=== PATIENT | female | born 1940 | race Caucasian/White ===

== ENCOUNTER 2016-04-07 11:44 | Inpatient (IN) ==
[2016-04-07] MEDS ORDERED: Heparin 1,000 UNITS/500 mL NS 500 ML ONE (14:05)
[2016-04-07] MEDS ORDERED: *HR* Heparin 5,000 UNIT/ML VIAL ONE (14:32)
--- NOTE | 2016-04-07 14:38 | IR Procedure Note ---
Date of procedure: 04/07/16 Consent Obtained: Written consent Timeout: Correct patient and procedure verified, Time out performed, Skin prep completed Local anesthetic: Lidocaine 1% Indications: CRF infiltrated access Procedure Performed: Temp dialysis catheter placement Results/Findings: RIJ 15F temp dialysis catheter placement Complications: None; Tolerated procedure well (Monitor on floor)
[2016-04-07 15:52] LABS: Basophils # 0.1 K/mcL (0.0-0.2); Basophils % 1.1 %; Eosinophils # 0.1 K/mcL (0.0-0.6); Eosinophils % 2.7 %; Hematocrit 24.7 % (35.3-44.9); Hemoglobin 8.1 g/dL (11.5-15.4); Immature Granulocytes % 0.5 % (0-4); Lymphocytes # 0.9 K/mcL (0.6-4.6); Lymphocytes % 20.4 %; Mean Corpuscular HGB Conc 32.8 g/dL (31.6-35.5); Mean Corpuscular Hemoglobin 30.9 pg (28.0-33.3); Mean Corpuscular Volume 94.3 fL (83.0-100.0); Mean Platelet Volume 12.1 fL (9.4-12.4); Monocytes # 0.3 K/mcL (0.0-1.3); Monocytes % 7.8 %; Platelet Count 205 K/mcL (140-400); Red Blood Count 2.62 M/mcL (3.82-4.97); Red Cell Distribution Width 12.6 % (11.5-14.5); Segmented Neutrophils % 67.5 %
--- NOTE | 2016-04-07 15:58 | Emergency Department Note ---
Disposition Clinical Impression: Chronic kidney disease, stage 5 Disposition: Admitted As Inpatient Condition: Good Referrals: Lauren Calivllo MD [Primary Care Provider] - Forms: Work/School Release, ED Satisfaction Letter General Adult HPI - General Chief complaint: ED Recheck/Abnormal Lab/Rx Stated complaint: FISTULA PROBLEM Time Seen by Provider: 04/07/16 13:44 Source: patient Limitations: no limitations Nursing Notes Reviewed: Yes Vital Signs Reviewed: Yes - History of Present Illness HPI Narrative: Patient 75-year-old female was having problems with her fistula is here for dialysis catheter placement admission and dialysis. She has no acute complaints herself she was essentially here for dialysis catheter placement Pain Scale: 0 Associated symptoms: Reports: denies other symptoms - Related Data Home Medications Medication Instructions Recorded Confirmed Aspirin [Adult Low Dose Aspirin EC] 81 mg PO ONCE 06/02/15 09/09/15 Atorvastatin [Lipitor] 40 mg PO DAILY 06/02/15 09/09/15 Enalapril Maleate [Vasotec] 20 mg PO ONCE 06/02/15 09/09/15 Esomeprazole Magnesium [Nexium] 40 mg PO ONCE 06/02/15 09/09/15 Insulin Glargine,Hum.rec.anlog 36 unit SQ DAILY 06/02/15 09/09/15 [Lantus Solostar] Calcitriol [Rocaltrol] 0.25 mcg PO DAILY 09/09/15 09/09/15 Carvedilol [Coreg] 25 mg PO BID 09/09/15 09/09/15 Cholecalciferol (D-3) [Vitamin D] 1,000 unit PO DAILY 09/09/15 09/09/15 Ergocalciferol (VITAMIN D2) 50,000 unit PO GUTIERREZ 09/09/15 09/09/15 [Vitamin D2 (50,000 UNIT)] Fenofibrate Nanocrystallized 48 mg PO DAILY 09/09/15 09/09/15 [Tricor] Furosemide [Lasix] 40 mg PO DAILY 09/09/15 09/09/15 HydrALAZINE 25 mg PO Q6HR 09/09/15 09/09/15 Metolazone [Zaroxolyn] 5 mg PO DAILY 09/09/15 09/09/15 Warfarin [Coumadin] 3 mg PO 1800 07/26/16 07/26/16 Previous Rx's Medication Instructions Recorded Ferrous Sulfate [Iron] 325 mg PO DAILY #30 capsule.er 06/04/15 TraMADol [Ultram] 50 mg PO TID #14 tablet 10/23/15 Allergies Allergy/AdvReac Type Severity Reaction Status Date / Time No Known Allergies Allergy Verified 09/09/15 10:26 All systems ED: reviewed and negative except as stated. Constitutional: Denies: fever, chills, weakness Gastrointestinal: Denies: abdominal pain, nausea, vomiting Past Medical History - Past Medical History Source: patient, old records reviewed, obtained from family, nursing notes reviewed Medical history: Reports: CHF, diabetes, hyperlipidemia, hypertension, myocardial infarction Surgical history: Reports: other Psychiatric history: Reports: no psych history CRANE HOOKER history: Reports: no CRANE HOOKER history - Social History Smoking Status: Never smoker Smokeless Tobacco Status: No Alcohol use: Reports: none Drug use: Reports: none Physical Exam - General Limitations: no limitations General appearance: alert, in no apparent distress Course Vital Signs Temperature 97.4 F L 04/07/16 12:24 Pulse Rate 72 04/07/16 12:24 Respiratory Rate 16 04/07/16 12:24 Blood Pressure 152/70 04/07/16 12:24 O2 Sat by Pulse Oximetry 100 04/07/16 12:24 Temperature 97.4 F L 04/07/16 12:24 Pulse Rate 68 04/07/16 15:07 Respiratory Rate 18 04/07/16 15:07 Blood Pressure 183/75 04/07/16 15:07 O2 Sat by Pulse Oximetry 100 04/07/16 15:07 Oxygen Delivery Oxygen Delivery Room Air Medical Decision Making - [facility] Narrative Medical decision making narrative: Dr. Marrufo nephrology evaluated the patient in the ER he wants to withhold any antihypertensive medication for dialyzer now - Medical Records Medical records reviewed: Yes I reviewed the patient's medical records. - Lab Data Lab results reviewed: Yes I reviewed the patient's lab results.
[2016-04-07 16:02] LABS: INR 1.7; Prothrombin Time 18.5 Seconds (9.4-12.1)
[2016-04-07 16:04] LABS: Activated Partial Thrombo Time 97.5 Seconds (26.0-36.0)
[2016-04-07 16:05] LABS: Calcium 9.6 mg/dL (8.6-10.8)
[2016-04-07] MEDS ORDERED: *HR* Heparin 10,000 UNIT/10 ML VIAL IV PRN (16:12)
[2016-04-07] MEDS ORDERED: 0.9 % Sodium Chloride 250 ML IV PRN (16:12)
[2016-04-07] MEDS ORDERED: 0.9 % Sodium Chloride 1,000 ML PRIME SCH (16:15)
[2016-04-07] MEDS ORDERED: 0.9 % Sodium Chloride 2,000 ML ONE (16:23)
[2016-04-07] MEDS ORDERED: Naloxone 0.4 MG/ML INJ IVP PRN (16:59)
[2016-04-07] MEDS ORDERED: traMADol 50 MG TABLET PO PRN (17:02)
[2016-04-07] MEDS ORDERED: D5% in Water 1,000 ML IV PRN (17:09)
[2016-04-07] MEDS ORDERED: *HR* Dextrose 50 % in Water (Syg) 50 ML SYRINGE IVP PRN (17:09)
[2016-04-07] MEDS ORDERED: Dextrose Gel 15 GM PO PRN ×2 (17:09)
[2016-04-07] MEDS: hydrALAZINE 25 MG TABLET PO SCH (19:34)
[2016-04-07] MEDS ORDERED: *HR* Morphine 2 MG/ML SYRINGE IVP PRN (19:35)
[2016-04-07] MEDS: Insulin LISPRO 300 UNITS/3 ML VIAL SQ SCH ×2 (19:35→21:26)
[2016-04-07] MEDS: *HR* Warfarin 2 MG TABLET PO SCH (19:35)
[2016-04-07] MEDS: Lisinopril 20 MG TABLET PO SCH (19:55)
[2016-04-07] MEDS: Furosemide 40 MG TABLET PO SCH (19:55)
--- NOTE | 2016-04-07 19:59 | Internal Med History&Physical ---
Date of Encounter: 04/07/16 Time of Encounter: 19:56 Assessment and Plan (1) Dialysis AV fistula malfunction Current visit: Yes Status: Acute Patient sent to ED from dialysis center after her AV fistula was found to be not working. She was sent to IR where she had temp HD catheter placed in her right neck, and then she had dialysis. Nephrology is consulted, Dr. Marrufo following patient. NPO after midnight for possible fistulagram tomorrow. Qualifiers: Encounter type: initial encounter Qualified Code(s): T82.590A - Other mechanical complication of surgically created arteriovenous fistula, initial encounter (2) ESRD (end stage renal disease) on dialysis Current visit: Yes Status: Acute Patient reports she just started Hemodialysis last week. Labs prior to dialysis were stable with potassium of 4.0 and BUN/Cr of 83/3.46. Nephrology consulted, Dr. Marrufo following patient Patient had HD this afternoon. Will recheck labs tomorrow morning. (3) Anemia in chronic kidney disease Current visit: Yes Status: Acute Patient with Hgb of 8.1, consistent with her baseline. No signs or symptoms of bleeding. Recheck CBC tomorrow morning. (4) Anticoagulated on Coumadin Current visit: Yes Status: Acute Patient took vitamin K in anticipation of procedure today and INR was 1.7. Resume home dose of coumadin, recheck PT/INR tomorrow morning. (5) Type 2 diabetes mellitus Current visit: Yes Status: Acute diabetic diet Check blood sugars ACHS Home Basal dose of insulin is 36u HS. Give 18u Levemir tonight as will be NPO after midnight for possible procedure. Sliding scale correction dose ACHS Hypoglycemic protocol. 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 Internal Medicine - H&P: HPI Chief complaint: Fistula problem Admitted From: Emergency Dept Plans for Post Hospital Care: Home History of present illness: Ms. Deshpande is a 75 year old female with hypertension, diabetes, hyperlipidemia, congestive heart failure, end-stage renal disease on hemodialysis who was sent to the emergency department today from her dialysis center after they were unable to access her left AV fistula. She was brought to where a temporary catheter was placed in her right IJ and then she had dialysis immediately following. Patient has no complaints, except for pain in her right neck where her in [place] dialysis catheter has been inserted. She denies any shortness of breath or increased swelling. Her labs revealed anemia with hemoglobin of 8.1 which appears to be chronic. BUN and creatinine were consistent with her history of end-stage renal disease at 83 and 3.46 respectively. Her glycemic with glucose of 251. On exam, patient was alert and oriented, in no acute distress. Heart had regular rate and rhythm, lungs were clear bilaterally to auscultation, left AV fistula had positive bruit and thrill. She had a right IJ temporary dialysis catheter and the insertion site appeared clean without drainage. Past Med Surg Social Fam HX - Past Medical History Medical history: CHF, diabetes, hyperlipidemia, hypertension, myocardial infarction Psychiatric history: no psych history - Past Surgical History Surgical History: hysterectomy - Social History Smoking Status: Never smoker Smokeless Tobacco Status: No Alcohol use: none Drug use: none - Family History Mother History Unknown: Yes Hx Family Endocrine Disorder: Yes Father History Unknown: Yes Living Status: Hx Family Cardiac Disorders: Yes Internal Medicine - H&P: Meds Aspirin [Adult Low Dose Aspirin EC] 81 mg PO DAILY 06/02/15 [History] Atorvastatin [Lipitor] 40 mg PO DAILY 06/02/15 [History] Enalapril Maleate [Vasotec] 20 mg PO BID 06/02/15 [History] Esomeprazole Magnesium [Nexium] 40 mg PO DAILY 06/02/15 [History] Insulin Glargine,Hum.rec.anlog [Lantus Solostar] 36 unit SQ DAILY 06/02/15 [ History] Calcitriol [Rocaltrol] 0.25 mcg PO DAILY 09/09/15 [History] Carvedilol [Coreg] 25 mg PO BID 09/09/15 [History] Cholecalciferol (D-3) [Vitamin D] 1,000 unit PO DAILY 09/09/15 [History] Fenofibrate Nanocrystallized [Tricor] 48 mg PO DAILY 09/09/15 [History] Furosemide [Lasix] 40 mg PO BID 09/09/15 [History] HydrALAZINE 25 mg PO Q6HR 09/09/15 [History] Metolazone [Zaroxolyn] 2.5 mg PO DAILY 09/09/15 [History] Ferrous Sulfate [Iron] 325 mg PO BID 04/07/16 [History] Phytonadione [Mephyton] 5 mg PO DAILY 04/07/16 [History] TraMADol [Ultram] 50 mg PO Q8H PRN 04/07/16 [History] Warfarin [Coumadin] 2 mg PO 1800 04/07/16 [History] Allergies No Known Allergies Allergy (Verified 09/09/15 10:26) All Systems PM: A 10-system review of systems was performed and is negative for pertinent findings except as documented above in the HPI. - Constitutional Constitutional: no chills, no fever(s), no night sweats - EENT Eyes: no change in vision, no discharge, no pain, no photophobia Ears: no ear discharge, no ear pain, no tinnitus Nose, mouth and throat: neck pain (right sided neck pain due to HD cath insertion), no dysphagia, no nasal discharge, no sore throat - Cardiovascular Cardiovascular ROS IM: no chest pain, no diaphoresis, no dyspnea, no lightheadedness, no palpitations, no syncope - Respiratory Respiratory: no cough, no dyspnea, no wheezing, no excessive phlegm production - Gastrointestinal Gastrointestinal: no abdominal pain, no diarrhea, no hematemesis, no hematochezia, no melena, no nausea, no vomiting - Genitourinary Genitourinary: no change in urinary stream, no dysuria, no flank pain, no hematuria - Musculoskeletal Musculoskeletal ROS IM: no numbness, no tingling - Integumentary Integumentary IM: no rash, no unusual bruising - Neurological Neurological ROS: no confusion, no convulsions, no focal weakness, no numbness, no tingling, no tremor(s) - Hematologic/Lymphatic Hematologic/Lymphatic: no easy bruising - Constitutional Vitals: Temp Pulse Resp BP Pulse Ox 97.4 F L 68 18 146/87 100 04/07/16 18:55 04/07/16 15:07 04/07/16 18:55 04/07/16 18:55 04/07/16 17:15 General appearance: Present: A&O X 3, no acute distress - Head Head exam: Present: atraumatic, normocephalic - Eye Eye exam: Present: PERRL, conjuntiva pink, sclera anicteric Pupils: Present: PERRL - Neck Neck exam general surgery: Present: supple, trachea midline. Absent: lymphadenopathy Additional comments: right IJ HD catheter - Respiratory Respiratory exam: Present: CTAB. Absent: accessory muscle use, rales, rhonchi, wheezes - Cardiovascular Cardiovascular exam: Present: RRR, +S1, +S2. Absent: diastolic murmur, gallop, rubs, systolic murmur - GI/Abdominal GI/Abdominal exam: Present: normal bowel sounds, soft, no peritoneal signs. Absent: distended, tenderness - Extremities Exam Extremities exam: Present: pedal edema (bilatera +1 edema), warm, radial pulses palpable and symetrical. Absent: calf tenderness, cyanotic - Neurological Exam Neurological exam: Present: CN II-XII intact, oriented X3, no focal deficits. Absent: facial droop, speech deficit - Skin Skin exam: Present: dry, intact Internal Med - H&P Results - Labs CBC & Chem 7: 04/07/16 15:26 04/07/16 15:26 Labs: All Lab Results (24 Hours) 04/07/16 04/07/16 04/07/16 Range/Units 15:26 15:26 15:26 WBC 4.4 (4.3-11.1) K/mcL RBC 2.62 L (3.82-4.97) M/mcL Hgb 8.1 L (11.5-15.4) g/dL Hct 24.7 L (35.3-44.9) % MCV 94.3 (83.0-100.0) fL MCH 30.9 (28.0-33.3) pg MCHC 32.8 (31.6-35.5) g/dL RDW 12.6 (11.5-14.5) % Plt Count 205 (140-400) K/mcL MPV 12.1 (9.4-12.4) fL Immature Gran % 0.5 (0-4) % Seg Neutrophils % 67.5 % Lymphocytes % 20.4 % Monocytes % 7.8 % Eosinophils % 2.7 % Basophils % 1.1 % Neutrophils # 3.0 (1.6-8.9) K/mcL Lymphocytes # 0.9 (0.6-4.6) K/mcL Monocytes # 0.3 (0.0-1.3) K/mcL Eosinophils # 0.1 (0.0-0.6) K/mcL Basophils # 0.1 (0.0-0.2) K/mcL PT 18.5 H (9.4-12.1) Seconds INR 1.7 APTT 97.5 H (26.0-36.0) Seconds Sodium 136 (136-145) mEq/L Potassium 4.0 (3.5-4.5) mEq/L Chloride 98 (98-109) mEq/L Carbon Dioxide 24 (19-29) mEq/L BUN 83 H (7-20) mg/dL Creatinine 3.46 H (0.57-1.11) mg/dL Est GFR ( Amer) 16 L (> 60) Est GFR (Non-Af Amer) 13 L (> 60) BUN/Creatinine Ratio 24 (6-26) Glucose 251 H (70-99) mg/dL POC Glucose (58-89) Calculated Osmolality 316 H (280-300) Calcium 9.6 (8.6-10.8) mg/dL 04/07/16 Range/Units 17:43 WBC (4.3-11.1) K/mcL RBC (3.82-4.97) M/mcL Hgb (11.5-15.4) g/dL Hct (35.3-44.9) % MCV (83.0-100.0) fL MCH (28.0-33.3) pg MCHC (31.6-35.5) g/dL RDW (11.5-14.5) % Plt Count (140-400) K/mcL MPV (9.4-12.4) fL Immature Gran % (0-4) % Seg Neutrophils % % Lymphocytes % % Monocytes % % Eosinophils % % Basophils % % Neutrophils # (1.6-8.9) K/mcL Lymphocytes # (0.6-4.6) K/mcL Monocytes # (0.0-1.3) K/mcL Eosinophils # (0.0-0.6) K/mcL Basophils # (0.0-0.2) K/mcL PT (9.4-12.1) Seconds INR APTT (26.0-36.0) Seconds Sodium (136-145) mEq/L Potassium (3.5-4.5) mEq/L Chloride (98-109) mEq/L Carbon Dioxide (19-29) mEq/L BUN (7-20) mg/dL Creatinine (0.57-1.11) mg/dL Est GFR ( Amer) (> 60) Est GFR (Non-Af Amer) (> 60) BUN/Creatinine Ratio (6-26) Glucose (70-99) mg/dL POC Glucose 156 H (58-89) Calculated Osmolality (280-300) Calcium (8.6-10.8) mg/dL
[2016-04-07] MEDS ORDERED: Insulin DETEMIR 100 UNIT/ML X5UNITS SQ SCH (21:00)
[2016-04-07] MEDS: Insulin DETEMIR 100 UNIT/ML X5UNITS SQ SCH (21:28)
[2016-04-08] MEDS: hydrALAZINE 25 MG TABLET PO SCH ×4 (00:26→18:10)
[2016-04-08] MEDS ORDERED: Ondansetron 4 MG/2 ML VIAL IVP ONE (00:33)
[2016-04-08] MEDS: *HR* HYDROcodone/Acet 5/325 mg TABLET PO PRN ×2 (00:43→08:06)
[2016-04-08 04:31] LABS: INR 1.6; Prothrombin Time 17.4 Seconds (9.4-12.1)
[2016-04-08 04:32] LABS: Activated Partial Thrombo Time 31.1 Seconds (26.0-36.0)
[2016-04-08 05:50] LABS: Basophils % 0.9 %; Eosinophils # 0.1 K/mcL (0.0-0.6); Eosinophils % 1.9 %; Hemoglobin 7.4 g/dL (11.5-15.4); Immature Granulocytes % 0.2 % (0-4); Immature Platelets 6.9 % (1.1-6.1); Lymphocytes % 24.1 %; Mean Corpuscular HGB Conc 33.6 g/dL (31.6-35.5); Mean Corpuscular Hemoglobin 31.8 pg (28.0-33.3); Mean Corpuscular Volume 94.4 fL (83.0-100.0); Mean Platelet Volume 12.3 fL (9.4-12.4); Monocytes # 0.4 K/mcL (0.0-1.3); Monocytes % 9.7 %; Neutrophils # 2.7 K/mcL (1.6-8.9); Platelet Count 180 K/mcL (140-400); Red Blood Count 2.33 M/mcL (3.82-4.97); Red Cell Distribution Width 12.9 % (11.5-14.5); Segmented Neutrophils % 63.2 %
[2016-04-08 07:18] LABS: Potassium 3.8 mEq/L (3.5-4.5)
[2016-04-08] MEDS: Insulin LISPRO 300 UNITS/3 ML VIAL SQ SCH ×4 (08:05→21:45)
[2016-04-08] MEDS ORDERED: *HR* Phytonadione 5 MG TABLET PO SCH (09:00)
[2016-04-08] MEDS: Aspirin Enteric Coated 81 MG Tablet PO SCH (09:40)
[2016-04-08] MEDS: Lisinopril 20 MG TABLET PO SCH ×2 (09:40→21:47)
[2016-04-08] MEDS: Fenofibrate 54 MG TABLET PO SCH (09:40)
[2016-04-08] MEDS: Furosemide 40 MG TABLET PO SCH ×2 (09:40→18:10)
[2016-04-08] MEDS: metOLazone 5 MG TABLET PO SCH (09:41)
[2016-04-08] MEDS: Cholecalciferol (D-3) 1,000 UNIT TABLET PO SCH (09:42)
[2016-04-08] MEDS ORDERED: 0.9 % Sodium Chloride 500 ML ONE (10:20)
[2016-04-08] MEDS ORDERED: Heparin 1,000 UNITS/500 mL NS 500 ML ONE (10:20)
[2016-04-08] MEDS ORDERED: *HR* FentaNYL (PF) 100 MCG/2 ML VIAL ONE (11:01)
[2016-04-08] MEDS ORDERED: *HR* Midazolam HCl 2 MG/2 ML VIAL ONE (11:02)
[2016-04-08] MEDS ORDERED: *HR* FentaNYL (PF) 100 MCG/2 ML VIAL IVP PRN (11:12)
[2016-04-08] MEDS ORDERED: *HR* Midazolam HCl 2 MG/2 ML VIAL IVP PRN (11:14)
--- NOTE | 2016-04-08 12:47 | Pre-Sedation Evaluation ---
Pre-sedation evaluation - Pre-sedation checklist Date of procedure: 04/07/16 Procedure: fistulogram Recent Vitals: Last Vital Signs Temp 97.3 F L 04/08/16 12:33 Pulse 77 04/08/16 12:33 Resp 18 04/08/16 12:33 BP 137/65 04/08/16 12:33 Pulse Ox 97 04/08/16 12:33 H&P (including ROS) documented in medical record: Yes Dietary Status: NPO 6 hours prior to procedure Airway Assessment: Patient can open mouth completely, TMJ function normal, Micrognathia (under-bite, receding chin) absent, Neck with adequate range of motion ASA Classification *see protocol: CLASS II-Mild systemic disease Plan of Care: Pt appropriate candidate for procedure/moderate/conscious sedation , Risks/benefits of procedure/sedation discussed w/ patient/family, If not NPO; Risk of intake outweiged by necessity to perform procedure
--- NOTE | 2016-04-08 14:55 | Nephrology Consult Note ---
Date of Encounter: 04/08/16 Time of Encounter: 14:53 Assessment and Plan (1) ESRD (end stage renal disease) on dialysis Current Visit: Yes Status: Acute HD MWF and as needed. Renal diet Adjust medication for renal function. (2) Anemia in chronic kidney disease Current Visit: Yes Status: Acute Monitor and transfuse as needed. (3) Dialysis AV fistula malfunction Current Visit: Yes Status: Acute Fistulogram ordered. She may need ligation of the collateral vein. Qualifiers: Encounter type: initial encounter Qualified Code(s): T82.590A - Other mechanical complication of surgically created arteriovenous fistula, initial encounter (4) Type 2 diabetes mellitus Current Visit: Yes Status: Acute Per primary team. Qualifiers: Diabetes mellitus complication status: with kidney complications Diabetes mellitus complication detail: with chronic kidney disease Diabetes mellitus nursing home insulin use: with nursing home use Chronic kidney disease stage: on chronic dialysis Qualified Code(s): E11.22 - Type 2 diabetes mellitus with diabetic chronic kidney disease; N18.6 - End stage renal disease; Z79.4 - detention (current) use of insulin; Z99.2 - Dependence on renal dialysis History of Present Illness - Reason for Consult Consult date: 04/08/16 end stage renal disease - Chief Complaint Failed HD access - History of Present Illness Ms. Deshpande is a 75 yo woman who has a history of ESRD and just started HD the Tuesday prior to admission who presents after her access infiltrated. She has no other new complaint. Past Med Surg Social Fam HX - Past Medical History Medical history: CHF, diabetes, hyperlipidemia, hypertension, myocardial infarction Psychiatric history: no psych history - Past Surgical History Surgical History: hysterectomy - Social History Smoking Status: Never smoker Smokeless Tobacco Status: No Alcohol use: none Drug use: none - Family History Mother History Unknown: Yes Hx Family Endocrine Disorder: Yes Father History Unknown: Yes Living Status: Hx Family Cardiac Disorders: Yes Medications and Allergies Aspirin [Adult Low Dose Aspirin EC] 81 mg PO DAILY 06/02/15 [History] Atorvastatin [Lipitor] 40 mg PO DAILY 06/02/15 [History] Enalapril Maleate [Vasotec] 20 mg PO BID 06/02/15 [History] Esomeprazole Magnesium [Nexium] 40 mg PO DAILY 06/02/15 [History] Insulin Glargine,Hum.rec.anlog [Lantus Solostar] 36 unit SQ DAILY 06/02/15 [ History] Calcitriol [Rocaltrol] 0.25 mcg PO DAILY 09/09/15 [History] Carvedilol [Coreg] 25 mg PO BID 09/09/15 [History] Cholecalciferol (D-3) [Vitamin D] 1,000 unit PO DAILY 09/09/15 [History] Fenofibrate Nanocrystallized [Tricor] 48 mg PO DAILY 09/09/15 [History] Furosemide [Lasix] 40 mg PO BID 09/09/15 [History] HydrALAZINE 25 mg PO Q6HR 09/09/15 [History] Metolazone [Zaroxolyn] 2.5 mg PO DAILY 09/09/15 [History] Ferrous Sulfate [Iron] 325 mg PO BID 04/07/16 [History] Phytonadione [Mephyton] 5 mg PO DAILY 04/07/16 [History] TraMADol [Ultram] 50 mg PO Q8H PRN 04/07/16 [History] Warfarin [Coumadin] 2 mg PO 1800 04/07/16 [History] Allergies No Known Allergies Allergy (Verified 09/09/15 10:26) Review of Systems All Systems: reviewed and no additional remarkable complaints except as stated ( as documented in the HPI) Exam - Vital Signs Vital signs: Initial Vital Signs Temp Pulse Resp BP Pulse Ox 97.4 F L 72 16 152/70 100 04/07/16 12:24 04/07/16 12:24 04/07/16 12:24 04/07/16 12:24 04/07/16 12:24 Vital Signs - Last 8 Hours Temp Pulse Resp BP Pulse Ox 04/08/16 12:33 97.3 F L 77 18 137/65 97 04/08/16 12:10 68 13 161/75 100 04/08/16 12:00 71 14 158/72 100 04/08/16 11:51 72 12 160/67 97 04/08/16 11:41 65 14 164/72 100 04/08/16 11:31 64 13 181/77 100 04/08/16 11:21 70 14 178/77 100 04/08/16 11:10 70 12 186/81 100 04/08/16 09:47 98 04/08/16 07:40 97.5 F L 64 16 149/76 98 Intake and Output 04/07/16 04/08/16 04/08/16 23:59 07:59 15:59 Intake Total 600 / 600 0 / 0 Output Total 2600 / 2600 Balance -1999 0 / 0 Intake: Oral 0 / 0 0 / 0 Intake, Rinseback and 600 / 600 Flushes Output: Urine 0 / 0 Total Dialysis Output 2600 / 2600 Other: Weight 90.6 kg Blood Glucose* 267 100 97 Hemodialysis Net Fluid 2000 Removed (mL) Patient Weight 04/08/16 23:59 Weight 90.6 kg - General Appearance General appearance: well-developed, well-nourished EENT: ATNC Neck: supple Respiratory: clear Cardiology: no edema, regular rate, regular rhythm Gastrointestinal: normoactive bowel sounds, no tenderness Integumentary: warm and dry Neurologic: alert and oriented x3 Musculoskeletal: no cyanosis Psychiatric: mood/affect appropriate Results - Lab Results 04/08/16 03:31 04/08/16 03:31 Most recent lab results Calcium 9.0 mg/dL (8.6-10.8) 04/08/16 03:31 Consult Discharge Plan - Plan Referrals: Lauren Calvillo MD [Primary Care Provider] - 04/19/16 1:45 pm (Requested )
--- NOTE | 2016-04-08 15:12 | IR Procedure Note ---
Date of procedure: 04/08/16 Consent Obtained: Verbal consent, Written consent Timeout: Correct patient and procedure verified, Correct site verified, Time out performed, Skin prep completed Local anesthetic: Lidocaine 1% Indications: not able to access fistula Procedure Performed: fistulogram Site/Technique: L UE Results/Findings: patient fistula. mildly prominent venous collateral at the mid forearm. Estimated blood loss (cc): 2 Complications: None; Tolerated procedure well Post Procedure Treatment Plan: bedrest x 1 hour
[2016-04-08] MEDS: *HR* Warfarin 2 MG TABLET PO SCH (18:10)
--- NOTE | 2016-04-08 19:00 | Internal Med Progress Note ---
<Nas Yang - Last Filed: 04/08/16 18:58> Date of Encounter: 04/08/16 Time of Encounter: 09:00 - Assessment and plan (1) Dialysis AV fistula malfunction Current Visit: Yes Status: Acute Assessment and plan: Reason for admission was malfunctioning AV fistula of left forearm. Had hemodialysis last night via temporary IJ catheter Fistulogram reported as patent with mildly prominent venous collateral at the midforearm Qualifiers: Encounter type: initial encounter Qualified Code(s): T82.590A - Other mechanical complication of surgically created arteriovenous fistula, initial encounter (2) ESRD (end stage renal disease) on dialysis Current Visit: Yes Status: Acute Assessment and plan: Appreciate nephrology recommendations Serum creatinine much improved after dialysis Continue hemodialysis MWF + PRN (3) Anticoagulated on Coumadin Current Visit: Yes Status: Acute Assessment and plan: Continue to follow INR (4) Anemia in chronic kidney disease Current Visit: Yes Status: Acute Assessment and plan: Continue to monitor and transfuse as necessary (5) Type 2 diabetes mellitus Current Visit: Yes Status: Acute Assessment and plan: Continue ACHS checks Blood glucose was 97 this afternoon on reduced Levemir dose of 18 units We will continue this dose and reassess in the morning Qualifiers: Diabetes mellitus complication status: with kidney complications Diabetes mellitus complication detail: with chronic kidney disease Diabetes mellitus terminal system operator insulin use: with terminal system operator use Chronic kidney disease stage: on chronic dialysis Qualified Code(s): E11.22 - Type 2 diabetes mellitus with diabetic chronic kidney disease; N18.6 - End stage renal disease; Z79.4 - manager intermediate (current) use of insulin; Z99.2 - Dependence on renal dialysis (6) DVT prophylaxis Current Visit: Yes Status: Acute Assessment and plan: patient is on Coumadin - Subjective Interval history: Mrs. Deshpande was seen and examined at bedside. She was sitting up in bed in no apparent distress. She denied chest pains, palpitations, dyspnea, abdominal pain, weakness, lightheadedness or other acute symptoms - Constitutional Vitals: Temp Pulse Resp BP Pulse Ox 98 F 70 16 151/75 100 04/08/16 16:21 04/08/16 16:21 04/08/16 16:21 04/08/16 16:21 04/08/16 16:21 General appearance: Present: A&O X 3, no acute distress - Head Head exam: Present: atraumatic, normocephalic - Eye Eye exam: Present: PERRL, conjuntiva pink, sclera anicteric Pupils: Present: PERRL - Neck Neck exam general surgery: Present: supple, trachea midline. Absent: lymphadenopathy - Respiratory Respiratory exam: Present: CTAB. Absent: accessory muscle use, rales, rhonchi, wheezes - Cardiovascular Cardiovascular exam: Present: RRR, +S1, +S2. Absent: diastolic murmur, gallop, rubs, systolic murmur Additional comments: AV fistula of left forearm with large surrounding ecchymosis. Nontender, skin dry and intact. Temporary catheter at right IJ appears clean and dry - GI/Abdominal GI/Abdominal exam: Present: normal bowel sounds, soft, no peritoneal signs. Absent: distended, tenderness - Extremities Exam Extremities exam: Present: warm, radial pulses palpable and symetrical. Absent : calf tenderness, cyanotic, pedal edema - Neurological Exam Neurological exam: Present: CN II-XII intact, oriented X3, no focal deficits. Absent: pronater drift, facial droop, speech deficit - Skin Skin exam: Present: dry, intact Internal Medicine: Result - Labs CBC & Chem 7: 04/08/16 03:31 04/08/16 03:31 Labs: Short CBC 04/08/16 Range/Units 03:31 WBC 4.2 L (4.3-11.1) K/mcL Hgb 7.4 L (11.5-15.4) g/dL Hct 22.0 L (35.3-44.9) % Plt Count 180 (140-400) K/mcL Neutrophils # 2.7 (1.6-8.9) K/mcL BMP 04/08/16 03:31 Sodium 139 Potassium 3.8 Chloride 102 Carbon Dioxide 25 BUN 43 H D Creatinine 2.47 H Glucose 104 H Calcium 9.0 - ABG Interpretation ABG results: PT/INR, D-dimer PT 17.4 Seconds (9.4-12.1) H 04/08/16 03:31 - Impressions Impressions AV Shunt Angiogram 04/08/16 00:00 IMPRESSION: Widely patent left forearm arteriovenous fistula, venous outflow tract, and central veins. A mildly prominent venous collateral arises from the venous outflow tract at the level of the mid forearm. D/ / 04/08/2016 14:56:15 Jack Gage MD / william Interpreting Provider: Jack Gage MD Guidance Needle Placement Ultrasound 04/08/16 00:00 IMPRESSION: Widely patent left forearm arteriovenous fistula, venous outflow tract, and central veins. A mildly prominent venous collateral arises from the venous outflow tract at the level of the mid forearm. D/ / 04/08/2016 14:56:15 Jack Gage MD / william Interpreting Provider: Jack Gage MD - VTE Documentation of Mechanical Device: Graduated compression elastic hosiery Consult Discharge Plan - Plan Referrals: Lauren Calvillo MD [Primary Care Provider] - 04/19/16 1:45 pm (Requested ) <Cornel Curiel - Last Filed: 04/09/16 09:14> - Constitutional Vitals: Temp Pulse Resp BP Pulse Ox 97.4 F L 79 14 124/73 96 04/09/16 07:33 04/09/16 07:33 04/09/16 07:33 04/09/16 07:33 04/09/16 07:33 Internal Medicine: Result - Labs CBC & Chem 7: 04/09/16 03:20 04/09/16 03:20 Labs: Short CBC 04/09/16 Range/Units 03:20 WBC 4.1 L (4.3-11.1) K/mcL Hgb 7.2 L (11.5-15.4) g/dL Hct 22.4 L (35.3-44.9) % Plt Count 177 (140-400) K/mcL Neutrophils # 2.3 (1.6-8.9) K/mcL BMP 04/09/16 03:20 Sodium 138 Potassium 4.0 Chloride 99 Carbon Dioxide 29 BUN 53 H Creatinine 3.53 H Glucose 143 H Calcium 9.0 - ABG Interpretation ABG results: PT/INR, D-dimer PT 17.3 Seconds (9.4-12.1) H 04/09/16 03:20 - Impressions Impressions AV Shunt Angiogram 04/08/16 00:00 IMPRESSION: Widely patent left forearm arteriovenous fistula, venous outflow tract, and central veins. A mildly prominent venous collateral arises from the venous outflow tract at the level of the mid forearm. D/ / 04/08/2016 14:56:15 Jack Gage MD / william Interpreting Provider: Jack Gage MD Guidance Needle Placement Ultrasound 04/08/16 00:00 IMPRESSION: Widely patent left forearm arteriovenous fistula, venous outflow tract, and central veins. A mildly prominent venous collateral arises from the venous outflow tract at the level of the mid forearm. D/ / 04/08/2016 14:56:15 Jack Gage MD / william Interpreting Provider: Jack Gage MD - Attending Attestation I examined this patient and my medical decision-making was reviewed with the DYE RANGE TENDER/PA/Advanced Practice Nurse/Resident Physician. I agree with the documented findings, disposition and treatment plan as described except to the extent set forth below. Malfunctioning avf, IR note appreciated. HD as per nephrology.
[2016-04-08] MEDS: Insulin DETEMIR 100 UNIT/ML X5UNITS SQ SCH (21:45)
[2016-04-09] MEDS: hydrALAZINE 25 MG TABLET PO SCH ×4 (00:16→21:24)
[2016-04-09 03:47] LABS: Eosinophils # 0.1 K/mcL (0.0-0.6); Eosinophils % 3.2 %; Hematocrit 22.4 % (35.3-44.9); Hemoglobin 7.2 g/dL (11.5-15.4); Immature Granulocytes % 0.5 % (0-4); Immature Platelets 5.7 % (1.1-6.1); Lymphocytes # 1.2 K/mcL (0.6-4.6); Lymphocytes % 29.1 %; Mean Corpuscular HGB Conc 32.1 g/dL (31.6-35.5); Mean Corpuscular Hemoglobin 30.8 pg (28.0-33.3); Mean Corpuscular Volume 95.7 fL (83.0-100.0); Mean Platelet Volume 11.2 fL (9.4-12.4); Monocytes # 0.4 K/mcL (0.0-1.3); Monocytes % 9.8 %; Neutrophils # 2.3 K/mcL (1.6-8.9); Platelet Count 177 K/mcL (140-400); Red Blood Count 2.34 M/mcL (3.82-4.97); Segmented Neutrophils % 56.4 %
[2016-04-09 04:05] LABS: INR 1.6; Prothrombin Time 17.3 Seconds (9.4-12.1)
[2016-04-09] MEDS: Fenofibrate 54 MG TABLET PO SCH (06:26)
[2016-04-09] MEDS: Cholecalciferol (D-3) 1,000 UNIT TABLET PO SCH (06:26)
[2016-04-09] MEDS: metOLazone 5 MG TABLET PO SCH (06:27)
[2016-04-09] MEDS: Aspirin Enteric Coated 81 MG Tablet PO SCH (06:27)
[2016-04-09] MEDS ORDERED: 0.9 % Sodium Chloride 250 ML IV PRN (07:53)
[2016-04-09] MEDS: Furosemide 40 MG TABLET PO SCH ×2 (08:23→21:27)
[2016-04-09] MEDS: Lisinopril 20 MG TABLET PO SCH ×2 (08:24→21:27)
[2016-04-09] MEDS: Insulin LISPRO 300 UNITS/3 ML VIAL SQ SCH ×4 (08:24→21:27)
--- NOTE | 2016-04-09 08:56 | Nephrology Progress Note ---
Date of Encounter: 04/09/16 Time of Encounter: 08:30 - Assessment and Plan (1) ESRD (end stage renal disease) on dialysis Current Visit: Yes Status: Chronic HD today for clearance and volume mgt. Appreciate IR. I reviewed their report: only accessory veins. With rest and elevation plus Ice pack, her very ecchymotic AVF may improve with rest. Meanwhile, she has a temporary HD catheter in place for HD today. Pt's with temporary HD catheters should never be discharged from the hospital because these catheters have a higher infection risk and are not indicated for use outside the hospital. Though the Fistulagram demonstrated patency, clinically on exam it has a weak bruit and essentially no palpable thrill. So I recommend resting this AVF as it remains so ecchymotic, and to arrange for a Permacath on Tuesday. Hold Plavix, ASA for 5 days and to be NPO on Tuesday night. Recommend holding Warfarin; and heparin bridging. I'll plan for HD after the Permacath on Tuesday and if HD goes smoothly with the Permacath, then she may discharge. Later as an outpt the AVF could then be optimized. (2) Dialysis AV fistula malfunction Current Visit: Yes Status: Acute See above Qualifiers: Encounter type: initial encounter Qualified Code(s): T82.590A - Other mechanical complication of surgically created arteriovenous fistula, initial encounter (3) Anemia in chronic kidney disease Current Visit: Yes Status: Acute Goal Hgb is 10-11. Will need 1 unit PRBC and will add an MOISE. Subjective Principal diagnosis: ESRD, Dialysis access dysfunction Interval history: Pt was s/e. She did not report pain, and is scheduled for HD today. I reviewed the handoff notes from my colleague Dr. Marrufo: incipient ESRD and her pre- existing AVF only worked on her first outpt HD. She required placement of a temporary HD catheter and underwent a fistulagram. She voiced no major complaints. Objective - Vital Signs Vital signs: Vital Signs Temp Pulse Resp BP Pulse Ox 04/09/16 07:33 97.4 F L 79 14 124/73 96 04/09/16 04:08 97.7 F 78 16 151/74 97 04/08/16 20:17 98.7 F 87 18 145/61 95 04/08/16 16:21 98 F 70 16 151/75 100 04/08/16 12:33 97.3 F L 77 18 137/65 97 04/08/16 12:10 68 13 161/75 100 04/08/16 12:00 71 14 158/72 100 04/08/16 11:51 72 12 160/67 97 04/08/16 11:41 65 14 164/72 100 04/08/16 11:31 64 13 181/77 100 04/08/16 11:21 70 14 178/77 100 04/08/16 11:10 70 12 186/81 100 04/08/16 09:47 98 Intake and Output 04/08/16 04/09/16 04/09/16 23:59 07:59 15:59 Intake Total 0 / 0 Output Total 800 / 800 Balance 0 / 0 -800 / -800 Intake: Oral 0 / 0 Output: Urine 800 / 800 Other: Weight 91 kg Blood Glucose* 117 163 Patient Weight 04/09/16 23:59 Weight 91 kg - General Appearance General appearance: Present: well-developed, well-nourished, appears started age , obese EENT: Present: ATNC, PERRL, mucous membranes moist Neck: Present: supple Respiratory: Present: clear Cardiology: Present: no edema, regular rate (though she has a hx of AFib on coumadin), regular rhythm, normal S1, normal S2 Dialysis Vascular Access: Arteriovenous Fistula (Left forearm AVF with significant ecchymoses, no palpable thrill and only a weak bruit on auscultation. RIJ Temporary HD catheter was C/D/I) Gastrointestinal: Present: normoactive bowel sounds, no tenderness, no guarding , obese Integumentary: Present: no rash, warm and dry Neurologic: Present: no focal deficit, no asterixis, alert and oriented x3 Musculoskeletal: Present: no deformities, no erythema, no cyanosis Psychiatric: Present: mood/affect appropriate, cooperative - Lab 04/10/16 04:00 04/10/16 04:00 Most recent lab results Calcium 9.0 mg/dL (8.6-10.8) 04/09/16 03:20 - VTE Documentation of Mechanical Device: Graduated compression elastic hosiery Consult Discharge Plan - Plan Referrals: Lauren Calvillo MD [Primary Care Provider] - 04/19/16 1:45 pm (Requested )
[2016-04-09] MEDS ORDERED: *HR* Heparin 5,000 UNIT/ML VIAL IVP PRN (12:39)
[2016-04-09] MEDS ORDERED: *HR* Heparin 5,000 UNIT/ML VIAL IVP ONE (12:39)
[2016-04-09] MEDS ORDERED: Heparin 25,000 UNIT/500 ML D5W 25,000 UNIT/500 ML MLS IVC SCH (12:45)
[2016-04-09] MEDS ORDERED: 0.9 % Sodium Chloride 250 ML ONE (13:35)
[2016-04-09 13:36] LABS: Hematocrit 23.3 % (35.3-44.9); Hemoglobin 7.5 g/dL (11.5-15.4); Mean Corpuscular HGB Conc 32.2 g/dL (31.6-35.5); Mean Corpuscular Volume 96.3 fL (83.0-100.0); Mean Platelet Volume 11.4 fL (9.4-12.4); Platelet Count 174 K/mcL (140-400); Red Blood Count 2.42 M/mcL (3.82-4.97); Red Cell Distribution Width 12.9 % (11.5-14.5)
[2016-04-09] MEDS: Heparin 25,000 UNIT/500 ML D5W 25,000 UNIT/500 ML MLS IVC SCH (13:40)
[2016-04-09 13:41] LABS: INR 1.6
[2016-04-09] MEDS ORDERED: 0.9 % Sodium Chloride 2,000 ML ONE (14:19)
--- NOTE | 2016-04-09 15:54 | Internal Med Progress Note ---
<Nas Yang - Last Filed: 04/09/16 15:51> Date of Encounter: 04/09/16 Time of Encounter: 09:00 - Assessment and plan (1) Dialysis AV fistula malfunction Current Visit: Yes Status: Acute Assessment and plan: Reason for admission was malfunctioning AV fistula of left forearm. Had hemodialysis upon admission as well as today Fistulogram reported as patent with mildly prominent venous collateral at the midforearm, however; per nephrology evaluation the fistula is nonfunctional and patient will require permacath planned for 04/12/16 Qualifiers: Encounter type: initial encounter Qualified Code(s): T82.590A - Other mechanical complication of surgically created arteriovenous fistula, initial encounter (2) ESRD (end stage renal disease) on dialysis Current Visit: Yes Status: Chronic Assessment and plan: Appreciate nephrology recommendations We will continue to monitor kidney function Continue hemodialysis MWF + PRN (3) Anticoagulated on Coumadin Current Visit: Yes Status: Acute Assessment and plan: Will hold Coumadin and bridged with heparin in preparation for procedure (4) Anemia in chronic kidney disease Current Visit: Yes Status: Acute Assessment and plan: Continue to monitor and transfuse as necessary (5) Type 2 diabetes mellitus Current Visit: Yes Status: Acute Assessment and plan: Continue ACHS checks Blood glucose has been stable on decreased detemir, we will continue to monitor and consider increasing towards her home dose of Levemir Qualifiers: Diabetes mellitus complication status: with kidney complications Diabetes mellitus complication detail: with chronic kidney disease Diabetes 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 Deshpande was seen and examined at bedside. She was sitting up in bed and in no apparent distress. She denies chest pains, palpitations, dyspnea, abdominal pain, weakness, lightheadedness or other acute symptoms - Constitutional Vitals: Temp Pulse Resp BP Pulse Ox 98.0 F 80 18 108/68 98 04/09/16 15:12 04/09/16 15:12 04/09/16 15:12 04/09/16 15:12 04/09/16 15:12 General appearance: Present: A&O X 3, no acute distress - Head Head exam: Present: atraumatic, normocephalic - Eye Eye exam: Present: PERRL, conjuntiva pink, sclera anicteric Pupils: Present: PERRL - Neck Neck exam general surgery: Present: supple, trachea midline. Absent: lymphadenopathy - Respiratory Respiratory exam: Present: CTAB. Absent: accessory muscle use, rales, rhonchi, wheezes - Cardiovascular Cardiovascular exam: Present: RRR, +S1, +S2. Absent: diastolic murmur, gallop, rubs, systolic murmur - GI/Abdominal GI/Abdominal exam: Present: normal bowel sounds, soft, no peritoneal signs. Absent: distended, tenderness - Extremities Exam Extremities exam: Present: warm. Absent: calf tenderness, cyanotic, pedal edema Additional comments: Large ecchymosis surrounding the AV fistula left forearm - Neurological Exam Neurological exam: Present: CN II-XII intact, oriented X3, no focal deficits. Absent: pronater drift, facial droop, speech deficit - Skin Skin exam: Present: dry, intact Internal Medicine: Result - Labs CBC & Chem 7: 04/09/16 13:30 04/09/16 03:20 Labs: Short CBC 04/09/16 04/09/16 Range/Units 03:20 13:30 WBC 4.1 L 5.1 (4.3-11.1) K/mcL Hgb 7.2 L 7.5 L (11.5-15.4) g/dL Hct 22.4 L 23.3 L (35.3-44.9) % Plt Count 177 174 (140-400) K/mcL Neutrophils # 2.3 (1.6-8.9) K/mcL BMP 04/09/16 03:20 Sodium 138 Potassium 4.0 Chloride 99 Carbon Dioxide 29 BUN 53 H Creatinine 3.53 H Glucose 143 H Calcium 9.0 - ABG Interpretation ABG results: PT/INR, D-dimer PT 17.0 Seconds (9.4-12.1) H 04/09/16 13:30 - VTE Documentation of Mechanical Device: Graduated compression elastic hosiery Consult Discharge Plan - Plan Referrals: Lauren Calvillo MD [Primary Care Provider] - 04/19/16 1:45 pm (Requested ) <Cronel Curiel - Last Filed: 04/10/16 07:26> - Constitutional Vitals: Temp Pulse Resp BP Pulse Ox 98.0 F 84 18 115/77 93 L 04/10/16 07:19 04/10/16 07:19 04/10/16 07:19 04/10/16 07:19 04/10/16 07:19 Internal Medicine: Result - Labs CBC & Chem 7: 04/10/16 04:00 04/10/16 04:00 Labs: Short CBC 04/10/16 Range/Units 04:00 WBC 4.5 (4.3-11.1) K/mcL Hgb 8.4 L (11.5-15.4) g/dL Hct 25.9 L (35.3-44.9) % Plt Count 173 (140-400) K/mcL Neutrophils # 2.5 (1.6-8.9) K/mcL BMP 04/10/16 04:00 Sodium 137 Potassium 3.8 Chloride 98 Carbon Dioxide 28 BUN 25 H D Creatinine 2.74 H Glucose 167 H Calcium 8.8 - ABG Interpretation ABG results: PT/INR, D-dimer PT 17.0 Seconds (9.4-12.1) H 04/09/16 13:30 - Attending Attestation I examined this patient and my medical decision-making was reviewed with the BENCH JEWELER/PA/Advanced Practice Nurse/Resident Physician. I agree with the documented findings, disposition and treatment plan as described except to the extent set forth below. Permacath on tuesday, very high risk of thromboembolic events, d/c coumadin and start heparin drip. HD as per nephro.
[2016-04-09] MEDS ORDERED: *HR* Heparin 10,000 UNIT/10 ML VIAL IV PRN (17:08)
[2016-04-09] MEDS: Insulin DETEMIR 100 UNIT/ML X5UNITS SQ SCH (21:28)
[2016-04-10] MEDS: hydrALAZINE 25 MG TABLET PO SCH ×4 (00:28→17:18)
[2016-04-10 04:24] LABS: Basophils # 0.1 K/mcL (0.0-0.2); Basophils % 1.1 %; Eosinophils # 0.2 K/mcL (0.0-0.6); Eosinophils % 3.5 %; Hematocrit 25.9 % (35.3-44.9); Hemoglobin 8.4 g/dL (11.5-15.4); Immature Granulocytes % 0.4 % (0-4); Lymphocytes # 1.4 K/mcL (0.6-4.6); Lymphocytes % 30.4 %; Mean Corpuscular HGB Conc 32.4 g/dL (31.6-35.5); Mean Corpuscular Hemoglobin 30.2 pg (28.0-33.3); Mean Corpuscular Volume 93.2 fL (83.0-100.0); Mean Platelet Volume 11.5 fL (9.4-12.4); Monocytes # 0.4 K/mcL (0.0-1.3); Monocytes % 9.8 %; Neutrophils # 2.5 K/mcL (1.6-8.9); Platelet Count 173 K/mcL (140-400); Red Blood Count 2.78 M/mcL (3.82-4.97); Segmented Neutrophils % 54.8 %
[2016-04-10 04:55] LABS: Calcium 8.8 mg/dL (8.6-10.8); Potassium 3.8 mEq/L (3.5-4.5)
--- NOTE | 2016-04-10 07:57 | Internal Med Progress Note ---
<TreyNas zambrano - Last Filed: 04/10/16 09:08> Date of Encounter: 04/10/16 Time of Encounter: 07:53 - Assessment and plan (1) Dialysis AV fistula malfunction Current Visit: Yes Status: Acute Assessment and plan: Reason for admission was malfunctioning AV fistula of left forearm. MWF Per nephrology evaluation patient will require permacath, this is planned for Qualifiers: Encounter type: initial encounter Qualified Code(s): T82.590A - Other mechanical complication of surgically created arteriovenous fistula, initial encounter (2) ESRD (end stage renal disease) on dialysis Current Visit: Yes Status: Chronic Assessment and plan: Appreciate nephrology recommendations We will continue to monitor kidney function Continue hemodialysis MWF + PRN (3) Anticoagulated on Coumadin Current Visit: Yes Status: Acute Assessment and plan: High risk for thromboembolic event Will hold Coumadin and bridg with heparin in preparation for procedure (4) Anemia in chronic kidney disease Current Visit: Yes Status: Acute Assessment and plan: Hemoglobin 7.2 yesterday Received 1 unit PRBCs and Hgb this morning = 8.4 Continue to monitor and transfuse as necessary (5) Type 2 diabetes mellitus Current Visit: Yes Status: Acute Assessment and plan: Continue ACHS checks Blood glucose has been stable on decreased detemir, we will continue to monitor and consider increasing towards her home dose of Levemir Qualifiers: Diabetes mellitus complication status: with kidney complications Diabetes mellitus complication detail: with chronic kidney disease Diabetes mellitus skilled nursing insulin use: with skilled nursing use Chronic kidney disease stage: on chronic dialysis Qualified Code(s): E11.22 - Type 2 diabetes mellitus with diabetic chronic kidney disease; N18.6 - End stage renal disease; Z79.4 - [facility] (current) use of insulin; Z99.2 - Dependence on renal dialysis (6) DVT prophylaxis Current Visit: Yes Status: Acute Assessment and plan: Continue heparin - Subjective Interval history: Mrs. Deshpande was seen and examined at bedside. She was resting in bed and in no apparent distress. She denies chest pains, palpitations, dyspnea, abdominal pain. She says she has been feeling a little weaker than normal - Constitutional Vitals: Temp Pulse Resp BP Pulse Ox 98.0 F 84 18 115/77 93 L 04/10/16 07:19 04/10/16 07:19 04/10/16 07:19 04/10/16 07:19 04/10/16 07:19 General appearance: Present: A&O X 3, no acute distress - Head Head exam: Present: atraumatic, normocephalic - Eye Eye exam: Present: PERRL, conjuntiva pink, sclera anicteric Pupils: Present: PERRL - Neck Neck exam general surgery: Present: supple, trachea midline. Absent: lymphadenopathy - Respiratory Respiratory exam: Present: CTAB. Absent: accessory muscle use, rales, rhonchi, wheezes - Cardiovascular Cardiovascular exam: Present: RRR, +S1, +S2. Absent: diastolic murmur, gallop, rubs, systolic murmur - GI/Abdominal GI/Abdominal exam: Present: normal bowel sounds, soft, no peritoneal signs. Absent: distended, tenderness - Extremities Exam Extremities exam: Present: warm, radial pulses palpable and symetrical. Absent : calf tenderness, cyanotic, pedal edema Additional comments: Large ecchymosis surrounding the AV fistula left forearm - Neurological Exam Neurological exam: Present: CN II-XII intact, oriented X3, no focal deficits. Absent: pronater drift, facial droop, speech deficit - Skin Skin exam: Present: dry, intact Internal Medicine: Result - Labs CBC & Chem 7: 04/10/16 04:00 04/10/16 04:00 Labs: Short CBC 04/10/16 Range/Units 04:00 WBC 4.5 (4.3-11.1) K/mcL Hgb 8.4 L (11.5-15.4) g/dL Hct 25.9 L (35.3-44.9) % Plt Count 173 (140-400) K/mcL Neutrophils # 2.5 (1.6-8.9) K/mcL BMP 04/10/16 04:00 Sodium 137 Potassium 3.8 Chloride 98 Carbon Dioxide 28 BUN 25 H D Creatinine 2.74 H Glucose 167 H Calcium 8.8 - ABG Interpretation ABG results: PT/INR, D-dimer PT 17.0 Seconds (9.4-12.1) H 04/09/16 13:30 - VTE Documentation of Mechanical Device: Graduated compression elastic hosiery Consult Discharge Plan - Plan Referrals: Lauren Calvillo MD [Primary Care Provider] - 04/19/16 1:45 pm (Requested ) <Cornel Curiel R - Last Filed: 04/10/16 16:32> - Constitutional Vitals: Temp Pulse Resp BP Pulse Ox 98.1 F 82 17 116/74 93 L 04/10/16 16:27 04/10/16 16:27 04/10/16 16:27 04/10/16 16:27 04/10/16 16:27 Internal Medicine: Result - Labs CBC & Chem 7: 04/10/16 04:00 04/10/16 04:00 Labs: Short CBC 04/10/16 Range/Units 04:00 WBC 4.5 (4.3-11.1) K/mcL Hgb 8.4 L (11.5-15.4) g/dL Hct 25.9 L (35.3-44.9) % Plt Count 173 (140-400) K/mcL Neutrophils # 2.5 (1.6-8.9) K/mcL BMP 04/10/16 04:00 Sodium 137 Potassium 3.8 Chloride 98 Carbon Dioxide 28 BUN 25 H D Creatinine 2.74 H Glucose 167 H Calcium 8.8 - ABG Interpretation ABG results: PT/INR, D-dimer PT 17.0 Seconds (9.4-12.1) H 04/09/16 13:30 - Attending Attestation I examined this patient and my medical decision-making was reviewed with the PLANT UTILITIES ENGINEER/PA/Advanced Practice Nurse/Resident Physician. I agree with the documented findings, disposition and treatment plan as described except to the extent set forth below. Agree with resident's not. Perma cath on tuesday. Very high risk of thromboembolic events, heparin drip for now. Hold coumadin.
[2016-04-10] MEDS: Lisinopril 20 MG TABLET PO SCH ×2 (08:43→20:58)
[2016-04-10] MEDS: metOLazone 5 MG TABLET PO SCH (08:43)
[2016-04-10] MEDS: Aspirin Enteric Coated 81 MG Tablet PO SCH (08:45)
[2016-04-10] MEDS: Fenofibrate 54 MG TABLET PO SCH (08:45)
[2016-04-10] MEDS: Furosemide 40 MG TABLET PO SCH ×2 (08:45→17:18)
[2016-04-10] MEDS: Cholecalciferol (D-3) 1,000 UNIT TABLET PO SCH (08:45)
[2016-04-10] MEDS: Insulin LISPRO 300 UNITS/3 ML VIAL SQ SCH ×4 (08:47→20:57)
--- NOTE | 2016-04-10 09:43 | Nephrology Progress Note ---
Date of Encounter: 04/10/16 Time of Encounter: 08:45 - Assessment and Plan (1) ESRD (end stage renal disease) on dialysis Current Visit: Yes Status: Chronic Though the Fistulagram demonstrated patency, clinically on exam it has a weak bruit and essentially no palpable thrill. So I recommend resting this AVF as it remains so ecchymotic, and to arrange for a Permacath on Tuesday. Next HD is planned for Tuesday after the Permacath is placed. I consulted and spoke with IR yesterday (Tuesday) to help plan for Tuesday. Appreciate IR. I reviewed their report: only accessory veins. With rest and elevation plus Ice pack, her very ecchymotic AVF may improve with rest. Hold anticoagulants and plan to make her NPO on Tuesday night. As discussed with the hospitalists, she has a higher CHADsVasc score, so I agre with heparin bridging. Will monitor CBC. Later as an outpt the AVF could then be optimized. (2) Dialysis AV fistula malfunction Current Visit: Yes Status: Acute See above Qualifiers: Encounter type: initial encounter Qualified Code(s): T82.590A - Other mechanical complication of surgically created arteriovenous fistula, initial encounter (3) Anemia in chronic kidney disease Current Visit: Yes Status: Acute Goal Hgb is 10-11. MOISE. Subjective Principal diagnosis: ESRD, Dialysis access dysfunction Interval history: Pt was s/e. SShe voiced no major complaints but has occasional termers that developed she said, previous to this hospitalization. Objective - Vital Signs Vital signs: Vital Signs Temp Pulse Resp BP Pulse Ox 04/10/16 07:19 98.0 F 84 18 115/77 93 L 04/10/16 00:28 98.1 F 81 16 124/73 98 Intake and Output 04/09/16 04/10/16 04/10/16 23:59 07:59 15:59 Other: Weight 91.5 kg Blood Glucose* 192 Patient Weight 04/10/16 23:59 Weight 91.5 kg - General Appearance Exam: General appearance: Present: well-developed, well-nourished, appears started age , obese EENT: Present: ATNC, PERRL, mucous membranes moist Neck: Present: supple Respiratory: Present: clear Cardiology: Present: no edema, regular rate (though she has a hx of AFib on coumadin), regular rhythm, normal S1, normal S2 Dialysis Vascular Access: Arteriovenous Fistula (Left forearm AVF with significant ecchymoses, no palpable thrill and only a weak bruit on auscultation. RIJ Temporary HD catheter was C/D/I) Gastrointestinal: Present: normoactive bowel sounds, no tenderness, no guarding , obese Integumentary: Present: no rash, warm and dry Neurologic: Present: no focal deficit, no asterixis, alert and oriented x3 Musculoskeletal: Present: no deformities, no erythema, no cyanosis Psychiatric: Present: mood/affect appropriate, cooperative - Lab 04/10/16 04:00 04/10/16 04:00 Most recent lab results Calcium 8.8 mg/dL (8.6-10.8) 04/10/16 04:00 - VTE Documentation of Mechanical Device: Graduated compression elastic hosiery Consult Discharge Plan - Plan Referrals: Lauren Calvillo MD [Primary Care Provider] - 04/19/16 1:45 pm (Requested )
[2016-04-10] MEDS: Heparin 25,000 UNIT/500 ML D5W 25,000 UNIT/500 ML MLS IVC SCH (15:16)
[2016-04-10] MEDS: Insulin DETEMIR 100 UNIT/ML X5UNITS SQ SCH (20:57)
[2016-04-11] MEDS: hydrALAZINE 25 MG TABLET PO SCH ×4 (00:50→17:14)
[2016-04-11 04:56] LABS: Hemoglobin 8.3 g/dL (11.5-15.4); Immature Granulocytes % 0.2 % (0-4); Lymphocytes % 27.3 %; Mean Corpuscular HGB Conc 33.2 g/dL (31.6-35.5); Mean Corpuscular Hemoglobin 30.6 pg (28.0-33.3); Mean Corpuscular Volume 92.3 fL (83.0-100.0); Mean Platelet Volume 10.9 fL (9.4-12.4); Monocytes % 12.8 %; Platelet Count 162 K/mcL (140-400); Red Blood Count 2.71 M/mcL (3.82-4.97); Red Cell Distribution Width 13.2 % (11.5-14.5); Segmented Neutrophils % 54.9 %
[2016-04-11 04:57] LABS: Basophils % 0.9 %; Eosinophils # 0.2 K/mcL (0.0-0.6); Eosinophils % 3.9 %; Lymphocytes # 1.2 K/mcL (0.6-4.6); Monocytes # 0.6 K/mcL (0.0-1.3); Neutrophils # 2.4 K/mcL (1.6-8.9)
[2016-04-11 05:03] LABS: Activated Partial Thrombo Time 79.2 Seconds (26.0-36.0)
[2016-04-11 05:08] LABS: Potassium 4.2 mEq/L (3.5-4.5)
[2016-04-11 06:02] LABS: INR 1.4; Prothrombin Time 15.2 Seconds (9.4-12.1)
[2016-04-11] MEDS: Insulin LISPRO 300 UNITS/3 ML VIAL SQ SCH ×4 (08:39→20:25)
[2016-04-11] MEDS: Furosemide 40 MG TABLET PO SCH ×2 (08:43→17:14)
[2016-04-11] MEDS: Aspirin Enteric Coated 81 MG Tablet PO SCH (08:43)
[2016-04-11] MEDS: Fenofibrate 54 MG TABLET PO SCH (08:43)
[2016-04-11] MEDS: Lisinopril 20 MG TABLET PO SCH ×2 (08:44→20:25)
[2016-04-11] MEDS: metOLazone 5 MG TABLET PO SCH (08:44)
[2016-04-11] MEDS: Cholecalciferol (D-3) 1,000 UNIT TABLET PO SCH (08:44)
--- NOTE | 2016-04-11 09:06 | Internal Med Progress Note ---
<TreyNas zambrano - Last Filed: 04/11/16 15:22> Date of Encounter: 04/11/16 Time of Encounter: 09:06 - Assessment and plan (1) Dialysis AV fistula malfunction Current Visit: Yes Status: Acute Assessment and plan: Reason for admission was malfunctioning AV fistula of left forearm. MWF Per nephrology evaluation patient will require permacath, this is planned for Patient is nothing by mouth after midnight Qualifiers: Encounter type: initial encounter Qualified Code(s): T82.590A - Other mechanical complication of surgically created arteriovenous fistula, initial encounter (2) ESRD (end stage renal disease) on dialysis Current Visit: Yes Status: Chronic Assessment and plan: Appreciate nephrology recommendations We will continue to monitor kidney function Continue hemodialysis MWF + PRN (3) Anticoagulated on Coumadin Current Visit: Yes Status: Acute Assessment and plan: Very high risk for thromboembolic event Hold Coumadin and continue to bridge with heparin in preparation for procedure (4) Anemia in chronic kidney disease Current Visit: Yes Status: Acute Assessment and plan: Hemoglobin stable this morning Continue to monitor and transfuse as necessary (5) Type 2 diabetes mellitus Current Visit: Yes Status: Acute Assessment and plan: Continue ACHS checks Blood glucose has been stable on decreased detemir, we will continue to monitor and consider increasing towards her home dose of Levemir Qualifiers: Diabetes mellitus complication status: with kidney complications Diabetes mellitus complication detail: with chronic kidney disease Diabetes mellitus terminal make up operator insulin use: with terminal make up operator use Chronic kidney disease stage: on chronic dialysis Qualified Code(s): E11.22 - Type 2 diabetes mellitus with diabetic chronic kidney disease; N18.6 - End stage renal disease; Z79.4 - senior living (current) use of insulin; Z99.2 - Dependence on renal dialysis (6) DVT prophylaxis Current Visit: Yes Status: Acute Assessment and plan: Continue heparin - Subjective Interval history: Mrs. Deshpande was seen and examined at bedside. She was sleeping but arousable and in no apparent distress. She denies chest pains, palpitations, dyspnea, abdominal pain. She says that the weakness she had been experiencing getting in /out of bed has improved - Constitutional Vitals: Temp Pulse Resp BP Pulse Ox 97.7 F 77 16 135/53 98 04/11/16 07:22 04/11/16 07:22 04/11/16 07:22 04/11/16 07:22 04/11/16 07:22 General appearance: Present: A&O X 3, no acute distress - Head Head exam: Present: atraumatic, normocephalic - Eye Eye exam: Present: PERRL, conjuntiva pink, sclera anicteric Pupils: Present: PERRL - Neck Neck exam general surgery: Present: supple, trachea midline. Absent: lymphadenopathy - Respiratory Respiratory exam: Present: CTAB. Absent: accessory muscle use, rales, rhonchi, wheezes - Cardiovascular Cardiovascular exam: Present: RRR, +S1, +S2. Absent: diastolic murmur, gallop, rubs, systolic murmur - GI/Abdominal GI/Abdominal exam: Present: normal bowel sounds, soft, no peritoneal signs. Absent: distended, tenderness - Extremities Exam Extremities exam: Present: warm, radial pulses palpable and symetrical. Absent : calf tenderness, cyanotic, pedal edema - Neurological Exam Neurological exam: Present: CN II-XII intact, oriented X3, no focal deficits. Absent: pronater drift, facial droop, speech deficit - Skin Skin exam: Present: dry, intact Internal Medicine: Result - Labs CBC & Chem 7: 04/11/16 04:40 04/11/16 04:40 Labs: Short CBC 04/11/16 Range/Units 04:40 WBC 4.4 (4.3-11.1) K/mcL Hgb 8.3 L (11.5-15.4) g/dL Hct 25.0 L (35.3-44.9) % Plt Count 162 (140-400) K/mcL Neutrophils # 2.4 (1.6-8.9) K/mcL BMP 04/11/16 04:40 Sodium 131 L Potassium 4.2 Chloride 94 L Carbon Dioxide 27 BUN 41 H D Creatinine 3.93 H Glucose 105 H Calcium 9.0 - ABG Interpretation ABG results: PT/INR, D-dimer PT 15.2 Seconds (9.4-12.1) H 04/11/16 04:40 - VTE Documentation of Mechanical Device: Graduated compression elastic hosiery Consult Discharge Plan - Plan Referrals: Lauren Calvillo MD [Primary Care Provider] - 04/19/16 1:45 pm (Requested ) <Cornel Curiel - Last Filed: 04/11/16 15:54> - Constitutional Vitals: Temp Pulse Resp BP Pulse Ox 98.1 F 63 16 117/51 97 04/11/16 11:50 04/11/16 11:50 04/11/16 11:50 04/11/16 11:50 04/11/16 11:50 Internal Medicine: Result - Labs CBC & Chem 7: 04/11/16 04:40 04/11/16 04:40 Labs: Short CBC 04/11/16 Range/Units 04:40 WBC 4.4 (4.3-11.1) K/mcL Hgb 8.3 L (11.5-15.4) g/dL Hct 25.0 L (35.3-44.9) % Plt Count 162 (140-400) K/mcL Neutrophils # 2.4 (1.6-8.9) K/mcL BMP 04/11/16 04:40 Sodium 131 L Potassium 4.2 Chloride 94 L Carbon Dioxide 27 BUN 41 H D Creatinine 3.93 H Glucose 105 H Calcium 9.0 - ABG Interpretation ABG results: PT/INR, D-dimer PT 15.2 Seconds (9.4-12.1) H 04/11/16 04:40 - Attending Attestation I examined this patient and my medical decision-making was reviewed with the APPLE PACKING HEADER/PA/Advanced Practice Nurse/Resident Physician. I agree with the documented findings, disposition and treatment plan as described except to the extent set forth below. Permacath tomorrow. NPO after midnight. Heparin drip for now.
[2016-04-11] MEDS: Heparin 25,000 UNIT/500 ML D5W 25,000 UNIT/500 ML MLS IVC SCH (17:34)
[2016-04-11] MEDS: Insulin DETEMIR 100 UNIT/ML X5UNITS SQ SCH (20:26)
[2016-04-12] MEDS: hydrALAZINE 25 MG TABLET PO SCH ×4 (00:45→18:46)
[2016-04-12] MEDS: Nystatin POWDER 30 GM BOTTLE TP SCH ×3 (02:44→22:37)
[2016-04-12 06:27] LABS: INR 1.3; Prothrombin Time 13.9 Seconds (9.4-12.1)
[2016-04-12 06:29] LABS: Activated Partial Thrombo Time 62.7 Seconds (26.0-36.0)
[2016-04-12] MEDS: Lisinopril 20 MG TABLET PO SCH ×2 (06:29→22:31)
[2016-04-12] MEDS: Furosemide 40 MG TABLET PO SCH ×2 (06:30→17:14)
[2016-04-12] MEDS: metOLazone 5 MG TABLET PO SCH (06:30)
[2016-04-12] MEDS: Fenofibrate 54 MG TABLET PO SCH (06:30)
[2016-04-12] MEDS: Cholecalciferol (D-3) 1,000 UNIT TABLET PO SCH (06:30)
[2016-04-12] MEDS: Aspirin Enteric Coated 81 MG Tablet PO SCH (06:30)
[2016-04-12 06:33] LABS: Basophils % 0.7 %; Eosinophils # 0.1 K/mcL (0.0-0.6); Eosinophils % 2.9 %; Hematocrit 23.4 % (35.3-44.9); Hemoglobin 7.9 g/dL (11.5-15.4); Immature Granulocytes % 0.5 % (0-4); Lymphocytes # 1.1 K/mcL (0.6-4.6); Lymphocytes % 26.5 %; Mean Corpuscular HGB Conc 33.8 g/dL (31.6-35.5); Mean Corpuscular Volume 91.8 fL (83.0-100.0); Mean Platelet Volume 12.4 fL (9.4-12.4); Monocytes # 0.4 K/mcL (0.0-1.3); Monocytes % 10.5 %; Neutrophils # 2.4 K/mcL (1.6-8.9); Platelet Count 167 K/mcL (140-400); Red Blood Count 2.55 M/mcL (3.82-4.97); Red Cell Distribution Width 13.1 % (11.5-14.5); Segmented Neutrophils % 58.9 %
[2016-04-12 06:47] LABS: Calcium 9.1 mg/dL (8.6-10.8)
[2016-04-12] MEDS ORDERED: 0.9 % Sodium Chloride 250 ML IV PRN (07:59)
[2016-04-12] MEDS ORDERED: 0.9 % Sodium Chloride 2,000 ML ONE (09:38)
[2016-04-12] MEDS: Insulin LISPRO 300 UNITS/3 ML VIAL SQ SCH ×4 (10:18→22:37)
--- NOTE | 2016-04-12 10:41 | Internal Med Progress Note ---
<TreyNas zambrano - Last Filed: 04/12/16 10:38> Date of Encounter: 04/12/16 Time of Encounter: 10:39 - Assessment and plan (1) Dialysis AV fistula malfunction Current Visit: Yes Status: Acute Assessment and plan: Reason for admission was malfunctioning AV fistula of left forearm. MWF Per nephrology evaluation patient will require permacath, this is planned for Patient is nothing by mouth after midnight Qualifiers: Encounter type: initial encounter Qualified Code(s): T82.590A - Other mechanical complication of surgically created arteriovenous fistula, initial encounter (2) ESRD (end stage renal disease) on dialysis Current Visit: Yes Status: Chronic Assessment and plan: Appreciate nephrology recommendations We will continue to monitor kidney function Continue hemodialysis MWF + PRN (3) Anticoagulated on Coumadin Current Visit: Yes Status: Acute Assessment and plan: Very high risk for thromboembolic event Hold Coumadin and continue to bridge with heparin in preparation for procedure (4) Anemia in chronic kidney disease Current Visit: Yes Status: Acute Assessment and plan: Hemoglobin stable this morning Continue to monitor and transfuse as necessary (5) Type 2 diabetes mellitus Current Visit: Yes Status: Acute Assessment and plan: Continue ACHS checks Blood glucose has been stable on decreased detemir, we will continue to monitor and consider increasing towards her home dose of Levemir Qualifiers: Diabetes mellitus complication status: with kidney complications Diabetes mellitus complication detail: with chronic kidney disease Diabetes mellitus terminal supervisor insulin use: with terminal supervisor use Chronic kidney disease stage: on chronic dialysis Qualified Code(s): E11.22 - Type 2 diabetes mellitus with diabetic chronic kidney disease; N18.6 - End stage renal disease; Z79.4 - halfway (current) use of insulin; Z99.2 - Dependence on renal dialysis (6) DVT prophylaxis Current Visit: Yes Status: Acute Assessment and plan: Continue heparin - Subjective Interval history: Mrs. Deshpande was seen and examined at bedside. She was sleeping but arousable and in no apparent distress. She denies chest pains, palpitations, dyspnea, abdominal pain. She says that the weakness she had been experiencing getting in /out of bed has continued to improve - Constitutional Vitals: Temp Pulse Resp BP Pulse Ox 98 F 67 16 132/73 97 04/12/16 08:00 04/12/16 08:00 04/12/16 08:00 04/12/16 08:00 04/12/16 08:00 General appearance: Present: A&O X 3, no acute distress - Head Head exam: Present: atraumatic, normocephalic - Eye Eye exam: Present: PERRL, conjuntiva pink, sclera anicteric Pupils: Present: PERRL - Neck Neck exam general surgery: Present: supple, trachea midline. Absent: lymphadenopathy - Respiratory Respiratory exam: Present: CTAB. Absent: accessory muscle use, rales, rhonchi, wheezes - Cardiovascular Cardiovascular exam: Present: RRR, +S1, +S2. Absent: diastolic murmur, gallop, rubs, systolic murmur - GI/Abdominal GI/Abdominal exam: Present: normal bowel sounds, soft, no peritoneal signs. Absent: distended, tenderness - Extremities Exam Extremities exam: Present: warm, radial pulses palpable and symetrical. Absent : calf tenderness, cyanotic, pedal edema - Neurological Exam Neurological exam: Present: CN II-XII intact, oriented X3, no focal deficits. Absent: pronater drift, facial droop, speech deficit - Skin Skin exam: Present: dry, intact Internal Medicine: Result - Labs CBC & Chem 7: 04/12/16 04:55 04/12/16 04:55 Labs: Short CBC 04/12/16 Range/Units 04:55 WBC 4.1 L (4.3-11.1) K/mcL Hgb 7.9 L (11.5-15.4) g/dL Hct 23.4 L (35.3-44.9) % Plt Count 167 (140-400) K/mcL Neutrophils # 2.4 (1.6-8.9) K/mcL BMP 04/12/16 04:55 Sodium 128 L Potassium 4.0 Chloride 92 L Carbon Dioxide 24 BUN 51 H Creatinine 4.03 H Glucose 181 H Calcium 9.1 - ABG Interpretation ABG results: PT/INR, D-dimer PT 13.9 Seconds (9.4-12.1) H 04/12/16 04:55 - VTE Documentation of Mechanical Device: Graduated compression elastic hosiery Consult Discharge Plan - Plan Referrals: Lauren Calvillo MD [Primary Care Provider] - 04/19/16 1:45 pm (Requested ) <Cornel Curiel - Last Filed: 04/12/16 13:56> - Constitutional Vitals: Temp Pulse Resp BP Pulse Ox 98 F 75 20 171/75 99 04/12/16 12:15 04/12/16 13:53 04/12/16 13:53 04/12/16 13:53 04/12/16 13:53 Internal Medicine: Result - Labs CBC & Chem 7: 04/12/16 04:55 04/12/16 04:55 Labs: Short CBC 04/12/16 Range/Units 04:55 WBC 4.1 L (4.3-11.1) K/mcL Hgb 7.9 L (11.5-15.4) g/dL Hct 23.4 L (35.3-44.9) % Plt Count 167 (140-400) K/mcL Neutrophils # 2.4 (1.6-8.9) K/mcL BMP 04/12/16 04:55 Sodium 128 L Potassium 4.0 Chloride 92 L Carbon Dioxide 24 BUN 51 H Creatinine 4.03 H Glucose 181 H Calcium 9.1 - ABG Interpretation ABG results: PT/INR, D-dimer PT 13.9 Seconds (9.4-12.1) H 04/12/16 04:55 - Attending Attestation I examined this patient and my medical decision-making was reviewed with the BIOINFORMATICS SOFTWARE ENGINEER/PA/Advanced Practice Nurse/Resident Physician. I agree with the documented findings, disposition and treatment plan as described except to the extent set forth below. permacath placement today. HD as per nephro. continue with heparin drip and resume coumadin after procedure. Monitor INR tomorrow in am. Very high risk for thromboembolic events.
--- NOTE | 2016-04-12 10:50 | Nephrology Progress Note ---
Date of Encounter: 04/12/16 Time of Encounter: 09:15 - Assessment and Plan (1) ESRD (end stage renal disease) on dialysis Current Visit: Yes Status: Chronic Though the Fistulagram demonstrated patency, clinically on exam it has a weak bruit and essentially no palpable thrill. So I recommend resting this AVF as it remains so ecchymotic, and to arrange for a Permacath today. HD today. Later as an outpt the AVF could then be optimized. (2) Dialysis AV fistula malfunction Current Visit: Yes Status: Acute See above Qualifiers: Encounter type: initial encounter Qualified Code(s): T82.590A - Other mechanical complication of surgically created arteriovenous fistula, initial encounter (3) Anemia in chronic kidney disease Current Visit: Yes Status: Acute Goal Hgb is 10-11. MOISE. Subjective Principal diagnosis: ESRD, Dialysis access dysfunction Interval history: Pt was s/e while on HD. She did not affirm N/V/D or uremic symptoms. Objective - Vital Signs Vital signs: Vital Signs Temp Pulse Resp BP Pulse Ox 04/12/16 08:00 98 F 67 16 132/73 97 04/12/16 04:50 97.7 F 68 16 160/72 98 04/12/16 00:14 98.0 F 64 20 146/64 97 04/12/16 00:10 97.5 F L 66 16 124/72 98 04/11/16 19:24 97.8 F 67 18 128/72 97 04/11/16 16:37 97.5 F L 71 16 154/75 99 04/11/16 11:50 98.1 F 63 16 117/51 97 Intake and Output 04/11/16 04/12/16 04/12/16 23:59 07:59 15:59 Intake Total 228 / 228 251 / 251 Output Total 200 / 200 Balance 28 / 28 251 / 251 Intake: IV Fluids 228 / 228 251 / 251 Heparin 25,000 UNIT/500 228 / 228 251 / 251 ML D5W 25,000 unit In 500 ml @ 10.99 UNIT/KG/HR 20 .002 mls/hr IVC .Q24H [facility] Rx#:[id number] Oral 0 / 0 0 / 0 Output: Urine 200 / 200 Other: # Voids 3 Blood Glucose* 207 267 - General Appearance Exam: General appearance: Present: well-developed, well-nourished, appears started age , obese EENT: Present: ATNC, PERRL, mucous membranes moist Neck: Present: supple Respiratory: Present: clear Cardiology: Present: no edema, regular rate (though she has a hx of AFib on coumadin), regular rhythm, normal S1, normal S2 Dialysis Vascular Access: Arteriovenous Fistula (Left forearm AVF with significant ecchymoses, no palpable thrill and only a weak bruit on auscultation. RIJ Temporary HD catheter was C/D/I) Gastrointestinal: Present: normoactive bowel sounds, no tenderness, no guarding , obese Integumentary: Present: no rash, warm and dry Neurologic: Present: no focal deficit, no asterixis, alert and oriented x3 Musculoskeletal: Present: no deformities, no erythema, no cyanosis Psychiatric: Present: mood/affect appropriate, cooperative - Lab 04/12/16 04:55 04/12/16 04:55 Most recent lab results Calcium 9.1 mg/dL (8.6-10.8) 04/12/16 04:55 - VTE Documentation of Mechanical Device: Graduated compression elastic hosiery Consult Discharge Plan - Plan Referrals: Lauren Calvillo MD [Primary Care Provider] - 04/19/16 1:45 pm (Requested )
[2016-04-12] MEDS ORDERED: Heparin 1,000 UNITS/500 mL NS 500 ML ONE (12:53)
[2016-04-12] MEDS ORDERED: ceFAZolin 1,000 MG in D5% in Water (Mini-Bag+) 100 ML IVPB ONE (13:15)
[2016-04-12] MEDS ORDERED: *HR* FentaNYL (PF) 100 MCG/2 ML VIAL IV PRN (13:15)
[2016-04-12] MEDS ORDERED: *HR* Midazolam HCl 2 MG/2 ML VIAL IV PRN (13:15)
[2016-04-12] MEDS ORDERED: 0.9 % Sodium Chloride 500 ML ONE (13:29)
[2016-04-12] MEDS ORDERED: *HR* Heparin 5,000 UNIT/ML VIAL ONE (13:55)
--- NOTE | 2016-04-12 14:01 | IR Procedure Note ---
Date of procedure: 04/12/16 Consent Obtained: Verbal consent, Written consent Timeout: Correct patient and procedure verified, Correct site verified, Time out performed, Skin prep completed Local anesthetic: Lidocaine 1% Indications: Renal failure Procedure Performed: Tunneled HD catheter placement Site/Technique: Right IJ tunneled HD catheter placed Results/Findings: Right IJ tunneled HD catheter placed Estimated blood loss (cc): 2 Complications: None; Tolerated procedure well Post Procedure Treatment Plan: May use HD catheter now
[2016-04-12] MEDS: Heparin 25,000 UNIT/500 ML D5W 25,000 UNIT/500 ML MLS IVC SCH (22:34)
[2016-04-12] MEDS: *HR* Heparin 5,000 UNIT/ML VIAL IVP PRN (22:36)
[2016-04-12] MEDS: Insulin DETEMIR 100 UNIT/ML X5UNITS SQ SCH (22:37)
[2016-04-13] MEDS: hydrALAZINE 25 MG TABLET PO SCH ×4 (00:32→16:46)
[2016-04-13 06:37] LABS: Basophils % 0.7 %; Eosinophils # 0.1 K/mcL (0.0-0.6); Eosinophils % 3.2 %; Hematocrit 25.2 % (35.3-44.9); Hemoglobin 8.2 g/dL (11.5-15.4); Immature Granulocytes % 0.2 % (0-4); Lymphocytes % 24.9 %; Mean Corpuscular HGB Conc 32.5 g/dL (31.6-35.5); Mean Corpuscular Hemoglobin 31.1 pg (28.0-33.3); Mean Corpuscular Volume 95.5 fL (83.0-100.0); Mean Platelet Volume 11.6 fL (9.4-12.4); Monocytes # 0.5 K/mcL (0.0-1.3); Monocytes % 11.6 %; Neutrophils # 2.4 K/mcL (1.6-8.9); Platelet Count 167 K/mcL (140-400); Red Blood Count 2.64 M/mcL (3.82-4.97); Red Cell Distribution Width 13.3 % (11.5-14.5); Segmented Neutrophils % 59.4 %
[2016-04-13 06:47] LABS: Potassium 4.4 mEq/L (3.5-4.5)
[2016-04-13] MEDS: *HR* Heparin 5,000 UNIT/ML VIAL IVP PRN (06:50)
--- NOTE | 2016-04-13 06:53 | Internal Med Progress Note ---
<TreyNas zambrano - Last Filed: 04/13/16 13:24> Date of Encounter: 04/13/16 Time of Encounter: 06:53 - Assessment and plan (1) Dialysis AV fistula malfunction Current Visit: Yes Status: Acute Assessment and plan: Reason for admission was malfunctioning AV fistula of left forearm Patient had permacath placed 04/12/16 Patient is nothing by mouth after midnight Qualifiers: Encounter type: initial encounter Qualified Code(s): T82.590A - Other mechanical complication of surgically created arteriovenous fistula, initial encounter (2) ESRD (end stage renal disease) on dialysis Current Visit: Yes Status: Chronic Assessment and plan: We will continue to monitor kidney function Continue hemodialysis via permacath MWF + PRN (3) Anticoagulated on Coumadin Current Visit: Yes Status: Acute Assessment and plan: Very high risk for thromboembolic event Plan is to continue holding Coumadin as patient will have lesion removed from her right hand tomorrow Continue to bridge with heparin (4) Anemia in chronic kidney disease Current Visit: Yes Status: Acute Assessment and plan: Hemoglobin stable this morning Continue to monitor and transfuse as necessary (5) Type 2 diabetes mellitus Current Visit: Yes Status: Acute Assessment and plan: Continue ACHS checks Blood glucose has been stable on decreased detemir, we will continue to monitor and consider increasing towards her home dose of Levemir Qualifiers: Diabetes mellitus complication status: with kidney complications Diabetes mellitus complication detail: with chronic kidney disease Diabetes mellitus termite inspector insulin use: with skilled nursing use Chronic kidney disease stage: on chronic dialysis Qualified Code(s): E11.22 - Type 2 diabetes mellitus with diabetic chronic kidney disease; N18.6 - End stage renal disease; Z79.4 - jail (current) use of insulin; Z99.2 - Dependence on renal dialysis (6) DVT prophylaxis Current Visit: Yes Status: Acute Assessment and plan: Continue heparin - Subjective Interval history: Mrs. Deshpande was seen and examined at bedside. She was awake and in no apparent distress. She states the site of her permacath is not bothering her and denies chest pains, palpitations, dyspnea, or abdominal pain. - Constitutional Vitals: Temp Pulse Resp BP Pulse Ox 98.0 F 71 19 134/66 97 04/13/16 03:39 04/13/16 03:39 04/13/16 03:39 04/13/16 03:39 04/13/16 03:39 General appearance: Present: A&O X 3, no acute distress - Head Head exam: Present: atraumatic, normocephalic - Eye Eye exam: Present: PERRL, conjuntiva pink, sclera anicteric Pupils: Present: PERRL - Neck Neck exam general surgery: Present: supple, trachea midline. Absent: lymphadenopathy - Respiratory Respiratory exam: Present: CTAB. Absent: accessory muscle use, rales, rhonchi, wheezes - Cardiovascular Cardiovascular exam: Present: RRR, +S1, +S2. Absent: diastolic murmur, gallop, rubs, systolic murmur - GI/Abdominal GI/Abdominal exam: Present: normal bowel sounds, soft, no peritoneal signs. Absent: distended, tenderness - Extremities Exam Extremities exam: Present: warm, radial pulses palpable and symetrical. Absent : calf tenderness, cyanotic, pedal edema - Neurological Exam Neurological exam: Present: CN II-XII intact, oriented X3, no focal deficits. Absent: pronater drift, facial droop, speech deficit - Skin Skin exam: Present: dry, intact Internal Medicine: Result - Labs CBC & Chem 7: 04/13/16 06:03 04/13/16 06:03 Labs: Short CBC 04/13/16 Range/Units 06:03 WBC 4.1 L (4.3-11.1) K/mcL Hgb 8.2 L (11.5-15.4) g/dL Hct 25.2 L (35.3-44.9) % Plt Count 167 (140-400) K/mcL Neutrophils # 2.4 (1.6-8.9) K/mcL BMP 04/13/16 06:03 Sodium 133 L Potassium 4.4 Chloride 96 L Carbon Dioxide 25 BUN 21 H D Creatinine 2.71 H Glucose 195 H Calcium 9.0 - ABG Interpretation ABG results: PT/INR, D-dimer PT 13.9 Seconds (9.4-12.1) H 04/12/16 04:55 - Impressions Impressions Guidance Needle Placement Ultrasound 04/12/16 00:00 IMPRESSION: Ultrasound and fluoroscopic guided placement of a tunneled right IJ hemodialysis catheter as above. No immediate complications. D/ / Dante Horton MD / Dante Horton MD Interpreting Provider: Dante Horton MD Insertion Tunneled Catheter 04/12/16 00:00 IMPRESSION: Ultrasound and fluoroscopic guided placement of a tunneled right IJ hemodialysis catheter as above. No immediate complications. D/ / Dante Horton MD / Dante Horton MD Interpreting Provider: Dante Horton MD - VTE Documentation of Mechanical Device: Graduated compression elastic hosiery Consult Discharge Plan - Plan Referrals: Lauren Calvillo MD [Primary Care Provider] - 04/19/16 1:45 pm (Requested ) <Cornel Curiel - Last Filed: 04/13/16 14:16> - Constitutional Vitals: Temp Pulse Resp BP Pulse Ox 98.1 F 68 16 127/68 97 04/13/16 11:39 04/13/16 11:39 04/13/16 11:39 04/13/16 11:39 04/13/16 11:39 Internal Medicine: Result - Labs CBC & Chem 7: 04/13/16 06:03 04/13/16 06:03 Labs: Short CBC 04/13/16 Range/Units 06:03 WBC 4.1 L (4.3-11.1) K/mcL Hgb 8.2 L (11.5-15.4) g/dL Hct 25.2 L (35.3-44.9) % Plt Count 167 (140-400) K/mcL Neutrophils # 2.4 (1.6-8.9) K/mcL BMP 04/13/16 06:03 Sodium 133 L Potassium 4.4 Chloride 96 L Carbon Dioxide 25 BUN 21 H D Creatinine 2.71 H Glucose 195 H Calcium 9.0 - ABG Interpretation ABG results: PT/INR, D-dimer PT 13.9 Seconds (9.4-12.1) H 04/12/16 04:55 - Impressions Impressions Guidance Needle Placement Ultrasound 04/12/16 00:00 IMPRESSION: Ultrasound and fluoroscopic guided placement of a tunneled right IJ hemodialysis catheter as above. No immediate complications. D/ / Dante Horton MD / Dante Horton MD Interpreting Provider: Dante Horton MD Insertion Tunneled Catheter 04/12/16 00:00 IMPRESSION: Ultrasound and fluoroscopic guided placement of a tunneled right IJ hemodialysis catheter as above. No immediate complications. D/ / Dante Horton MD / Dante Horton MD Interpreting Provider: Dante Horton MD - Attending Attestation I examined this patient and my medical decision-making was reviewed with the FINANCE ASSOCIATE/PA/Advanced Practice Nurse/Resident Physician. I agree with the documented findings, disposition and treatment plan as described except to the extent set forth below. I agree with the documentation by the resident. Patient will undergo surgical procedure tomorrow. Continue heparin drip in the meantime. very high risk for thromboembolic event. HD as per nephrology.
[2016-04-13] MEDS: metOLazone 5 MG TABLET PO SCH (08:08)
[2016-04-13] MEDS: Aspirin Enteric Coated 81 MG Tablet PO SCH (08:08)
[2016-04-13] MEDS: Fenofibrate 54 MG TABLET PO SCH (08:09)
[2016-04-13] MEDS: Furosemide 40 MG TABLET PO SCH ×2 (08:09→16:46)
[2016-04-13] MEDS: Cholecalciferol (D-3) 1,000 UNIT TABLET PO SCH (08:09)
[2016-04-13] MEDS: Lisinopril 20 MG TABLET PO SCH ×2 (08:11→21:11)
[2016-04-13] MEDS: Insulin LISPRO 300 UNITS/3 ML VIAL SQ SCH ×4 (08:12→23:09)
--- NOTE | 2016-04-13 10:55 | Nephrology Progress Note ---
Date of Encounter: 04/13/16 Time of Encounter: 09:30 - Assessment and Plan (1) ESRD (end stage renal disease) on dialysis Current Visit: Yes Status: Chronic Next HD is planned for Tuesday (tomorrow). Appreciate IR in placing the Permacath. Follow a renal protective strategy Agree with heparin gtt while awaiting for the INR to return to the therapeutic range (2) Dialysis AV fistula malfunction Current Visit: Yes Status: Acute The access remains too small for use at present. Placed a Permacath for use over the next few weeks to months; meanwhile, the AVF could be worked on as an outpatient. Qualifiers: Encounter type: initial encounter Qualified Code(s): T82.590A - Other mechanical complication of surgically created arteriovenous fistula, initial encounter (3) Anemia in chronic kidney disease Current Visit: Yes Status: Acute Goal Hgb is 10-11. MOISE. Subjective Principal diagnosis: ESRD, Dialysis access dysfunction Interval history: Pt was s/e while on HD. She did not affirm N/V/D or uremic symptoms. Objective - Vital Signs Vital signs: Vital Signs Temp Pulse Resp BP Pulse Ox 04/13/16 07:31 98.5 F 63 16 133/70 98 04/13/16 03:39 98.0 F 71 19 134/66 97 04/12/16 23:47 98.4 F 68 19 129/69 98 04/12/16 19:12 98.1 F 63 18 116/63 96 04/12/16 16:31 98.1 F 78 16 126/70 977 H 04/12/16 15:33 98.2 F 80 16 124/60 97 04/12/16 15:11 98.2 F 81 18 132/62 98 04/12/16 14:56 98.3 F 82 16 134/66 97 04/12/16 14:41 98.1 F 74 16 136/66 97 04/12/16 14:26 98.1 F 79 16 139/64 97 04/12/16 13:58 71 20 178/79 100 04/12/16 13:53 75 20 171/75 99 04/12/16 13:49 76 18 211/90 100 04/12/16 13:47 81 13 195/88 100 04/12/16 12:15 98 F 20 121/48 04/12/16 12:00 127/56 04/12/16 11:45 133/47 04/12/16 11:30 129/57 04/12/16 11:15 125/46 04/12/16 11:00 101/50 Intake and Output 04/12/16 04/13/16 04/13/16 23:59 07:59 15:59 Intake Total 489 / 489 150 / 150 500 / 500 Balance 489 / 489 150 / 150 500 / 500 Intake: IV Fluids 249 / 249 150 / 150 Heparin 25,000 UNIT/500 249 / 249 150 / 150 ML D5W 25,000 unit In 500 ml @ 10.99 UNIT/KG/HR 20 .002 mls/hr IVC .Q24H [facility] Rx#:[id number] Oral 240 / 240 500 / 500 Other: Meal Dinner Breakfast Percent of Meal Consumed 100% 100% Weight 90.4 kg Blood Glucose* 83 185 Patient Weight 04/13/16 23:59 Weight 90.4 kg - General Appearance Exam: General appearance: Present: well-developed, well-nourished, appears started age , obese EENT: Present: ATNC, PERRL, mucous membranes moist Neck: Present: supple Respiratory: Present: clear Cardiology: Present: no edema, regular rate (though she has a hx of AFib on coumadin), regular rhythm, normal S1, normal S2 Dialysis Vascular Access: Arteriovenous Fistula (Left forearm AVF with significant ecchymoses, no palpable thrill and only a weak bruit on auscultation. Permacath placed in the right chest Gastrointestinal: Present: normoactive bowel sounds, no tenderness, no guarding , obese Integumentary: Present: no rash, warm and dry Neurologic: Present: no focal deficit, no asterixis, alert and oriented x3 Musculoskeletal: Present: no deformities, no erythema, no cyanosis Psychiatric: Present: mood/affect appropriate, cooperative - Lab 04/14/16 17:05 04/14/16 04:26 Most recent lab results Calcium 9.0 mg/dL (8.6-10.8) 04/13/16 06:03 - VTE Documentation of Mechanical Device: Graduated compression elastic hosiery Consult Discharge Plan - Plan Referrals: Lauren Calvillo MD [Primary Care Provider] - 04/19/16 1:45 pm ()
[2016-04-13] MEDS: Nystatin POWDER 30 GM BOTTLE TP SCH ×2 (11:55→23:10)
[2016-04-13] MEDS: Heparin 25,000 UNIT/500 ML D5W 25,000 UNIT/500 ML MLS IVC SCH (12:13)
[2016-04-13 13:09] LABS: Activated Partial Thrombo Time 117.1 Seconds (26.0-36.0)
[2016-04-13 13:10] LABS: Heparin anti-factor XA UFH 0.75 IU/mL (0.30-0.70)
--- NOTE | 2016-04-13 14:31 | General Surgery Consult Note ---
Date of Encounter: 04/13/16 Time of Encounter: 14:22 History of Present Illness Consult date: 04/13/16 Requesting physician: Cornel Curiel History of present illness: 75 yo referred for further evaluation and treatment large, 3 cm, raised, irregular lesion dorsum right hand with rolled margins. Patient was scheduled for excision of this lesion using General Anesthesia,, 04/14/2016. The patient was admitted, 04/09/2016, for treatment occluded AV shunt. Patient s/p placement permacath yesterday and is currently on Heparin "bridge" therapy pending surgery in AM. See my H&P/office notes applicable to the excision planned in the AM. I have discussed the current situation with the patient and the Attending Service /Hospitalists. The patient wishes to proceed with excision of the lesion in question during this hospitalization rather than return at a later date to complete the surgery. The Heparin will be stopped approximately 4 hours prior to surgery and resumed post op. The patient is aware that she is to not eat or drink anything after 12MN tonight except for medications with sips water. The appropriate documentation for the AM surgery is available in SDS including the surgical consent. Past Med Surg Social Fam HX - Past Medical History Medical history: CHF, diabetes, hyperlipidemia, hypertension, myocardial infarction Psychiatric history: no psych history - Past Surgical History Surgical History: hysterectomy - Social History Smoking Status: Never smoker Smokeless Tobacco Status: No Alcohol use: none Drug use: none - Family History Mother History Unknown: Yes Hx Family Endocrine Disorder: Yes Father History Unknown: Yes Living Status: Hx Family Cardiac Disorders: Yes Medications and Allergies Aspirin [Adult Low Dose Aspirin EC] 81 mg PO DAILY 06/02/15 [History] Atorvastatin [Lipitor] 40 mg PO DAILY 06/02/15 [History] Enalapril Maleate [Vasotec] 20 mg PO BID 06/02/15 [History] Esomeprazole Magnesium [Nexium] 40 mg PO DAILY 06/02/15 [History] Insulin Glargine,Hum.rec.anlog [Lantus Solostar] 36 unit SQ DAILY 06/02/15 [ History] Calcitriol [Rocaltrol] 0.25 mcg PO DAILY 09/09/15 [History] Carvedilol [Coreg] 25 mg PO BID 09/09/15 [History] Cholecalciferol (D-3) [Vitamin D] 1,000 unit PO DAILY 09/09/15 [History] Fenofibrate Nanocrystallized [Tricor] 48 mg PO DAILY 09/09/15 [History] Furosemide [Lasix] 40 mg PO BID 09/09/15 [History] HydrALAZINE 25 mg PO Q6HR 09/09/15 [History] Metolazone [Zaroxolyn] 2.5 mg PO DAILY 09/09/15 [History] Ferrous Sulfate [Iron] 325 mg PO BID 04/07/16 [History] Phytonadione [Mephyton] 5 mg PO DAILY 04/07/16 [History] TraMADol [Ultram] 50 mg PO Q8H PRN 04/07/16 [History] Warfarin [Coumadin] 2 mg PO 1800 04/07/16 [History] Allergies No Known Allergies Allergy (Verified 09/09/15 10:26) Review of Systems All systems PM: A 10-system review of systems was performed and is negative for pertinent findings except as documented above in the HPI. General Surgery Exam Initial Vital Signs Temp Pulse Resp BP Pulse Ox 97.4 F L 72 16 152/70 100 04/07/16 12:24 04/07/16 12:24 04/07/16 12:24 04/07/16 12:24 04/07/16 12:24 Exam Initial Vital Signs Temp Pulse Resp BP Pulse Ox 97.4 F L 72 16 152/70 100 04/07/16 12:24 04/07/16 12:24 04/07/16 12:24 04/07/16 12:24 04/07/16 12:24 Results - Labs 04/13/16 06:03 04/13/16 06:03 Abnormal lab results WBC 4.1 K/mcL (4.3-11.1) L 04/13/16 06:03 RBC 2.64 M/mcL (3.82-4.97) L 04/13/16 06:03 Hgb 8.2 g/dL (11.5-15.4) L 04/13/16 06:03 Hct 25.2 % (35.3-44.9) L 04/13/16 06:03 PT 13.9 Seconds (9.4-12.1) H 04/12/16 04:55 APTT 117.1 Seconds (26.0-36.0) H* D 04/13/16 12:22 Heparin Anti-Xa, Unfract 0.75 IU/mL (0.30-0.70) H 04/13/16 12:22 Sodium 133 mEq/L (136-145) L 04/13/16 06:03 Chloride 96 mEq/L (98-109) L 04/13/16 06:03 BUN 21 mg/dL (7-20) H D 04/13/16 06:03 Creatinine 2.71 mg/dL (0.57-1.11) H 04/13/16 06:03 Est GFR ( Amer) 21 (> 60) L 04/13/16 06:03 Est GFR (Non-Af Amer) 17 (> 60) L 04/13/16 06:03 Glucose 195 mg/dL (70-99) H 04/13/16 06:03 POC Glucose 117 (58-89) H 04/13/16 11:38 Diabetes panel 04/13/16 Range/Units 06:03 Sodium 133 L (136-145) mEq/L Potassium 4.4 (3.5-4.5) mEq/L Chloride 96 L (98-109) mEq/L Carbon Dioxide 25 (19-29) mEq/L BUN 21 H D (7-20) mg/dL Creatinine 2.71 H (0.57-1.11) mg/dL Glucose 195 H (70-99) mg/dL Calcium 9.0 (8.6-10.8) mg/dL Calcium panel 04/13/16 Range/Units 06:03 Calcium 9.0 (8.6-10.8) mg/dL Pituitary panel 04/13/16 Range/Units 06:03 Sodium 133 L (136-145) mEq/L Potassium 4.4 (3.5-4.5) mEq/L Chloride 96 L (98-109) mEq/L Carbon Dioxide 25 (19-29) mEq/L BUN 21 H D (7-20) mg/dL Creatinine 2.71 H (0.57-1.11) mg/dL Glucose 195 H (70-99) mg/dL Calcium 9.0 (8.6-10.8) mg/dL Adrenal panel 04/13/16 Range/Units 06:03 Sodium 133 L (136-145) mEq/L Potassium 4.4 (3.5-4.5) mEq/L Chloride 96 L (98-109) mEq/L Carbon Dioxide 25 (19-29) mEq/L BUN 21 H D (7-20) mg/dL Creatinine 2.71 H (0.57-1.11) mg/dL Glucose 195 H (70-99) mg/dL Calcium 9.0 (8.6-10.8) mg/dL All other labs normal. Consult Discharge Plan - Plan Referrals: Lauren Calvillo MD [Primary Care Provider] - 04/19/16 1:45 pm (Requested )
[2016-04-13] MEDS ORDERED: *HR* Warfarin 2 MG TABLET PO SCH (18:00)
[2016-04-13 20:38] LABS: Activated Partial Thrombo Time 146.9 Seconds (26.0-36.0)
[2016-04-13 20:47] LABS: Heparin anti-factor XA UFH 0.77 IU/mL (0.30-0.70)
--- NOTE | 2016-04-13 20:47 | Anesthesia Evaluation PreOp ---
Date of Encounter: 04/13/16 Time of Encounter: 20:45 - Past History Planned Operation: Exicision 3cm lesion Dorsum R-hand Cardiac History: [place], CHF, HTN (maintained on Enalapril, Carvedilol, Lasix, Metolazone, Hydralazine), Hyperlipidemia (maintaine don Atorvastatin, Fenofibrate), Arrhythmia (Hx AFib anticoagulated on Coumadin, currently bridged on Heparin with plans to stop Heparin 4 hrs prior to surgery and to resume it post-op.), Cardiac Stent (x 2 stents approx 10 yrs ago), Other (Anemia of CKD. 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), GERD (maintained on Nexium) Anesthesia History: No Prior Anesthetic Complications, Past Anesthesia (MAURY, Skin Bx, LUE Vascular access 08/2015) Alcohol Use: none Drug use: none Medications and Allergies Aspirin [Adult Low Dose Aspirin EC] 81 mg PO DAILY 06/02/15 [History] Atorvastatin [Lipitor] 40 mg PO DAILY 06/02/15 [History] Enalapril Maleate [Vasotec] 20 mg PO BID 06/02/15 [History] Esomeprazole Magnesium [Nexium] 40 mg PO DAILY 06/02/15 [History] Insulin Glargine,Hum.rec.anlog [Lantus Solostar] 36 unit SQ DAILY 06/02/15 [ History] Calcitriol [Rocaltrol] 0.25 mcg PO DAILY 09/09/15 [History] Carvedilol [Coreg] 25 mg PO BID 09/09/15 [History] Cholecalciferol (D-3) [Vitamin D] 1,000 unit PO DAILY 09/09/15 [History] Fenofibrate Nanocrystallized [Tricor] 48 mg PO DAILY 09/09/15 [History] Furosemide [Lasix] 40 mg PO BID 09/09/15 [History] HydrALAZINE 25 mg PO Q6HR 09/09/15 [History] Metolazone [Zaroxolyn] 2.5 mg PO DAILY 09/09/15 [History] Ferrous Sulfate [Iron] 325 mg PO BID 04/07/16 [History] Phytonadione [Mephyton] 5 mg PO DAILY 04/07/16 [History] TraMADol [Ultram] 50 mg PO Q8H PRN 04/07/16 [History] Warfarin [Coumadin] 2 mg PO 1800 04/07/16 [History] Allergies No Known Allergies Allergy (Verified 09/09/15 10:26) - Meds/Allergy Pre-op Review Medications Reviewed: Yes Allergies Reviewed: Yes Beta Blockers on Current Med List: Yes (Carvedilol) If Beta Blockers taken, Date/Time (Last Dose taken): 04/13/16 @ 2119 Anesthesia Results - Labs 04/13/16 06:03 04/13/16 06:03 Laboratory Tests 03/18/16 04/12/16 04/13/16 09:07 04:55 06:03 PT 13.9 H INR 1.3 APTT Heparin Anti-Xa, Unfract Est GFR (Non-Af Amer) 17 L POC Glucose Est Mean Plasma Glucose 189 Hemoglobin A1c 8.2 H 04/13/16 04/13/16 16:50 20:00 PT INR APTT 146.9 H* Heparin Anti-Xa, Unfract 0.77 H Est GFR (Non-Af Amer) POC Glucose 146 H Est Mean Plasma Glucose Hemoglobin A1c Laboratory Results Impressions Insertion Non-Tunneled Catheter 04/07/16 00:00 IMPRESSION: 1. Right internal jugular vein temporary dialysis catheter placement as discussed above. D/ / Bry Brian MD / Bry Brian MD Interpreting Provider: Bry Brian MD Shunt Angiogram 04/08/16 00:00 IMPRESSION: Widely patent left forearm arteriovenous fistula, venous outflow tract, and central veins. A mildly prominent venous collateral arises from the venous outflow tract at the level of the mid forearm. D/ / 04/08/2016 14:56:15 Jack Gage MD / [facility] Interpreting Provider: Jack Gage MD Chest X-Ray 04/09/16 16:14 IMPRESSION: 1. Well-positioned right-sided central venous line. 2. No focal airspace disease. 3. Cardiomegaly. D/ / 04/09/2016 23:05:23 Michael Gonzalez MD / [facility] Interpreting Provider: Michael Gonzalez MD Guidance Needle Placement Ultrasound 04/12/16 00:00 IMPRESSION: Ultrasound and fluoroscopic guided placement of a tunneled right IJ hemodialysis catheter as above. No immediate complications. D/ / Dante Horton MD / Dante Horton MD Interpreting Provider: Dante Horton MD Insertion Tunneled Catheter 04/12/16 00:00 IMPRESSION: Ultrasound and fluoroscopic guided placement of a tunneled right IJ hemodialysis catheter as above. No immediate complications. D/ / Dante Horton MD / Dante Horton MD Interpreting Provider: Dante Horton MD - Imaging EKG: image reviewed ([05/25/2015] 70bpm AFib, moderated intraventricular conduction delay, minimal ST depression) Anesthesia Exam Vital Signs Temp Pulse Resp BP Pulse Ox 04/13/16 20:00 98.4 F 79 16 129/69 96 04/13/16 17:01 98 F 75 16 168/76 99 04/13/16 11:39 98.1 F 68 16 127/68 97 04/13/16 07:31 98.5 F 63 16 133/70 98 04/13/16 03:39 98.0 F 71 19 134/66 97 04/12/16 23:47 98.4 F 68 19 129/69 98 Intake and Output 04/13/16 04/13/16 04/13/16 07:59 15:59 23:59 Intake Total 150 / 150 850 / 850 300 / 300 Balance 150 / 150 850 / 850 300 / 300 Intake: IV Fluids 150 / 150 350 / 350 0 / 0 Heparin 25,000 UNIT/500 150 / 150 350 / 350 0 / 0 ML D5W 25,000 unit In 500 ml @ 10.99 UNIT/KG/HR 20 .002 mls/hr IVC .Q24H [facility] Rx#:[id number] Oral 500 / 500 300 / 300 Other: Meal Breakfast Dinner Percent of Meal Consumed 100% 100% Weight 90.4 kg Blood Glucose* 185 117 175 Patient Weight 04/13/16 23:59 Weight 90.4 kg Height: 5'4" Weight: 199# BMI = 34 - HEENT Pupil (Motor): Pupils equal, EOMI Mallampati: II Teeth: Edentulous Denture Type: Upper: Complete, Lower: Complete Oral Opening: Greater than 3 - BED TEACHER LOC: Oriented BED TEACHER Motor: Normal RUE, Normal LUE, Normal RLE, Normal LLE, Normal Face BED TEACHER Sensory: Normal: RUE, LUE, RLE, LLE, Face - Cardiac Rhythm: Irregular Murmur: None JVD: No - Pulmonary Breath Sounds: bilateral Clear Respiratory Effort: Symmetrical Anesthesia Assess/Plan ASA Score: 4 (ESRD, CHF, HTN, Chol, DM, Obesity, CAD) Anes Supervising Prov Stmt: Pt seen/evaluated, R&B Discussed, questions answered and consent obtained. Armani Hannah MD
[2016-04-13] MEDS: Insulin DETEMIR 100 UNIT/ML X5UNITS SQ SCH (23:10)
[2016-04-14] MEDS: hydrALAZINE 25 MG TABLET PO SCH ×4 (00:20→16:26)
[2016-04-14 04:34] LABS: Basophils % 0.8 %; Eosinophils # 0.1 K/mcL (0.0-0.6); Eosinophils % 2.8 %; Hematocrit 24.5 % (35.3-44.9); Hemoglobin 8.2 g/dL (11.5-15.4); Immature Granulocytes % 0.8 % (0-4); Lymphocytes % 26.4 %; Mean Corpuscular HGB Conc 33.5 g/dL (31.6-35.5); Mean Corpuscular Hemoglobin 31.1 pg (28.0-33.3); Mean Corpuscular Volume 92.8 fL (83.0-100.0); Mean Platelet Volume 11.1 fL (9.4-12.4); Monocytes # 0.7 K/mcL (0.0-1.3); Monocytes % 16.5 %; Neutrophils # 2.1 K/mcL (1.6-8.9); Platelet Count 169 K/mcL (140-400); Red Blood Count 2.64 M/mcL (3.82-4.97); Red Cell Distribution Width 13.3 % (11.5-14.5); Segmented Neutrophils % 52.7 %
[2016-04-14 04:45] LABS: Calcium 8.8 mg/dL (8.6-10.8); Potassium 3.9 mEq/L (3.5-4.5)
[2016-04-14 04:46] LABS: INR 1.1; Prothrombin Time 12.1 Seconds (9.4-12.1)
[2016-04-14] MEDS ORDERED: Bupivacaine/EPI 1:200k 0.25%PF 10 ML VIAL INFILT ONE ×2 (07:23→07:56)
[2016-04-14] MEDS ORDERED: ROPIVACAINE HCL/PF 0.5% 30 ML VIAL ONE (07:56)
[2016-04-14] MEDS ORDERED: Lidocaine -MPF 2% 5 ML VIAL INFILT ONE (07:56)
[2016-04-14] MEDS ORDERED: Bupivacaine-MPF 0.25% 10 ML VIAL ONE (07:56)
[2016-04-14] MEDS ORDERED: 0.9 % Sodium Chloride 250 ML IV PRN (08:05)
--- NOTE | 2016-04-14 08:21 | Anesthesia Procedures ---
Date of Encounter: 04/14/16 Time of Encounter: 08:18 Procedures: Anesthesia - Nerve Block Procedure Date: 04/14/16 Time: 08:18 Allergies/Adv Reactions: nka Pre-op Diagnosis: right dorsal hand lesion Surgical Procedure: exc right dorsal hand lesion Checklist: Correct Patient Identifier, Correct procedure, History checked Correct side: Right Blood Thinner: Yes (heparin stopped on floor) Monitor Applied: EKG, BP, Pulse Oximetry Supplemental Oxygen via Nasal Cannula (L/min): 2 Sedation: Fentanyl (mcg): 100 Indication: Primary Anesthesia Pre-op Neuro Deficits: No Block Type: Axillary Catheter placed: No Sterile Technique: Yes Ultrasound used: Yes Anatomy identified: Yes Visual spread of Local: Yes Neuro Stimulation: Yes Nerve Stimulator Range: 0.2 - 0.4 mA Blood on Needle Aspiration: No Smooth Injection of Local: Yes Pain with Injection of Local: No Prep: Chlorhexadine Needle: 22 x 50 mm Stimuplex Local: Ropivacaine (30ml 0.5%), Other (0.25% Marcaine with 1:200,000 epi 10mL, 20mL 2% lidocaine) Vitals: BP 149/57, spO2 94%, HR 80, rr 16
[2016-04-14] MEDS ORDERED: *HR* Phenylephrine 10 MG/ML VIAL ONE (08:32)
[2016-04-14] MEDS ORDERED: *HR* Propofol 200 MG/20 ML VIAL IVP ONE (08:40)
--- NOTE | 2016-04-14 09:28 | Internal Med Progress Note ---
<TreyNas zabmrano - Last Filed: 04/14/16 09:26> Date of Encounter: 04/14/16 Time of Encounter: 09:26 - Assessment and plan (1) Dialysis AV fistula malfunction Current Visit: Yes Status: Acute Assessment and plan: Reason for admission was malfunctioning AV fistula of left forearm Patient had permacath placed 04/12/16 Patient is having surgery on hand lesion this morning Qualifiers: Encounter type: initial encounter Qualified Code(s): T82.590A - Other mechanical complication of surgically created arteriovenous fistula, initial encounter (2) ESRD (end stage renal disease) on dialysis Current Visit: Yes Status: Chronic Assessment and plan: We will continue to monitor kidney function Continue hemodialysis via permacath MWF + PRN (3) Anticoagulated on Coumadin Current Visit: Yes Status: Acute Assessment and plan: Very high risk for thromboembolic event Plan is to continue holding Coumadin in preparation for surgery Continue to bridge with heparin (4) Anemia in chronic kidney disease Current Visit: Yes Status: Acute Assessment and plan: Hemoglobin stable this morning Continue to monitor and transfuse as necessary (5) Type 2 diabetes mellitus Current Visit: Yes Status: Acute Assessment and plan: Continue ACHS checks Blood glucose has been stable on decreased detemir continue to monitor Qualifiers: Diabetes mellitus complication status: with kidney complications Diabetes mellitus complication detail: with chronic kidney disease Diabetes mellitus senior living insulin use: with senior living use Chronic kidney disease stage: on chronic dialysis Qualified Code(s): E11.22 - Type 2 diabetes mellitus with diabetic chronic kidney disease; N18.6 - End stage renal disease; Z79.4 - alf (current) use of insulin; Z99.2 - Dependence on renal dialysis (6) DVT prophylaxis Current Visit: Yes Status: Acute Assessment and plan: Continue heparin - Subjective Interval history: Mrs. Deshpande was seen and examined at bedside. She was awake and in no apparent distress. She states the site of her permacath is a little irritating but not painful and denies chest pains, palpitations, dyspnea, or abdominal pain. - Constitutional Vitals: Temp Pulse Resp BP Pulse Ox 98.0 F 79 16 136/70 98 04/14/16 07:25 04/14/16 07:25 04/14/16 07:25 04/14/16 07:25 04/14/16 07:25 General appearance: Present: A&O X 3, no acute distress - Head Head exam: Present: atraumatic, normocephalic - Eye Eye exam: Present: PERRL, conjuntiva pink, sclera anicteric Pupils: Present: PERRL - Neck Neck exam general surgery: Present: supple, trachea midline. Absent: lymphadenopathy - Respiratory Respiratory exam: Present: CTAB. Absent: accessory muscle use, rales, rhonchi, wheezes - Cardiovascular Cardiovascular exam: Present: RRR, +S1, +S2. Absent: diastolic murmur, gallop, rubs, systolic murmur - GI/Abdominal GI/Abdominal exam: Present: normal bowel sounds, soft, no peritoneal signs. Absent: distended, tenderness - Extremities Exam Extremities exam: Present: warm, radial pulses palpable and symetrical. Absent : calf tenderness, cyanotic, pedal edema - Neurological Exam Neurological exam: Present: CN II-XII intact, oriented X3, no focal deficits. Absent: pronater drift, facial droop, speech deficit - Skin Skin exam: Present: dry, intact Internal Medicine: Result - Labs CBC & Chem 7: 04/14/16 04:26 04/14/16 04:26 Labs: Short CBC 04/14/16 Range/Units 04:26 WBC 3.9 L (4.3-11.1) K/mcL Hgb 8.2 L (11.5-15.4) g/dL Hct 24.5 L (35.3-44.9) % Plt Count 169 (140-400) K/mcL Neutrophils # 2.1 (1.6-8.9) K/mcL BMP 04/14/16 04:26 Sodium 133 L Potassium 3.9 Chloride 96 L Carbon Dioxide 25 BUN 37 H D Creatinine 3.31 H Glucose 145 H Calcium 8.8 - ABG Interpretation ABG results: PT/INR, D-dimer PT 12.1 Seconds (9.4-12.1) 04/14/16 04:26 - VTE Documentation of Mechanical Device: Graduated compression elastic hosiery Consult Discharge Plan - Plan Referrals: Lauren Calvillo MD [Primary Care Provider] - 04/19/16 1:45 pm () <Cornel Curiel - Last Filed: 04/14/16 16:13> - Constitutional Vitals: Temp Pulse Resp BP Pulse Ox 98.1 F 82 14 126/70 95 04/14/16 16:07 04/14/16 16:07 04/14/16 16:07 04/14/16 16:07 04/14/16 16:07 Internal Medicine: Result - Labs CBC & Chem 7: 04/14/16 04:26 04/14/16 04:26 Labs: Short CBC 04/14/16 Range/Units 04:26 WBC 3.9 L (4.3-11.1) K/mcL Hgb 8.2 L (11.5-15.4) g/dL Hct 24.5 L (35.3-44.9) % Plt Count 169 (140-400) K/mcL Neutrophils # 2.1 (1.6-8.9) K/mcL BMP 04/14/16 04:26 Sodium 133 L Potassium 3.9 Chloride 96 L Carbon Dioxide 25 BUN 37 H D Creatinine 3.31 H Glucose 145 H Calcium 8.8 - ABG Interpretation ABG results: PT/INR, D-dimer PT 12.1 Seconds (9.4-12.1) 04/14/16 04:26 - Attending Attestation I examined this patient and my medical decision-making was reviewed with the SUPERCALENDER OPERATOR/PA/Advanced Practice Nurse/Resident Physician. I agree with the documented findings, disposition and treatment plan as described except to the extent set forth below. REsume heparin drip resume coumdin this evening. D/W resident. HD as per nephrology .
[2016-04-14] MEDS ORDERED: 0.9 % Sodium Chloride 500 ML ONE (09:34)
[2016-04-14] MEDS ORDERED: Heparin 25,000 UNIT/500 ML D5W 25,000 UNIT/500 ML MLS IVC SCH ×3 (09:45→15:00)
--- NOTE | 2016-04-14 09:52 | Anesthesia Evaluation Post Op ---
Date of Encounter: 04/14/16 Time of Encounter: 09:52 - Vital Signs Vital Signs: Last Vital Signs Temp 97.2 F L 04/14/16 09:42 Pulse 80 04/14/16 09:52 Resp 16 04/14/16 09:52 BP 130/48 04/14/16 09:52 Pulse Ox 96 04/14/16 09:52 - Lungs Lungs: Clear Ascult./Percussion - Airway Airway: Non-obstructed - Cardiovascular Regular Rate - Mental Status Mental Status: Alert & Oriented, Answers Appropriately - Pain Pain Scale: 1 - Nausea Vomiting Nausea Vomiting: Not Present - Hydration Hydration: Ice chips - Discharge PostOp Status: Transfer Patient to floor
--- NOTE | 2016-04-14 10:16 | Operative Note ---
Date of procedure: 04/14/16 Pre-op diagnosis: lesion of uncertain behavior dorsum right hand Post-op diagnosis: same Procedure: excision 3 x 4 cm necrotic lesion dorsum right hand Complications: none apparent Anesthesia: regional, IV sedation Local Anesthetics: 0.25% Sensorcaine HCL with Epinephrine 1:200,000 SubQ (cc) ( 16 mL) Surgeon: Thiago Morse Estimated blood loss (cc): 10 IV fluids (cc): 400 Specimen: lesion dorsum right hand Condition: stable Disposition: PACU Procedure in Detail: The patient was brought to the operating room and placed supine upon the operating room table. The preoperative area and axillary block was established by Dr Dante Dill. The patient was appropriately identified as to person, procedure, and laterality. The accuracy of this information was confirmed by the procedure team. The patient was sedated under the supervision of Dr Dill and the right hand and arm was prepped and draped in the usual sterile fashion. When the patient was last examined in my office, the lesion measured 3 x 2.5 cm. Today the lesion measured 3 x 4 cm. An elliptical excision was planned with the long axis of the ellipse parallel to the long axis of the arm. The excision would measure 3.5 X 7 cm. The tissue underlying the necrotic lesion was infiltrated with several milliliters of 0.25% bupivacaine with 1-200,000 units of epinephrine. This effectively lifted the lesion away from the extensor tendons of the of the hand. The skin was then elliptically incised around the lesion with the dissection completed using Bovie electrocautery. A double silk ( black) suture was placed along the radial margin of the lesion, a single silk ( Black) suture was placed along the ulnar margin of the lesion. A Vicryl (white ) suture was placed on the distal tip. These sutures were placed to help pathology orient the specimen. The specimen was removed and sent to pathology. The midportion of the skin edges were reapproximated with horizontal mattress 4-0 Vicryl followed by interrupted 4-0 Ethilon to approximate the skin edges. 14 sutures were placed followed by a fluffy gauze dressing. The patient was taken to PACU in stable condition. Needle, sponge, and instrument counts were correct at the close of the case.
[2016-04-14] MEDS: Insulin LISPRO 300 UNITS/3 ML VIAL SQ SCH ×4 (10:43→21:39)
[2016-04-14] MEDS: Fenofibrate 54 MG TABLET PO SCH ×2 (10:44→16:25)
[2016-04-14] MEDS: Aspirin Enteric Coated 81 MG Tablet PO SCH (10:44)
[2016-04-14] MEDS: metOLazone 5 MG TABLET PO SCH (10:44)
[2016-04-14] MEDS: Furosemide 40 MG TABLET PO SCH ×2 (10:44→16:25)
[2016-04-14] MEDS: Cholecalciferol (D-3) 1,000 UNIT TABLET PO SCH ×2 (10:44→16:26)
[2016-04-14] MEDS: Lisinopril 20 MG TABLET PO SCH ×2 (10:45→21:38)
--- NOTE | 2016-04-14 10:48 | Nephrology Progress Note ---
Date of Encounter: 04/14/16 Time of Encounter: 09:35 - Assessment and Plan (1) ESRD (end stage renal disease) on dialysis Current Visit: Yes Status: Chronic Next HD is planned for Tuesday (today). Appreciate IR in placing the Permacath. (2) Dialysis AV fistula malfunction Current Visit: Yes Status: Acute Permacath in place Plan for an outpt AVF repairs Qualifiers: Encounter type: initial encounter Qualified Code(s): T82.590A - Other mechanical complication of surgically created arteriovenous fistula, initial encounter (3) Anemia in chronic kidney disease Current Visit: Yes Status: Acute Goal Hgb is 10-11. MOISE. Subjective Principal diagnosis: ESRD, Dialysis access dysfunction Interval history: Pt was s/e. She did not affirm N/V/D or uremic symptoms. Her daughter and nephew were present in the room o 2A with the pt and were updated. She did not affirm new major complaints. S/p surgery with Dr. Morse earlier in the day. Objective - Vital Signs Vital signs: Vital Signs Temp Pulse Resp BP Pulse Ox 04/14/16 10:02 97.2 F L 66 16 118/44 96 04/14/16 09:52 80 16 130/48 96 04/14/16 09:42 97.2 F L 80 16 120/53 96 04/14/16 09:32 76 16 125/57 99 04/14/16 09:22 75 16 118/47 98 04/14/16 09:12 97.1 F L 67 16 120/45 99 04/14/16 07:25 98.0 F 79 16 136/70 98 04/14/16 04:57 98.2 F 70 18 136/66 97 04/14/16 00:04 97.9 F 77 16 128/67 99 04/13/16 20:00 98.4 F 79 16 129/69 96 04/13/16 17:01 98 F 75 16 168/76 99 04/13/16 11:39 98.1 F 68 16 127/68 97 Intake and Output 04/13/16 04/14/16 04/14/16 23:59 07:59 15:59 Intake Total 300 / 300 0 / 0 Output Total 10 / 10 Balance 300 / 300 0 / 0 -10 / -10 Intake: IV Fluids 0 / 0 Heparin 25,000 UNIT/500 0 / 0 ML D5W 25,000 unit In 500 ml @ 10.99 UNIT/KG/HR 20 .002 mls/hr IVC .Q24H [facility] Rx#:[id number] Oral 300 / 300 0 / 0 Output: Estimated Blood Loss Other: Meal Dinner NPO Percent of Meal Consumed 100% Weight 91.2 kg Blood Glucose* 175 186 Patient Weight 04/14/16 23:59 Weight 91.2 kg - General Appearance Exam: General appearance: Present: well-developed, well-nourished, appears started age , obese EENT: Present: ATNC, PERRL, mucous membranes moist Neck: Present: supple Respiratory: Present: clear Cardiology: Present: no edema, regular rate (though she has a hx of AFib on coumadin), regular rhythm, normal S1, normal S2 Dialysis Vascular Access: Arteriovenous Fistula (Left forearm AVF with significant ecchymoses, no palpable thrill and only a weak bruit on auscultation. Rt chest Permacath Gastrointestinal: Present: normoactive bowel sounds, no tenderness, no guarding , obese Integumentary: Present: no rash, warm and dry Neurologic: Present: no focal deficit, no asterixis, alert and oriented x3 Musculoskeletal: Present: no deformities, no erythema, no cyanosis Psychiatric: Present: mood/affect appropriate, cooperative - Lab 04/14/16 17:05 04/14/16 04:26 Most recent lab results Calcium 8.8 mg/dL (8.6-10.8) 04/14/16 04:26 - VTE Documentation of Mechanical Device: Graduated compression elastic hosiery Consult Discharge Plan - Plan Referrals: Lauren Calvillo MD [Primary Care Provider] - 04/19/16 1:45 pm ()
[2016-04-14] MEDS ORDERED: 0.9 % Sodium Chloride 2,000 ML ONE (10:55)
[2016-04-14] MEDS ORDERED: *HR* Heparin 5,000 UNIT/ML VIAL IVP PRN ×4 (14:00→16:09)
[2016-04-14] MEDS ORDERED: D5% in Water 1,000 ML IV PRN (15:37)
[2016-04-14] MEDS ORDERED: *HR* HYDROcodone/Acet 5/325 mg TABLET PO PRN (15:37)
[2016-04-14] MEDS ORDERED: *HR* Morphine 2 MG/ML SYRINGE IVP PRN (15:37)
[2016-04-14] MEDS ORDERED: traMADol 50 MG TABLET PO PRN (15:37)
[2016-04-14] MEDS ORDERED: Dextrose Gel 15 GM PO PRN (15:37)
[2016-04-14] MEDS ORDERED: *HR* Dextrose 50 % in Water (Syg) 50 ML SYRINGE IVP PRN (15:37)
[2016-04-14] MEDS ORDERED: Naloxone 0.4 MG/ML INJ IVP PRN (15:37)
[2016-04-14] MEDS ORDERED: *HR* Heparin 5,000 UNIT/ML VIAL IVP ONE (16:09)
[2016-04-14] MEDS ORDERED: *HR* Heparin 5,000 UNIT/ML VIAL ONE (16:22)
[2016-04-14] MEDS: Heparin 25,000 UNIT/500 ML D5W 25,000 UNIT/500 ML MLS IVC SCH (16:31)
[2016-04-14 17:20] LABS: INR 1.2; Prothrombin Time 12.9 Seconds (9.4-12.1)
[2016-04-14 17:28] LABS: Activated Partial Thrombo Time 91.3 Seconds (26.0-36.0)
[2016-04-14 17:52] LABS: Hematocrit 26.5 % (35.3-44.9); Hemoglobin 8.8 g/dL (11.5-15.4); Mean Corpuscular HGB Conc 33.2 g/dL (31.6-35.5); Mean Corpuscular Hemoglobin 31.1 pg (28.0-33.3); Mean Corpuscular Volume 93.6 fL (83.0-100.0); Platelet Count 160 K/mcL (140-400); Red Blood Count 2.83 M/mcL (3.82-4.97); Red Cell Distribution Width 13.3 % (11.5-14.5)
[2016-04-14] MEDS ORDERED: *HR* Warfarin 4 MG TABLET PO ONE (21:09)
[2016-04-14] MEDS: Nystatin POWDER 30 GM BOTTLE TP SCH (21:38)
[2016-04-14] MEDS: Insulin DETEMIR 100 UNIT/ML X5UNITS SQ SCH (21:39)
[2016-04-15] MEDS: hydrALAZINE 25 MG TABLET PO SCH ×4 (00:43→17:27)
[2016-04-15 06:49] LABS: INR 1.2; Prothrombin Time 12.8 Seconds (9.4-12.1)
[2016-04-15 06:52] LABS: Activated Partial Thrombo Time 70.9 Seconds (26.0-36.0)
[2016-04-15 07:12] LABS: Calcium 8.3 mg/dL (8.6-10.8); Potassium 4.1 mEq/L (3.5-4.5)
[2016-04-15 07:42] LABS: Basophils % 0.9 %; Eosinophils # 0.1 K/mcL (0.0-0.6); Eosinophils % 1.9 %; Hematocrit 25.5 % (35.3-44.9); Hemoglobin 8.2 g/dL (11.5-15.4); Immature Granulocytes % 0.5 % (0-4); Lymphocytes # 0.9 K/mcL (0.6-4.6); Lymphocytes % 19.8 %; Mean Corpuscular HGB Conc 32.2 g/dL (31.6-35.5); Mean Corpuscular Hemoglobin 30.7 pg (28.0-33.3); Mean Corpuscular Volume 95.5 fL (83.0-100.0); Mean Platelet Volume 11.3 fL (9.4-12.4); Monocytes # 0.7 K/mcL (0.0-1.3); Monocytes % 15.9 %; Neutrophils # 2.6 K/mcL (1.6-8.9); Platelet Count 163 K/mcL (140-400); Red Blood Count 2.67 M/mcL (3.82-4.97); Red Cell Distribution Width 13.8 % (11.5-14.5)
[2016-04-15] MEDS: Aspirin Enteric Coated 81 MG Tablet PO SCH (08:31)
[2016-04-15] MEDS: Lisinopril 20 MG TABLET PO SCH ×2 (08:31→22:26)
[2016-04-15] MEDS: Fenofibrate 54 MG TABLET PO SCH (08:31)
[2016-04-15] MEDS: Furosemide 40 MG TABLET PO SCH ×2 (08:33→17:28)
[2016-04-15] MEDS: Nystatin POWDER 30 GM BOTTLE TP SCH ×2 (08:33→21:47)
[2016-04-15] MEDS: Cholecalciferol (D-3) 1,000 UNIT TABLET PO SCH (08:33)
[2016-04-15] MEDS: metOLazone 5 MG TABLET PO SCH (08:33)
[2016-04-15] MEDS: Insulin LISPRO 300 UNITS/3 ML VIAL SQ SCH ×4 (08:35→22:27)
--- NOTE | 2016-04-15 08:51 | Nephrology Progress Note ---
Date of Encounter: 04/15/16 Time of Encounter: 08:48 - Assessment and Plan (1) Dialysis AV fistula malfunction Current Visit: Yes Status: Acute Permacath in place OK to discharge from a nephrology point Plan for outpatient AVF repair Resume outpatient dialysis at [facility] once dishcarged Qualifiers: Encounter type: initial encounter Qualified Code(s): T82.590A - Other mechanical complication of surgically created arteriovenous fistula, initial encounter (2) Anemia in chronic kidney disease Current Visit: Yes Status: Acute Hgb down to 8.2 Transfusion per parameters Goal 10-11 (3) ESRD (end stage renal disease) on dialysis Current Visit: Yes Status: Chronic Plan for HD tomorrow Continue renal diet and fluid restriction Avoid nephrotoxins if possible Subjective Principal diagnosis: ESRD, Dialysis access dysfunction Interval history: Patient seen and examined. States she may be discharged tomorrow. Feeling well today Objective - Vital Signs Vital signs: Vital Signs Temp Pulse Resp BP Pulse Ox 04/15/16 07:46 98.1 F 74 17 128/75 96 04/15/16 03:58 98.0 F 74 19 121/50 96 04/15/16 00:02 99.3 F 84 19 134/73 97 04/14/16 19:30 98.2 F 86 19 119/70 96 04/14/16 16:07 98.1 F 82 14 126/70 95 04/14/16 14:41 98 F 22 120/67 04/14/16 14:15 123/60 04/14/16 14:00 121/56 04/14/16 13:45 117/59 04/14/16 13:30 105/48 04/14/16 13:21 97.4 F L 76 18 133/62 100 04/14/16 13:15 134/60 04/14/16 13:00 109/53 04/14/16 12:45 141/65 04/14/16 12:30 138/58 04/14/16 12:15 100/47 04/14/16 12:00 133/62 04/14/16 11:45 110/50 04/14/16 11:30 134/55 04/14/16 11:15 145/62 04/14/16 11:05 96.8 F L 82 16 132/76 100 04/14/16 11:00 169/76 04/14/16 10:50 97.0 F L 71 16 130/72 100 04/14/16 10:45 98 F 20 165/62 04/14/16 10:35 97.0 F L 76 16 167/81 98 04/14/16 10:20 96.4 F L 80 16 155/80 98 04/14/16 10:02 97.2 F L 66 16 118/44 96 04/14/16 09:52 80 16 130/48 96 04/14/16 09:42 97.2 F L 80 16 120/53 96 04/14/16 09:32 76 16 125/57 99 04/14/16 09:22 75 16 118/47 98 04/14/16 09:12 97.1 F L 67 16 120/45 99 Intake and Output 04/14/16 04/15/16 04/15/16 23:59 07:59 15:59 Intake Total 0 / 0 200 / 200 0 / 0 Output Total 0 / 0 Balance 0 / 0 200 / 200 0 / 0 Intake: IV Fluids 200 / 200 Heparin 25,000 UNIT/500 200 / 200 ML D5W 25,000 unit In 500 ml @ 10.964 UNIT/KG/HR 19.998 mls/hr IVC .Q24H [facility] Rx#:[id number] Oral 0 / 0 0 / 0 Output: Urine 0 / 0 Other: Weight 90.2 kg Blood Glucose* 228 Patient Weight 04/15/16 23:59 Weight 90.2 kg - General Appearance General appearance: Present: well-developed, well-nourished EENT: Present: ATNC, mucous membranes moist, hearing intact, vision intact Neck: Present: supple Respiratory: Present: clear Cardiology: Present: no edema, normal S1, normal S2 Dialysis Vascular Access: Venous Catheter Gastrointestinal: Present: no tenderness, no guarding Integumentary: Present: warm and dry Neurologic: Present: alert and oriented x3 Musculoskeletal: Present: no deformities Psychiatric: Present: mood/affect appropriate, cooperative - Lab 04/15/16 06:29 04/15/16 06:29 Most recent lab results Calcium 8.3 mg/dL (8.6-10.8) L 04/15/16 06:29 - VTE Documentation of Mechanical Device: Intermittent pneumatic compression device Consult Discharge Plan - Plan Referrals: Lauren Calvillo MD [Primary Care Provider] - 04/19/16 1:45 pm ()
[2016-04-15] MEDS ORDERED: Cholecalciferol (D-3) 1,000 UNIT TABLET PO SCH (09:00)
[2016-04-15] MEDS ORDERED: Aspirin Enteric Coated 81 MG Tablet PO SCH (09:00)
[2016-04-15] MEDS ORDERED: Fenofibrate 54 MG TABLET PO SCH (09:00)
--- NOTE | 2016-04-15 09:24 | Internal Med Progress Note ---
<Nas Yang - Last Filed: 04/15/16 09:20> Date of Encounter: 04/15/16 Time of Encounter: 09:20 - Assessment and plan (1) Dialysis AV fistula malfunction Current Visit: Yes Status: Acute Assessment and plan: Reason for admission was malfunctioning AV fistula of left forearm Patient had permacath placed 04/12/16 Qualifiers: Encounter type: initial encounter Qualified Code(s): T82.590A - Other mechanical complication of surgically created arteriovenous fistula, initial encounter (2) ESRD (end stage renal disease) on dialysis Current Visit: Yes Status: Chronic Assessment and plan: Serum creatinine this morning is good relative to patient's baseline We will continue to monitor kidney function Continue hemodialysis via permacath MWF + PRN (3) Anticoagulated on Coumadin Current Visit: Yes Status: Acute Assessment and plan: Very high risk for thromboembolic event We have been holding Coumadin and bridging with heparin in preparation for surgery on hand lesion yesterday We started Coumadin last night with an initial dose of 4 mg INR this morning is subtherapeutic at 1.2 We will resume her home dose of warfarin, 2 mg daily and continue to monitor INR (4) Anemia in chronic kidney disease Current Visit: Yes Status: Acute Assessment and plan: Hemoglobin stable this morning Continue to monitor and transfuse as necessary (5) Type 2 diabetes mellitus Current Visit: Yes Status: Acute Assessment and plan: Continue ACHS checks Blood glucose has been stable on decreased detemir continue to monitor Qualifiers: Diabetes mellitus complication status: with kidney complications Diabetes mellitus complication detail: with chronic kidney disease Diabetes mellitus director long term care insulin use: with director long term care use Chronic kidney disease stage: on chronic dialysis Qualified Code(s): E11.22 - Type 2 diabetes mellitus with diabetic chronic kidney disease; N18.6 - End stage renal disease; 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 Deshpande was seen and examined at bedside. She was awake and in no apparent distress. She denies chest pain, palpitations, dyspnea, or abdominal pain. - Constitutional Vitals: Temp Pulse Resp BP Pulse Ox 98.1 F 74 17 128/75 96 04/15/16 07:46 04/15/16 07:46 04/15/16 07:46 04/15/16 07:46 04/15/16 07:46 General appearance: Present: A&O X 3, no acute distress - Head Head exam: Present: atraumatic, normocephalic - Eye Eye exam: Present: PERRL, conjuntiva pink, sclera anicteric Pupils: Present: PERRL - Neck Neck exam general surgery: Present: supple, trachea midline. Absent: lymphadenopathy - Respiratory Respiratory exam: Present: CTAB. Absent: accessory muscle use, rales, rhonchi, wheezes - Cardiovascular Cardiovascular exam: Present: RRR, +S1, +S2. Absent: diastolic murmur, gallop, rubs, systolic murmur - GI/Abdominal GI/Abdominal exam: Present: normal bowel sounds, soft, no peritoneal signs. Absent: distended, tenderness - Extremities Exam Extremities exam: Present: warm, radial pulses palpable and symetrical. Absent : calf tenderness, cyanotic, pedal edema - Neurological Exam Neurological exam: Present: CN II-XII intact, oriented X3, no focal deficits. Absent: pronater drift, facial droop, speech deficit - Skin Skin exam: Present: dry, intact Internal Medicine: Result - Labs CBC & Chem 7: 04/15/16 06:29 04/15/16 06:29 Labs: Short CBC 04/14/16 04/15/16 Range/Units 17:05 06:29 WBC 4.6 4.3 (4.3-11.1) K/mcL Hgb 8.8 L 8.2 L (11.5-15.4) g/dL Hct 26.5 L 25.5 L (35.3-44.9) % Plt Count 160 163 (140-400) K/mcL Neutrophils # 2.6 (1.6-8.9) K/mcL BMP 04/15/16 06:29 Sodium 135 L Potassium 4.1 Chloride 99 Carbon Dioxide 28 BUN 19 D Creatinine 2.28 H Glucose 159 H Calcium 8.3 L - ABG Interpretation ABG results: PT/INR, D-dimer PT 12.8 Seconds (9.4-12.1) H 04/15/16 06:29 - VTE Documentation of Mechanical Device: Intermittent pneumatic compression device Consult Discharge Plan - Plan Referrals: Lauren Calvillo MD [Primary Care Provider] - 04/19/16 1:45 pm () <CurielCornel fan R - Last Filed: 04/15/16 14:18> - Constitutional Vitals: Temp Pulse Resp BP Pulse Ox 98.2 F 72 18 130/77 97 04/15/16 12:00 04/15/16 12:00 04/15/16 12:00 04/15/16 12:00 04/15/16 12:00 Internal Medicine: Result - Labs CBC & Chem 7: 04/15/16 06:29 04/15/16 06:29 Labs: Short CBC 04/14/16 04/15/16 Range/Units 17:05 06:29 WBC 4.6 4.3 (4.3-11.1) K/mcL Hgb 8.8 L 8.2 L (11.5-15.4) g/dL Hct 26.5 L 25.5 L (35.3-44.9) % Plt Count 160 163 (140-400) K/mcL Neutrophils # 2.6 (1.6-8.9) K/mcL BMP 04/15/16 06:29 Sodium 135 L Potassium 4.1 Chloride 99 Carbon Dioxide 28 BUN 19 D Creatinine 2.28 H Glucose 159 H Calcium 8.3 L - ABG Interpretation ABG results: PT/INR, D-dimer PT 12.8 Seconds (9.4-12.1) H 04/15/16 06:29 - Attending Attestation I examined this patient and my medical decision-making was reviewed with the INSTRUMENT MECHANIC/PA/Advanced Practice Nurse/Resident Physician. I agree with the documented findings, disposition and treatment plan as described except to the extent set forth below. Very high risk for throboembolic events, on heparin drip and coumadin restarted last night. Monitor INR. HD as per nephro. D/W patient.
--- NOTE | 2016-04-15 11:37 | General Surgery Progress Note ---
Date of Encounter: 04/15/16 Time of Encounter: 11:25 Subjective Patient reports: no new complaints Narrative: Postoperative day 1: Afebrile, vital signs stable; pulse 74, respirations 17, blood pressure 128/75 Excision dorsum right hand clean and dry. Dressing changed. Pathology pending Patient indicating that the arm numbness has resolved her hand is still numb and not functioning at baseline. His numbness is related to the operative axillary or brachial block administered by anesthesia. It appears to be slowly resolving. Recommend monitoring until completely resolved. The right hand was redressed with a gauze dressing followed by an Eran wrap. Impression: Acceptable postoperative status, status post excision large, raised , necrotic, hyperkeratotic lesion dorsum right hand Objective Vital Signs - Last 8 Hours Temp Pulse Resp BP Pulse Ox 04/15/16 07:46 98.1 F 74 17 128/75 96 04/15/16 03:58 98.0 F 74 19 121/50 96 Intake and Output 04/14/16 04/15/16 04/15/16 23:59 07:59 15:59 Intake Total 0 / 0 200 / 200 0 / 0 Output Total 0 / 0 Balance 0 / 0 200 / 200 0 / 0 Intake: IV Fluids 200 / 200 Heparin 25,000 UNIT/500 200 / 200 ML D5W 25,000 unit In 500 ml @ 10.964 UNIT/KG/HR 19.998 mls/hr IVC .Q24H [facility] Rx#:[id number] Oral 0 / 0 0 / 0 Output: Urine 0 / 0 Other: Weight 90.2 kg Blood Glucose* 228 Patient Weight 04/15/16 23:59 Weight 90.2 kg - Labs 04/15/16 06:29 04/15/16 06:29 Diabetes panel 04/15/16 Range/Units 06:29 Sodium 135 L (136-145) mEq/L Potassium 4.1 (3.5-4.5) mEq/L Chloride 99 (98-109) mEq/L Carbon Dioxide 28 (19-29) mEq/L BUN 19 D (7-20) mg/dL Creatinine 2.28 H (0.57-1.11) mg/dL Glucose 159 H (70-99) mg/dL Calcium 8.3 L (8.6-10.8) mg/dL Calcium panel 04/15/16 Range/Units 06:29 Calcium 8.3 L (8.6-10.8) mg/dL Pituitary panel 04/15/16 Range/Units 06:29 Sodium 135 L (136-145) mEq/L Potassium 4.1 (3.5-4.5) mEq/L Chloride 99 (98-109) mEq/L Carbon Dioxide 28 (19-29) mEq/L BUN 19 D (7-20) mg/dL Creatinine 2.28 H (0.57-1.11) mg/dL Glucose 159 H (70-99) mg/dL Calcium 8.3 L (8.6-10.8) mg/dL Adrenal panel 04/15/16 Range/Units 06:29 Sodium 135 L (136-145) mEq/L Potassium 4.1 (3.5-4.5) mEq/L Chloride 99 (98-109) mEq/L Carbon Dioxide 28 (19-29) mEq/L BUN 19 D (7-20) mg/dL Creatinine 2.28 H (0.57-1.11) mg/dL Glucose 159 H (70-99) mg/dL Calcium 8.3 L (8.6-10.8) mg/dL - VTE Documentation of Mechanical Device: Intermittent pneumatic compression device Consult Discharge Plan - Plan Referrals: Lauren Calvillo MD [Primary Care Provider] - 04/19/16 1:45 pm ()
[2016-04-15] MEDS: Heparin 25,000 UNIT/500 ML D5W 25,000 UNIT/500 ML MLS IVC SCH (17:28)
[2016-04-15] MEDS: *HR* Warfarin 2 MG TABLET PO SCH (17:28)
[2016-04-15] MEDS: Insulin DETEMIR 100 UNIT/ML X5UNITS SQ SCH (22:26)
[2016-04-16] MEDS: hydrALAZINE 25 MG TABLET PO SCH ×4 (00:45→17:10)
[2016-04-16] MEDS: Cholecalciferol (D-3) 1,000 UNIT TABLET PO SCH (05:48)
[2016-04-16] MEDS: Aspirin Enteric Coated 81 MG Tablet PO SCH (05:48)
[2016-04-16] MEDS: Nystatin POWDER 30 GM BOTTLE TP SCH (05:52)
[2016-04-16 06:03] LABS: Eosinophils # 0.2 K/mcL (0.0-0.6); Eosinophils % 4.2 %; Hematocrit 24.2 % (35.3-44.9); Hemoglobin 7.9 g/dL (11.5-15.4); Immature Granulocytes % 0.2 % (0-4); Lymphocytes # 1.1 K/mcL (0.6-4.6); Lymphocytes % 27.7 %; Mean Corpuscular HGB Conc 32.6 g/dL (31.6-35.5); Mean Corpuscular Hemoglobin 31.1 pg (28.0-33.3); Mean Corpuscular Volume 95.3 fL (83.0-100.0); Mean Platelet Volume 11.3 fL (9.4-12.4); Monocytes # 0.6 K/mcL (0.0-1.3); Monocytes % 15.8 %; Neutrophils # 2.1 K/mcL (1.6-8.9); Platelet Count 156 K/mcL (140-400); Red Blood Count 2.54 M/mcL (3.82-4.97); Red Cell Distribution Width 13.5 % (11.5-14.5); Segmented Neutrophils % 51.1 %
[2016-04-16 06:08] LABS: INR 1.2; Prothrombin Time 13.1 Seconds (9.4-12.1)
[2016-04-16 06:27] LABS: Calcium 8.8 mg/dL (8.6-10.8); Potassium 3.9 mEq/L (3.5-4.5)
[2016-04-16] MEDS: Insulin LISPRO 300 UNITS/3 ML VIAL SQ SCH ×4 (07:52→20:07)
[2016-04-16] MEDS ORDERED: *HR* Heparin 10,000 UNIT/10 ML VIAL IV PRN (08:02)
[2016-04-16] MEDS ORDERED: 0.9 % Sodium Chloride 250 ML IV PRN (08:02)
--- NOTE | 2016-04-16 08:06 | Internal Med Progress Note ---
<TreyNas zambrano - Last Filed: 04/16/16 14:16> Date of Encounter: 04/16/16 Time of Encounter: 08:06 - Assessment and plan (1) Dialysis AV fistula malfunction Current Visit: Yes Status: Acute Assessment and plan: Reason for admission was malfunctioning AV fistula of left forearm Patient had permacath placed 04/12/16 Qualifiers: Encounter type: initial encounter Qualified Code(s): T82.590A - Other mechanical complication of surgically created arteriovenous fistula, initial encounter (2) ESRD (end stage renal disease) on dialysis Current Visit: Yes Status: Chronic Assessment and plan: Serum creatinine this morning is stable Nephrology following We will continue to monitor kidney function Continue hemodialysis via permacath MWF + PRN (3) Anticoagulated on Coumadin Current Visit: Yes Status: Acute Assessment and plan: Very high risk for thromboembolic event We have been holding Coumadin and bridging with heparin in preparation for surgery on hand lesion She is getting Coumadin 2 mg daily now after 4 mg loading dose. INR this morning is still subtherapeutic at 1.2 Will add extra dose today (4) Anemia in chronic kidney disease Current Visit: Yes Status: Acute Assessment and plan: Hemoglobin stable this morning Continue to monitor and transfuse as necessary (5) Type 2 diabetes mellitus Current Visit: Yes Status: Acute Assessment and plan: Continue ACHS checks Blood glucose has been stable on decreased detemir continue to monitor Qualifiers: Diabetes mellitus complication status: with kidney complications Diabetes mellitus complication detail: with chronic kidney disease Diabetes mellitus halfway insulin use: with halfway use Chronic kidney disease stage: on chronic dialysis Qualified Code(s): E11.22 - Type 2 diabetes mellitus with diabetic chronic kidney disease; N18.6 - End stage renal disease; Z79.4 - assisted (current) use of insulin; Z99.2 - Dependence on renal dialysis (6) DVT prophylaxis Current Visit: Yes Status: Acute Assessment and plan: Continue bridging with heparin while we are restarting Coumadin - Subjective Interval history: Mrs. Deshpande was seen and examined at bedside. She was awake and in no apparent distress. She denies chest pain, palpitations, dyspnea, or abdominal pain. The bandage on her neck from the temporary catheter was removed. She denies any new complaints - Constitutional Vitals: Temp Pulse Resp BP Pulse Ox 98.0 F 86 18 131/74 97 04/16/16 07:43 04/16/16 07:43 04/16/16 07:43 04/16/16 07:43 04/16/16 07:43 General appearance: Present: A&O X 3, no acute distress - Head Head exam: Present: atraumatic, normocephalic - Eye Eye exam: Present: PERRL, conjuntiva pink, sclera anicteric Pupils: Present: PERRL - Neck Neck exam general surgery: Present: supple, trachea midline. Absent: lymphadenopathy - Respiratory Respiratory exam: Present: CTAB. Absent: accessory muscle use, rales, rhonchi, wheezes - Cardiovascular Cardiovascular exam: Present: RRR, +S1, +S2. Absent: diastolic murmur, gallop, rubs, systolic murmur - GI/Abdominal GI/Abdominal exam: Present: normal bowel sounds, soft, no peritoneal signs. Absent: distended, tenderness - Extremities Exam Extremities exam: Present: warm, radial pulses palpable and symetrical. Absent : calf tenderness, cyanotic, pedal edema - Neurological Exam Neurological exam: Present: CN II-XII intact, oriented X3, no focal deficits. Absent: pronater drift, facial droop, speech deficit - Skin Skin exam: Present: dry, intact Internal Medicine: Result - Labs CBC & Chem 7: 04/16/16 05:14 04/16/16 05:14 Labs: Short CBC 04/16/16 Range/Units 05:14 WBC 4.0 L (4.3-11.1) K/mcL Hgb 7.9 L (11.5-15.4) g/dL Hct 24.2 L (35.3-44.9) % Plt Count 156 (140-400) K/mcL Neutrophils # 2.1 (1.6-8.9) K/mcL BMP 04/16/16 05:14 Sodium 136 Potassium 3.9 Chloride 98 Carbon Dioxide 25 BUN 34 H D Creatinine 2.86 H Glucose 77 Calcium 8.8 - ABG Interpretation ABG results: PT/INR, D-dimer PT 13.1 Seconds (9.4-12.1) H 04/16/16 05:14 - VTE Documentation of Mechanical Device: Intermittent pneumatic compression device Consult Discharge Plan - Plan Referrals: Lauren Calvillo MD [Primary Care Provider] - 04/19/16 1:45 pm () <Cornel Curiel R - Last Filed: 04/16/16 15:21> - Constitutional Vitals: Temp Pulse Resp BP Pulse Ox 98.0 F 106 18 163/77 97 04/16/16 12:10 04/16/16 13:34 04/16/16 12:10 04/16/16 13:34 04/16/16 11:47 Internal Medicine: Result - Labs CBC & Chem 7: 04/16/16 05:14 04/16/16 05:14 Labs: Short CBC 04/16/16 Range/Units 05:14 WBC 4.0 L (4.3-11.1) K/mcL Hgb 7.9 L (11.5-15.4) g/dL Hct 24.2 L (35.3-44.9) % Plt Count 156 (140-400) K/mcL Neutrophils # 2.1 (1.6-8.9) K/mcL BMP 04/16/16 05:14 Sodium 136 Potassium 3.9 Chloride 98 Carbon Dioxide 25 BUN 34 H D Creatinine 2.86 H Glucose 77 Calcium 8.8 - ABG Interpretation ABG results: PT/INR, D-dimer PT 13.1 Seconds (9.4-12.1) H 04/16/16 05:14 - Attending Attestation I examined this patient and my medical decision-making was reviewed with the KIER PLEATER/PA/Advanced Practice Nurse/Resident Physician. I agree with the documented findings, disposition and treatment plan as described except to the extent set forth below. Not therapeutic INR, continue coumadin. Possible D/C tomorrow in am. Very high risk of thromboembolic events.
[2016-04-16] MEDS: Furosemide 40 MG TABLET PO SCH ×2 (08:13→17:10)
[2016-04-16] MEDS ORDERED: 0.9 % Sodium Chloride 1,000 ML PRIME SCH (08:15)
[2016-04-16] MEDS ORDERED: 0.9 % Sodium Chloride 2,000 ML ONE (08:17)
--- NOTE | 2016-04-16 10:02 | Nephrology Progress Note ---
Date of Encounter: 04/16/16 Time of Encounter: 10:00 - Assessment and Plan (1) ESRD (end stage renal disease) on dialysis Current Visit: Yes Status: Chronic Will continue HD MWF and adjust UF as needed. Provide renal diet. Adjust medication for renal function. Will provide additional renal replacement therapies as needed. (2) Anemia in chronic kidney disease Current Visit: Yes Status: Acute Monitor hemoglobin. Transfuse as needed. Provide MOISE if patient will have a prolonged hospitalization. (3) Dialysis AV fistula malfunction Current Visit: Yes Status: Acute Patient has a tunneled catheter. Ok for discharge from nephrology standpoint. Plan for outpatient AVF repair. Resume outpatient dialysis at [facility] once discharged. Qualifiers: Encounter type: initial encounter Qualified Code(s): T82.590A - Other mechanical complication of surgically created arteriovenous fistula, initial encounter (4) Type 2 diabetes mellitus Current Visit: Yes Status: Acute Per the primary team. 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 Patient has no new complaint. She denies pain. No sob. ROS otherwise stable. Objective - Vital Signs Vital signs: Vital Signs Temp Pulse Resp BP Pulse Ox 04/16/16 08:45 159/71 04/16/16 08:30 98.0 F 18 150/61 04/16/16 07:43 98.0 F 86 18 131/74 97 04/16/16 03:40 98.2 F 80 20 160/70 96 04/15/16 23:50 97.6 F 74 18 121/68 98 04/15/16 19:49 97.7 F 84 20 124/70 98 04/15/16 12:00 98.2 F 72 18 130/77 97 Intake and Output 04/15/16 04/16/16 04/16/16 23:59 07:59 15:59 Intake Total 150 / 150 0 / 0 600 / 600 Output Total 0 / 0 Balance 150 / 150 0 / 0 600 / 600 Intake: IV Fluids 150 / 150 Heparin 25,000 UNIT/500 150 / 150 ML D5W 25,000 unit In 500 ml @ 10.964 UNIT/KG/HR 19.998 mls/hr IVC .Q24H [facility] Rx#:[id number] Oral 0 / 0 0 / 0 0 / 0 Intake, Rinseback and 600 / 600 Flushes Output: Urine 0 / 0 Other: # Voids 1 Weight 89.358 kg Blood Glucose* 216 94 Hemodialysis Net Fluid 257 Removed (mL) Patient Weight 04/16/16 23:59 Weight 89.358 kg - General Appearance General appearance: Present: well-developed, well-nourished EENT: Present: ATNC Neck: Present: supple Respiratory: Present: clear Cardiology: Present: no edema, regular rate, regular rhythm Dialysis Vascular Access: Venous Catheter (Right IJ tunneled catheter in place.) Gastrointestinal: Present: normoactive bowel sounds, no tenderness Integumentary: Present: warm and dry Neurologic: Present: alert and oriented x3 Musculoskeletal: Present: no cyanosis Psychiatric: Present: mood/affect appropriate - Lab 04/16/16 05:14 04/16/16 05:14 Most recent lab results Calcium 8.8 mg/dL (8.6-10.8) 04/16/16 05:14 - VTE Documentation of Mechanical Device: Intermittent pneumatic compression device Consult Discharge Plan - Plan Referrals: Lauren Calvillo MD [Primary Care Provider] - 04/19/16 1:45 pm ()
[2016-04-16] MEDS ORDERED: *HR* Morphine 2 MG/ML SYRINGE IVP PRN (11:43)
--- NOTE | 2016-04-16 13:03 | General Surgery Progress Note ---
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 Unfortunately, deeper resection is not possible unless extensor tendons of the right hand fingers are to be resected with obvious disability to the right hand. The incision is clean and healing well. The prior complaints numbness of the right hand and arm due to the block administered for surgery have resolved. Dressing removed - the incision left open to air for the time being Recommendations: if discharged today or over the weekend, follow up in the office on 04/19/2016 may redress the wound with dry sterile 4x4 gauze and conform gauze (Rich) patient may wash incision with soap and water Objective Vital Signs - Last 8 Hours Temp Pulse Resp BP Pulse Ox 04/16/16 12:10 98.0 F 18 116/42 04/16/16 12:00 104/52 04/16/16 11:47 97.9 F 84 16 104/52 97 04/16/16 11:45 102/53 04/16/16 11:30 111/53 04/16/16 11:15 110/50 04/16/16 11:00 105/55 04/16/16 10:45 107/51 04/16/16 10:30 108/53 04/16/16 10:15 120/52 04/16/16 10:00 118/59 04/16/16 09:45 113/56 04/16/16 09:30 126/54 04/16/16 09:15 141/70 04/16/16 09:00 152/58 04/16/16 08:45 159/71 04/16/16 08:30 98.0 F 18 150/61 04/16/16 07:43 98.0 F 86 18 131/74 97 Intake and Output 04/15/16 04/16/16 04/16/16 23:59 07:59 15:59 Intake Total 150 / 150 0 / 0 600 / 600 Output Total 3600 / 3600 Balance 150 / 150 0 / 0 -3000 / -3000 Intake: IV Fluids 150 / 150 Heparin 25,000 UNIT/500 150 / 150 ML D5W 25,000 unit In 500 ml @ 10.964 UNIT/KG/HR 19.998 mls/hr IVC .Q24H [facility] Rx#:[id number] Oral 0 / 0 0 / 0 0 / 0 Intake, Rinseback and 600 / 600 Flushes Output: Urine 0 / 0 Total Dialysis Output 3600 / 3600 Other: # Voids 1 Weight 89.358 kg Blood Glucose* 216 94 132 Hemodialysis Net Fluid 3000 Removed (mL) Patient Weight 04/16/16 23:59 Weight 89.358 kg - Labs 04/16/16 05:14 04/16/16 05:14 Diabetes panel 04/16/16 Range/Units 05:14 Sodium 136 (136-145) mEq/L Potassium 3.9 (3.5-4.5) mEq/L Chloride 98 (98-109) mEq/L Carbon Dioxide 25 (19-29) mEq/L BUN 34 H D (7-20) mg/dL Creatinine 2.86 H (0.57-1.11) mg/dL Glucose 77 (70-99) mg/dL Calcium 8.8 (8.6-10.8) mg/dL Calcium panel 04/16/16 Range/Units 05:14 Calcium 8.8 (8.6-10.8) mg/dL Pituitary panel 04/16/16 Range/Units 05:14 Sodium 136 (136-145) mEq/L Potassium 3.9 (3.5-4.5) mEq/L Chloride 98 (98-109) mEq/L Carbon Dioxide 25 (19-29) mEq/L BUN 34 H D (7-20) mg/dL Creatinine 2.86 H (0.57-1.11) mg/dL Glucose 77 (70-99) mg/dL Calcium 8.8 (8.6-10.8) mg/dL Adrenal panel 04/16/16 Range/Units 05:14 Sodium 136 (136-145) mEq/L Potassium 3.9 (3.5-4.5) mEq/L Chloride 98 (98-109) mEq/L Carbon Dioxide 25 (19-29) mEq/L BUN 34 H D (7-20) mg/dL Creatinine 2.86 H (0.57-1.11) mg/dL Glucose 77 (70-99) mg/dL Calcium 8.8 (8.6-10.8) mg/dL - VTE Documentation of Mechanical Device: Intermittent pneumatic compression device Consult Discharge Plan - Plan Referrals: Lauren Calvillo MD [Primary Care Provider] - 04/19/16 1:45 pm ()
[2016-04-16] MEDS: Lisinopril 20 MG TABLET PO SCH ×2 (13:32→20:01)
[2016-04-16] MEDS: metOLazone 5 MG TABLET PO SCH (13:35)
[2016-04-16] MEDS: *HR* Warfarin 2 MG TABLET PO ONE ×2 (17:09→17:10)
[2016-04-16] MEDS: Heparin 25,000 UNIT/500 ML D5W 25,000 UNIT/500 ML MLS IVC SCH ×2 (17:15→18:52)
[2016-04-16] MEDS: *HR* Warfarin 2 MG TABLET PO SCH (18:53)
[2016-04-16] MEDS: Insulin DETEMIR 100 UNIT/ML X5UNITS SQ SCH (20:00)
[2016-04-17] MEDS: Nystatin POWDER 30 GM BOTTLE TP SCH ×2 (00:28→08:30)
[2016-04-17] MEDS: hydrALAZINE 25 MG TABLET PO SCH ×3 (00:28→11:43)
[2016-04-17 04:30] VITALS: BP 134/78
[2016-04-17 07:07] LABS: Hematocrit 24.2 % (35.3-44.9); Hemoglobin 7.8 g/dL (11.5-15.4); Mean Corpuscular HGB Conc 32.2 g/dL (31.6-35.5); Mean Corpuscular Hemoglobin 30.4 pg (28.0-33.3); Mean Corpuscular Volume 94.2 fL (83.0-100.0); Mean Platelet Volume 11.1 fL (9.4-12.4); Platelet Count 167 K/mcL (140-400); Red Blood Count 2.57 M/mcL (3.82-4.97); Red Cell Distribution Width 13.6 % (11.5-14.5)
[2016-04-17 07:26] LABS: INR 1.3; Prothrombin Time 13.8 Seconds (9.4-12.1)
[2016-04-17 07:33] LABS: Calcium 8.5 mg/dL (8.6-10.8); Potassium 3.9 mEq/L (3.5-4.5)
[2016-04-17] MEDS: Insulin LISPRO 300 UNITS/3 ML VIAL SQ SCH ×2 (07:57→11:43)
[2016-04-17] MEDS: Lisinopril 20 MG TABLET PO SCH (08:29)
[2016-04-17] MEDS: Furosemide 40 MG TABLET PO SCH (08:29)
[2016-04-17] MEDS: metOLazone 5 MG TABLET PO SCH (08:29)
[2016-04-17] MEDS: Cholecalciferol (D-3) 1,000 UNIT TABLET PO SCH (08:29)
[2016-04-17] MEDS: Aspirin Enteric Coated 81 MG Tablet PO SCH (08:30)
--- NOTE | 2016-04-17 10:35 | Nephrology Progress Note ---
Date of Encounter: 04/17/16 Time of Encounter: 10:34 - Assessment and Plan (1) ESRD (end stage renal disease) on dialysis Current Visit: Yes Status: Chronic Will continue HD MWF and adjust UF as needed. Provide renal diet. Adjust medication for renal function. Will provide additional renal replacement therapies as needed. (2) Anemia in chronic kidney disease Current Visit: Yes Status: Acute Monitor hemoglobin. Transfuse as needed. Provide MOISE if patient will have a prolonged hospitalization. (3) Dialysis AV fistula malfunction Current Visit: Yes Status: Acute Patient has a tunneled catheter. Ok for discharge from nephrology standpoint. Plan for outpatient AVF repair. Resume outpatient dialysis at [facility] once discharged. Qualifiers: Encounter type: initial encounter Qualified Code(s): T82.590A - Other mechanical complication of surgically created arteriovenous fistula, initial encounter (4) Type 2 diabetes mellitus Current Visit: Yes Status: Acute Per the primary team. 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 Qualifiers: Qualified Code(s): C44.622 - Squamous cell carcinoma of skin of right upper limb, including shoulder Subjective Principal diagnosis: ESRD, Dialysis access dysfunction Interval history: Patient seen and evaluated Patient has no new complaint. She denies pain. No sob. ROS otherwise stable. Objective - Vital Signs Vital signs: Vital Signs Temp Pulse Resp BP Pulse Ox 04/17/16 08:37 134/78 04/17/16 04:29 98 F 86 16 134/78 99 04/16/16 23:41 98.3 F 87 16 119/63 99 04/16/16 19:25 98.4 F 93 18 124/77 96 04/16/16 16:34 97.9 F 87 18 127/71 99 04/16/16 13:34 106 163/77 04/16/16 12:10 98.0 F 18 116/42 04/16/16 12:00 104/52 04/16/16 11:47 97.9 F 84 16 104/52 97 04/16/16 11:45 102/53 04/16/16 11:30 111/53 04/16/16 11:15 110/50 04/16/16 11:00 105/55 04/16/16 10:45 107/51 Intake and Output 04/16/16 04/17/16 04/17/16 23:59 07:59 15:59 Intake Total 500 / 500 400 / 400 Output Total 0 / 0 Balance 500 / 500 400 / 400 Intake: IV Fluids 500 / 500 Heparin 25,000 UNIT/500 500 / 500 ML D5W 25,000 unit In 500 ml @ 10.964 UNIT/KG/HR 19.594 mls/hr IVC .Q24H [facility]NER Rx#:[id number] Oral 0 / 0 Free Water 400 / 400 Output: Urine 0 / 0 Other: Weight 90.1 kg Blood Glucose* 164 78 Patient Weight 04/17/16 23:59 Weight 90.1 kg - General Appearance General appearance: Present: well-developed, well-nourished EENT: Present: ATNC Neck: Present: supple Additional Comments: Respirations are unlabored. Cardiology: Present: no edema, regular rate Integumentary: Present: warm and dry Neurologic: Present: alert and oriented x3 Musculoskeletal: Present: no cyanosis Psychiatric: Present: mood/affect appropriate - Lab 04/17/16 06:42 04/17/16 06:42 Most recent lab results Calcium 8.5 mg/dL (8.6-10.8) L 04/17/16 06:42 - VTE Documentation of Mechanical Device: Intermittent pneumatic compression device Consult Discharge Plan - Plan Referrals: Lauren Calvillo MD [Primary Care Provider] - 04/19/16 1:45 pm ()
--- NOTE | 2016-04-17 10:42 | Discharge Summary ---
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 Priority: Secondary Status: Acute Qualifiers: Laterality: right Qualified Code(s): C44.622 - Squamous cell carcinoma of skin of right upper limb, including shoulder (4) ESRD (end stage renal disease) on dialysis Priority: Secondary Status: Chronic (5) Dialysis AV fistula malfunction Priority: Primary Status: Acute Qualifiers: Encounter type: initial encounter Qualified Code(s): T82.590A - Other mechanical complication of surgically created arteriovenous fistula, initial encounter - Discharge Medications Home Medications: Aspirin [Adult Low Dose Aspirin EC] 81 mg PO DAILY 06/02/15 [History] Atorvastatin [Lipitor] 40 mg PO DAILY 06/02/15 [History] Enalapril Maleate [Vasotec] 20 mg PO BID 06/02/15 [History] Esomeprazole Magnesium [Nexium] 40 mg PO DAILY 06/02/15 [History] Insulin Glargine,Hum.rec.anlog [Lantus Solostar] 36 unit SQ DAILY 06/02/15 [ History] Calcitriol [Rocaltrol] 0.25 mcg PO DAILY 09/09/15 [History] Carvedilol [Coreg] 25 mg PO BID 09/09/15 [History] Cholecalciferol (D-3) [Vitamin D] 1,000 unit PO DAILY 09/09/15 [History] Fenofibrate Nanocrystallized [Tricor] 48 mg PO DAILY 09/09/15 [History] Furosemide [Lasix] 40 mg PO BID 09/09/15 [History] HydrALAZINE 25 mg PO Q6HR 09/09/15 [History] Metolazone [Zaroxolyn] 2.5 mg PO DAILY 09/09/15 [History] Ferrous Sulfate [Iron] 325 mg PO BID 04/07/16 [History] Phytonadione [Mephyton] 5 mg PO DAILY 04/07/16 [History] TraMADol [Ultram] 50 mg PO Q8H PRN 04/07/16 [History] Warfarin [Coumadin] 2 mg PO 1800 04/07/16 [History] Allergies/Adverse Reactions: Allergies No Known Allergies Allergy (Verified 09/09/15 10:26) Date of admission: 04/09/16 20:53 Primary care physician: Lauren Calvillo Consults: 04/15/16 10:51 Consult to Physical Therapy [CONS] Routine Comment: Evaluate, develop and implement POC OT [Consult to Occupational Therapy] [CONS] Routine Comment: Evaluate, develop and implement POC 04/15/16 10:52 Consult to Monument Setter [CONS] Routine Reason for SW Consult: Discharge planning for end stage renal disease patient 04/16/16 08:15 Consult to Dialysis [CONS] ONCE Discharging clinician: Cornel Curiel Anticipated date of discharge: 04/17/16 - Patient Status Disposition: Home, Self-Care Condition: Good Functional capacity at discharge: independent ambulation Overall status at discharge: patient is back to baseline - Discharge Instructions Follow Up With: Lauren Clavillo MD [Primary Care Provider] - 04/19/16 1:45 pm () Additional Instructions: Follow up with PCP within 1 week for INR check. Follow up with Dr. Braga 04/19/16. - Diet and Activity Activity: increase activity as tolerated Diet: advance to your usual diet Interval History: Ms. Deshpande is a 75 year old female with hypertension, diabetes, hyperlipidemia, congestive heart failure, end-stage renal disease on hemodialysis who was sent to the emergency department today from her dialysis center after they were unable to access her left AV fistula. She was brought to where a temporary catheter was placed in her right IJ and then she had dialysis immediately following. Patient has no complaints, except for pain in her right neck where her in [place] dialysis catheter has been inserted. She denies any shortness of breath or increased swelling. Her labs revealed anemia with hemoglobin of 8.1 which appears to be chronic. BUN and creatinine were consistent with her history of end-stage renal disease at 83 and 3.46 respectively. Her glycemic with glucose of 251. On exam, patient was alert and oriented, in no acute distress. Heart had regular rate and rhythm, lungs were clear bilaterally to auscultation, left AV fistula had positive bruit and thrill. She had a right IJ temporary dialysis catheter and the insertion site appeared clean without drainage. Hospital course: Ms. Deshpande is a 75 year old female she was admitted for a malfunctioning av fistula in the left upper extremity. The patient underwent a permacath placed on every 27 easier. However, the patient had a surgical procedure done on the right hand, a lesion was resected and biopsy, findings were consistent with squamous cell carcinoma. The patient will follow-up with Dr. Morse as outpatient. Because of the surgical procedures and since the patient is at high risk of thromboembolic events we proceed to continue with heparin drip in order to prevent embolic events. Her INR is still infratherapeutic however trending up. Patient has voiced her desire to go home and continue monitoring his INRs outpatient. At this point I am going to discharge the patient home today, she will continue with the coumadin by mouth and follow-up INR as outpatient. D/W patient in detail abput pln, she expressed understanding. - Time Spent with Patient Total time spent providing and/or coordinating discharge services: Greater than 30 minutes - Constitutional Vitals: Temp Pulse Resp BP Pulse Ox 98 F 86 16 134/78 99 04/17/16 04:29 04/17/16 04:29 04/17/16 04:29 04/17/16 08:37 04/17/16 04:29 General appearance: Present: A&O X 3, no acute distress - Head Head exam: Present: atraumatic, normocephalic - Eye Eye exam: Present: PERRL, conjuntiva pink, sclera anicteric Pupils: Present: PERRL - Neck Neck exam general surgery: Present: supple, trachea midline. Absent: lymphadenopathy - Respiratory Respiratory exam: Present: CTAB. Absent: accessory muscle use, rales, rhonchi, wheezes - Cardiovascular Cardiovascular exam: Present: RRR, +S1, +S2. Absent: diastolic murmur, gallop, rubs, systolic murmur - GI/Abdominal GI/Abdominal exam: Present: normal bowel sounds, soft, no peritoneal signs. Absent: distended, tenderness - Extremities Exam Extremities exam: Present: warm, radial pulses palpable and symetrical. Absent : calf tenderness, cyanotic, pedal edema - Neurological Exam Neurological exam: Present: CN II-XII intact, oriented X3, no focal deficits. Absent: pronater drift, facial droop, speech deficit - Skin Skin exam: Present: dry, intact - VTE Documentation of Mechanical Device: Intermittent pneumatic compression device
== END 2016-04-17 13:16 | disposition home or self-care (01) | DRG 286 ==
LOC: 2ANU 11:44 → EMEROO 11:44 → SUATTDRO 15:56 → 2ANU 16:22
PROVIDERS: ADMIT Internal Medicine; ATTEND Internal Medicine
PROC: IRPERMA (2016-04-12 12:00)

== ENCOUNTER 2016-04-20 07:42 | Observation (INO) ==
--- NOTE | 2016-04-20 07:52 | Emergency Department Note ---
Disposition Clinical Impression: Generalized weakness, Cardiac enzymes elevated Disposition: Admitted As Inpatient Forms: ED Satisfaction Letter Time of Disposition: 10:48 General Adult HPI - General Chief complaint: ED Dizziness Stated complaint: generalized weakness, dizzy Time Seen by Provider: 04/20/16 07:48 Source: patient, EMS Mode of arrival: EMS Limitations: no limitations Nursing Notes Reviewed: Yes Vital Signs Reviewed: Yes - History of Present Illness HPI Narrative: 75-year-old dialysis patient has had generalized weakness since yesterday. She had a large as skin lesion removed from the back of her right hand a couple of days ago. States she is generally weak and dizzy on arrival. Patient does have a dialysis catheter in the right subclavian. She does also have a shunt in her left arm but states it's not being used because it doesn't work very well. Patient started gabapentin last PM. Pt Subjective Complaint: Generalized weakness and dizziness. Onset (ago): day(s) - Related Data Home Medications Medication Instructions Recorded Confirmed Aspirin [Adult Low Dose Aspirin EC] 81 mg PO DAILY 06/02/15 04/07/16 Atorvastatin [Lipitor] 40 mg PO DAILY 06/02/15 04/07/16 Enalapril Maleate [Vasotec] 20 mg PO BID 06/02/15 04/07/16 Esomeprazole Magnesium [Nexium] 40 mg PO DAILY 06/02/15 04/07/16 Insulin Glargine,Hum.rec.anlog 36 unit SQ DAILY 06/02/15 04/07/16 [Lantus Solostar] Calcitriol [Rocaltrol] 0.25 mcg PO DAILY 09/09/15 04/07/16 Carvedilol [Coreg] 25 mg PO BID 09/09/15 04/07/16 Cholecalciferol (D-3) [Vitamin D] 1,000 unit PO DAILY 09/09/15 04/07/16 Fenofibrate Nanocrystallized 48 mg PO DAILY 09/09/15 04/07/16 [Tricor] Furosemide [Lasix] 40 mg PO BID 09/09/15 04/07/16 HydrALAZINE 25 mg PO Q6HR 09/09/15 04/07/16 Metolazone [Zaroxolyn] 2.5 mg PO DAILY 09/09/15 04/07/16 Ferrous Sulfate [Iron] 325 mg PO BID 04/07/16 04/07/16 Phytonadione [Mephyton] 5 mg PO DAILY 04/07/16 04/07/16 TraMADol [Ultram] 50 mg PO Q8H PRN 04/07/16 04/07/16 Warfarin [Coumadin] 2 mg PO 1800 04/07/16 04/07/16 Allergies Allergy/AdvReac Type Severity Reaction Status Date / Time No Known Allergies Allergy Verified 04/20/16 07:47 Constitutional: Denies: fever, chills, weakness, weight change Eyes: Denies: eye pain, eye discharge, vision change ENT ED: Denies: ear pain, throat pain, dental pain, hearing loss, epistaxis, congestion, dysphagia Cardiovascular: Denies: chest pain, palpitations, dyspnea on exertion, edema, syncope Respiratory: Denies: cough, dyspnea, wheezes, hemoptysis, stridor Gastrointestinal: Denies: abdominal pain, nausea, vomiting, diarrhea, constipation, hematemesis, melena, hematochezia Genitourinary: Denies: dysuria, frequency, hematuria, discharge Musculoskeletal: Denies: back pain, neck pain, arthralgia, myalgia Integumentary: Denies: rash, abrasion, lesions Neurological: Reports: weakness (Generalized). Denies: headache, numbness, paresthesias, confusion, abnormal gait, vertigo Psychiatric: Denies: anxiety, depression, suicidal thoughts, homicidal thoughts , auditory hallucinations, visual hallucinations Endocrine: Denies: fatigue Hematological/Lymphatic: Denies: easy bleeding, easy bruising Allergic/Immunologic: Denies: facial swelling, urticaria Past Medical History - Past Medical History Medical history: Reports: CHF, diabetes, hyperlipidemia, hypertension, myocardial infarction Surgical history: Reports: hysterectomy Psychiatric history: Reports: no psych history LEATHER TOOLER history: Reports: no LEATHER TOOLER history - Social History Smoking Status: Never smoker Smokeless Tobacco Status: No Alcohol use: Reports: none Drug use: Reports: none Physical Exam - General Limitations: no limitations General appearance: alert, in no apparent distress, other (Somnolent) - Head Head exam: atraumatic, normocephalic, normal inspection - Eye Eye exam: Present: normal appearance, PERRL, EOMI - ENT ENT exam: normal exam, normal oropharynx, mucous membranes moist - Neck Neck exam: Present: normal inspection, full ROM, trachea midline - Chest Chest inspection: Present: normal inspection, symmetric chest wall rise - Respiratory Respiratory exam: Present: normal lung sounds bilaterally - Cardiovascular Cardiovascular exam: Present: regular rate, normal rhythm, normal heart sounds - Abdominal Exam Abdominal exam: Present: soft, Non-Tender. Absent: tenderness, distention, guarding, rebound, rigidity - Extremities Exam Extremities exam: Present: normal inspection, full ROM. Absent: tenderness, pedal edema - Expanded Lower Extremity Exam Neurovascular/Tendon exam: Absent: motor deficit, sensory deficit, tendon deficit Gait: not tested/not observed - Back Exam Back exam: Present: normal inspection, full ROM. Absent: tenderness - Neurological Exam Neurological exam: Present: alert, other (Somnolent) - Psychiatric Psychiatric exam: Present: normal affect, normal mood - Skin Skin exam: Present: warm, dry, intact, normal color Course Vital Signs Temperature 97.5 F L 04/20/16 07:48 Pulse Rate 70 04/20/16 07:48 Respiratory Rate 12 04/20/16 07:48 Blood Pressure 149/73 04/20/16 07:48 O2 Sat by Pulse Oximetry 97 04/20/16 07:48 Temperature 97.5 F L 04/20/16 07:48 Pulse Rate 72 04/20/16 10:05 Respiratory Rate 15 04/20/16 10:05 Blood Pressure 125/58 04/20/16 10:05 O2 Sat by Pulse Oximetry 97 04/20/16 10:05 Oxygen Delivery Oxygen Delivery Room Air Medical Decision Making - Lab Data Lab results reviewed: Yes I reviewed the patient's lab results. Result diagrams: 04/20/16 09:57 04/20/16 09:57 Lab Results 04/20/16 04/20/16 04/20/16 Range/Units 08:10 09:57 09:57 WBC 4.1 L (4.3-11.1) K/mcL RBC 2.54 L (3.82-4.97) M/mcL Hgb 7.9 L (11.5-15.4) g/dL Hct 24.4 L (35.3-44.9) % MCV 96.1 (83.0-100.0) fL MCH 31.1 (28.0-33.3) pg MCHC 32.4 (31.6-35.5) g/dL RDW 13.3 (11.5-14.5) % Plt Count 161 (140-400) K/mcL MPV 10.7 (9.4-12.4) fL Immature Gran % 0.7 (0-4) % Seg Neutrophils % 70.9 % Lymphocytes % 16.0 % Monocytes % 9.0 % Eosinophils % 2.4 % Basophils % 1.0 % Neutrophils # 2.9 (1.6-8.9) K/mcL Lymphocytes # 0.7 (0.6-4.6) K/mcL Monocytes # 0.4 (0.0-1.3) K/mcL Eosinophils # 0.1 (0.0-0.6) K/mcL Basophils # 0.0 (0.0-0.2) K/mcL Sodium 134 L (136-145) mEq/L Potassium 4.0 (3.5-4.5) mEq/L Chloride 97 L (98-109) mEq/L Carbon Dioxide 24 (19-29) mEq/L BUN 42 H (7-20) mg/dL Creatinine 3.17 H (0.57-1.11) mg/dL Est GFR ( Amer) 17 L (> 60) Est GFR (Non-Af Amer) 14 L (> 60) BUN/Creatinine Ratio 13 (6-26) Glucose 193 H (70-99) mg/dL Calculated Osmolality 294 (280-300) Calcium 8.6 (8.6-10.8) mg/dL Troponin I (0-0.03) ng/mL Urine Color Yellow (Yellow) Urine Clarity Cloudy A (Clear) Urine pH 5.0 (5.0-8.0) pH Units Ur Specific [place] 1.015 (1.010-1.025) Urine Protein Trace (Neg-Trace) mg/dL Urine Glucose (UA) Normal (Normal) mg/dL Urine Ketones Negative (Negative) mg/dL Urine Blood Negative (Negative) Urine Nitrite Negative (Negative) Urine Bilirubin Small H (Negative) Urine Urobilinogen Normal (Normal) mg/dL Ur Leukocyte Esterase Moderate H (Negative) Urine Microscopic RBC 0-3 (0-3) per hpf Urine Microscopic WBC 30-50 H (0-3) per hpf Ur Squamous Epith Cells Many H (None-Few) per lpf Urine Bacteria None Seen (None-Few) per hpf Hyaline Casts Few (None-Few) per lpf Urine Yeast Test Not Performed Ur Culture Indicated? YES A (NO) 04/20/16 Range/Units 09:57 WBC (4.3-11.1) K/mcL RBC (3.82-4.97) M/mcL Hgb (11.5-15.4) g/dL Hct (35.3-44.9) % MCV (83.0-100.0) fL MCH (28.0-33.3) pg MCHC (31.6-35.5) g/dL RDW (11.5-14.5) % Plt Count (140-400) K/mcL MPV (9.4-12.4) fL Immature Gran % (0-4) % Seg Neutrophils % % Lymphocytes % % Monocytes % % Eosinophils % % Basophils % % Neutrophils # (1.6-8.9) K/mcL Lymphocytes # (0.6-4.6) K/mcL Monocytes # (0.0-1.3) K/mcL Eosinophils # (0.0-0.6) K/mcL Basophils # (0.0-0.2) K/mcL Sodium (136-145) mEq/L Potassium (3.5-4.5) mEq/L Chloride (98-109) mEq/L Carbon Dioxide (19-29) mEq/L BUN (7-20) mg/dL Creatinine (0.57-1.11) mg/dL Est GFR ( Amer) (> 60) Est GFR (Non-Af Amer) (> 60) BUN/Creatinine Ratio (6-26) Glucose (70-99) mg/dL Calculated Osmolality (280-300) Calcium (8.6-10.8) mg/dL Troponin I 0.13 H* (0-0.03) ng/mL Urine Color (Yellow) Urine Clarity (Clear) Urine pH (5.0-8.0) pH Units Ur Specific [place] (1.010-1.025) Urine Protein (Neg-Trace) mg/dL Urine Glucose (UA) (Normal) mg/dL Urine Ketones (Negative) mg/dL Urine Blood (Negative) Urine Nitrite (Negative) Urine Bilirubin (Negative) Urine Urobilinogen (Normal) mg/dL Ur Leukocyte Esterase (Negative) Urine Microscopic RBC (0-3) per hpf Urine Microscopic WBC (0-3) per hpf Ur Squamous Epith Cells (None-Few) per lpf Urine Bacteria (None-Few) per hpf Hyaline Casts (None-Few) per lpf Urine Yeast Ur Culture Indicated? (NO) - Radiology Data Radiology results reviewed: Yes I reviewed the patient's radiology results. Chest X-Ray 04/20/16 07:48 IMPRESSION: 1. Right central venous catheter unchanged in position. 2. No convincing evidence of acute cardiopulmonary abnormality. D/ / Brian Ashley MD / Brian Ashley MD Interpreting Provider: Brian Ashley MD Head CT 04/20/16 07:48 IMPRESSION: No acute intracranial abnormality. D/ / Diego Gentile MD / Diego Gentiel MD Interpreting Provider: Diego Gentile MD - EKG Data EKG #1 EKG attestation: Yes I reviewed and interpreted this EKG. Rate: normal Rhythm: A.Fib ST segment depression in: v4, v5, v6 When compared to previous EKG there are: changes noted (Some increase in ST segment depression in the precordial lateral leads.) Interpretation: nonspecific ST-T wave changes NIH Stroke Scale - Level of Consciousness LOC: Alert - LOC Questions LOC Questions: Answers both correctly - LOC Commands LOC Commands: Performs both correctly - Best Gaze Best Gaze: Normal - Visual Visual: No visual loss - Facial Palsy Facial Palsy: Normal - Motor Arms Motor Arm-Left: No drift for 10 seconds Motor Arm-Right: No drift for 10 seconds - Motor Legs Motor Leg-Left: No drift for 5 seconds Motor Leg-Right: No drift for 5 seconds - Limb Ataxia Limb Ataxia: Normal, No Ataxia - Sensory Sensory: Normal - Best Language Best Language: No aphasia - Dysarthria Dysarthria: Normal - Extinction and Inattention Extinction and Inattention: Normal - NIHSS Total Score NIHSS Total Score: 0
[2016-04-20 08:30] LABS: Bilirubin,Urine Small (Negative); Blood,Urine Negative (Negative); Clarity,Urine Cloudy (Clear); Color,Urine Yellow (Yellow); Glucose,Urine (UA) Normal (Normal); Ketones,Urine Negative (Negative); Leukocyte Esterase,Urine Moderate (Negative); Nitrite,Urine Negative (Negative); Protein,Urine Trace mg/dL (Neg-Trace); Specific Gravity,Urine 1.015 (1.010-1.025); Urobilinogen,Urine Normal (Normal)
[2016-04-20 08:32] LABS: Bacteria,Urine None Seen per hpf (None-Few); Hyaline Casts,Urine Few per lpf (None-Few); RBC,Urine 0-3 per hpf (0-3); Squamous Epithelial Cell,Urine Many per lpf (None-Few); WBC,Urine 30-50 per hpf (0-3)
[2016-04-20 10:06] LABS: Eosinophils # 0.1 K/mcL (0.0-0.6); Eosinophils % 2.4 %; Hematocrit 24.4 % (35.3-44.9); Hemoglobin 7.9 g/dL (11.5-15.4); Immature Granulocytes % 0.7 % (0-4); Lymphocytes # 0.7 K/mcL (0.6-4.6); Mean Corpuscular HGB Conc 32.4 g/dL (31.6-35.5); Mean Corpuscular Hemoglobin 31.1 pg (28.0-33.3); Mean Corpuscular Volume 96.1 fL (83.0-100.0); Mean Platelet Volume 10.7 fL (9.4-12.4); Monocytes # 0.4 K/mcL (0.0-1.3); Neutrophils # 2.9 K/mcL (1.6-8.9); Platelet Count 161 K/mcL (140-400); Red Blood Count 2.54 M/mcL (3.82-4.97); Red Cell Distribution Width 13.3 % (11.5-14.5); Segmented Neutrophils % 70.9 %
[2016-04-20 10:18] LABS: Calcium 8.6 mg/dL (8.6-10.8)
[2016-04-20] MEDS ORDERED: *HR* OxyCODONE Immed Rel 5 MG TABLET PO PRN (11:47)
[2016-04-20] MEDS ORDERED: Naloxone 0.4 MG/ML INJ IVP PRN (11:47)
[2016-04-20] MEDS ORDERED: Acetaminophen 325 MG TABLET PO PRN (11:47)
--- NOTE | 2016-04-20 14:27 | Electrocardiograph Report ---
[place] [id number] Test Date: 2016-04-20 Pat Name: Lindsay Deshpande Department: 104 Room: [facility] Gender: F Pay Station Attendant: : 1940 Requested By: Evelio Mills Order Number: [id number] Reading MD: Tucker Draper Measurements Intervals [place] Rate: 71 P: [place]: 0 QRS: 5 QRSD: 109 T: 23 QT: 391 QTc: 413 Interpretive Statements ATRIAL FIBRILLATION MODERATE INTRAVENTRICULAR CONDUCTION DELAY MODERATE ST DEPRESSION Electronically Signed On 04-20-2016 14:26:18 EST by Tucker Draper
[2016-04-20] MEDS ORDERED: traMADol 50 MG TABLET PO PRN (14:53)
--- NOTE | 2016-04-20 15:14 | Internal Med History&Physical ---
<Jose David Patel - Last Filed: 04/20/16 19:32> Date of Encounter: 04/20/16 Internal Medicine - H&P: HPI History of present illness: Ms. Deshpande is a 75 year old female Internal Medicine - H&P: Meds Aspirin [Adult Low Dose Aspirin EC] 81 mg PO DAILY 06/02/15 [History] Atorvastatin [Lipitor] 40 mg PO DAILY 06/02/15 [History] Enalapril Maleate [Vasotec] 20 mg PO BID 06/02/15 [History] Esomeprazole Magnesium [Nexium] 40 mg PO DAILY 06/02/15 [History] Insulin Glargine,Hum.rec.anlog [Lantus Solostar] 36 unit SQ DAILY PRN 06/02/15 [ History] Calcitriol [Rocaltrol] 0.25 mcg PO DAILY 09/09/15 [History] Carvedilol [Coreg] 25 mg PO BID 09/09/15 [History] Cholecalciferol (D-3) [Vitamin D] 1,000 unit PO DAILY 09/09/15 [History] Fenofibrate Nanocrystallized [Tricor] 48 mg PO DAILY 09/09/15 [History] Furosemide [Lasix] 40 mg PO BID 09/09/15 [History] HydrALAZINE 25 mg PO Q6HR 09/09/15 [History] Metolazone [Zaroxolyn] 2.5 mg PO DAILY 09/09/15 [History] Ferrous Sulfate [Iron] 325 mg PO BID 04/07/16 [History] Phytonadione [Mephyton] 5 mg PO DAILY 04/07/16 [History] TraMADol [Ultram] 50 mg PO Q8H PRN 04/07/16 [History] Warfarin [Coumadin] 2 mg PO DAILY 04/07/16 [History] Gabapentin [Neurontin] 300 mg PO TID 04/20/16 [History] Allergies No Known Allergies Allergy (Verified 04/20/16 07:47) All Systems PM: A 10-system review of systems was performed and is negative for pertinent findings except as documented above in the HPI. - Constitutional Vitals: Temp Pulse Resp BP Pulse Ox 98.1 F 82 18 116/55 96 04/20/16 19:17 04/20/16 19:17 04/20/16 19:17 04/20/16 19:17 04/20/16 19:17 Internal Med - H&P Results - Labs CBC & Chem 7: 04/20/16 09:57 04/20/16 09:57 Labs: Cardiac Enzymes 04/20/16 04/20/16 Range/Units 12:09 18:13 Troponin I 0.13 H* 0.13 H* (0-0.03) ng/mL - Attending Attestation I examined this patient and my medical decision-making was reviewed with the Advanced Practice Provider. I agree with the documented findings, disposition and treatment plan as described except to the extent set forth below. Patient appears in no acute distress she was awake alert oriented heart is regular S1 and S2 lungs are with poor inspiratory effort. She has a left forearm AV fistula which is palpable immature. She had a right IJ permacath. Plan: Hold gabapentin for now. If this needs to be resumed as of just 100 mg 3 times weekly after dialysis and increase slowly as tolerated. I do not believe she has a urinary tract infection. We will follow up her urine culture. She had elevated troponin which could be a result of her ESRD. Well trend troponin and obtain a stress test in the morning. <Rosalba Rosales - Last Filed: 04/20/16 20:33> Date of Encounter: 04/20/16 Time of Encounter: 16:30 Assessment and Plan (1) Generalized weakness Current visit: Yes Status: Acute 1 suspect this is related to new prescription of gabapentin. CT of head is negative patient does not have an elevated white count however UA with Leuk estrase, received rocephine in ED will await urine culture result and adjust to sensitivity. EKG is unchanged from previous, troponin is elevated however this may be rt to CKD. will continue to cycle troponin and consult cardiology . 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 We will continue to cycle. EKG unchanged from prior- patient had a cardiac stress last year which was negative for ischemia, 2 . will consult cardiology- will make patient NPO after midnight for any possible testing in am (3) Anemia in chronic kidney disease Current visit: No Status: Acute 1 presently hemoglobin is stable at 7.9 previous hemoglobin was 7.8 on the fourth will continue to monitor CBC-transfuse as needed 2 continue with iron supplements (4) Anticoagulated on Coumadin Current visit: No Status: Acute 1 we will obtain INR and titrate Coumadin per pharmacy to dose goal is INR between 2 and 3 (5) Chronic kidney disease, stage 5 Current visit: No Status: Acute 1 patient receives dialysis Tuesday. Consulted nephrology who will dialyze patient tomorrow 2 monitor intake and output daily weights 3 renal diet 4 avoid nephrotoxins (6) Diabetes mellitus, type II, insulin dependent Current visit: No Status: Acute 1 Accu-Cheks before meals at bedtime with sliding scale insulin as well as basal insulin- will give half dose this pm due to patient NPO- resume once eating (7) Diastolic heart failure Current visit: Yes Status: Chronic 1 echo in 2016 EF 60% with moderate diastolic dysfunction. Presently lung sounds are clear no edema. We will continue with diuretics 2 monitor intake and output daily weights 3 low sodium diet Qualifiers: Heart failure chronicity: chronic Qualified Code(s): I50.32 - Chronic diastolic (congestive) heart failure (8) DVT prophylaxis Current visit: No Status: Acute 1 patient is on Coumadin Internal Medicine - H&P: HPI Chief complaint: weakness Admitted From: Emergency Dept Plans for Post Hospital Care: Home History of present illness: Ms. Deshpande is a 75 year old female past medical history of hypertension hyperlipidemia CHF diabetes end stage renal disease RI with stent placement. Patient was recently admitted to this facility approximately week ago related to AV fistula failure requiring temporary dialysis catheter placement and dialysis. Also requiring blood transfusion related to chronic anemia. She was discharged on the fourth and was doing well. She went to dialysis yesterday which was uneventful and then to her family physician who prescribed her gabapentin for her neuropathy. According tho the patient and the family the patient took her first dose of gabapentine last night, she had an uneventful evening and this morning she awoke took her medications and few hours later was unable to stand, felt weak and was sleepy. They thought it was her BS and gave her some sugar water. The sx continued and she was brought to the ED for evaluation. In the ED lab work revealed a CBC 4.1 creatinine 3.17 BUN 42 potassium was 4 troponin was 0.13, CT of head was negative, chest x-ray with no acute process, urinalysis did reveal large amount of Leuk esterase. Urine culture was sent and patient was given IV Rocephin. She has been admitted for further workup and evaluation.Present time patient is groggy she arouses to verbal stimuli follows simple commands is oriented 3, there is no facial droop. 4/5 strength in extremities 4. She denies any chest pain or shortness of breath she is hemodynamically stable at this time.I reveiwed this case with Dr Patel who agrees with plan Past Med Surg Social Fam HX - Past Medical History Medical history: CHF, diabetes, hyperlipidemia, hypertension, myocardial infarction Psychiatric history: no psych history - Past Surgical History Surgical History: hysterectomy - Social History Smoking Status: Never smoker Smokeless Tobacco Status: No Alcohol use: none Drug use: none - Family History Mother Hx Family Endocrine Disorder: Yes Father Living Status: Hx Family Cardiac Disorders: Yes All Systems PM: A 10-system review of systems was performed and is negative for pertinent findings except as documented above in the HPI. - Constitutional Constitutional: no chills, no fever(s), no night sweats - EENT Eyes: no change in vision, no discharge, no pain, no photophobia - Cardiovascular Cardiovascular ROS IM: no chest pain, no diaphoresis, no dyspnea, no lightheadedness, no palpitations, no syncope - Respiratory Respiratory: no cough, no dyspnea, no wheezing, no excessive phlegm production - Gastrointestinal Gastrointestinal: no abdominal pain, no diarrhea, no hematemesis, no hematochezia, no melena, no nausea, no vomiting - Genitourinary Genitourinary: no change in urinary stream, no dysuria, no flank pain, no hematuria - Musculoskeletal Musculoskeletal ROS IM: tingling, no numbness - Neurological Neurological ROS: abnormal gait, weakness - Hematologic/Lymphatic Hematologic/Lymphatic: no easy bruising - Constitutional Vitals: Temp Pulse Resp BP Pulse Ox 97.5 F L 60 16 128/67 95 04/20/16 07:48 04/20/16 14:15 04/20/16 11:04 04/20/16 14:15 04/20/16 14:15 General appearance: Present: answers questions appropriately Exam: Oriented 3 - Head Head exam: Present: atraumatic, normocephalic - Eye Eye exam: Present: PERRL, conjuntiva pink, sclera anicteric Pupils: Present: PERRL - Neck Neck exam general surgery: Present: supple, trachea midline. Absent: lymphadenopathy - Respiratory Respiratory exam: Present: CTAB. Absent: accessory muscle use, rales, rhonchi, wheezes - Cardiovascular Cardiovascular exam: Present: irregular rhythm, +S1, +S2. Absent: diastolic murmur, gallop, rubs, systolic murmur - GI/Abdominal GI/Abdominal exam: Present: normal bowel sounds, soft, no peritoneal signs. Absent: distended, tenderness - Extremities Exam Extremities exam: Present: pedal edema, warm, radial pulses palpable and symetrical. Absent: calf tenderness, cyanotic - Neurological Exam Neurological exam: Present: CN II-XII intact, oriented X3, no focal deficits. Absent: pronater drift, facial droop, speech deficit Additional comments: lethargic - Skin Skin exam: Present: dry, intact Internal Med - H&P Results - Labs CBC & Chem 7: 04/20/16 09:57 04/20/16 09:57 Labs: Cardiac Enzymes 04/20/16 Range/Units 12:09 Troponin I 0.13 H* (0-0.03) ng/mL - EKG Data EKG shows normal: axis Rate: normal - EKG Data Prior EKG available for review: yes When compared to previous EKG: there is no significant change EKG comments: 04/20/16 15:51 afib - Diagnostic Studies CT scan - head Additional comments: Per radiology read no acute intracranial abnormality
[2016-04-20] MEDS ORDERED: *HR* Dextrose 50 % in Water (Syg) 50 ML SYRINGE IVP PRN (15:31)
[2016-04-20] MEDS ORDERED: Dextrose Gel 15 GM PO PRN ×2 (15:31)
[2016-04-20] MEDS ORDERED: D5% in Water 1,000 ML IV PRN (15:31)
[2016-04-20] MEDS ORDERED: Warfarin perPT PO PRN (18:00)
[2016-04-20] MEDS ORDERED: hydrALAZINE 25 MG TABLET PO SCH (18:00)
[2016-04-20 18:32] LABS: INR 1.2; Prothrombin Time 12.7 Seconds (9.4-12.1)
[2016-04-20] MEDS: Insulin LISPRO 300 UNITS/3 ML VIAL SQ SCH ×2 (18:41→21:32)
[2016-04-20] MEDS: Furosemide 40 MG TABLET PO SCH (18:41)
[2016-04-20] MEDS ORDERED: Lisinopril 20 MG TABLET PO SCH (21:00)
[2016-04-20] MEDS ORDERED: Insulin DETEMIR 100 UNIT/ML X5UNITS SQ SCH ×2 (21:00)
[2016-04-20] MEDS: Lisinopril 20 MG TABLET PO SCH (21:31)
[2016-04-20] MEDS: *HR* Warfarin 2 MG TABLET PO SCH (21:31)
[2016-04-21] MEDS: hydrALAZINE 25 MG TABLET PO SCH ×4 (00:34→17:53)
[2016-04-21] MEDS: Nystatin POWDER 30 GM BOTTLE TP SCH ×3 (01:21→22:04)
[2016-04-21 05:26] LABS: Eosinophils # 0.1 K/mcL (0.0-0.6); Eosinophils % 2.5 %; Hematocrit 21.2 % (35.3-44.9); Hemoglobin 6.7 g/dL (11.5-15.4); Immature Granulocytes % 0.3 % (0-4); Lymphocytes % 26.2 %; Mean Corpuscular HGB Conc 31.6 g/dL (31.6-35.5); Mean Corpuscular Hemoglobin 29.9 pg (28.0-33.3); Mean Corpuscular Volume 94.6 fL (83.0-100.0); Mean Platelet Volume 11.3 fL (9.4-12.4); Monocytes # 0.5 K/mcL (0.0-1.3); Monocytes % 12.6 %; Neutrophils # 2.3 K/mcL (1.6-8.9); Platelet Count 171 K/mcL (140-400); Red Blood Count 2.24 M/mcL (3.82-4.97); Red Cell Distribution Width 13.4 % (11.5-14.5); Segmented Neutrophils % 57.4 %
[2016-04-21 05:40] LABS: INR 1.2
[2016-04-21 05:44] LABS: Calcium 8.4 mg/dL (8.6-10.8); Potassium 4.2 mEq/L (3.5-4.5)
[2016-04-21] MEDS: Aspirin Enteric Coated 81 MG Tablet PO SCH (07:05)
[2016-04-21] MEDS: Cholecalciferol (D-3) 1,000 UNIT TABLET PO SCH (07:05)
[2016-04-21] MEDS ORDERED: 0.9 % Sodium Chloride 250 ML IV PRN (08:55)
[2016-04-21] MEDS ORDERED: *HR* Heparin 10,000 UNIT/10 ML VIAL IV PRN (08:55)
--- NOTE | 2016-04-21 08:58 | Cardiology Consult Note ---
Date of Encounter: 04/21/16 Time of Encounter: 08:30 Assessment and Plan (1) Elevated troponin Current Visit: Yes Status: Acute Mild, adynamic troponin elevation, 0.13, 0.13, 0.13 in the setting of ESRD, anemia, and generalized weakness; suspect secondary to demand ischemia. She denies chest pain or discomfort, dyspnea, jaw/arm pain. No acute ischemic ECG changes noted. Recent negative nuclear stress 04/01/15. TTE 04/01/15 showed preserved LVEF with normal wall motion. Recommend medical management--continue asa, statin, & betablocker. Check limited TTE to assess LVEF, if findings satisfactory will likely sign- off. (2) Afib Current Visit: Yes Status: Chronic Long-standing history of chronic atrial fibrillation. Rate controlled on oral betablocker--avg HR=77 per telemetry review, continue coreg. Anticoagulated on Coumadin, INR followed by PCP (Karli). INR subtherapuetic today, 1.2. Closely monitor H/H; noted to have chronic anemia, however H/H upon presentation 6.7/21.2, lower than baseline. Mayur abnormal/uncontrolled bleeding including melena. Qualifiers: Atrial fibrillation type: chronic Qualified Code(s): I48.2 - Chronic atrial fibrillation (3) Generalized weakness Current Visit: Yes Status: Acute Likely secondary to new medication--gabapentin. Reports weakness/fatigue have improved since medication stopped. Defer further mgmt to primary service. (4) ESRD (end stage renal disease) on dialysis Current Visit: Yes Status: Chronic HD started x2 weeks ago; issues with AV fistula, now utilizes right IJ permacath. Follows with [facility]--consulted. HD on MWF. Discussion w patient/family: The assessment and plan as outlined above was discussed with the patient and/or family members who expressed understanding and agreement. All questions were answered. Thank you for involving us in the care of your patient. Please call with any questions. The patient will be discussed and reviewed with Dr. Echeverria; changes to be made accordingly. History of Present Illness Consult date: 04/21/16 Requesting physician: Rosalba Rosales Consult reason: Elevated troponin Chief complaint: Weakness, fatigue History of present illness: Ms. Deshpande is a 75 year old female with PMH significant for atrial fibrillation, CAD s/p remote PCI (LAD, RPDA 2005), chronic lymphedema, HTN, DMII, HLD, and ESRD on HD (x2 weeks) who presents to the ED with complaints of generalized weakness and fatigue. She reports she was recently discharged from the hospital and started on a new medication--gabapentin--for her neuropathy, since starting medication she has done nothing but sleep. She denies chest pain or discomfort, shortness of breath, pre-syncope, syncope, or palpitations. She denies abnormal or unusual bleeding. Recently stared on HD x2 weeks ago, R IJ permacath inserted last week due to issues with AV fistula. Recent CV testing includes: TTE 04/04/15: EF 60%, moderate LA enlargement, severe RA enlargement, mild to moderate MR, mild-moderate TR, normal wall motion. Regadenoson nuclear 04/04/15: perfusion imaging negative for ishcemia or infarct, gated EF=62% Past Med Surg Social Fam HX - Past Medical History Attestation: Yes The following information was validated with the patient. Source: patient, old records reviewed Medical history: coronary artery disease, diabetes, hyperlipidemia, hypertension , myocardial infarction, renal disease (ESRD on HD), valvular heart disease, other (chronic lymphedema) Psychiatric history: no psych history - Past Surgical History Surgical History: angioplasty/stent, hysterectomy - Social History Smoking Status: Never smoker Smokeless Tobacco Status: No Alcohol use: none Drug use: none - Family History Mother Living Status: Age at : 68 Cause of : diabetes Hx Family Endocrine Disorder: Yes Father Living Status: Age at : 68 Cause of : cerberal hemm Hx Family Cardiac Disorders: Yes Hx Family Neuromuscular Disorders: Yes Medications and Allergies Aspirin [Adult Low Dose Aspirin EC] 81 mg PO DAILY 06/02/15 [History] Atorvastatin [Lipitor] 40 mg PO DAILY 06/02/15 [History] Enalapril Maleate [Vasotec] 20 mg PO BID 06/02/15 [History] Esomeprazole Magnesium [Nexium] 40 mg PO DAILY 06/02/15 [History] Insulin Glargine,Hum.rec.anlog [Lantus Solostar] 36 unit SQ DAILY PRN 06/02/15 [ History] Calcitriol [Rocaltrol] 0.25 mcg PO DAILY 09/09/15 [History] Carvedilol [Coreg] 25 mg PO BID 09/09/15 [History] Cholecalciferol (D-3) [Vitamin D] 1,000 unit PO DAILY 09/09/15 [History] Fenofibrate Nanocrystallized [Tricor] 48 mg PO DAILY 09/09/15 [History] Furosemide [Lasix] 40 mg PO BID 09/09/15 [History] HydrALAZINE 25 mg PO Q6HR 09/09/15 [History] Metolazone [Zaroxolyn] 2.5 mg PO DAILY 09/09/15 [History] Ferrous Sulfate [Iron] 325 mg PO BID 04/07/16 [History] Phytonadione [Mephyton] 5 mg PO DAILY 04/07/16 [History] TraMADol [Ultram] 50 mg PO Q8H PRN 04/07/16 [History] Warfarin [Coumadin] 2 mg PO DAILY 04/07/16 [History] Gabapentin [Neurontin] 300 mg PO TID 04/20/16 [History] Allergies No Known Allergies Allergy (Verified 04/20/16 07:47) All Systems Review: A 10-system review of systems was performed and is negative for pertinent findings except as documented above in the HPI. - Cardiovascular Cardiovascular: as per HPI Physical Examination Vital Signs, Last 4 Hours Temp Pulse Resp BP Pulse Ox 04/21/16 06:45 98.3 F 78 15 129/70 97 General: Conversant HEENT: Atraumatic, Normocephaly Cardiac: Other (irregularly irregular, 2/6 systolic) Lungs: Normal Breath Sounds Neuro: Alert and responsive Abdomen: Soft Skin: Other (scattered ecchymosis BLE) Musculoskeletal: No Chest Wall Tenderness Extremities: Other (BLE edema, non-pitting, L>R) Results 04/21/16 04:06 04/21/16 04:06 Lab Results 04/20/16 04/20/16 04/20/16 12:09 18:07 18:13 WBC Hgb Hct Plt Count INR 1.2 Sodium Potassium Chloride Carbon Dioxide BUN Creatinine Glucose Calcium Troponin I 0.13 H* 0.13 H* 04/21/16 04/21/16 04/21/16 04:06 04:06 04:06 WBC 4.0 L Hgb 6.7 L Hct 21.2 L Plt Count 171 INR 1.2 Sodium 135 L Potassium 4.2 Chloride 100 Carbon Dioxide 23 BUN 54 H D Creatinine 3.29 H Glucose 143 H Calcium 8.4 L Troponin I Active Medications Acetaminophen (Tylenol) 650 mg PO Q6HR PRN PRN Reason: Mild Pain (1-3) Stop: 10/20/16 11:48 Aspirin (Aspirin Ec) 81 mg PO DAILY [facility] Stop: 10/21/16 09:01 Last Admin: 04/21/16 07:05 Dose: 81 mg Atorvastatin Calcium (Lipitor) 40 mg PO HS [facility] Stop: 10/20/16 21:01 Last Admin: 04/20/16 21:31 Dose: 40 mg Calcitriol (Rocaltrol) 0.25 mcg PO DAILY [facility] Stop: 10/21/16 09:01 Last Admin: 04/21/16 07:05 Dose: 0.25 mcg Carvedilol (Coreg) 25 mg PO BIDWM [facility] PRN Reason: Protocol Stop: 10/20/16 17:01 Last Admin: 04/20/16 18:41 Dose: 25 mg Dextrose/Water (Dextrose 50% (Syg)) 25 ml IVP AD PRN PRN Reason: Hypoglycemia Stop: 10/20/16 15:32 Fenofibrate (Tricor) 54 mg PO DAILY [facility] Stop: 10/21/16 09:01 Last Admin: 04/21/16 07:05 Dose: 54 mg Ferrous Sulfate (Ferrous Sulfate) 325 mg PO BIDWM [facility] Stop: 10/20/16 17:01 Last Admin: 04/21/16 07:05 Dose: 325 mg Furosemide (Lasix) 40 mg PO BIDDIURETIC [facility] Stop: 10/20/16 17:01 Last Admin: 04/20/16 18:41 Dose: 40 mg Hydralazine HCl (Hydralazine) 25 mg PO Q6HR [facility] Stop: 10/20/16 18:01 Last Admin: 04/21/16 06:05 Dose: Not Given Dextrose (Dextrose 5%) 1,000 mls @ 100 mls/hr IV CONT PRN PRN Reason: HYPOGLYCEMIA Stop: 10/20/16 15:32 Sodium Chloride (0.9 % Sodium Chloride) 250 mls @ 999 mls/hr IV ONCE PRN PRN Reason: Hypotension Stop: 10/21/16 08:56 Sodium Chloride (0.9 % Sodium Chloride) 1,000 mls @ 0 mls/hr PRIME .Q0M [facility] PRN Reason: As Directed Stop: 10/21/16 09:01 Insulin Detemir (Levemir) 12 unit 0.15 unit/kg (12 unit) SQ HS [facility] Stop: 10/20/16 21:01 Insulin Detemir (Levemir) 6 unit SQ HS [facility] Stop: 10/20/16 21:01 Last Admin: 04/20/16 21:31 Dose: 6 unit Insulin Human Lispro (Humalog) 0 units SQ HS [facility] PRN Reason: Protocol Stop: 10/20/16 21:01 Last Admin: 04/20/16 21:32 Dose: 2 units Insulin Human Lispro (Humalog) 0 units SQ TIDAC [facility] PRN Reason: Protocol Stop: 10/20/16 16:31 Last Admin: 04/20/16 18:41 Dose: Not Given Lisinopril (Zestril) 20 mg PO BID [facility] Stop: 10/20/16 21:01 Last Admin: 04/20/16 21:31 Dose: 20 mg Metolazone (Zaroxolyn) 2.5 mg PO DAILY [facility] Stop: 10/21/16 09:01 Naloxone HCl (Narcan) 0.4 mg IVP Q2MIN PRN PRN Reason: Opioid Reversal Stop: 10/20/16 11:48 Nystatin (Nystop) 1 appl TP BID [facility] Stop: 10/21/16 09:01 Last Admin: 04/21/16 01:21 Dose: 1 appl Omeprazole (Prilosec) 20 mg PO DAILY [facility] Stop: 10/21/16 09:01 Last Admin: 04/21/16 07:05 Dose: 20 mg Vitamin D (Vitamin D) 1,000 unit PO DAILY [facility] Stop: 10/21/16 09:01 Last Admin: 04/21/16 07:05 Dose: 1,000 unit Warfarin Sodium (Coumadin Perpt) 1 each PO DAILY@1800 PRN PRN Reason: SEE COMMENTS Stop: 10/20/16 18:01 Warfarin Sodium (Coumadin) 2 mg PO 1800 [facility] Stop: 10/20/16 19:16 Last Admin: 04/20/16 21:31 Dose: 2 mg - Imaging and Cardiology Stress Test: report reviewed Echo: report reviewed Other Results: 12 hour tele: avg HR=77 afib. No significant pause or event noted. - EKG Interpretation EKG results cardiology: personally reviewed Consult Discharge Plan - Plan Referrals: Lauren Calvillo MD [Primary Care Provider] - 04/30/16 10:45 am
[2016-04-21] MEDS ORDERED: Fenofibrate 54 MG TABLET PO SCH (09:00)
[2016-04-21] MEDS ORDERED: 0.9 % Sodium Chloride 1,000 ML PRIME SCH (09:00)
[2016-04-21] MEDS ORDERED: 0.9 % Sodium Chloride 2,000 ML ONE (09:13)
--- NOTE | 2016-04-21 09:17 | Nephrology Consult Note ---
Date of Encounter: 04/21/16 Time of Encounter: 09:13 Assessment and Plan (1) ESRD (end stage renal disease) on dialysis Current Visit: Yes Status: Chronic Plan for HD today Renal diet Fluid restriction 1.5 liters/day Phos level on 04/02 was 4.3; not currently on any binders; will continue to monitor Avoid nephrotoxins if possible (2) Generalized weakness Current Visit: Yes Status: Acute per primary team (3) Anemia Current Visit: No Status: Acute Repeat hgb 7.2, asymptomatic If hgb goes below 7 or patient becomes symptomatic will transfuse Monitor closely Qualifiers: Anemia type: unspecified type Qualified Code(s): D64.9 - Anemia, unspecified (4) Diabetes mellitus, type II, insulin dependent Current Visit: No Status: Acute per primary team History of Present Illness - Reason for Consult Consult date: 04/21/16 end stage renal disease - Chief Complaint weakness, anemia - History of Present Illness Ms. Deshpande is a 75 year old female well known to our group with a past medical history of hypertension hyperlipidemia CHF diabetes end stage renal disease [place] with stent placement. Patient was recently admitted to this facility approximately week ago related to AV fistula failure requiring temporary dialysis catheter placement and dialysis. Also requiring blood transfusion related to chronic anemia. Patient was placed on Gabapentin 300mg TID by PCP and after several doses developed generalized weakness. Patient's hgb at admission was 7.9 but is now down to 6.7. Patient received her normal outpatient dialysis on Tuesday without any problems. Nephrology has been consulted to manage her HD during this hospitalization. Past Med Surg Social Fam HX - Past Medical History Medical history: coronary artery disease, diabetes, hyperlipidemia, hypertension , myocardial infarction, renal disease (ESRD on HD), valvular heart disease, other (chronic lymphedema) Psychiatric history: no psych history - Past Surgical History Surgical History: angioplasty/stent, hysterectomy - Social History Smoking Status: Never smoker Smokeless Tobacco Status: No Alcohol use: none Drug use: none - Family History Mother Living Status: Age at : 68 Cause of : diabetes Hx Family Endocrine Disorder: Yes Father Living Status: Age at : 68 Cause of : cerberal hemm Hx Family Cardiac Disorders: Yes Hx Family Neuromuscular Disorders: Yes Medications and Allergies Aspirin [Adult Low Dose Aspirin EC] 81 mg PO DAILY 06/02/15 [History] Atorvastatin [Lipitor] 40 mg PO DAILY 06/02/15 [History] Enalapril Maleate [Vasotec] 20 mg PO BID 06/02/15 [History] Esomeprazole Magnesium [Nexium] 40 mg PO DAILY 06/02/15 [History] Insulin Glargine,Hum.rec.anlog [Lantus Solostar] 36 unit SQ DAILY PRN 06/02/15 [ History] Calcitriol [Rocaltrol] 0.25 mcg PO DAILY 09/09/15 [History] Carvedilol [Coreg] 25 mg PO BID 09/09/15 [History] Cholecalciferol (D-3) [Vitamin D] 1,000 unit PO DAILY 09/09/15 [History] Fenofibrate Nanocrystallized [Tricor] 48 mg PO DAILY 09/09/15 [History] Furosemide [Lasix] 40 mg PO BID 09/09/15 [History] HydrALAZINE 25 mg PO Q6HR 09/09/15 [History] Metolazone [Zaroxolyn] 2.5 mg PO DAILY 09/09/15 [History] Ferrous Sulfate [Iron] 325 mg PO BID 04/07/16 [History] Phytonadione [Mephyton] 5 mg PO DAILY 04/07/16 [History] TraMADol [Ultram] 50 mg PO Q8H PRN 04/07/16 [History] Warfarin [Coumadin] 2 mg PO DAILY 04/07/16 [History] Gabapentin [Neurontin] 300 mg PO TID 04/20/16 [History] Allergies No Known Allergies Allergy (Verified 04/20/16 07:47) Review of Systems All Systems: reviewed and no additional remarkable complaints except as stated Constitutional: daytime sleepiness, lethargy, malaise, weakness Cardiovascular: no chest pain, no dyspnea, no dyspnea on exertion, no leg edema Respiratory: no cough, no dyspnea Gastrointestinal: no nausea, no vomiting Neurological: weakness, no behavioral changes, no confusion, no dizziness Psychiatric: no behavioral changes Exam - Vital Signs Vital signs: Initial Vital Signs Temp Pulse Resp BP Pulse Ox 97.5 F L 70 12 149/73 97 04/20/16 07:48 04/20/16 07:48 04/20/16 07:48 04/20/16 07:48 04/20/16 07:48 Vital Signs - Last 8 Hours Temp Pulse Resp BP Pulse Ox 04/21/16 06:45 98.3 F 78 15 129/70 97 04/21/16 03:49 98.6 F 70 18 127/68 97 Intake and Output 04/20/16 04/21/16 04/21/16 23:59 07:59 15:59 Intake Total 480 / 480 0 / 0 Output Total 0 / 0 Balance 480 / 480 0 / 0 Intake: Oral 480 / 480 0 / 0 Output: Urine 0 / 0 Other: Meal Nourishment/Supplement Percent of Meal Consumed 30% # Voids 0 0 Weight 92.4 kg 93 kg Blood Glucose* 202 138 Patient Weight 04/21/16 23:59 Weight 93 kg - General Appearance General appearance: well-developed, well-nourished, frail EENT: ATNC, mucous membranes moist, hearing intact, vision intact Neck: supple Respiratory: clear Cardiology: no edema, normal S1, normal S2 - Dialysis Access Dialysis Vascular Access: Venous Catheter Gastrointestinal: no tenderness, no guarding Integumentary: warm and dry Neurologic: alert and oriented x3 Psychiatric: mood/affect appropriate, cooperative Results - Lab Results 04/21/16 09:10 04/21/16 04:06 Most recent lab results Calcium 8.4 mg/dL (8.6-10.8) L 04/21/16 04:06 Consult Discharge Plan - Plan Referrals: Lauren Calvillo MD [Primary Care Provider] - 04/30/16 10:45 am
[2016-04-21 09:28] LABS: Hematocrit 22.2 % (35.3-44.9); Hemoglobin 7.2 g/dL (11.5-15.4); Mean Corpuscular HGB Conc 32.4 g/dL (31.6-35.5); Mean Corpuscular Hemoglobin 31.2 pg (28.0-33.3); Mean Corpuscular Volume 96.1 fL (83.0-100.0); Mean Platelet Volume 11.3 fL (9.4-12.4); Platelet Count 172 K/mcL (140-400); Red Blood Count 2.31 M/mcL (3.82-4.97); Red Cell Distribution Width 13.6 % (11.5-14.5)
--- NOTE | 2016-04-21 09:34 | Internal Med Progress Note ---
Date of Encounter: 04/21/16 Time of Encounter: 10:00 - Assessment and plan (1) Generalized weakness Current Visit: Yes Status: Acute Assessment and plan: Has improved. Most likely due to new medication side effect. We will hold gabapentin. Closely monitor patient. (2) Elevated troponin Current Visit: Yes Status: Acute Assessment and plan: Considered demand ischemia. Cardiology consult appreciated. (3) Afib Current Visit: Yes Status: Chronic Assessment and plan: Heart rate is well controlled. On Coumadin. Qualifiers: Atrial fibrillation type: chronic Qualified Code(s): I48.2 - Chronic atrial fibrillation (4) Diastolic heart failure Current Visit: Yes Status: Chronic Assessment and plan: Continue home medication, no signs of exacerbation Qualifiers: Heart failure chronicity: chronic Qualified Code(s): I50.32 - Chronic diastolic (congestive) heart failure (5) ESRD (end stage renal disease) on dialysis Current Visit: Yes Status: Chronic Assessment and plan: Continue hemodialysis (6) Anemia Current Visit: No Status: Acute Assessment and plan: Possibly due to end-stage renal disease. Hemoglobin is 6.7 today, we will give her 1 unit blood transfusion. No signs of active bleeding, we will follow-up H/ H change Qualifiers: Anemia type: unspecified type Qualified Code(s): D64.9 - Anemia, unspecified (7) Anticoagulated on Coumadin Current Visit: No Status: Acute Assessment and plan: Continue Coumadin. Follow up with PT/INR. (8) DVT prophylaxis Current Visit: No Status: Acute Assessment and plan: Patient is on Coumadin (9) Diabetes mellitus, type II, insulin dependent Current Visit: No Status: Acute Assessment and plan: Covered by sliding scale. - Time Spent With Patient 25 - 35 minutes - Subjective Interval history: Patient is a 75-year-old female admitted for weakness and confusion. Patient said that the confusion have pains after she started the new medication gabapentin. Her past medical history is significant for CHF., Diabetes, hyperlipidemia, hypertension, CAD, A. fib on Coumadin, end-stage renal disease on hemodialysis. Patient was seen and examined. She is awake alert oriented 3, confusion totally resolved. Cardio and a nephrology consult appreciated. Patient will have echo and have hemodialysis today. Patient has low hemoglobin, no signs of active bleeding, we will give 1 unit PRBC today. - Constitutional Vitals: Temp Pulse Resp BP Pulse Ox 98.3 F 78 15 129/70 97 04/21/16 06:45 04/21/16 06:45 04/21/16 06:45 04/21/16 06:45 04/21/16 06:45 General appearance: Present: A&O X 3, answers questions appropriately - Head Head exam: Present: atraumatic, normocephalic - Eye Eye exam: Present: PERRL, conjuntiva pink, sclera anicteric Pupils: Present: PERRL - Neck Neck exam general surgery: Present: supple, trachea midline. Absent: lymphadenopathy - Respiratory Respiratory exam: Present: CTAB. Absent: accessory muscle use, rales, rhonchi, wheezes - Cardiovascular Cardiovascular exam: Present: irregular rhythm, +S1, +S2. Absent: diastolic murmur, gallop, rubs, systolic murmur - GI/Abdominal GI/Abdominal exam: Present: normal bowel sounds, soft, no peritoneal signs. Absent: distended, tenderness - Extremities Exam Extremities exam: Present: warm, radial pulses palpable and symetrical. Absent : calf tenderness, cyanotic, pedal edema - Neurological Exam Neurological exam: Present: CN II-XII intact, oriented X3, no focal deficits. Absent: pronater drift, facial droop, speech deficit - Skin Skin exam: Present: dry, intact Internal Medicine: Result - Labs CBC & Chem 7: 04/21/16 04:06 04/21/16 04:06 Labs: Short CBC 04/21/16 Range/Units 04:06 WBC 4.0 L (4.3-11.1) K/mcL Hgb 6.7 L (11.5-15.4) g/dL Hct 21.2 L (35.3-44.9) % Plt Count 171 (140-400) K/mcL Neutrophils # 2.3 (1.6-8.9) K/mcL BMP 04/21/16 04:06 Sodium 135 L Potassium 4.2 Chloride 100 Carbon Dioxide 23 BUN 54 H D Creatinine 3.29 H Glucose 143 H Calcium 8.4 L Cardiac Enzymes 04/20/16 04/20/16 Range/Units 12:09 18:13 Troponin I 0.13 H* 0.13 H* (0-0.03) ng/mL - ABG Interpretation ABG results: PT/INR, D-dimer PT 13.0 Seconds (9.4-12.1) H 04/21/16 04:06 Consult Discharge Plan - Plan Referrals: Lauren Calvillo MD [Primary Care Provider] - 04/30/16 10:45 am
[2016-04-21 14:01] LABS: Folate 7.3 ng/mL (7.0-31.4)
[2016-04-21] MEDS: Insulin LISPRO 300 UNITS/3 ML VIAL SQ SCH ×3 (14:59→22:02)
[2016-04-21] MEDS: Furosemide 40 MG TABLET PO SCH ×2 (15:15→17:53)
[2016-04-21] MEDS: metOLazone 5 MG TABLET PO SCH (15:16)
[2016-04-21] MEDS: Lisinopril 20 MG TABLET PO SCH ×2 (15:16→22:04)
[2016-04-21] MEDS ORDERED: Lidocaine 4% CREAM (LMX) 5 GM TP PRN (15:40)
[2016-04-21 16:23] LABS: % Iron Saturation 18 % (15-50); Iron 42 mcg/dL (50-170); Transferrin 163 mg/dL (180-382)
[2016-04-21 16:43] LABS: Ferritin 788 ng/ml (5-204)
[2016-04-21] MEDS: *HR* Warfarin 2 MG TABLET PO SCH (17:49)
[2016-04-21] MEDS ORDERED: Insulin DETEMIR 100 UNIT/ML X5UNITS SQ SCH (21:00)
[2016-04-22] MEDS: hydrALAZINE 25 MG TABLET PO SCH ×3 (01:27→12:29)
[2016-04-22 06:50] LABS: Basophils % 0.8 %; Eosinophils # 0.1 K/mcL (0.0-0.6); Eosinophils % 2.8 %; Hematocrit 21.7 % (35.3-44.9); Immature Granulocytes % 0.3 % (0-4); Lymphocytes # 1.2 K/mcL (0.6-4.6); Lymphocytes % 30.6 %; Mean Corpuscular HGB Conc 32.3 g/dL (31.6-35.5); Mean Corpuscular Hemoglobin 30.7 pg (28.0-33.3); Mean Corpuscular Volume 95.2 fL (83.0-100.0); Mean Platelet Volume 11.1 fL (9.4-12.4); Monocytes # 0.6 K/mcL (0.0-1.3); Monocytes % 14.2 %; Platelet Count 182 K/mcL (140-400); Red Blood Count 2.28 M/mcL (3.82-4.97); Red Cell Distribution Width 13.5 % (11.5-14.5); Segmented Neutrophils % 51.3 %
[2016-04-22 06:51] LABS: INR 1.3; Prothrombin Time 13.6 Seconds (9.4-12.1)
[2016-04-22 07:04] LABS: Calcium 8.2 mg/dL (8.6-10.8); Potassium 4.1 mEq/L (3.5-4.5)
--- NOTE | 2016-04-22 07:26 | ECHO - Doppler Report ---
Limited Echocardiogram Name: Lindsay Deshpande Date of Study: 04/21/2016 Date: 1940 Ht: 64.0 in Medical Record#: [id number] Age: 75 Wt: 205.0 lb Gender: Female BSA: 1.98 Order #: [id number] Location: [facility] Room #: [id number] Reading Physician: Román Chowdhury MD, [facility] Print Cutter: Sandy Ibarra Ordering Physician: Jovita Mancia CNP Primary Physician: Lauren Calvillo MD Indications: Elevated troponin Impressions: Normal LV systolic function, LVEF 60%. Moderate biatrial enlargement. Valvular function was not assessed on this limited study. Left Ventricular Wall Motion: Rest Echo Findings All wall segments showed normal motion. Findings: Study Quality * Technically adequate exam. ECG Findings * Atrial fibrillation. Left Ventricle * Normal LV systolic function, LVEF 60%. * Normal LV chamber size and wall thickness. Right Ventricle * Normal RV size and function. Aorta * Normally sized aortic root. Pericardium * There is no pericardial effusion present. Left Atrium * Moderately dilated left atrium. Right Atrium * Moderately dilated right atrium. History Hypertension Diabetes Hypercholesteremia Family History of CAD History of CAD/PTCA 04/04/2015 a Previous Echo was performed. Measurements: BP: 118/ 84 2D Normal Values RVIDd: 2.90 cm <2.7 cm IVSd: 1.00 cm 0.6 - 1.0 cm LVIDd: 4.60 cm 3.7 - 5.6 cm LVPWd: .80 cm 0.6 - 1.1 cm LVIDs: 3.40 cm 1.5 - 3.6 cm AO: 2.90 cm < 4.0 cm %FS: 26.10 cm >25 % Updated by Román Chowdhury MD, [facility] on 04/22/2016 7:19:31 AM electronically signed on 04/22/2016 7:20:10 AM with status of Final Wall Motion Whitney: 1=Normal, 2=Hypokinesis, 3=Akinesis, 4=Dyskinesis, 5=Aneurysmal, 6=Hyperkinetic, X=Not Visualized (Blank)=Missing
[2016-04-22] MEDS: Furosemide 40 MG TABLET PO SCH (08:31)
[2016-04-22] MEDS: Insulin LISPRO 300 UNITS/3 ML VIAL SQ SCH ×2 (08:31→12:29)
[2016-04-22] MEDS: Lisinopril 20 MG TABLET PO SCH (08:32)
[2016-04-22] MEDS: metOLazone 5 MG TABLET PO SCH (08:32)
[2016-04-22] MEDS: Cholecalciferol (D-3) 1,000 UNIT TABLET PO SCH (08:32)
[2016-04-22] MEDS: Aspirin Enteric Coated 81 MG Tablet PO SCH (08:32)
[2016-04-22] MEDS: Nystatin POWDER 30 GM BOTTLE TP SCH (08:32)
--- NOTE | 2016-04-22 09:22 | Nephrology Progress Note ---
Date of Encounter: 04/22/16 Time of Encounter: 09:21 - Assessment and Plan (1) ESRD (end stage renal disease) on dialysis Current Visit: Yes Status: Chronic Plan for dialysis tomorrow Patient is on Tricor-should not be on this drug d/t kidney failure; Tricor discontinued Continue renal diet and fluid restriction Avoid nephrotoxins if possible (2) Generalized weakness Current Visit: Yes Status: Acute Improving; agree with holding Gabapentin per primary team (3) Anemia Current Visit: No Status: Acute Hgb 7.0 1 unit PRBCs ordered Goal hgb 10-11 Qualifiers: Anemia type: unspecified type Qualified Code(s): D64.9 - Anemia, unspecified (4) Diabetes mellitus, type II, insulin dependent Current Visit: No Status: Acute per primary team Subjective Principal diagnosis: ESRD on dialysis, weakness Interval history: Patient seen and examined. Sitting up in chair, no complaint today Objective - Vital Signs Vital signs: Vital Signs Temp Pulse Resp BP Pulse Ox 04/22/16 07:00 97.6 F 73 15 135/68 99 04/22/16 04:31 98.4 F 84 14 153/99 95 04/21/16 19:07 97.9 F 74 18 120/54 99 04/21/16 18:08 85 15 128/55 100 04/21/16 16:00 97.5 F L 93 15 118/84 100 04/21/16 15:15 79 18 118/84 100 04/21/16 14:35 97.5 F L 18 112/74 04/21/16 14:25 112/74 04/21/16 14:10 109/70 04/21/16 13:55 100/51 04/21/16 13:40 94/40 04/21/16 13:25 114/60 04/21/16 13:10 115/63 04/21/16 12:55 124/53 04/21/16 12:40 109/54 04/21/16 12:25 111/51 04/21/16 12:10 117/52 04/21/16 11:55 111/55 04/21/16 11:40 107/57 04/21/16 11:25 120/52 04/21/16 11:10 126/59 04/21/16 10:55 130/51 Intake and Output 04/21/16 04/22/1604/22/17 23:59 07:59 15:59 Intake Total 240 / 240 250 / 250 Output Total 200 / 200 Balance 40 / 40 250 / 250 Intake: Oral 240 / 240 250 / 250 Output: Urine 200 / 200 Other: Meal Lunch Percent of Meal Consumed 80% # Voids 1 Blood Glucose* 184 191 - General Appearance General appearance: Present: well-developed, well-nourished EENT: Present: ATNC, mucous membranes moist, hearing intact, vision intact Neck: Present: supple Respiratory: Present: clear Cardiology: Present: no edema, normal S1, normal S2 Gastrointestinal: Present: no tenderness, no guarding Neurologic: Present: alert and oriented x3 Psychiatric: Present: mood/affect appropriate, cooperative - Lab 04/22/16 05:39 04/22/16 05:39 Most recent lab results Calcium 8.2 mg/dL (8.6-10.8) L 04/22/16 05:39 Consult Discharge Plan - Plan Referrals: Lauren Calvillo MD [Primary Care Provider] - 04/30/16 10:45 am
[2016-04-22] MEDS ORDERED: 0.9 % Sodium Chloride 1,000 ML ONE (12:42)
[2016-04-22 16:39] VITALS: BP 129/62
--- NOTE | 2016-04-22 17:02 | Discharge Summary ---
Date of Encounter: 04/22/16 Time of Encounter: 16:00 - Discharge Diagnosis (1) Generalized weakness Priority: Primary Status: Acute (2) Elevated troponin Priority: Secondary Status: Acute (3) Afib Priority: Secondary Status: Chronic Qualifiers: Atrial fibrillation type: chronic Qualified Code(s): I48.2 - Chronic atrial fibrillation (4) Diastolic heart failure Priority: Secondary Status: Chronic Qualifiers: Heart failure chronicity: chronic Qualified Code(s): I50.32 - Chronic diastolic (congestive) heart failure (5) ESRD (end stage renal disease) on dialysis Priority: Secondary Status: Chronic (6) Anemia Priority: Secondary Status: Acute Qualifiers: Anemia type: unspecified type Qualified Code(s): D64.9 - Anemia, unspecified (7) Anticoagulated on Coumadin Priority: Secondary Status: Acute (8) DVT prophylaxis Priority: Secondary Status: Acute (9) Diabetes mellitus, type II, insulin dependent Priority: Secondary Status: Acute - Discharge Medications Home Medications: Aspirin [Adult Low Dose Aspirin EC] 81 mg PO DAILY 06/02/15 [History] Atorvastatin [Lipitor] 40 mg PO DAILY 06/02/15 [History] Enalapril Maleate [Vasotec] 20 mg PO BID 06/02/15 [History] Esomeprazole Magnesium [Nexium] 40 mg PO DAILY 06/02/15 [History] Insulin Glargine,Hum.rec.anlog [Lantus Solostar] 36 unit SQ DAILY PRN 06/02/15 [ History] Calcitriol [Rocaltrol] 0.25 mcg PO DAILY 09/09/15 [History] Carvedilol [Coreg] 25 mg PO BID 09/09/15 [History] Cholecalciferol (D-3) [Vitamin D] 1,000 unit PO DAILY 09/09/15 [History] Fenofibrate Nanocrystallized [Tricor] 48 mg PO DAILY 09/09/15 [History] Furosemide [Lasix] 40 mg PO BID 09/09/15 [History] HydrALAZINE 25 mg PO Q6HR 09/09/15 [History] Metolazone [Zaroxolyn] 2.5 mg PO DAILY 09/09/15 [History] Ferrous Sulfate [Iron] 325 mg PO BID 04/07/16 [History] Phytonadione [Mephyton] 5 mg PO DAILY 04/07/16 [History] TraMADol [Ultram] 50 mg PO Q8H PRN 04/07/16 [History] Warfarin [Coumadin] 2 mg PO DAILY 04/07/16 [History] Allergies/Adverse Reactions: Allergies No Known Allergies Allergy (Verified 04/20/16 07:47) Procedures/tests Complete & Pending: Procedures Performed prior 72 hours Category Date Time Status EV limited echocardiogram Routine Y 04/21/16 08:52 Completed - Notes to Outpatient Provider Hold gabapentin because it causes patient's confusion. Date of admission: 04/20/16 10:56 Primary care physician: Lauren Calvillo Consults: 04/20/16 15:27 Consult to Nephrology [CONS] Routine Consulting Provider: Kidney Shawna/CHELI/LETTY/ANIBAL Reason for Consult: patient ESRD- dialysis M W F Time Notified: 15:29 Call Completed: Yes 04/20/16 17:43 Consult to Nutrition [CONS] Routine Comment: Consulting Provider: NUTRITION Reason for Dietary Consult: Other 04/20/16 20:24 Consult to Cardiology [CONS] Routine Comment: Consulting Provider: Cardiology Shawna Reason for Consult: elevated troponin Time Notified: 20:25 Call Completed: No 04/21/16 09:00 Consult to Dialysis [CONS] ONCE Discharging clinician: Edyta Mascorro Anticipated date of discharge: 04/22/16 - Patient Status Disposition: Home Health Service Condition: Good Functional capacity at discharge: independent ambulation Overall status at discharge: patient is back to baseline - Discharge Instructions Follow Up With: Lauren Calvillo MD [Primary Care Provider] - 04/30/16 10:45 am - Diet and Activity Activity: increase activity as tolerated Diet: diabetic diet, other (Renal diet, fluid restriction 1.5L/day) Interval History: Ms. Deshpande is a 75 year old female past medical history of hypertension hyperlipidemia CHF diabetes end stage renal disease [place] with stent placement. Patient was recently admitted to this facility approximately week ago related to AV fistula failure requiring temporary dialysis catheter placement and dialysis. Also requiring blood transfusion related to chronic anemia. She was discharged on the fourth and was doing well. She went to dialysis yesterday which was uneventful and then to her family physician who prescribed her gabapentin for her neuropathy. According tho the patient and the family the patient took her first dose of gabapentine last night, she had an uneventful evening and this morning she awoke took her medications and few hours later was unable to stand, felt weak and was sleepy. They thought it was her BS and gave her some sugar water. The sx continued and she was brought to the ED for evaluation. In the ED lab work revealed a CBC 4.1 creatinine 3.17 BUN 42 potassium was 4 troponin was 0.13, CT of head was negative, chest x-ray with no acute process, urinalysis did reveal large amount of Leuk esterase. Urine culture was sent and patient was given IV Rocephin. She has been admitted for further workup and evaluation.Present time patient is groggy she arouses to verbal stimuli follows simple commands is oriented 3, there is no facial droop. 4/5 strength in extremities 4. She denies any chest pain or shortness of breath she is hemodynamically stable at this time.I reveiwed this case with Dr Patel who agrees with plan Hospital course: Ms. Deshpande is a 75 year old female admitted for confusion and weakness. She was just started the gabapentin, which was considered account for her confusion. She was placed on close monitoring. Hold gabapentin. No further confusion or weakness. Patient has a mild elevated troponin, 3 sets of troponin tract no trend of elevation. Cardiac consult saw pt, consider demand ischemia. Patient has no chest pain. Echo done, LVEF 60%. Hemoglobin low, one unit of PRBC transfused. Patient was seen and examined today. She is awake alert, oriented 3. Vital signs stable. Patient is stable to discharge home, continue hemodialysis as outpatient. - Time Spent with Patient Total time spent providing and/or coordinating discharge services: 40 minutes. Greater than 30 minutes - Constitutional Vitals: Temp Pulse Resp BP Pulse Ox 98.1 F 80 18 129/62 99 04/22/16 16:40 04/22/16 16:40 04/22/16 16:40 04/22/16 16:40 04/22/16 16:40 General appearance: Present: A&O X 3, answers questions appropriately - Head Head exam: Present: atraumatic, normocephalic - Eye Eye exam: Present: PERRL, conjuntiva pink, sclera anicteric Pupils: Present: PERRL - Neck Neck exam general surgery: Present: supple, trachea midline. Absent: lymphadenopathy - Respiratory Respiratory exam: Present: CTAB. Absent: accessory muscle use, rales, rhonchi, wheezes - Cardiovascular Cardiovascular exam: Present: RRR, +S1, +S2. Absent: diastolic murmur, gallop, rubs, systolic murmur - GI/Abdominal GI/Abdominal exam: Present: normal bowel sounds, soft, no peritoneal signs. Absent: distended, tenderness - Extremities Exam Extremities exam: Present: warm, radial pulses palpable and symetrical. Absent : calf tenderness, cyanotic, pedal edema - Neurological Exam Neurological exam: Present: CN II-XII intact, oriented X3, no focal deficits. Absent: pronater drift, facial droop, speech deficit - Skin Skin exam: Present: dry, intact
--- NOTE | 2016-04-22 17:11 | Physician Discharge Referral ---
Home Health/Hosp Referral Info Transfer to: Home Health Provider in Charge Post Discharge: PCP - Diagnosis (1) Generalized weakness Status: Acute (2) Elevated troponin Status: Acute (3) Afib Status: Chronic (4) Diastolic heart failure Status: Chronic (5) ESRD (end stage renal disease) on dialysis Status: Chronic (6) Anemia Status: Acute (7) Anticoagulated on Coumadin Status: Acute (8) DVT prophylaxis Status: Acute (9) Diabetes mellitus, type II, insulin dependent Status: Acute - Respiratory Orders Smoking Cessation: Smoking cessation has been advised. For more information, call the [place] Tobacco Quit Line at 0-281-QENA-NOW. - Diet/Nutrition Diet/Nutrition Orders: Renal, No Concentrated Sweets (Fluid restriction 1.5 L per day) - Services Needed Following services are medically necessary services: Nursing, Home Health Aide, Physical Therapy, Occupational Therapy - Transfer Medications Home Medications: Aspirin [Adult Low Dose Aspirin EC] 81 mg PO DAILY 06/02/15 [History] Atorvastatin [Lipitor] 40 mg PO DAILY 06/02/15 [History] Enalapril Maleate [Vasotec] 20 mg PO BID 06/02/15 [History] Esomeprazole Magnesium [Nexium] 40 mg PO DAILY 06/02/15 [History] Insulin Glargine,Hum.rec.anlog [Lantus Solostar] 36 unit SQ DAILY PRN 06/02/15 [ History] Calcitriol [Rocaltrol] 0.25 mcg PO DAILY 09/09/15 [History] Carvedilol [Coreg] 25 mg PO BID 09/09/15 [History] Cholecalciferol (D-3) [Vitamin D] 1,000 unit PO DAILY 09/09/15 [History] Fenofibrate Nanocrystallized [Tricor] 48 mg PO DAILY 09/09/15 [History] Furosemide [Lasix] 40 mg PO BID 09/09/15 [History] HydrALAZINE 25 mg PO Q6HR 09/09/15 [History] Metolazone [Zaroxolyn] 2.5 mg PO DAILY 09/09/15 [History] Ferrous Sulfate [Iron] 325 mg PO BID 04/07/16 [History] Phytonadione [Mephyton] 5 mg PO DAILY 04/07/16 [History] TraMADol [Ultram] 50 mg PO Q8H PRN 04/07/16 [History] Warfarin [Coumadin] 2 mg PO DAILY 04/07/16 [History] Allergies/Adverse Reactions: Allergies No Known Allergies Allergy (Verified 04/20/16 07:47) Certification: Further, I certify that my clinical findings support that this patient is homebound (i.e. absences from home require considerable and taxing effort and are for medical reasons or [facility] or infrequently or short duration when for other reasons) because: Homebound Reason: Patient requires assistance of a person or device to safely leave home Attestation: My signature below is to certify that this patient is under my care and that I, or nurse practitioner, or a physician's assistant credit manager working with me, has a face-to -face encounter with this patient.
== END 2016-04-22 19:00 | disposition home health service (06) ==
LOC: EMEROO 07:42 → 2ANU 07:42 → SUATTDRO 10:56 → 2NENU 14:51
PROVIDERS: ADMIT Internal Medicine; ATTEND Internal Medicine

== ENCOUNTER 2016-09-17 18:07 | Observation (INO) ==
--- NOTE | 2016-09-17 19:47 | Emergency Department Note ---
Disposition Clinical Impression: Dialysis AV fistula malfunction Disposition: Admitted As Inpatient Condition: Good Referrals: NONE,PCP [Non-Partnered Physician] - Kehinde Marrufo MD [Partnered Physician] - Forms: Work/School Release, ED Satisfaction Letter General Adult HPI - General Chief complaint: ED General Medical Stated complaint: Here to have dialysis port put in Time Seen by Provider: 09/17/16 19:22 Source: patient, family Limitations: no limitations Nursing Notes Reviewed: Yes Vital Signs Reviewed: Yes - History of Present Illness HPI Narrative: Lindsay is a 75-year-old female past medical history of diabetes, CAD with stents, kidney failure on dialysis presented to the ED in today for a dialysis port. Her AV fistula was not working at dialysis on Tuesday and dialysis called her today and told her that Dr. Marrufo would meet her in the ER. Last dialysis was on Tuesday and her typical schedule is Tue, Tue, Tue. patient is currently complaining of shortness of breath and nausea on and off currently not nauseated. Patient is still making urine. Admits to diarrhea. Denies fever , dizziness, weakness, vision changes, chest pain, or headache. Onset (ago): day(s) (2) Pain Scale: 0 - Related Data Home Medications Medication Instructions Recorded Confirmed Aspirin [Adult Low Dose Aspirin EC] 81 mg PO DAILY 06/02/15 04/20/16 Atorvastatin [Lipitor] 40 mg PO DAILY 06/02/15 04/20/16 Enalapril Maleate [Vasotec] 20 mg PO BID 06/02/15 04/20/16 Esomeprazole Magnesium [Nexium] 40 mg PO DAILY 06/02/15 04/20/16 Insulin Glargine,Hum.rec.anlog 36 unit SQ DAILY PRN 06/02/15 04/20/16 [Lantus Solostar] Calcitriol [Rocaltrol] 0.25 mcg PO DAILY 09/09/15 04/20/16 Carvedilol [Coreg] 25 mg PO BID 09/09/15 04/20/16 Cholecalciferol (D-3) [Vitamin D] 1,000 unit PO DAILY 09/09/15 04/20/16 Fenofibrate Nanocrystallized 48 mg PO DAILY 09/09/15 04/20/16 [Tricor] Furosemide [Lasix] 40 mg PO BID 09/09/15 04/20/16 Metolazone [Zaroxolyn] 2.5 mg PO DAILY 09/09/15 04/20/16 hydrALAZINE [HydrALAZINE] 25 mg PO Q6HR 09/09/15 04/20/16 Ferrous Sulfate [Iron] 325 mg PO BID 04/07/16 04/20/16 Phytonadione [Mephyton] 5 mg PO DAILY 04/07/16 04/20/16 Warfarin [Coumadin] 2 mg PO DAILY 04/07/16 04/20/16 traMADol [Ultram] 50 mg PO Q8H PRN 04/07/16 04/20/16 Allergies Allergy/AdvReac Type Severity Reaction Status Date / Time No Known Allergies Allergy Verified 04/20/16 07:47 All systems ED: reviewed and negative except as stated. Review of Systems: As Per HPI Constitutional: Denies: fever, weakness Eyes: Denies: vision change Cardiovascular: Denies: chest pain Respiratory: Denies: dyspnea Gastrointestinal: Reports: nausea, diarrhea (intermittent, currently no Nausea) . Denies: vomiting Neurological: Denies: headache, weakness Past Medical History - Past Medical History Medical history: Reports: coronary artery disease, diabetes, hyperlipidemia, hypertension, myocardial infarction, renal disease, valvular heart disease, other Surgical history: Reports: angioplasty/stent, hysterectomy Psychiatric history: Reports: no psych history GRADUATE TEACHING ASSOCIATE history: Reports: no GRADUATE TEACHING ASSOCIATE history - Social History Smoking Status: Never smoker Smokeless Tobacco Status: No Alcohol use: Reports: none Drug use: Reports: none Physical Exam Constitutional: Alert, in no acute distress, well nourished, well developed. Head: Normocephalic, atraumatic, Heart: Normal, regular rate and rhythm, no murmurs EENT: eyes PERRL, EOMI, mouth with moist mucous membranes, Lungs: Clear to auscultation, no wheezes, rales, or rhonchi Abdomen: Soft, nondistended, nontender, and no masses palpable, bowel sounds present and normal, no guarding or rigidity. Extremities: L forearm AV fistula with thrill present, bruise on ventral forearm and papular nodule without warmth or erythema, No clubbing, cyanosis, or edema, Skin: Skin warm and dry, no rashes, no jaundice Neurologic: Cranial nerves II through XII grossly intact, no focal deficits, strength within normal limits in all extremities Psych: Cooperative with exam, good eye contact, cognitive function intact, speech clear, thought process logical but poor historian - General Limitations: no limitations General appearance: alert Course Course Narrative: Lindsay is a 75-year-old female past medical history of diabetes, CAD with stents, kidney failure on dialysis presented to the ED in today for a dialysis port after receiving a call from dialysis today to come in and see Dr. Marrufo since her AV fistula malfunctioned. Consulted Dr. Marrufo and he said to do basic labs and to admit her and if labs do not show need for emergent dialysis they will f/u tomorrow. Electrolytes were within normal except potassium of 5.1. She is anemic with a hemoglobin of 9.9, BUN/Creatinine 88, 5.06 respectively. CXR shows no acute process. Discussed with Dr. Cristina, and he accepted the admission. Vital Signs Temperature 97.7 F 09/17/16 18:12 Pulse Rate 83 09/17/16 18:12 Respiratory Rate 18 09/17/16 18:12 Blood Pressure 144/71 09/17/16 18:12 O2 Sat by Pulse Oximetry 95 09/17/16 18:12 Temperature 97.7 F 09/17/16 18:12 Pulse Rate 77 09/17/16 19:28 Respiratory Rate 16 09/17/16 19:28 Blood Pressure 152/88 09/17/16 19:28 O2 Sat by Pulse Oximetry 98 09/17/16 19:28 Oxygen Delivery Oxygen Delivery Room Air Medical Decision Making - Medical Records Medical records reviewed: Yes I reviewed the patient's medical records. - Lab Data Lab results reviewed: Yes I reviewed the patient's lab results. Result diagrams: 09/17/16 19:53 09/17/16 19:53 Lab Results 09/17/16 09/17/16 09/17/16 Range/Units 19:53 19:53 19:53 WBC 5.5 (4.3-11.1) K/mcL RBC 3.06 L (3.82-4.97) M/mcL Hgb 9.9 L (11.5-15.4) g/dL Hct 31.1 L (35.3-44.9) % MCV 101.6 H (83.0-100.0) fL MCH 32.4 (28.0-33.3) pg MCHC 31.8 (31.6-35.5) g/dL RDW 14.5 (11.5-14.5) % Plt Count 170 (140-400) K/mcL MPV 11.7 (9.4-12.4) fL Immature Gran % 0.4 (0-4) % Seg Neutrophils % 74.4 % Lymphocytes % 15.3 % Monocytes % 6.3 % Eosinophils % 2.3 % Basophils % 1.3 % Neutrophils # 4.1 (1.6-8.9) K/mcL Lymphocytes # 0.9 (0.6-4.6) K/mcL Monocytes # 0.4 (0.0-1.3) K/mcL Eosinophils # 0.1 (0.0-0.6) K/mcL Basophils # 0.1 (0.0-0.2) K/mcL PT 20.4 H (9.4-12.1) Seconds INR 1.9 APTT 34.6 (26.0-36.0) Seconds Sodium 136 (136-145) mEq/L Potassium 5.1 H (3.5-4.5) mEq/L Chloride 102 (98-109) mEq/L Carbon Dioxide 21 (19-29) mEq/L BUN 82 H (7-20) mg/dL Creatinine 5.06 H (0.57-1.11) mg/dL Est GFR ( Amer) 10 L (> 60) Est GFR (Non-Af Amer) 8 L (> 60) BUN/Creatinine Ratio 16 (6-26) Glucose 189 H (70-99) mg/dL Calculated Osmolality 312 H (280-300) Calcium 9.4 (8.6-10.8) mg/dL Total Bilirubin 0.9 (0.2-1.2) mg/dL AST 24 (5-34) Units/L ALT 22 (0-55) Units/L Alkaline Phosphatase 88 (38-126) Units/L Serum Total Protein 6.8 (6.0-8.3) g/dL Albumin 3.6 (3.5-5.0) g/dL Globulin 3.2 (2.4-3.5) g/dL Albumin/Globulin Ratio 1.1 (1.1-2.2) - Radiology Data Radiology results reviewed: Yes I reviewed the patient's radiology results. Attestation Statement - Attestation Attestation: I, Sudhir Wray MD, personally evaluated this patient and discussed their management with the resident physician. I reviewed the resident's note and agree with the documented findings, medical decision making, and plan of care. 75-year-old female referred here from nephrology because of failure of her dialysis fistula. She has dialysis Tuesday was seen Tuesday. She had her dialysis this past Tuesday and then 2 days ago on Tuesday when she went in for dialysis they could not get it to work. She did not return today for dialysis and they called her and advised her to come here to be admitted. She does still urinate and states that she has been urinating normally. She has some mild shortness of breath with exertion but not at rest. She denies any pain or fever or other symptoms. On examination patient is a well-developed obese elderly female in no acute distress. She is alert and oriented 3. There is no cyanosis or diaphoresis. Breath sounds are clear and equal bilaterally. Heart irregularly irregular. Abdomen soft and nontender with normal bowel sounds. Labs reviewed. EKG shows atrial fibrillation with a heart rate of 76. No acute abnormality on chest x-ray. Dr. Butts discussed the case with the field scout on-call, Dr. Marrufo, and he recommended admission by the hospitalist and nephrology will follow up with the patient tomorrow. The hospitalist, Dr. Cristina, was consulted and accepted admission of the patient.
[2016-09-17 20:02] LABS: Basophils # 0.1 K/mcL (0.0-0.2); Basophils % 1.3 %; Eosinophils # 0.1 K/mcL (0.0-0.6); Eosinophils % 2.3 %; Hematocrit 31.1 % (35.3-44.9); Hemoglobin 9.9 g/dL (11.5-15.4); Immature Granulocytes % 0.4 % (0-4); Lymphocytes # 0.9 K/mcL (0.6-4.6); Lymphocytes % 15.3 %; Mean Corpuscular HGB Conc 31.8 g/dL (31.6-35.5); Mean Corpuscular Hemoglobin 32.4 pg (28.0-33.3); Mean Corpuscular Volume 101.6 fL (83.0-100.0); Mean Platelet Volume 11.7 fL (9.4-12.4); Monocytes # 0.4 K/mcL (0.0-1.3); Monocytes % 6.3 %; Neutrophils # 4.1 K/mcL (1.6-8.9); Platelet Count 170 K/mcL (140-400); Red Blood Count 3.06 M/mcL (3.82-4.97); Red Cell Distribution Width 14.5 % (11.5-14.5); Segmented Neutrophils % 74.4 %
[2016-09-17 20:12] LABS: INR 1.9; Prothrombin Time 20.4 Seconds (9.4-12.1)
[2016-09-17 20:14] LABS: Activated Partial Thrombo Time 34.6 Seconds (26.0-36.0)
[2016-09-17 20:16] LABS: Albumin 3.6 g/dL (3.5-5.0); Albumin/Globulin Ratio 1.1 (1.1-2.2); Bilirubin,Total 0.9 mg/dL (0.2-1.2); Calcium 9.4 mg/dL (8.6-10.8); Globulin 3.2 g/dL (2.4-3.5); Potassium 5.1 mEq/L (3.5-4.5); Total Protein 6.8 g/dL (6.0-8.3)
--- NOTE | 2016-09-17 22:48 | Internal Med History&Physical ---
Date of Encounter: 09/17/16 Time of Encounter: 22:48 Assessment and Plan (1) Dialysis AV fistula malfunction Current visit: Yes Status: Acute patient with ESRD on HD has had problems with her AVF and has not been able to get her regular HD as a result, exam of the AVF seems normal with a bruit and thrill, unclear why it's not functioning, we will defer to nephrology input, for now we will admit for evaluation and inpatient HD Qualifiers: Encounter type: initial encounter Qualified Code(s): T82.590A - Other mechanical complication of surgically created arteriovenous fistula, initial encounter (2) Hyperkalemia Current visit: Yes Status: Acute pt with ESRD, missed HD due to malfunctioning AVF comes in with hyperkalemia, the level of 5.1 is not alarming so we will follow BMP and HD, should the repeat be alarming we will give her chelators (3) Diabetes mellitus, type II, insulin dependent Current visit: Yes Status: Chronic A1c of 8.2% in 03/2016 and on insulin regimen, we will continue her basal bolus regimen with FS ACHS, will update her A1c (4) ESRD (end stage renal disease) on dialysis Current visit: Yes Status: Chronic on HD schedule MWF, will get nephrology to weigh in regarding inpatient HD (5) Afib Current visit: Yes Status: Chronic hx of chronic AFIb on systemic AC with warfarin, her INR today was subtherapeutic at 1.9, we will continue her regular dosing and follow daily INR , will also continue rate control with coreg Qualifiers: Atrial fibrillation type: chronic Qualified Code(s): I48.2 - Chronic atrial fibrillation Internal Medicine - H&P: HPI Chief complaint: sent by patternator Admitted From: Emergency Dept Plans for Post Hospital Care: Home History of present illness: Ms. Deshpande is a 75 year old female with a hx of ESRD on HD MWF was asked to come to the ER today y her patternator. History has it that on Tuesday when she went for dialysis they had problems with her AVF fistula so on Tuesday they were unable to dialyze her as scheduled. Today her patternator Dr Marrufo called her and asked that she reports to the ER for further evaluation and managed of her vascular access. She additionally reports dyspnea with dyspnea on exertion and nausea. She denies fever, chills, or any infectious symptoms. Past Med Surg Social Fam HX - Past Medical History Medical history: coronary artery disease, diabetes, hyperlipidemia, hypertension , myocardial infarction, renal disease, valvular heart disease, other Psychiatric history: no psych history - Past Surgical History Surgical History: angioplasty/stent, hysterectomy - Social History Smoking Status: Never smoker Smokeless Tobacco Status: No Alcohol use: none Drug use: none - Family History Mother Living Status: Hx Family Endocrine Disorder: Yes Father Living Status: Hx Family Cardiac Disorders: Yes Hx Family Neuromuscular Disorders: Yes Internal Medicine - H&P: Meds Aspirin [Adult Low Dose Aspirin EC] 81 mg PO DAILY 06/02/15 [History] Atorvastatin [Lipitor] 40 mg PO DAILY 06/02/15 [History] Enalapril Maleate [Vasotec] 20 mg PO BID 06/02/15 [History] Esomeprazole Magnesium [Nexium] 40 mg PO DAILY 06/02/15 [History] Insulin Glargine,Hum.rec.anlog [Lantus Solostar] 36 unit SQ DAILY PRN 06/02/15 [ History] Calcitriol [Rocaltrol] 0.25 mcg PO DAILY 09/09/15 [History] Carvedilol [Coreg] 25 mg PO BID 09/09/15 [History] Cholecalciferol (D-3) [Vitamin D] 1,000 unit PO DAILY 09/09/15 [History] Fenofibrate Nanocrystallized [Tricor] 48 mg PO DAILY 09/09/15 [History] Furosemide [Lasix] 40 mg PO BID 09/09/15 [History] Metolazone [Zaroxolyn] 2.5 mg PO DAILY 09/09/15 [History] hydrALAZINE [HydrALAZINE] 25 mg PO Q6HR 09/09/15 [History] Ferrous Sulfate [Iron] 325 mg PO BID 04/07/16 [History] Phytonadione [Mephyton] 5 mg PO DAILY 04/07/16 [History] Warfarin [Coumadin] 2 mg PO DAILY 04/07/16 [History] traMADol [Ultram] 50 mg PO Q8H PRN 04/07/16 [History] Allergies No Known Allergies Allergy (Verified 04/20/16 07:47) All Systems PM: A 10-system review of systems was performed and is negative for pertinent findings except as documented above in the HPI. - Constitutional Vitals: Temp Pulse Resp BP Pulse Ox 97.7 F 77 16 138/70 98 09/17/16 18:12 09/17/16 19:28 09/17/16 21:33 09/17/16 21:33 09/17/16 19:28 GENERAL: Elderly female, lying in bed, has facial excoriations, Alert, not in acute distress, HEENT: NC/AT, EOMI, PERRLA, anicteric sclera, normal conjunctiva, supple, clear nares, moist mucous membranes, RESP: Lungs are clear to auscultation bilaterally, good AE bilaterally, No crackles or wheeze CARDIO: Irregularly irregular heart sounds, no murmurs, no JVD, no ankle edema GI: Soft, full, no tenderness, no organomegaly felt, normal bowel sounds heard MUSCULOSKELETAL: grossly normal movements bilaterally, no deformities noted, LUE AVF with thrill and bruit NEUROLOGIC: CN 2-12 intact grossly. No gross motor/sensory deficit appreciated, PSYCHIATRY: AAO x 3. Mood is fair, SKIN: BUE patchy areas of ecchymoses, facial excoriations Internal Med - H&P Results - Labs CBC & Chem 7: 09/17/16 19:53 09/17/16 19:53 - EKG Data -: EKG Interpreted by Myself (rate controlled AFIB) - Diagnostic Studies Chest x-ray Status: image reviewed by me
[2016-09-18] MEDS ORDERED: Naloxone 0.4 MG/ML INJ IVP PRN (00:16)
[2016-09-18] MEDS ORDERED: traMADol 50 MG TABLET PO PRN (00:18)
[2016-09-18] MEDS ORDERED: *HR* Warfarin 2 MG TABLET PO ONE (00:21)
[2016-09-18] MEDS: Lisinopril 20 MG TABLET PO SCH ×3 (01:14→21:56)
[2016-09-18 06:25] LABS: Prothrombin Time 21.5 Seconds (9.4-12.1)
[2016-09-18 06:32] LABS: Calcium 9.1 mg/dL (8.6-10.8); Magnesium 1.6 mg/dL (1.6-2.6); Phosphorous 5.5 mg/dL (2.3-4.7); Potassium 4.7 mEq/L (3.5-4.5)
[2016-09-18] MEDS ORDERED: *HR* Dextrose 50 % in Water (Syg) 50 ML SYRINGE IVP PRN (06:38)
[2016-09-18] MEDS ORDERED: Dextrose Gel 15 GM PO PRN ×2 (06:38)
[2016-09-18] MEDS ORDERED: D5% in Water 1,000 ML IVC PRN (06:38)
--- NOTE | 2016-09-18 09:06 | Internal Med Progress Note ---
Date of Encounter: 09/19/16 Time of Encounter: 09:03 - Assessment and plan (1) Dialysis AV fistula malfunction Current Visit: Yes Status: Acute Qualifiers: Encounter type: initial encounter Qualified Code(s): T82.590A - Other mechanical complication of surgically created arteriovenous fistula, initial encounter (2) ESRD (end stage renal disease) on dialysis Current Visit: Yes Status: Chronic (3) Anticoagulated on Coumadin Current Visit: No Status: Acute (4) Afib Current Visit: Yes Status: Chronic Qualifiers: Atrial fibrillation type: chronic Qualified Code(s): I48.2 - Chronic atrial fibrillation (5) Type 2 diabetes mellitus Current Visit: No Status: Acute Qualifiers: Diabetes mellitus complication status: with kidney complications Diabetes mellitus complication detail: with chronic kidney disease Diabetes mellitus terminal manager insulin use: with terminal manager use Chronic kidney disease stage: on chronic dialysis Qualified Code(s): E11.22 - Type 2 diabetes mellitus with diabetic chronic kidney disease; N18.6 - End stage renal disease; Z79.4 - senior care (current) use of insulin; Z99.2 - Dependence on renal dialysis (6) Hyperkalemia Current Visit: Yes Status: Acute - Subjective Interval history: Lindsay Robert is 75-year-old admitted for malfunctioning AV fistula therefore patient could not get outpatient hemodialysis and has been admitted to reestablish access and continue dialysis. #1 ESRD patient is on dialysis and need to reestablish IV access as AV fistula is nonfunctioning nephrology consult. #2 chronic atrial fibrillation patient is on anticoagulation with Coumadin pharmacist business objects consultant daily PT and INRs #3 diabetes Accu-Chek 4 times a day with sliding scale coverage daily. #4 CAD stable at this point clinical observation telemetry #5 hypertension daily monitoring continue home medication - Constitutional Vitals: Temp Pulse Resp BP Pulse Ox 98.0 F 76 16 110/59 95 09/18/16 04:08 09/18/16 04:08 09/18/16 04:08 09/18/16 04:08 09/18/16 04:08 - Head Head exam: Present: atraumatic, normocephalic - Eye Eye exam: Present: PERRL, conjuntiva pink, sclera anicteric Pupils: Present: PERRL - Neck Neck exam general surgery: Present: supple, trachea midline. Absent: lymphadenopathy - Respiratory Respiratory exam: Present: CTAB. Absent: accessory muscle use, rales, rhonchi, wheezes - Cardiovascular Cardiovascular exam: Present: RRR, +S1, +S2. Absent: diastolic murmur, gallop, rubs, systolic murmur - GI/Abdominal GI/Abdominal exam: Present: normal bowel sounds, soft, no peritoneal signs. Absent: distended, tenderness - Extremities Exam Extremities exam: Present: warm, radial pulses palpable and symetrical. Absent : calf tenderness, cyanotic, pedal edema Additional comments: Left upper extremity AV fistula which according to nephrology has good bruit radial pulse bounding no signs of infection - Neurological Exam Neurological exam: Present: CN II-XII intact, oriented X3, no focal deficits. Absent: pronater drift, facial droop, speech deficit - Skin Skin exam: Present: dry, intact Internal Medicine: Result - Labs CBC & Chem 7: 09/19/16 06:36 09/19/16 06:36 Labs: BMP 09/18/16 05:24 Sodium 137 Potassium 4.7 H Chloride 103 Carbon Dioxide 22 BUN 83 H Creatinine 5.00 H Glucose 168 H Calcium 9.1 - ABG Interpretation ABG results: PT/INR, D-dimer PT 21.5 Seconds (9.4-12.1) H 09/18/16 05:24 Consult Discharge Plan - Plan Referrals: Lauren Calvillo MD [Primary Care Provider] - (web request sent on 09/18/16)
[2016-09-18] MEDS: Insulin LISPRO 300 UNITS/3 ML VIAL SQ SCH ×4 (09:37→21:57)
[2016-09-18] MEDS: Insulin DETEMIR 100 UNIT/ML X5UNITS SQ SCH (09:49)
[2016-09-18] MEDS: Aspirin Enteric Coated 81 MG Tablet PO SCH (09:49)
[2016-09-18] MEDS: Cholecalciferol (D-3) 1,000 UNIT TABLET PO SCH (09:49)
[2016-09-18] MEDS: Fenofibrate 54 MG TABLET PO SCH (09:49)
[2016-09-18] MEDS: hydrALAZINE 25 MG TABLET PO SCH ×2 (11:05→16:24)
[2016-09-18] MEDS: Furosemide 40 MG TABLET PO SCH ×2 (11:06→21:57)
--- NOTE | 2016-09-18 13:04 | Nephrology Consult Note ---
Date of Encounter: 09/18/16 Time of Encounter: 12:58 Assessment and Plan (1) ESRD (end stage renal disease) on dialysis Current Visit: Yes Status: Chronic At this point patient is not fluid overloaded and no signs of uremia. Would like for IR to place a permacath on Tuesday followed by HD, however patient is on Coumadin so will hold Coumadin and will talk with IR on Tuesday Patient to follow up with vascular surgeon on Tuesday as scheduled If patient develops any dyspnea or uremic symptoms will place an emergent temp line and proceed with dialysis this weekend. Continue renal diet and fluid restriction (2) Dialysis AV fistula malfunction Current Visit: Yes Status: Acute see above Patient was scheduled to see vascular surgeon on Tuesday the day HD staff could not access fistula however patient/family was not able to make that appointment Currently scheduled to see vascular surgeon Dr Mejía next Tuesday No signs of infection over access sight Qualifiers: Encounter type: initial encounter Qualified Code(s): T82.590A - Other mechanical complication of surgically created arteriovenous fistula, initial encounter History of Present Illness - Reason for Consult Consult date: 09/18/16 - Chief Complaint Dialysis fistula malfunction, ESRD on dialysis - History of Present Illness Ms. Deshpande is a 75 year old female well known to our practice with a hx of ESRD on HD MWF. Patient has had a cyst-like nodular over access area on left lower forearm for several weeks. No redness, no drainage, no pain to area. On Tuesday dialysis staff was unable to access fistula and patient was scheduled to see vascular surgeon Dr Mejía later that day for intervention, however she was unable to go. Patient now has an appointment with vascular surgeon next Tuesday but he was concerned she might have an infection in access arm and recommended patient come into the ED last night for eval. Patient's last HD treatment was on Wednesday 09/13. Past Med Surg Social Fam HX - Past Medical History Medical history: coronary artery disease, diabetes, hyperlipidemia, hypertension , myocardial infarction, renal disease, valvular heart disease, other Psychiatric history: no psych history - Past Surgical History Surgical History: angioplasty/stent, hysterectomy - Social History Smoking Status: Never smoker Smokeless Tobacco Status: No Alcohol use: none Drug use: none - Family History Mother Living Status: Hx Family Endocrine Disorder: Yes Father Living Status: Hx Family Cardiac Disorders: Yes Hx Family Neuromuscular Disorders: Yes Medications and Allergies Aspirin [Adult Low Dose Aspirin EC] 81 mg PO DAILY 06/02/15 [History] Atorvastatin [Lipitor] 40 mg PO DAILY 06/02/15 [History] Enalapril Maleate [Vasotec] 20 mg PO BID 06/02/15 [History] Esomeprazole Magnesium [Nexium] 40 mg PO DAILY 06/02/15 [History] Insulin Glargine,Hum.rec.anlog [Lantus Solostar] 36 unit SQ DAILY PRN 06/02/15 [ History] Calcitriol [Rocaltrol] 0.25 mcg PO DAILY 09/09/15 [History] Carvedilol [Coreg] 25 mg PO BID 09/09/15 [History] Cholecalciferol (D-3) [Vitamin D] 1,000 unit PO DAILY 09/09/15 [History] Fenofibrate Nanocrystallized [Tricor] 48 mg PO DAILY 09/09/15 [History] Furosemide [Lasix] 40 mg PO BID 09/09/15 [History] Metolazone [Zaroxolyn] 2.5 mg PO DAILY 09/09/15 [History] hydrALAZINE [HydrALAZINE] 25 mg PO Q6HR 09/09/15 [History] Ferrous Sulfate [Iron] 325 mg PO BID 04/07/16 [History] Phytonadione [Mephyton] 5 mg PO DAILY 04/07/16 [History] Warfarin [Coumadin] 2 mg PO DAILY 04/07/16 [History] traMADol [Ultram] 50 mg PO Q8H PRN 04/07/16 [History] Allergies No Known Allergies Allergy (Verified 04/20/16 07:47) Review of Systems All Systems: reviewed and no additional remarkable complaints except as stated Constitutional: no chills, no fatigue, no lethargy Nose, mouth and throat: no dizziness Cardiovascular: no chest pain, no dyspnea Gastrointestinal: no abdominal pain Integumentary: sores (left forearm) Neurological: no behavioral changes Psychiatric: no anxiety Exam - Vital Signs Vital signs: Initial Vital Signs Temp Pulse Resp BP Pulse Ox 97.7 F 83 18 144/71 95 09/17/16 18:12 09/17/16 18:12 09/17/16 18:12 09/17/16 18:12 09/17/16 18:12 Vital Signs - Last 8 Hours Temp Pulse Resp BP Pulse Ox 09/18/16 11:28 97.7 F 74 15 128/66 98 09/18/16 09:39 98.2 F 65 15 103/64 96 Intake and Output 09/17/16 09/18/16 09/18/16 23:59 07:59 15:59 Intake Total 240 / 240 Balance 240 / 240 Intake: Oral 240 / 240 Other: Weight 89.7 kg Blood Glucose* 188 126 183 - General Appearance General appearance: well-developed, well-nourished EENT: ATNC, mucous membranes moist, hearing intact, vision intact Neck: supple Respiratory: clear Cardiology: no edema, normal S1, normal S2 - Dialysis Access Dialysis Vascular Access: Arteriovenous Fistula Gastrointestinal: no tenderness, no guarding Integumentary: warm and dry (has approximately a 1-1.5cm flesh color nodular on left lower forearm, over access area) Neurologic: alert and oriented x3 Psychiatric: mood/affect appropriate, cooperative Results - Lab Results 09/17/16 19:53 09/18/16 05:24 Most recent lab results Calcium 9.1 mg/dL (8.6-10.8) 09/18/16 05:24 Phosphorus 5.5 mg/dL (2.3-4.7) H 09/18/16 05:24 Magnesium 1.6 mg/dL (1.6-2.6) 09/18/16 05:24 Consult Discharge Plan - Plan Referrals: Lauren Calvillo MD [Primary Care Provider] - (web request sent on 09/18/16)
[2016-09-18] MEDS ORDERED: 0.9 % Sodium Chloride 250 ML IVC PRN (13:23)
[2016-09-18] MEDS ORDERED: 0.9 % Sodium Chloride 1,000 ML PRIME SCH (13:30)
[2016-09-18] MEDS ORDERED: 0.9 % Sodium Chloride 1,000 ML ONE (14:21)
[2016-09-18 14:39] LABS: Hepatitis B Surface Antigen Nonreactive (Nonreactive)
[2016-09-18] MEDS ORDERED: Warfarin perPT PO PRN (18:00)
[2016-09-18] MEDS ORDERED: *HR* Warfarin 2 MG TABLET PO SCH (18:00)
[2016-09-19] MEDS: hydrALAZINE 25 MG TABLET PO SCH ×3 (00:28→17:05)
[2016-09-19 06:53] LABS: Prothrombin Time 21.8 Seconds (9.4-12.1)
[2016-09-19 06:58] LABS: Hemoglobin A1C 7.7 %
[2016-09-19 07:00] LABS: Magnesium 1.6 mg/dL (1.6-2.6); Phosphorous 4.4 mg/dL (2.3-4.7)
[2016-09-19 07:03] LABS: Albumin 3.2 g/dL (3.5-5.0); Bilirubin,Total 0.8 mg/dL (0.2-1.2); Calcium 9.1 mg/dL (8.6-10.8); Globulin 3.3 g/dL (2.4-3.5); Potassium 4.2 mEq/L (3.5-4.5); Total Protein 6.5 g/dL (6.0-8.3)
[2016-09-19 07:14] LABS: Basophils # 0.1 K/mcL (0.0-0.2); Basophils % 1.7 %; Eosinophils # 0.2 K/mcL (0.0-0.6); Eosinophils % 3.7 %; Hematocrit 29.8 % (35.3-44.9); Hemoglobin 9.6 g/dL (11.5-15.4); Immature Granulocytes % 0.7 % (0-4); Lymphocytes % 23.6 %; Mean Corpuscular HGB Conc 32.2 g/dL (31.6-35.5); Mean Corpuscular Hemoglobin 32.4 pg (28.0-33.3); Mean Corpuscular Volume 100.7 fL (83.0-100.0); Mean Platelet Volume 11.5 fL (9.4-12.4); Monocytes # 0.4 K/mcL (0.0-1.3); Neutrophils # 2.4 K/mcL (1.6-8.9); Platelet Count 167 K/mcL (140-400); Red Blood Count 2.96 M/mcL (3.82-4.97); Red Cell Distribution Width 14.5 % (11.5-14.5); Segmented Neutrophils % 60.3 %
[2016-09-19] MEDS: Insulin LISPRO 300 UNITS/3 ML VIAL SQ SCH ×5 (07:33→20:58)
--- NOTE | 2016-09-19 08:05 | Internal Med Progress Note ---
Date of Encounter: 09/19/16 Time of Encounter: 08:03 - Assessment and plan (1) Dialysis AV fistula malfunction Current Visit: Yes Status: Acute Qualifiers: Encounter type: initial encounter Qualified Code(s): T82.590A - Other mechanical complication of surgically created arteriovenous fistula, initial encounter (2) ESRD (end stage renal disease) on dialysis Current Visit: Yes Status: Chronic (3) Anticoagulated on Coumadin Current Visit: No Status: Acute (4) Afib Current Visit: Yes Status: Chronic Qualifiers: Atrial fibrillation type: chronic Qualified Code(s): I48.2 - Chronic atrial fibrillation (5) Type 2 diabetes mellitus Current Visit: No Status: Acute Qualifiers: Diabetes mellitus complication status: with kidney complications Diabetes mellitus complication detail: with chronic kidney disease Diabetes mellitus intermediate card tender insulin use: with intermediate card tender use Chronic kidney disease stage: on chronic dialysis Qualified Code(s): E11.22 - Type 2 diabetes mellitus with diabetic chronic kidney disease; N18.6 - End stage renal disease; 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 #1 ESRD patient is on dialysis and need to reestablish IV access as AV fistula is nonfunctioning nephrology consult. #2 chronic atrial fibrillation patient is on anticoagulation with Coumadin pharmacist python consultant daily PT and INRs #3 diabetes Accu-Chek 4 times a day with sliding scale coverage daily. #4 CAD stable at this point clinical observation telemetry #5 hypertension daily monitoring continue home medication 09/19 hospital nurse was able to get IV access and patient head dialysis.nephrology has planto put a PermCath on Tuesday and she will havea vascular follow-upon Tuesday as scheduled. Patient is asymptomatic. Lung examination is okay. CBC CMP reviewedall electrolyte values R normal . - Constitutional Vitals: Temp Pulse Resp BP Pulse Ox 97.4 F L 87 18 134/82 97 09/19/16 06:53 09/19/16 06:53 09/19/16 06:53 09/19/16 06:53 09/19/16 06:53 - Head Head exam: Present: atraumatic, normocephalic - Eye Eye exam: Present: PERRL, conjuntiva pink, sclera anicteric Pupils: Present: PERRL - Neck Neck exam general surgery: Present: supple, trachea midline. Absent: lymphadenopathy - Respiratory Respiratory exam: Present: CTAB. Absent: accessory muscle use, rales, rhonchi, wheezes - Cardiovascular Cardiovascular exam: Present: RRR, +S1, +S2. Absent: diastolic murmur, gallop, rubs, systolic murmur - GI/Abdominal GI/Abdominal exam: Present: normal bowel sounds, soft, no peritoneal signs. Absent: distended, tenderness - Extremities Exam Extremities exam: Present: warm, radial pulses palpable and symetrical. Absent : calf tenderness, cyanotic, pedal edema - Neurological Exam Neurological exam: Present: CN II-XII intact, oriented X3, no focal deficits. Absent: pronater drift, facial droop, speech deficit - Skin Skin exam: Present: dry, intact Internal Medicine: Result - Labs CBC & Chem 7: 09/19/16 06:36 09/19/16 06:36 Labs: Short CBC 09/19/16 Range/Units 06:36 WBC 4.0 L (4.3-11.1) K/mcL Hgb 9.6 L (11.5-15.4) g/dL Hct 29.8 L (35.3-44.9) % Plt Count 167 (140-400) K/mcL Neutrophils # 2.4 (1.6-8.9) K/mcL BMP 09/19/16 06:36 Sodium 139 Potassium 4.2 Chloride 102 Carbon Dioxide 28 BUN 50 H D Creatinine 3.58 H Glucose 85 Calcium 9.1 Liver Function 09/19/16 Range/Units 06:36 Total Bilirubin 0.8 (0.2-1.2) mg/dL AST 23 (5-34) Units/L ALT 20 (0-55) Units/L Alkaline Phosphatase 77 (38-126) Units/L Albumin 3.2 L (3.5-5.0) g/dL - ABG Interpretation ABG results: PT/INR, D-dimer PT 21.8 Seconds (9.4-12.1) H 09/19/16 06:36 Consult Discharge Plan - Plan Additional Instructions: HOLD COUMADIN UNTIL AFTER OUTPATIENT FISTULAGRAM Referrals: Lauren Calvillo MD [Primary Care Provider] - (web request sent on 09/18/16)
[2016-09-19] MEDS: Furosemide 40 MG TABLET PO SCH ×2 (08:08→20:39)
[2016-09-19] MEDS: Cholecalciferol (D-3) 1,000 UNIT TABLET PO SCH (08:08)
[2016-09-19] MEDS: Insulin DETEMIR 100 UNIT/ML X5UNITS SQ SCH ×2 (08:08→08:12)
[2016-09-19] MEDS: Fenofibrate 54 MG TABLET PO SCH (08:08)
[2016-09-19] MEDS: Aspirin Enteric Coated 81 MG Tablet PO SCH (08:08)
[2016-09-19] MEDS: Lisinopril 20 MG TABLET PO SCH ×2 (08:08→20:40)
--- NOTE | 2016-09-19 10:11 | Nephrology Progress Note ---
Date of Encounter: 09/19/16 Time of Encounter: 10:10 - Assessment and Plan (1) ESRD (end stage renal disease) on dialysis Current Visit: Yes Status: Chronic The inpt HD RN was able to cannulate the pt's AV access yesterday. She is already scheduled for an outpt fistulagram, so perhaps if we dialyzed in the AM on Tuesday, then she could be discharged to have her outpt fistulagram. Please hold Warfarin for the upcoming outpatient procedure. Thank you (2) Dialysis AV fistula malfunction Current Visit: Yes Status: Acute See above Qualifiers: Encounter type: initial encounter Qualified Code(s): T82.590A - Other mechanical complication of surgically created arteriovenous fistula, initial encounter (3) Anemia in chronic kidney disease Current Visit: No Status: Acute Goal Hgb 10-11. Qualifiers: Chronic kidney disease stage: on chronic dialysis Qualified Code(s): N18.6 - End stage renal disease; D63.1 - Anemia in chronic kidney disease; Z99.2 - Dependence on renal dialysis Subjective Principal diagnosis: ESRD with missed HD Interval history: Pt was seen and examined. She completed HD yesterday without any problems, and her AV access was successfully cannulated. She did not affirm N/V/D or shortness of breath or other uremic symptoms today (Tuesday). Objective - Vital Signs Vital signs: Vital Signs Temp Pulse Resp BP Pulse Ox 09/19/16 06:53 97.4 F L 87 18 134/82 97 09/19/16 04:36 97.6 F 80 16 128/75 95 09/18/16 23:51 97.9 F 78 16 91/43 94 09/18/16 21:07 97.3 F L 18 127/63 09/18/16 20:35 114/55 09/18/16 20:20 119/62 09/18/16 20:05 106/56 09/18/16 19:50 109/48 09/18/16 19:35 115/53 09/18/16 19:20 109/53 09/18/16 19:05 110/52 09/18/16 18:50 115/53 09/18/16 18:35 108/55 09/18/16 18:20 118/56 09/18/16 18:05 127/57 09/18/16 17:50 132/71 09/18/16 17:35 97.6 F 18 143/71 09/18/16 16:26 96 09/18/16 16:10 98.4 F 77 18 109/69 96 09/18/16 11:28 97.7 F 74 15 128/66 98 Intake and Output 09/18/16 09/19/16 09/19/16 23:59 07:59 15:59 Intake Total 600 / 600 120 / 120 Output Total 2600 / 2600 Balance -1999 / -1999 120 / 120 Intake: Oral 0 / 0 120 / 120 Intake, Rinseback and 600 / 600 Flushes Output: Urine 0 / 0 Total Dialysis (HD) 2600 / 2600 Output Other: Meal Breakfast Percent of Meal Consumed 100% Blood Glucose* 128 96 Hemodialysis Net Fluid 2000 Removed (mL) - General Appearance Exam: General appearance: well-developed, well-nourished EENT: ATNC, mucous membranes moist, hearing intact, vision intact Neck: supple Respiratory: clear Cardiology: no edema, normal S1, normal S2 - Dialysis Access Dialysis Vascular Access: Arteriovenous Fistula Gastrointestinal: no tenderness, no guarding Integumentary: warm and dry (has approximately a 1-1.5cm flesh color nodular on left lower forearm, over access area) Neurologic: alert and oriented x3 Psychiatric: mood/affect appropriate, cooperative - Lab 09/19/16 06:36 09/19/16 06:36 Most recent lab results Calcium 9.1 mg/dL (8.6-10.8) 09/19/16 06:36 Phosphorus 4.4 mg/dL (2.3-4.7) 09/19/16 06:36 Magnesium 1.6 mg/dL (1.6-2.6) 09/19/16 06:36 Consult Discharge Plan - Plan Additional Instructions: HOLD COUMADIN UNTIL AFTER OUTPATIENT FISTULAGRAM Referrals: Lauren Calvillo MD [Primary Care Provider] - (web request sent on 09/18/16)
[2016-09-20] MEDS: hydrALAZINE 25 MG TABLET PO SCH ×2 (00:12→08:29)
[2016-09-20] MEDS ORDERED: 0.9 % Sodium Chloride 250 ML IVC PRN (05:44)
[2016-09-20 05:52] LABS: INR 1.7; Prothrombin Time 18.9 Seconds (9.4-12.1)
[2016-09-20 06:01] LABS: Magnesium 1.6 mg/dL (1.6-2.6); Phosphorous 5.6 mg/dL (2.3-4.7)
[2016-09-20 06:04] LABS: Albumin 3.1 g/dL (3.5-5.0); Basophils % 1.2 %; Bilirubin,Total 0.8 mg/dL (0.2-1.2); Eosinophils # 0.2 K/mcL (0.0-0.6); Hematocrit 29.2 % (35.3-44.9); Hemoglobin 9.3 g/dL (11.5-15.4); Immature Granulocytes % 0.3 % (0-4); Lymphocytes # 1.2 K/mcL (0.6-4.6); Lymphocytes % 37.3 %; Mean Corpuscular HGB Conc 31.8 g/dL (31.6-35.5); Mean Corpuscular Hemoglobin 32.2 pg (28.0-33.3); Monocytes # 0.4 K/mcL (0.0-1.3); Monocytes % 12.4 %; Neutrophils # 1.4 K/mcL (1.6-8.9); Platelet Count 156 K/mcL (140-400); Potassium 4.6 mEq/L (3.5-4.5); Red Blood Count 2.89 M/mcL (3.82-4.97); Red Cell Distribution Width 14.4 % (11.5-14.5); Segmented Neutrophils % 43.8 %; Total Protein 6.1 g/dL (6.0-8.3)
[2016-09-20] MEDS: Fenofibrate 54 MG TABLET PO SCH (08:24)
[2016-09-20] MEDS: Cholecalciferol (D-3) 1,000 UNIT TABLET PO SCH (08:24)
[2016-09-20] MEDS ORDERED: 0.9 % Sodium Chloride 2,000 ML ONE (08:28)
[2016-09-20] MEDS: Insulin LISPRO 300 UNITS/3 ML VIAL SQ SCH ×2 (08:30→11:24)
[2016-09-20] MEDS: Aspirin Enteric Coated 81 MG Tablet PO SCH (08:30)
[2016-09-20] MEDS: Furosemide 40 MG TABLET PO SCH (08:32)
[2016-09-20] MEDS: Lisinopril 20 MG TABLET PO SCH (08:32)
--- NOTE | 2016-09-20 08:53 | Discharge Summary ---
Date of Encounter: 09/20/16 Time of Encounter: 08:50 - Discharge Diagnosis (1) Dialysis AV fistula malfunction Priority: Primary Status: Acute Qualifiers: Encounter type: initial encounter Qualified Code(s): T82.590A - Other mechanical complication of surgically created arteriovenous fistula, initial encounter (2) ESRD (end stage renal disease) on dialysis Priority: Secondary Status: Chronic (3) Anticoagulated on Coumadin Priority: Secondary Status: Acute (4) Afib Priority: Secondary Status: Chronic Qualifiers: Atrial fibrillation type: chronic Qualified Code(s): I48.2 - Chronic atrial fibrillation (5) Type 2 diabetes mellitus Priority: Secondary Status: Acute Qualifiers: Diabetes mellitus complication status: with kidney complications Diabetes mellitus complication detail: with chronic kidney disease Diabetes mellitus assisted insulin use: with assisted use Chronic kidney disease stage: on chronic dialysis Qualified Code(s): E11.22 - Type 2 diabetes mellitus with diabetic chronic kidney disease; N18.6 - End stage renal disease; Z79.4 - USP (current) use of insulin; Z99.2 - Dependence on renal dialysis (6) Hyperkalemia Priority: Secondary Status: Acute - Discharge Medications Home Medications: Aspirin [Adult Low Dose Aspirin EC] 81 mg PO DAILY 06/02/15 [History] Atorvastatin [Lipitor] 40 mg PO DAILY 06/02/15 [History] Enalapril Maleate [Vasotec] 20 mg PO BID 06/02/15 [History] Esomeprazole Magnesium [Nexium] 40 mg PO DAILY 06/02/15 [History] Insulin Glargine,Hum.rec.anlog [Lantus Solostar] 36 unit SQ DAILY PRN 06/02/15 [ History] Calcitriol [Rocaltrol] 0.25 mcg PO DAILY 09/09/15 [History] Carvedilol [Coreg] 25 mg PO BID 09/09/15 [History] Cholecalciferol (D-3) [Vitamin D] 1,000 unit PO DAILY 09/09/15 [History] Fenofibrate Nanocrystallized [Tricor] 48 mg PO DAILY 09/09/15 [History] Furosemide [Lasix] 40 mg PO BID 09/09/15 [History] Metolazone [Zaroxolyn] 2.5 mg PO DAILY 09/09/15 [History] hydrALAZINE [HydrALAZINE] 25 mg PO Q6HR 09/09/15 [History] Ferrous Sulfate [Iron] 325 mg PO BID 04/07/16 [History] Warfarin [Coumadin] 2 mg PO DAILY 04/07/16 [History] Dicyclomine [Bentyl] 10 mg PO TID 09/18/16 [History] Allergies/Adverse Reactions: Allergies No Known Allergies Allergy (Verified 04/20/16 07:47) Date of admission: 09/17/16 21:18 Primary care physician: Lauren Calvillo Consults: 09/17/16 23:02 Consult to Nutrition [CONS] Routine Comment: Consulting Provider: NUTRITION Reason for Dietary Consult: MST Score 09/18/16 13:30 Consult to Dialysis [CONS] ONCE 09/20/16 05:45 Consult to Dialysis [CONS] ONCE Discharging clinician: Meera Osborn Anticipated date of discharge: 09/20/16 - Patient Status Disposition: Home, Self-Care Condition: Good Functional capacity at discharge: independent ambulation Overall status at discharge: patient is progressing back to baseline - Discharge Instructions Follow Up With: Lauren Calvillo MD [Primary Care Provider] - 09/27/16 1:45 pm (web request sent on 09/18/16) Additional Instructions: HOLD COUMADIN UNTIL AFTER OUTPATIENT FISTULAGRAM - Diet and Activity Activity: resume usual activities as tolerated Diet: advance to your usual diet Hospital course: Ms. Lindsay Robert is 75-year-old admitted for malfunctioning AV fistula therefore patient could not get outpatient hemodialysis and has been admitted to reestablish access and continue dialysis. #1 ESRD patient is on dialysis and need to reestablish IV access . However hospital nurse was able to get access and patient had dialysis. nephrology has plan to put a PermCath on Tuesday and after dialysis she will be discharged. she she have an appointment with her vascular surgeon tomorrow where fistulogram will be performed. #2 chronic atrial fibrillation patient is on anticoagulation with Coumadin . She should continue to follow with her family doctor as usual. #3 diabetes reasonably controlled #4 CAD stable #5 hypertension stable - Time Spent with Patient Total time spent providing and/or coordinating discharge services: Greater than 30 minutes - Constitutional Vitals: Temp Pulse Resp BP Pulse Ox 97.9 F 78 17 120/70 97 09/20/16 07:31 09/20/16 07:31 09/20/16 07:31 09/20/16 07:31 09/20/16 07:31 - Head Head exam: Present: atraumatic, normocephalic - Eye Eye exam: Present: PERRL, conjuntiva pink, sclera anicteric Pupils: Present: PERRL - Neck Neck exam general surgery: Present: supple, trachea midline. Absent: lymphadenopathy - Respiratory Respiratory exam: Present: CTAB. Absent: accessory muscle use, rales, rhonchi, wheezes - Cardiovascular Cardiovascular exam: Present: RRR, +S1, +S2. Absent: diastolic murmur, gallop, rubs, systolic murmur - GI/Abdominal GI/Abdominal exam: Present: normal bowel sounds, soft, no peritoneal signs. Absent: distended, tenderness - Extremities Exam Extremities exam: Present: warm, radial pulses palpable and symetrical. Absent : calf tenderness, cyanotic, pedal edema - Neurological Exam Neurological exam: Present: CN II-XII intact, oriented X3, no focal deficits. Absent: pronater drift, facial droop, speech deficit - Skin Skin exam: Present: dry, intact
[2016-09-20] MEDS ORDERED: *HR* Warfarin 4 MG TABLET PO ONE (09:03)
[2016-09-20] MEDS: Insulin DETEMIR 100 UNIT/ML X5UNITS SQ SCH (10:39)
[2016-09-20] MEDS ORDERED: Heparin 1,000 UNITS/500 mL NS 500 ML ONE (12:35)
[2016-09-20] MEDS ORDERED: 0.9 % Sodium Chloride 500 ML ONE (12:35)
--- NOTE | 2016-09-20 13:16 | Nephrology Progress Note ---
Date of Encounter: 09/20/16 Time of Encounter: 10:00 - Assessment and Plan (1) Dialysis AV fistula malfunction Current Visit: Yes Status: Acute Qualifiers: Encounter type: initial encounter Qualified Code(s): T82.590A - Other mechanical complication of surgically created arteriovenous fistula, initial encounter (2) ESRD (end stage renal disease) on dialysis Current Visit: Yes Status: Chronic Subjective Principal diagnosis: ESRD with missed HD Objective - Vital Signs Vital signs: Vital Signs Temp Pulse Resp BP Pulse Ox 09/20/16 11:14 97.7 F 73 18 112/58 97 09/20/16 07:31 97.9 F 78 17 120/70 97 09/20/16 04:09 97.8 F 55 17 118/72 97 09/19/16 23:21 98.5 F 60 17 96/56 96 09/19/16 19:34 97.6 F 80 15 122/58 96 09/19/16 15:24 97.6 F 75 16 116/68 96 Intake and Output 09/19/16 09/20/16 09/20/16 23:59 07:59 15:59 Intake Total 200 / 200 240 / 240 Output Total 0 / 0 Balance 200 / 200 0 / 0 240 / 240 Intake: Oral 200 / 200 240 / 240 Output: Urine 0 / 0 Other: Meal HS [employer] Breakfast Percent of Meal Consumed 75% Weight 88.541 kg Blood Glucose* 209 118 209 Patient Weight 09/20/16 23:59 Weight 88.541 kg - Lab 09/20/16 04:49 09/20/16 04:49 Most recent lab results Calcium 9.0 mg/dL (8.6-10.8) 09/20/16 04:49 Phosphorus 5.6 mg/dL (2.3-4.7) H 09/20/16 04:49 Magnesium 1.6 mg/dL (1.6-2.6) 09/20/16 04:49 Consult Discharge Plan - Plan Additional Instructions: HOLD COUMADIN UNTIL AFTER OUTPATIENT FISTULAGRAM Referrals: Lauren Calvillo MD [Primary Care Provider] - 09/27/16 1:45 pm (web request sent on 09/18/16)
[2016-09-20 13:31] LABS: Hepatitis B Surface Antibody 23.91 mIU/mL
[2016-09-20] MEDS ORDERED: *HR* FentaNYL (PF) 100 MCG/2 ML VIAL IVP PRN (13:47)
[2016-09-20] MEDS ORDERED: *HR* FentaNYL (PF) 100 MCG/2 ML VIAL ONE (13:48)
[2016-09-20 13:52] VITALS: BP 170/94
--- NOTE | 2016-09-20 14:05 | IR Procedure Note ---
Date of procedure: 09/20/16 Consent Obtained: Written consent Timeout: Correct patient and procedure verified, Correct site verified, Time out performed, Skin prep completed Indications: malfunctining left arm fistula Procedure Performed: fistulogram, angioplasty Site/Technique: left arm, 8mm balloon Results/Findings: stricture found, successfuly dilated Estimated blood loss (cc): 8 Complications: None; Tolerated procedure well Post Procedure Treatment Plan: can dialyze
--- NOTE | 2016-09-20 15:09 | Electrocardiograph Report ---
[address] [place] [address] Test Date: 2016-09-17 Pat Name: Lindsay Deshpande Department: 102 Room: 2A36 Gender: F Body Bumper: : [id number] Requested By: Beverley Butts Order Number: [id number] Reading MD: Carmen Fenton Measurements Intervals Soso Rate: 76 P: LA: 0 QRS: 5 QRSD: 126 T: 97 QT: 375 QTc: 406 Interpretive Statements ATRIAL FIBRILLATION POSSIBLE ANTERIOR MYOCARDIAL INFARCTION, PROBABLY OLD ABNORMAL RHYTHM ECG Electronically Signed On 09-19-2016 11:59:47 EDT by Carmen Fenton
== END 2016-09-20 16:37 | disposition home or self-care (01) ==
LOC: EMEROO 18:07 → 2ANU 18:07
PROVIDERS: ADMIT Internal Medicine; ATTEND Internal Medicine

== ENCOUNTER 2017-03-10 11:13 | Observation (INO) ==
--- NOTE | 2017-03-10 11:35 | Emergency Department Note ---
Disposition Clinical Impression: Colitis, Splenic infarct Abdominal pain Qualifiers: Abdominal location: periumbilical Qualified Code(s): R10.33 - Periumbilical pain Disposition: Admitted As Inpatient Condition: Fair Time of Disposition: 20:38 Abdominal Pain HPI - General Chief Complaint: ED Abdominal Pain Stated Complaint: ABD pain Time Seen by Provider: 03/10/17 11:22 Source: patient Nursing Notes Reviewed: Yes Vital Signs Reviewed: Yes - History of Present Illness HPI Narrative: Mrs. Deshpande, a 68-year-old female, presents from home for evaluation of abdominal pain. Onset 2 weeks ago. Described as lower abdomen, intermittent sharp stabbing. Nothing noted to improve or worsen her symptoms. Patient had a lap mellissa 3mo ago with no postoperative palpitations. PMH: Poorly controlled DM type II on oral and insulin into hypoglycemics. GERD , hyperlipidemia, hypertension, CAD status post remote MD with stent 2, CKD on dialysis Tuesday, Tuesday, Tuesday (she has not missed any dialysis), history of cardiac arrhythmia (specific arrhythmia unknown to patient). Anticoagulant: Warfarin ROS: Positive: As above Negative: Fever, chills, nausea, vomiting, chest pain, palpitations, unusual back pains, hematochezia, melena, hematemesis, hematuria, changes in bowel or bladder Pain Scale: 5 - Related Data Home Medications Medication Instructions Recorded Confirmed Aspirin [Adult Low Dose Aspirin EC] 81 mg PO DAILY 06/02/15 03/10/17 Atorvastatin [Lipitor] 40 mg PO HS 06/02/15 03/10/17 Enalapril Maleate [Vasotec] 20 mg PO BID 06/02/15 03/10/17 Esomeprazole Magnesium [Nexium] 40 mg PO DAILY 06/02/15 03/10/17 Insulin Glargine,Hum.rec.anlog 36 unit SQ DAILY PRN 06/02/15 03/10/17 [Lantus Solostar] Carvedilol [Coreg] 25 mg PO BID 09/09/15 03/10/17 Cholecalciferol (D-3) [Vitamin D] 1,000 unit PO DAILY 09/09/15 03/10/17 Furosemide [Lasix] 40 mg PO BID 09/09/15 03/10/17 Metolazone [Zaroxolyn] 2.5 mg PO DAILY 09/09/15 03/10/17 hydrALAZINE [HydrALAZINE] 25 mg PO Q6HR 09/09/15 03/10/17 Ferrous Sulfate [Iron] 325 mg PO BID 04/07/16 03/10/17 Warfarin Sodium 2.5 mg PO DAILY 03/10/17 03/10/17 Allergies Allergy/AdvReac Type Severity Reaction Status Date / Time No Known Allergies Allergy Verified 11/03/16 07:36 All systems ED: reviewed and negative except as stated. 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 HEENT: No facial asymmetry. Head is normocephalic and atraumatic. PERRLA, EOMI. oral mucosa moist. Trachea midline. Cardiovascular: Heart regular rate and rhythm without clicks, rubs, gallops, or murmurs. No JVD. PMI nondisplaced. Respiratory: Symmetric chest rise with good respiratory effort. Bilateral breath sounds are clear without wheezing, crackles, or rhonchi. Abdomen: Bees. Bowel sounds present normoactive x-4 quadrants. Abdomen is soft , nondistended. Point tenderness to the right and left of the umbilicus. No tenderness above or below the umbilicus or other abdominal quadrants. Musculoskeletal: Spontaneously moving all extremities Skin: Warm, dry. Stage I ulcer on the left flank with palpable tense subcutaneous region immediately below the ulcer. Right flank also has palpable tense subcutaneous region with no overlying ulcer; this is symmetric to that on the left. Bilateral lower abdominal quadrants have multiple pinpoint lesions consistent with diabetic injection Neuro: Cranial nerves II through XII without deficit. Sensation light touch intact. Psych: Patient's affect is appropriate for situation. - General Limitations: no limitations General appearance: alert Course Course Narrative: Patient presents with abdominal pain. Will CT abdomen pelvis with IV contrast as well as EKG and cardiac workup. EKG is unremarkable. Patient has slight elevation troponin of 0.04. This is in the context of end-stage renal disease on dialysis and a [facility] troponin baseline of 0.13. Not believe this is cardiac in etiology and likely secondary to lack of renal clearance. CT abdomen pelvis with IV contrast is concerning for colitis as well as subacute versus chronic splenic infarcts. I discussed the patient with on-call surgery, Dr. An. He is in agreement for the patient to be admitted to our hospitalist service with no additional intervention warranted on his part. I patient with the admitting hospitalist who agrees to accept the patient for continued evaluation and management. Abdomen/Pelvis CT 03/10/17 12:38 IMPRESSION: 1. Evidence of mural thickening involving the leftward aspect the colon. Findings are suggestive of colitis. Inflammatory/infectious as well as ischemic etiologies should be considered. 2. Band of hypoattenuation within the spleen, with associated volume loss. This is compatible with a splenic infarct. The age of that is indeterminate, but it is new when compared to the previous examination from 2016. Given the volume loss, a subacute to chronic infarct is more likely. 3. Severe atherosclerotic disease. Again, the density of the calcification is so great that it is difficult to ascertain whether the distal branches are enhancing. No obvious occlusions are found. 4. Mild anasarca, with periportal edema and a small right pleural effusion, along with mild subcutaneous fat stranding. D/ / Hood Ontiveros MD / Hood Ontiveros MD Interpreting Provider: Hood Ontiveros MD Vital Signs Temperature 98.4 F 03/10/17 11:17 Pulse Rate 88 03/10/17 11:17 Respiratory Rate 18 03/10/17 11:17 Blood Pressure 146/81 03/10/17 11:17 O2 Sat by Pulse Oximetry 98 03/10/17 11:17 Temperature 97.7 F 03/10/17 19:45 Pulse Rate 81 03/10/17 19:45 Respiratory Rate 14 03/10/17 19:45 Blood Pressure 125/70 03/10/17 19:45 O2 Sat by Pulse Oximetry 97 03/10/17 19:45 Oxygen Delivery Oxygen Delivery Room Air Abdominal Pain - Medical Records Medical records reviewed: Yes I reviewed the patient's medical records. - Lab Data Result diagrams: 03/10/17 13:15 03/10/17 13:15 Lab Results 03/10/17 03/10/17 03/10/17 Range/Units 13:15 13:15 13:15 WBC 5.8 (4.3-11.1) K/mcL RBC 2.99 L (3.82-4.97) M/mcL Hgb 9.8 L (11.5-15.4) g/dL Hct 31.5 L (35.3-44.9) % MCV 105.4 H (83.0-100.0) fL MCH 32.8 (28.0-33.3) pg MCHC 31.1 L (31.6-35.5) g/dL RDW 14.5 (11.5-14.5) % Plt Count 201 (140-400) K/mcL MPV 10.5 (9.4-12.4) fL Immature Gran % 0.2 (0-4) % Seg Neutrophils % 71.3 % Lymphocytes % 17.5 % Monocytes % 8.2 % Eosinophils % 1.9 % Basophils % 0.9 % Neutrophils # 4.1 (1.6-8.9) K/mcL Lymphocytes # 1.0 (0.6-4.6) K/mcL Monocytes # 0.5 (0.0-1.3) K/mcL Eosinophils # 0.1 (0.0-0.6) K/mcL Basophils # 0.1 (0.0-0.2) K/mcL PT (9.4-12.1) Seconds INR Sodium 138 (136-145) mEq/L Potassium 3.7 (3.5-5.1) mEq/L Chloride 100 (98-107) mEq/L Carbon Dioxide 30 H (23-29) mEq/L BUN 19 (8-23) mg/dL Creatinine 2.92 H (0.60-1.20) mg/dL Est GFR ( Amer) 19 L (> 60) Est GFR (Non-Af Amer) 16 L (> 60) BUN/Creatinine Ratio 7 (6-26) Glucose 201 H (70-105) mg/dL Calculated Osmolality 294 (280-300) Lactic Acid 1.4 (0.5-2.2) mmol/L Calcium 8.8 (8.6-10.3) mg/dL Troponin I (< 0.04) ng/mL 03/10/17 03/10/17 Range/Units 13:15 13:15 WBC (4.3-11.1) K/mcL RBC (3.82-4.97) M/mcL Hgb (11.5-15.4) g/dL Hct (35.3-44.9) % MCV (83.0-100.0) fL MCH (28.0-33.3) pg MCHC (31.6-35.5) g/dL RDW (11.5-14.5) % Plt Count (140-400) K/mcL MPV (9.4-12.4) fL Immature Gran % (0-4) % Seg Neutrophils % % Lymphocytes % % Monocytes % % Eosinophils % % Basophils % % Neutrophils # (1.6-8.9) K/mcL Lymphocytes # (0.6-4.6) K/mcL Monocytes # (0.0-1.3) K/mcL Eosinophils # (0.0-0.6) K/mcL Basophils # (0.0-0.2) K/mcL PT 17.5 H (9.4-12.1) Seconds INR 1.6 Sodium (136-145) mEq/L Potassium (3.5-5.1) mEq/L Chloride (98-107) mEq/L Carbon Dioxide (23-29) mEq/L BUN (8-23) mg/dL Creatinine (0.60-1.20) mg/dL Est GFR ( Amer) (> 60) Est GFR (Non-Af Amer) (> 60) BUN/Creatinine Ratio (6-26) Glucose (70-105) mg/dL Calculated Osmolality (280-300) Lactic Acid (0.5-2.2) mmol/L Calcium (8.6-10.3) mg/dL Troponin I 0.04 H* (< 0.04) ng/mL - EKG Data EKG attestation: Yes I reviewed and interpreted this EKG. EKG results narrative: EKG dated 03/10/17 at 13:06 interpreted as atrial fibrillation with a rate of 88. Normal axis. Nonspecific ST-T changes. Compared to previous dated 2016 showing no acute ischemic changes
--- NOTE | 2017-03-10 13:10 | Emergency Department Note ---
START Narrative - START START: I examined this patient and my medical decision-making was reviewed with the Resident Physician. I agree with the documented findings, disposition and treatment plan as described except to the extent set forth below. 76 year old female diabetic who taeks insulin shots rpesnets to the ED wit complaints of abdominla pain and necrotic tissue in her left panus laterally that is not getting any better. She states she saw her PCP and they gave her rusty and it hasnt been helping. Genevieve denies subjetive fevers. Aye tates that this is a first time occurace and she can feel other raised nodules across his abdomen as well. Patient states that she does not have a history fo MRSA. Genevieve ambrosio have an aarea located on the posteriod left lateral panus area that is about 1 x 2 inches with ulceration and sloughing of tissue with erythema and small drainage. We will do ABCT and labs and likely start IVF/meds and admit to medicine for abdominal wall cellulitis rule out abscess
[2017-03-10 13:23] LABS: Basophils # 0.1 K/mcL (0.0-0.2); Basophils % 0.9 %; Eosinophils # 0.1 K/mcL (0.0-0.6); Eosinophils % 1.9 %; Hematocrit 31.5 % (35.3-44.9); Hemoglobin 9.8 g/dL (11.5-15.4); Immature Granulocytes % 0.2 % (0-4); Lymphocytes % 17.5 %; Mean Corpuscular HGB Conc 31.1 g/dL (31.6-35.5); Mean Corpuscular Hemoglobin 32.8 pg (28.0-33.3); Mean Corpuscular Volume 105.4 fL (83.0-100.0); Mean Platelet Volume 10.5 fL (9.4-12.4); Monocytes # 0.5 K/mcL (0.0-1.3); Monocytes % 8.2 %; Neutrophils # 4.1 K/mcL (1.6-8.9); Platelet Count 201 K/mcL (140-400); Red Blood Count 2.99 M/mcL (3.82-4.97); Red Cell Distribution Width 14.5 % (11.5-14.5); Segmented Neutrophils % 71.3 %
[2017-03-10 13:28] LABS: INR 1.6; Prothrombin Time 17.5 Seconds (9.4-12.1)
[2017-03-10 13:38] LABS: Calcium 8.8 mg/dL (8.6-10.3); Potassium 3.7 mEq/L (3.5-5.1)
[2017-03-10] MEDS ORDERED: MetroNIDAZOLE 500 MG/100 ML 500 MG/100 ML BAG IVPB ONE (16:55)
[2017-03-10] MEDS ORDERED: Aspirin 81 MG TAB.CHEW PO ONE (17:03)
[2017-03-10] MEDS ORDERED: Naloxone 0.4 MG/ML INJ IVP PRN (19:28)
[2017-03-10] MEDS ORDERED: Acetaminophen 325 MG TABLET PO PRN (19:28)
[2017-03-10] MEDS ORDERED: *HR* Morphine 2 MG/ML SYRINGE IVP PRN (19:35)
[2017-03-10] MEDS ORDERED: Warfarin perPT PO PRN (19:41)
[2017-03-10] MEDS ORDERED: *HR* Dextrose 50 % in Water (Syg) 50 ML SYRINGE IVP PRN (20:11)
[2017-03-10] MEDS ORDERED: D5% in Water 1,000 ML IVC PRN (20:11)
[2017-03-10] MEDS ORDERED: Dextrose Gel 15 GM/37.5 ML TUBE PO PRN ×2 (20:11)
--- NOTE | 2017-03-10 20:22 | Internal Med History&Physical ---
Date of Encounter: 03/10/17 Time of Encounter: 19:45 Assessment and Plan (1) Colitis Current visit: Yes Status: Acute Patient with abdominal pain and CT scan findings suggestive of colitis. Possible infectious versus ischemic colitis. We will treat with gentle hydration. IV antibiotics. Keep nothing by mouth. Monitor vital signs. Moderate risk for complications. Patient does have chronic diarrhea. Will check stool studies. (2) Splenic infarct Current visit: Yes Status: Acute CT scan of the abdomen and pelvis shows presence of splenic infarct. Age indeterminate. Patient is already on Coumadin. Will continue. (3) ESRD (end stage renal disease) on dialysis Current visit: Yes Status: Chronic Consult nephrology for dialysis needs. (4) Anemia in chronic kidney disease Current visit: Yes Status: Chronic Hemoglobin is 9.8. At baseline. Qualifiers: Chronic kidney disease stage: on chronic dialysis Qualified Code(s): N18.6 - End stage renal disease; D63.1 - Anemia in chronic kidney disease; Z99.2 - Dependence on renal dialysis (5) Type 2 diabetes mellitus Current visit: Yes Status: Chronic Blood glucose 201. Will place patient on sliding scale insulin and long-acting coverage. Monitor blood sugars closely as patient will be nothing by mouth for now. Qualifiers: Diabetes mellitus complication status: with kidney complications Diabetes mellitus complication detail: with chronic kidney disease Diabetes mellitus halfway insulin use: with halfway use Chronic kidney disease stage: on chronic dialysis Qualified Code(s): E11.22 - Type 2 diabetes mellitus with diabetic chronic kidney disease; N18.6 - End stage renal disease; Z79.4 - medical terminologist (current) use of insulin; Z99.2 - Dependence on renal dialysis (6) Afib Current visit: Yes Status: Chronic On chronic Coumadin therapy. INR is subtherapeutic. Resume Coumadin. Heart rate is controlled. Continue home medications. Qualifiers: Atrial fibrillation type: chronic Qualified Code(s): I48.2 - Chronic atrial fibrillation Internal Medicine - H&P: HPI Chief complaint: Abdominal Pain Admitted From: Emergency Dept Plans for Post Hospital Care: Home History of present illness: Ms. Deshpande is a 76 year old female patient with history of diabetes mellitus, hypertension, ESRD on dialysis Tuesday, "irregular heartbeat", coronary artery disease, on chronic Coumadin therapy presented to the ER with complaints of abdominal pain. Symptoms have been going on for 2 weeks. Pain is located in the lower abdominal quadrants. No association with nausea or vomiting. No hematemesis or melena. Patient does have chronic diarrhea and this has been unchanged. No recent antibiotic use. Denies any cough shortness of breath or fever. She just does describe some tender lesions on her skin in the right and left lower abdominal quadrants. She denies injecting insulin at these sites. Past Med Surg Social Fam HX - Past Medical History Attestation: Yes The following information was validated with the patient. Source: patient Medical history: coronary artery disease, diabetes, GERD, GI bleed, hyperlipidemia, hypertension, myocardial infarction, renal disease, valvular heart disease, other Psychiatric history: no psych history - Past Surgical History Surgical History: angioplasty/stent, hysterectomy - Social History Smoking Status: Never smoker Smokeless Tobacco Status: No Alcohol use: none Drug use: none - Family History Mother Living Status: Hx Family Endocrine Disorder: Yes Father Living Status: Hx Family Cardiac Disorders: Yes Hx Family Neuromuscular Disorders: Yes Internal Medicine - H&P: Meds Aspirin [Adult Low Dose Aspirin EC] 81 mg PO DAILY 06/02/15 [History] Atorvastatin [Lipitor] 40 mg PO HS 06/02/15 [History] Enalapril Maleate [Vasotec] 20 mg PO BID 06/02/15 [History] Esomeprazole Magnesium [Nexium] 40 mg PO DAILY 06/02/15 [History] Insulin Glargine,Hum.rec.anlog [Lantus Solostar] 36 unit SQ DAILY PRN 06/02/15 [ History] Carvedilol [Coreg] 25 mg PO BID 09/09/15 [History] Cholecalciferol (D-3) [Vitamin D] 1,000 unit PO DAILY 09/09/15 [History] Furosemide [Lasix] 40 mg PO BID 09/09/15 [History] Metolazone [Zaroxolyn] 2.5 mg PO DAILY 09/09/15 [History] hydrALAZINE [HydrALAZINE] 25 mg PO Q6HR 09/09/15 [History] Ferrous Sulfate [Iron] 325 mg PO BID 04/07/16 [History] Warfarin Sodium 2.5 mg PO DAILY 03/10/17 [History] 3 Allergy/AdvReac Type Severity Reaction Status Date / Time No Known Allergies Allergy Verified 11/03/16 07:36 All Systems PM: A 10-system review of systems was performed and is negative for pertinent findings except as documented above in the HPI. - Constitutional Constitutional: no chills, no fever(s), no night sweats - EENT Eyes: no change in vision, no discharge, no pain, no photophobia Ears: no ear discharge, no ear pain, no tinnitus Nose, mouth and throat: no dysphagia, no nasal discharge, no neck pain, no sore throat - Cardiovascular Cardiovascular ROS IM: no chest pain, no diaphoresis, no dyspnea, no lightheadedness, no palpitations, no syncope - Respiratory Respiratory: no cough, no dyspnea, no wheezing, no excessive phlegm production - Gastrointestinal Gastrointestinal: abdominal pain, no diarrhea, no hematemesis, no hematochezia, no melena, no nausea, no vomiting - Genitourinary Genitourinary: no change in urinary stream, no dysuria, no flank pain, no hematuria - Musculoskeletal Musculoskeletal ROS IM: no numbness, no tingling - Integumentary Integumentary IM: no rash, no unusual bruising - Neurological Neurological ROS: no confusion, no convulsions, no focal weakness, no numbness, no tingling, no tremor(s) - Hematologic/Lymphatic Hematologic/Lymphatic: no easy bruising - Constitutional Vitals: Temp Pulse Resp BP Pulse Ox 97.7 F 81 14 125/70 97 03/10/17 19:45 03/10/17 19:45 03/10/17 19:45 03/10/17 19:45 03/10/17 19:45 General appearance: Present: cooperative, A&O X 3, answers questions appropriately - Respiratory Respiratory exam: Present: CTAB. Absent: accessory muscle use, rales, rhonchi, wheezes - Cardiovascular Cardiovascular exam: Present: RRR, +S1, +S2. Absent: diastolic murmur, gallop, rubs, systolic murmur - GI/Abdominal GI/Abdominal exam: Present: normal bowel sounds, soft, tenderness (lower abdomnal quadrants), no peritoneal signs. Absent: distended Additional comments: Erythematous and tender lesions noted in bilateral lower quadrants involving the skin measuring about 5 cm in size. Mildly indurated. - Extremities Exam Extremities exam: Present: warm, radial pulses palpable and symmetrical. Absent : calf tenderness, cyanotic, pedal edema - Neurological Exam Neurological exam: Present: CN II-XII intact, oriented X3, no focal deficits. Absent: facial droop, speech deficit - Skin Skin exam: Present: dry, intact Internal Med - H&P Results - Labs CBC & Chem 7: 03/10/17 13:15 03/10/17 13:15 - Impressions Impressions Abdomen/Pelvis CT 03/10/17 12:38 IMPRESSION: 1. Evidence of mural thickening involving the leftward aspect the colon. Findings are suggestive of colitis. Inflammatory/infectious as well as ischemic etiologies should be considered. 2. Band of hypoattenuation within the spleen, with associated volume loss. This is compatible with a splenic infarct. The age of that is indeterminate, but it is new when compared to the previous examination from 2016. Given the volume loss, a subacute to chronic infarct is more likely. 3. Severe atherosclerotic disease. Again, the density of the calcification is so great that it is difficult to ascertain whether the distal branches are enhancing. No obvious occlusions are found. 4. Mild anasarca, with periportal edema and a small right pleural effusion, along with mild subcutaneous fat stranding. D/ / Hood Ontiveros MD / Hood Ontiveros MD Interpreting Provider: Hood Ontiveros MD
[2017-03-10] MEDS: Lisinopril 20 MG TABLET PO SCH (21:27)
[2017-03-10] MEDS: Insulin LISPRO 300 UNITS/3 ML VIAL SQ SCH (23:58)
[2017-03-10] MEDS: hydrALAZINE 25 MG TABLET PO SCH (23:59)
[2017-03-10] MEDS: MetroNIDAZOLE 500 MG/100 ML 500 MG/100 ML BAG IVPB SCH (23:59)
[2017-03-11] MEDS: Insulin LISPRO 300 UNITS/3 ML VIAL SQ SCH ×3 (05:49→18:47)
[2017-03-11] MEDS: hydrALAZINE 25 MG TABLET PO SCH ×4 (05:50→23:33)
[2017-03-11 06:09] LABS: INR 1.7; Prothrombin Time 18.9 Seconds (9.4-12.1)
[2017-03-11] MEDS: Cholecalciferol (D-3) 1,000 UNIT TABLET PO SCH (07:55)
[2017-03-11] MEDS: MetroNIDAZOLE 500 MG/100 ML 500 MG/100 ML BAG IVPB SCH ×3 (07:55→23:34)
[2017-03-11] MEDS: Aspirin Enteric Coated 81 MG Tablet PO SCH (07:55)
--- NOTE | 2017-03-11 08:48 | Nephrology Consult Note ---
<Rip Hardy - Last Filed: 03/11/17 11:59> Date of Encounter: 03/11/17 Time of Encounter: 08:42 Assessment and Plan (1) ESRD (end stage renal disease) on dialysis Status: Chronic Patient's last HD treatment was on 03/09/17. Patient has been on HD for the past year every MWF at [place], [place] Dr. Lozada is her primary bi data architect. Continue HD as scheduled MWF Hold Lasix Avoid nephrotoxins Continue to monitor (2) Elevated troponin Status: Acute Elevated troponins in the setting of ESRD Management per primary team (3) HTN (hypertension) Status: Acute Continue home meds Management per primary team Qualifiers: Hypertension type: unspecified Qualified Code(s): I10 - Essential (primary ) hypertension (4) Anemia in chronic kidney disease Status: Chronic Management per primary team Continue to monitor Qualifiers: Chronic kidney disease stage: on chronic dialysis Qualified Code(s): N18.6 - End stage renal disease; D63.1 - Anemia in chronic kidney disease; Z99.2 - Dependence on renal dialysis (5) Afib Status: Chronic Management per primary team Qualifiers: Atrial fibrillation type: chronic Qualified Code(s): I48.2 - Chronic atrial fibrillation (6) Splenic infarct Status: Acute Management per primary team (7) Colitis Status: Acute Management per primary team (8) Diabetes mellitus, type II, insulin dependent Status: Chronic Management per primary team History of Present Illness - Reason for Consult Consult date: 03/10/17 end stage renal disease Requesting physician: Roland Marsh - Chief Complaint Abd pain - History of Present Illness Ms. Deshpande is a 76 year old female patient with history of DM, HTN, ESRD on MWF, and A-fib on chronic Coumadin therapy that presented c/o lower abdominal pain for 2 weeks. Patient reports chronic diarrhea and denies recent antibiotic use. Patient denies associated fever, chills, CP, SOB, nausea, vomiting, hematemesis, or melena. Patient takes Metolazone 2.5mg PO daily, Lasix 40mg PO BID, and denies NSAID use. Patient is currently NPO and was started on antibiotics for colitis. She reports her last HD treatment was on 03/09/17. Patient has been [facility] [place] and her bi data architect is Dr. Lozada. Patient denies problems with her LUE fistula site. Family is at bedside. Past Med Surg Social Fam HX - Past Medical History Medical history: coronary artery disease, diabetes, GERD, GI bleed, hyperlipidemia, hypertension, myocardial infarction, renal disease, valvular heart disease, other Psychiatric history: no psych history - Past Surgical History Surgical History: angioplasty/stent, hysterectomy - Social History Smoking Status: Never smoker Smokeless Tobacco Status: No Alcohol use: none Drug use: none - Family History Mother History Unknown: Yes Adopted: No Living Status: Hx Family Endocrine Disorder: Yes Father History Unknown: Yes Adopted: No Living Status: Hx Family Cardiac Disorders: Yes Hx Family Neuromuscular Disorders: Yes Medications and Allergies Aspirin [Adult Low Dose Aspirin EC] 81 mg PO DAILY 06/02/15 [History] Atorvastatin [Lipitor] 40 mg PO HS 06/02/15 [History] Enalapril Maleate [Vasotec] 20 mg PO BID 06/02/15 [History] Esomeprazole Magnesium [Nexium] 40 mg PO DAILY 06/02/15 [History] Insulin Glargine,Hum.rec.anlog [Lantus Solostar] 36 unit SQ DAILY PRN 06/02/15 [ History] Carvedilol [Coreg] 25 mg PO BID 09/09/15 [History] Cholecalciferol (D-3) [Vitamin D] 1,000 unit PO DAILY 09/09/15 [History] Furosemide [Lasix] 40 mg PO BID 09/09/15 [History] Metolazone [Zaroxolyn] 2.5 mg PO DAILY 09/09/15 [History] hydrALAZINE [HydrALAZINE] 25 mg PO Q6HR 09/09/15 [History] Ferrous Sulfate [Iron] 325 mg PO BID 04/07/16 [History] Warfarin Sodium 2.5 mg PO DAILY 03/10/17 [History] Ciprofloxacin HCl [Cipro] 500 mg PO BID #10 tablet 03/12/17 [Rx] metroNIDAZOLE [Flagyl] 500 mg PO TID #21 tablet 03/12/17 [Rx] 3 Allergy/AdvReac Type Severity Reaction Status Date / Time No Known Allergies Allergy Verified 11/03/16 07:36 Review of Systems Constitutional: weakness, no chills, no fever(s) Nose, mouth and throat: no nasal congestion, no sore throat Cardiovascular: irregular heart rhythm, no chest pain, no palpitations Respiratory: no cough, no dyspnea, no chest congestion Gastrointestinal: abdominal pain, no constipation, no diarrhea, no nausea, no vomiting Genitourinary Female: no dysuria, no urinary frequency, no urinary urgency Musculoskeletal: no numbness, no tingling Neurological: weakness, no numbness, no tingling Psychiatric: no anxiety, no depression Endocrine: no palpitations, no polydipsia, no polyphagia, no polyuria Exam - Vital Signs Vital signs: Initial Vital Signs Temp Pulse Resp BP Pulse Ox 98.4 F 88 18 146/81 98 03/10/17 11:17 03/10/17 11:17 03/10/17 11:17 03/10/17 11:17 03/10/17 11:17 Vital Signs - Last 8 Hours Temp Pulse Resp BP Pulse Ox 03/11/17 07:32 97.9 F 100 16 129/73 95 03/11/17 04:03 98.1 F 67 14 118/61 95 Intake and Output 03/10/17 03/11/17 03/11/17 23:59 07:59 15:59 Intake Total 100 / 100 100 / 100 Output Total 0 / 0 0 / 0 Balance 100 / 100 100 / 100 Intake: IV Fluids 100 / 100 100 / 100 Flagyl Premix 500 MG/100 ML 500 100 / 100 100 / 100 mg In 100 ml @ 100 mls/hr IVPB Q8HR [facility] Rx#:[id number] Oral 0 / 0 0 / 0 Output: Urine 0 / 0 0 / 0 Other: # Voids 1 Weight 79.107 kg Blood Glucose* 128 120 Patient Weight 03/11/17 23:59 Weight 79.107 kg - General Appearance General appearance: well-developed, well-nourished EENT: ATNC, PERRL, mucous membranes dry Neck: no JVD, supple Respiratory: clear Cardiology: no edema, irregular rhythm - Dialysis Access Dialysis Vascular Access: Arteriovenous Fistula (LUE) thrill: Yes bruit: Yes Gastrointestinal: normoactive bowel sounds, tenderness (RLQ, LLQ), no guarding, no organomegaly Integumentary: warm and dry, erythema Neurologic: no focal deficit, alert and oriented x3 Musculoskeletal: no deformities, erythema, no cyanosis Psychiatric: mood/affect appropriate, cooperative Results - Lab Results 03/10/17 13:15 03/10/17 13:15 Most recent lab results Calcium 8.8 mg/dL (8.6-10.3) 03/10/17 13:15 Consult Discharge Plan - Plan Instructions: Ciprofloxacin (By mouth), Metronidazole (By mouth), Atrial Fibrillation (DC), Anemia (GEN), Infectious Colitis, Event Decorator (GEN) Additional Instructions: Please resume hemodialysis schedule on Tuesday, Tuesday, Tuesday. Have your INR checked at next HD session as discussed Referrals: Bennie Cummins MD [Partnered Physician] - (Please call for a follow-up appointment within 4-6 weeks for outpatient colonoscopy.) Lauren Calvillo MD [Primary Care Provider] - Denis Echeverria DO [Partnered Physician] - (Please call for follow-up appointment within 1-2 weeks) Prescriptions: Ciprofloxacin HCl [Cipro] 500 mg PO BID #10 tablet metroNIDAZOLE [Flagyl] 500 mg PO TID #21 tablet <Bhupinder Lozada - Last Filed: 03/17/17 15:25> Date of Encounter: 03/11/17 Exam - Vital Signs Vital signs: Initial Vital Signs Temp Pulse Resp BP Pulse Ox 98.4 F 88 18 146/81 98 03/10/17 11:17 03/10/17 11:17 03/10/17 11:17 03/10/17 11:17 03/10/17 11:17 Results - Lab Results 03/11/17 12:11 03/11/17 12:11 Most recent lab results Calcium 8.6 mg/dL (8.6-10.3) 03/11/17 12:11 - Attending Attestation I examined this patient and my medical decision-making was reviewed with the Resident Physician. I agree with the documented findings, disposition and treatment plan as described except to the extent set forth below. Pt seen and examined well known to me from management of ESRD on HD admitted with abdominal pain of 2 weeks duration. Pt non toxic appearing. renal consulted for dialysis management during hospital stay. Will arrange HD today with [facility] as tolerated.
--- NOTE | 2017-03-11 09:01 | Internal Med Progress Note ---
Date of Encounter: 03/11/17 Time of Encounter: 08:00 - Assessment and plan (1) Colitis Current Visit: Yes Status: Acute Assessment and plan: presented with with abdominal pain; worsening for the last [address] scan findings suggestive of colitis; possible infectious versus ischemic colitis. Cont IV fluids, antibiotics. NPO. Moderate risk for complications. Hx chronic diarrhea. Stool studies pending. GI consulted (2) Afib Current Visit: Yes Status: Chronic Assessment and plan: per hx. Rate controlled. Cont home BB. On Coumadin, INR subtherapeutic. Pharmacy dosing Coumadin Qualifiers: Atrial fibrillation type: chronic Qualified Code(s): I48.2 - Chronic atrial fibrillation (3) Splenic infarct Current Visit: Yes Status: Acute Assessment and plan: CT scan of the abdomen and pelvis shows presence of splenic infarct. Age indeterminate. Cont couamdin (4) Elevated troponin Current Visit: No Status: Acute Assessment and plan: troponin peaked at 0.04 (previously 0.13). Denies chest pain, EKG without acute ST changes. Do not suspect ACS, likely secondary to see CAD. Continue to monitor on telemetry. (5) Diabetes mellitus, type II, insulin dependent Current Visit: No Status: Chronic Assessment and plan: per hx. Control unknown. Holding long acting while NPO. SSI. Monitor blood sugars and titrate PRN. Hgb A1c pending (6) ESRD (end stage renal disease) on dialysis Current Visit: Yes Status: Chronic Assessment and plan: per hx. On HD M/W/F. Nephrology managing hemodialysis (7) DVT prophylaxis Current Visit: No Status: Acute Assessment and plan: coumadin - Subjective Interval history: Seen and examined at bedside. Patient is new to me, information obtained from chart review and patient report. Patient reports persistent worsening abdominal pain over the last 2 weeks. Worse with activity, no alleviating factors per se. Patient says pain will just go away on its own. No recent loose stools however H&P notes that she reported chronic diarrhea. No recent ATB use. Abdominal pain not affected by eating. No CP or SOB - Constitutional Vitals: Temp Pulse Resp BP Pulse Ox 97.9 F 100 16 129/73 95 03/11/17 07:32 03/11/17 07:32 03/11/17 07:32 03/11/17 07:32 03/11/17 07:32 General appearance: Present: cooperative, A&O X 3, answers questions appropriately - Head Head exam: Present: atraumatic, normocephalic - Eye Eye exam: Present: PERRL, conjuntiva pink, sclera anicteric Pupils: Present: PERRL - Neck Neck exam general surgery: Present: supple, trachea midline. Absent: lymphadenopathy - Respiratory Respiratory exam: Present: CTAB. Absent: accessory muscle use, rales, rhonchi, wheezes - Cardiovascular Cardiovascular exam: Present: RRR, +S1, +S2. Absent: diastolic murmur, gallop, rubs, systolic murmur - GI/Abdominal GI/Abdominal exam: Present: normal bowel sounds, soft, no peritoneal signs. Absent: distended, tenderness - Extremities Exam Extremities exam: Present: pedal edema, warm, radial pulses palpable and symmetrical. Absent: calf tenderness, cyanotic Additional comments: Left forearm fistula +/+ - Neurological Exam Neurological exam: Present: CN II-XII intact, oriented X3, no focal deficits. Absent: pronater drift, facial droop, speech deficit - Skin Skin exam: Present: dry, intact Internal Medicine: Result - Labs CBC & Chem 7: 03/10/17 13:15 03/10/17 13:15 - ABG Interpretation ABG results: PT/INR, D-dimer PT 18.9 Seconds (9.4-12.1) H 03/11/17 05:03 Consult Discharge Plan - Plan Referrals: Lauren Calvillo MD [Primary Care Provider] -
--- NOTE | 2017-03-11 11:16 | Gastroenterology Consult Note ---
<Román Laboy Imelda - Last Filed: 03/11/17 11:14> Date of Encounter: 03/11/17 Time of Encounter: 10:15 - Assessment and plan (1) Colitis Status: Acute Assessment and plan: CT A/P with mural thickening involving leftward aspect of colon suggestive of colitis, infectious vs inflammatory vs ischemic. Continue IV antibiotics for now. Plan for colonoscopy in 4-6 weeks as outpatient to evaluate. (2) Splenic infarct Status: Acute Assessment and plan: CT A/P suggestive of splenic infarct, age indeterminate. Continue Coumadin. (3) ESRD (end stage renal disease) on dialysis Status: Chronic - Time Spent With Patient Total time spent is greater than 50% in coordination of care (as documented) at patient's floor/unit and/or counseling patient: GI History of Present Illness - Data of Consult Patient: new to practice Consult date: 03/11/17 Requesting Physician: Alfredo Sanders - Consult Narrative Reason for consult: Colitis History of present illness: Ms. Deshpande is a 76 year old female with PMHx of CAD, DM, GERD, GI bleed, HLD, HTN , [place], ESRD on dialysis Mon/Tue/Tue, who presented to the ED with complaints of lower abdominal pain for the past 2 weeks. She states activity makes her pain worse. She states her pain has improved since admission. CT A/P with mural thickening involving leftward aspect of colon suggestive of colitis, infectious vs inflammatory vs ischemic, and suggestive of splenic infarct. She denies fever , chills, chest pain, shortness of breath, nausea, vomiting, hematemesis, melena , or hematochezia. She reports some diarrhea, but this has been a chronic problem. Procedures: EGD 02/04/2014 Dr. Nava: Small hiatus hernia, gastritis, Worthington's esophagus with no dysplasia. NSAIDs: ASA Anticoagulation: Coumadin Past Med Surg Social Fam HX - Past Medical History Medical history: coronary artery disease, diabetes, GERD, GI bleed, hyperlipidemia, hypertension, myocardial infarction, renal disease, valvular heart disease, other Psychiatric history: no psych history - Past Surgical History Surgical History: angioplasty/stent, hysterectomy - Social History Smoking Status: Never smoker Smokeless Tobacco Status: No Alcohol use: none Drug use: none - Family History Mother History Unknown: Yes Adopted: No Living Status: Hx Family Endocrine Disorder: Yes Father History Unknown: Yes Adopted: No Living Status: Hx Family Cardiac Disorders: Yes Hx Family Neuromuscular Disorders: Yes - Gastrointestinal Gastrointestinal: Present: as per HPI - Constitutional Constitutional: as per HPI - EENT Eyes: as per HPI Ears: Present: as per HPI Nose, mouth and throat: Present: as per HPI - Respiratory Respiratory IM: Present: as per HPI - Genitourinary Genitourinary: Absent: change in color, Urinary frequency - Neurological ROS Neurological GI: Present: as per HPI - Hematologic/Lymphatic Hematologic/Lymphatic pediatric: Present: as per HPI - Musculoskeletal Musculoskeletal ROS GI: Present: as per HPI - Integumentary Integumentary GI: Present: as per HPI - Psychiatric ROS Psychiatric GI: Present: as per HPI - Endocrine Endocrine IM: Present: as per HPI - Constitutional Vitals: Temp Pulse Resp BP Pulse Ox 98.6 F 84 18 127/71 96 03/11/17 11:06 03/11/17 11:06 03/11/17 11:06 03/11/17 11:06 03/11/17 11:06 General appearance: Present: cooperative, A&O X 3, no acute distress, answers questions appropriately - Head Head exam: Present: atraumatic, normocephalic - Eye Eye exam: Present: normal appearance, sclera anicteric - ENT ENT exam: Present: mucous membranes moist - Neck Neck exam general surgery: Present: normal inspection, trachea midline - Respiratory Respiratory exam: Present: CTAB. Absent: rales, rhonchi - Cardiovascular Cardiovascular exam: Present: RRR, +S1, +S2 - GI/Abdominal GI/Abdominal exam: Present: soft, tenderness (Slight tenderness in RLQ.), no peritoneal signs. Absent: distended, firm, guarding Additional comments: Ecchymosis in RLQ and LLQ - Rectal Rectal exam: Present: deferred - Extremities Exam Extremities exam: Present: warm Additional comments: LUE fistula - Neurological Exam Neurological exam: Present: no focal deficits - Psychiatric Psychiatric exam: Present: normal affect, normal mood - Skin Skin exam: Present: dry, intact, normal color, warm Results - Labs CBC & Chem 7: 03/10/17 13:15 03/10/17 13:15 Labs: Last Result Calcium 8.8 mg/dL (8.6-10.3) 03/10/17 13:15 Troponin I 0.04 ng/mL (< 0.04) H* 03/11/17 08:38 Entire Visit Hgb 9.8 g/dL (11.5-15.4) L 03/10/17 13:15 Hct 31.5 % (35.3-44.9) L 03/10/17 13:15 PT 18.9 Seconds (9.4-12.1) H 03/11/17 05:03 - ABG ABG results: PT/INR, D-dimer PT 18.9 Seconds (9.4-12.1) H 03/11/17 05:03 Consult Discharge Plan - Plan Instructions: Ciprofloxacin (By mouth), Metronidazole (By mouth), Atrial Fibrillation (DC), Anemia (GEN), Infectious Colitis, Admin Prog Coord (GEN) Additional Instructions: Please resume hemodialysis schedule on Tuesday, Tuesday, Tuesday. Have your INR checked at next HD session as discussed Referrals: Bennie Cummins MD [Partnered Physician] - (Please call for a follow-up appointment within 4-6 weeks for outpatient colonoscopy.) Lauren Calvillo MD [Primary Care Provider] - Denis Echeverria DO [Partnered Physician] - (Please call for follow-up appointment within 1-2 weeks) Prescriptions: Ciprofloxacin HCl [Cipro] 500 mg PO BID #10 tablet metroNIDAZOLE [Flagyl] 500 mg PO TID #21 tablet <Bennie Cummins - Last Filed: 03/16/17 14:34> Date of Encounter: 03/11/17 - Time Spent With Patient Total time spent is greater than 50% in coordination of care (as documented) at patient's floor/unit and/or counseling patient: GI History of Present Illness - Data of Consult Requesting Physician: Alfredo Sanders - Consult Narrative History of present illness: Ms. Deshpande is a 76 year old female - Constitutional Vitals: Temp Pulse Resp BP Pulse Ox 98.4 F 81 14 96/58 94 03/12/17 11:39 03/12/17 11:39 03/12/17 11:39 03/12/17 11:39 03/12/17 11:39 Results - Labs CBC & Chem 7: 03/11/17 12:11 03/11/17 12:11 Labs: Last Result Calcium 8.6 mg/dL (8.6-10.3) 03/11/17 12:11 Troponin I 0.08 ng/mL (< 0.04) H* 03/11/17 13:46 Entire Visit Hgb 9.4 g/dL (11.5-15.4) L 03/11/17 12:11 Hct 29.8 % (35.3-44.9) L 03/11/17 12:11 PT 20.3 Seconds (9.4-12.1) H 03/12/17 04:40 - ABG ABG results: PT/INR, D-dimer PT 20.3 Seconds (9.4-12.1) H 03/12/17 04:40 - Attending Attestation Agree, most likely ischemic colitis. Plan outpatient colonoscopy. For this encounter, I have reviewed the CIDER PRESS OPERATOR or PA documentation, treatment plan, and medical decision making; and I have had face to face time with this patient.
[2017-03-11 12:29] LABS: Hematocrit 29.8 % (35.3-44.9); Hemoglobin 9.4 g/dL (11.5-15.4); Mean Corpuscular HGB Conc 31.5 g/dL (31.6-35.5); Mean Corpuscular Hemoglobin 33.3 pg (28.0-33.3); Mean Corpuscular Volume 105.7 fL (83.0-100.0); Mean Platelet Volume 10.6 fL (9.4-12.4); Platelet Count 180 K/mcL (140-400); Red Blood Count 2.82 M/mcL (3.82-4.97); Red Cell Distribution Width 14.4 % (11.5-14.5)
[2017-03-11 12:47] LABS: Calcium 8.6 mg/dL (8.6-10.3); Potassium 3.5 mEq/L (3.5-5.1)
[2017-03-11] MEDS ORDERED: 0.9 % Sodium Chloride 250 ML IVC PRN (13:29)
[2017-03-11] MEDS ORDERED: 0.9 % Sodium Chloride 1,000 ML PRIME SCH (13:30)
[2017-03-11 14:48] LABS: Hepatitis B Surface Antigen Nonreactive (Nonreactive)
[2017-03-11 14:50] LABS: Hepatitis B Surface Antibody 123.05 mIU/mL
[2017-03-11] MEDS ORDERED: *HR* Warfarin 3 MG TABLET PO ONE (18:00)
[2017-03-11] MEDS: Lisinopril 20 MG TABLET PO SCH (21:29)
[2017-03-12] MEDS: Insulin LISPRO 300 UNITS/3 ML VIAL SQ SCH ×3 (00:01→12:41)
[2017-03-12] MEDS: hydrALAZINE 25 MG TABLET PO SCH (05:09)
[2017-03-12 06:07] LABS: INR 1.9; Prothrombin Time 20.3 Seconds (9.4-12.1)
[2017-03-12] MEDS: Aspirin Enteric Coated 81 MG Tablet PO SCH (08:24)
[2017-03-12] MEDS: Cholecalciferol (D-3) 1,000 UNIT TABLET PO SCH (08:24)
[2017-03-12] MEDS: MetroNIDAZOLE 500 MG/100 ML 500 MG/100 ML BAG IVPB SCH (08:24)
--- NOTE | 2017-03-12 10:22 | Electrocardiograph Report ---
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
--- NOTE | 2017-03-12 10:57 | Discharge Summary ---
Date of Encounter: 03/12/17 Time of Encounter: 08:15 - Discharge Diagnosis (1) Colitis Priority: Primary Status: Acute Comments: presented with with abdominal pain; worsening for the last [address] scan findings suggestive of colitis; possible infectious versus ischemic colitis. She was treated with IV fluids, IV Flagyl, Cipro and NPO. Symptoms significantly improved with conservative management. Tolerating regular diet, denied abdominal pain at time of discharge. Discussed with Dr. Cummins (GI) and will discharge home on 5 day course of PO Cipro and flagyl. Will need to follow- up with GI in 4-6 weeks for outpatient colonoscopy. (2) Afib Priority: Secondary Status: Chronic Comments: per hx. Rate controlled. Cont home BB, coumadin. Patient reports she can have INR checked on 03/14/17 at dialysis session. 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 Age indeterminate. Cont couamdin. Follow-up outpatient with PCP (4) Elevated troponin Priority: Secondary Status: Chronic Comments: hx CAD, prior PCI. 04/01 nuclear stress test negative. TTE 03/2015 with preserved EF and no wall motion abnormalities. She was evaluated by cardiology during 03/2015 hospitalization for elevated troponin of 0.13. Cardiology noted mild, adynamic troponin elevation in the setting of ER ST and anemia. Likely secondary to demand ischemia. Medical management was recommended at that time. Now with troponin 0.08; asymptomatic, denied chest pain, EKG without acute ST changes. Discussed repeating stress test with patient and she declined. She prefers to follow-up with her primary experimental mechanic spacecraft after discharge. Continue ASA, Coumadin, statin and BB. Will need to follow-up with cardiology within 1- 2 weeks. (5) Diabetes mellitus, type II, insulin dependent Priority: Secondary Status: Chronic Comments: per hx. Blood sugars controlled. Cont home insulin regimen. (6) ESRD (end stage renal disease) on dialysis Priority: Secondary Status: Chronic Comments: per hx. On HD M/W/. Renal function at baseline. Resume home dialysis schedule at discharge. - Discharge Medications Prescriptions: Ciprofloxacin HCl [Cipro] 500 mg PO BID #10 tablet metroNIDAZOLE [Flagyl] 500 mg PO TID #21 tablet Home Medications: Aspirin [Adult Low Dose Aspirin EC] 81 mg PO DAILY 06/02/15 [History] Atorvastatin [Lipitor] 40 mg PO HS 06/02/15 [History] Enalapril Maleate [Vasotec] 20 mg PO BID 06/02/15 [History] Esomeprazole Magnesium [Nexium] 40 mg PO DAILY 06/02/15 [History] Insulin Glargine,Hum.rec.anlog [Lantus Solostar] 36 unit SQ DAILY PRN 06/02/15 [ History] Carvedilol [Coreg] 25 mg PO BID 09/09/15 [History] Cholecalciferol (D-3) [Vitamin D] 1,000 unit PO DAILY 09/09/15 [History] Furosemide [Lasix] 40 mg PO BID 09/09/15 [History] Metolazone [Zaroxolyn] 2.5 mg PO DAILY 09/09/15 [History] hydrALAZINE [HydrALAZINE] 25 mg PO Q6HR 09/09/15 [History] Ferrous Sulfate [Iron] 325 mg PO BID 04/07/16 [History] Warfarin Sodium 2.5 mg PO DAILY 03/10/17 [History] Ciprofloxacin HCl [Cipro] 500 mg PO BID #10 tablet 03/12/17 [Rx] metroNIDAZOLE [Flagyl] 500 mg PO TID #21 tablet 03/12/17 [Rx] Allergies/Adverse Reactions: 3 Allergy/AdvReac Type Severity Reaction Status Date / Time No Known Allergies Allergy Verified 11/03/16 07:36 Date of admission: 03/10/17 18:14 Primary care physician: Lauren Calvillo Consults: 03/10/17 22:25 Consult to Nephrology [CONS] Routine Consulting Provider: Kidney Shawna/CHELI/LETTY/ANIBAL Reason for Consult: Dialysis management Call Completed: Yes 03/11/17 07:56 Consult to Gastroenterology [CONS] Routine Consulting Provider: Gastroenterology Shawna Reason for Consult: possible infectious, inflammatory or ischmeic colitis Call Completed: Yes 03/11/17 13:30 Consult to Dialysis [CONS] ONCE Discharging clinician: Alexandria Ricks Anticipated date of discharge: 03/12/17 - Patient Status Disposition: Home, Self-Care Condition: Good Functional capacity at discharge: uses cane/walker Overall status at discharge: patient is progressing back to baseline - Discharge Instructions Instructions: Infectious Colitis, Vba Developer (GEN), Ciprofloxacin (By mouth), Metronidazole (By mouth) Follow Up With: Lauren Calvillo MD [Primary Care Provider] - Bennie Cummins MD [Partnered Physician] - (Please call for a follow-up appointment within 4-6 weeks for outpatient colonoscopy.) Denis Echeverria DO [Partnered Physician] - (Please call for follow-up appointment within 1-2 weeks) Additional Instructions: Please resume hemodialysis schedule on Tuesday, Tuesday, Tuesday. Have your INR checked at next HD session as discussed - Diet and Activity Activity: as per physical therapy Diet: advance to your usual diet Interval History: Seen and examined at bedside. Patient says she had an uneventful night, she is hungry and would like to eat. No further abdominal pain. Denies loose stool. Says she would like to go home today. No chest pain, abdominal pain. No nausea vomiting or diarrhea. Patient advised to return to emergency room if she experiences chest pain, shortness of breath or recurrence of abdominal pain. Hospital course: See assessment and plan for hospital course. - Time Spent with Patient Total time spent providing and/or coordinating discharge services: - Constitutional Vitals: Temp Pulse Resp BP Pulse Ox 97.6 F 93 14 120/65 98 03/12/17 06:49 03/12/17 06:49 03/12/17 06:49 03/12/17 06:49 03/12/17 06:49 General appearance: Present: cooperative, A&O X 3, morbidly obese, answers questions appropriately - Head Head exam: Present: atraumatic, normocephalic - Eye Eye exam: Present: PERRL, conjuntiva pink, sclera anicteric Pupils: Present: PERRL - Neck Neck exam general surgery: Present: supple, trachea midline. Absent: lymphadenopathy - Respiratory Respiratory exam: Present: CTAB. Absent: accessory muscle use, rales, rhonchi, wheezes - Cardiovascular Cardiovascular exam: Present: RRR, +S1, +S2. Absent: diastolic murmur, gallop, rubs, systolic murmur - GI/Abdominal GI/Abdominal exam: Present: normal bowel sounds, soft, no peritoneal signs. Absent: distended, tenderness - Extremities Exam Extremities exam: Present: warm, radial pulses palpable and symmetrical. Absent : calf tenderness, cyanotic, pedal edema Additional comments: left forearm fistula +/+ - Neurological Exam Neurological exam: Present: CN II-XII intact, oriented X3, no focal deficits. Absent: pronater drift, facial droop, speech deficit - Skin Skin exam: Present: dry, intact
[2017-03-12 11:40] VITALS: BP 96/58
== END 2017-03-12 13:02 | disposition home or self-care (01) ==
LOC: EMEROO 11:13 → 3ANU 11:13
PROVIDERS: ADMIT Internal Medicine; ATTEND Internal Medicine

== ENCOUNTER 2017-06-15 10:02 | Inpatient (IN) ==
--- NOTE | 2017-06-15 10:43 | Emergency Department Note ---
Disposition Clinical Impression: Leg swelling, End stage renal disease, Elevated troponin Cellulitis Qualifiers: Site of cellulitis: extremity Laterality: unspecified laterality Qualified Code (s): L03.119 - Disposition: Admitted As Inpatient Condition: Fair Time of Disposition: 12:40 General Adult HPI - General Chief complaint: ED Extremity Problem,Nontraumatic Stated complaint: "legs swollen and water leaking out" Time Seen by Provider: 06/15/17 10:14 Source: patient Mode of arrival: wheelchair Limitations: no limitations Nursing Notes Reviewed: Yes Vital Signs Reviewed: Yes - History of Present Illness HPI Narrative: 76-year-old female with a history of end-stage renal disease, diabetes, hypertension presents for evaluation of bilateral lower leg swelling. Patient states she has been having lower leg swelling over the past 3 weeks. Noted earlier today that her legs started leaking water. Also noted redness of the lower legs. Patient denies any chest pain or shortness of breath. Patient has any fevers or cough. Patient states that she gets still continues to produce urine and is on a water pill. Patient typically gets her dialysis Tuesday and Tuesday with Dr. Paniagua. Patient did not go to her dialysis appointment earlier today. Pain Scale: 4 - Related Data Home Medications Medication Instructions Recorded Confirmed Aspirin [Adult Low Dose Aspirin EC] 81 mg PO DAILY 06/02/15 06/15/17 Atorvastatin [Lipitor] 40 mg PO HS 06/02/15 06/15/17 Enalapril Maleate [Vasotec] 20 mg PO BID 06/02/15 06/15/17 Esomeprazole Magnesium [Nexium] 40 mg PO DAILY 06/02/15 06/15/17 Insulin Glargine,Hum.rec.anlog 36 unit SQ DAILY PRN 06/02/15 06/15/17 [Lantus Solostar] Carvedilol [Coreg] 25 mg PO BID 09/09/15 06/15/17 Cholecalciferol (D-3) [Vitamin D] 1,000 unit PO DAILY 09/09/15 06/15/17 Furosemide [Lasix] 40 mg PO BID 09/09/15 06/15/17 Metolazone [Zaroxolyn] 2.5 mg PO DAILY 09/09/15 06/15/17 hydrALAZINE [HydrALAZINE] 25 mg PO Q6HR 09/09/15 06/15/17 Ferrous Sulfate [Iron] 325 mg PO BID 04/07/16 06/15/17 Warfarin [Coumadin] 2 mg PO 1800 06/09/17 06/15/17 Collagenase Oint [Santyl] 1 appl TP DAILY 06/15/17 06/15/17 Folic Acid/Vit Bcomp,C [Dialyvite 1 tab PO DAILY 06/15/17 06/15/17 Tablet] HYDROcodone/Acet 5/325 mg [[place] 0.5 tab PO DAILY 06/15/17 06/15/17 5-325 mg] Nystatin POWDER [Nystop] 1 appl TP BID 06/15/17 06/15/17 Sevelamer [Renvela] 1,600 mg PO BIDWM 06/15/17 06/15/17 Allergies Allergy/AdvReac Type Severity Reaction Status Date / Time No Known Allergies Allergy Verified 06/15/17 11:05 All systems ED: reviewed and negative except as stated. Constitutional: Denies: fever Cardiovascular: Denies: chest pain Respiratory: Denies: cough Gastrointestinal: Denies: abdominal pain, vomiting Past Medical History - Past Medical History Source: patient Medical history: Reports: coronary artery disease, diabetes, GERD, GI bleed, hyperlipidemia, hypertension, myocardial infarction, renal disease, valvular heart disease, other Surgical history: Reports: angioplasty/stent, cholecystectomy, hysterectomy Psychiatric history: Reports: no psych history ADMINISTRATIVE OPERATIONS COORDINATOR history: Reports: no ADMINISTRATIVE OPERATIONS COORDINATOR history - Social History Smoking Status: Never smoker Smokeless Tobacco Status: No Alcohol use: Reports: none Drug use: Reports: none Physical Exam - General Limitations: no limitations General appearance: alert, in no apparent distress, other (Appears chronically ill) - Head Head exam: atraumatic, normocephalic, normal inspection - Eye Eye exam: Present: normal appearance - ENT ENT exam: normal exam, mucous membranes moist - Neck Neck exam: Present: normal inspection - Chest Chest inspection: Present: normal inspection, symmetric chest wall rise - Respiratory Respiratory exam: Present: normal lung sounds bilaterally. Absent: respiratory distress - Cardiovascular Cardiovascular exam: Present: tachycardia. Absent: systolic murmur - Abdominal Exam Abdominal exam: Present: soft, Non-Tender, other (Chronic ulcers on her upper thigh and left abdomen. Dressings in place. Patient states it has been present for months since been evaluated wound center.) - Expanded Upper Extremity Exam Forearm/Wrist exam: Present: other (Functioning left forearm fistula) - Expanded Lower Extremity Exam Lower leg exam: Present: other (3+ bilateral pitting edema with asymmetric erythema on the left greater than the right. With weeping of fluid.) Neurovascular/Tendon exam: Present: normal capillary refill - Back Exam Back exam: Present: normal inspection - Neurological Exam Neurological exam: Present: alert - Skin Skin exam: Present: warm, dry, intact, normal color Course Course Narrative: Patient seen and examined. Patient does have swelling of the lower extremities as well as asymmetric redness concerns for likely early cellulitis given the patient's comorbid conditions with end-stage renal disease. Patient will get Dopplers of lower legs, chest x-ray EKG basic labs. Disposition pending. - Reevaluation(s) Reevaluation #1: Social work discussed case with daughter. Concern that there is not enough assistance at home. Reevaluation #2: Patient was negative for DVT. Awaiting labs. Time: 12:17 - Consultations Consultation #1: Patient case discussed with nephrology. Time: 12:42 Vital Signs Temperature 97.9 F 06/15/17 10:07 Pulse Rate 126 06/15/17 10:07 Respiratory Rate 18 06/15/17 10:07 Blood Pressure 118/74 06/15/17 10:07 O2 Sat by Pulse Oximetry 98 06/15/17 10:07 Temperature 97.9 F 06/15/17 10:23 Pulse Rate 106 06/15/17 13:04 Respiratory Rate 18 06/15/17 13:29 Blood Pressure 124/65 06/15/17 13:29 O2 Sat by Pulse Oximetry 100 06/15/17 13:04 Oxygen Delivery Oxygen Delivery Room Air Medical Decision Making - MDM Narrative Medical decision making narrative: Patient presents with concerns of lower leg swelling. Patient did have weeping out of her legs which prompted her ER visit today. Patient also noted some redness primarily asymmetric on the left more than the right. Concerns for likely early cellulitis. Discussed the case with the hospitalist who stated they will go ahead and initiate antibiotics. At the time of this evaluation the patient still wetting her labs. Patient did have Dopplers of the lower legs which were negative for DVT. Patient will be admitted to the hospital service for further evaluation and monitoring. Patient would likely benefit from her dialysis and ultrafiltration. Patient would also benefit from formal physical therapy evaluation and discharge planning as the patient does live at home with only the daughter to provide for her assistance. Patient did have an elevated troponin in the setting of chronic kidney disease with no ischemic EKG changes. No chest pain. - Lab Data Result diagrams: 06/15/17 12:42 06/15/17 12:42 Lab Results 06/15/17 06/15/17 06/15/17 Range/Units 12:42 12:42 12:42 WBC 8.0 (4.3-11.1) K/mcL RBC 3.11 L (3.82-4.97) M/mcL Hgb 10.4 L (11.5-15.4) g/dL Hct 33.1 L (35.3-44.9) % MCV 106.4 H (83.0-100.0) fL MCH 33.4 H (28.0-33.3) pg MCHC 31.4 L (31.6-35.5) g/dL RDW 15.7 H (11.5-14.5) % Plt Count 204 (140-400) K/mcL MPV 10.5 (9.4-12.4) fL Immature Gran % 0.4 (0-4) % Seg Neutrophils % 75.5 % Lymphocytes % 14.8 % Monocytes % 8.0 % Eosinophils % 0.7 % Basophils % 0.6 % Neutrophils # 6.1 (1.6-8.9) K/mcL Lymphocytes # 1.2 (0.6-4.6) K/mcL Monocytes # 0.6 (0.0-1.3) K/mcL Eosinophils # 0.1 (0.0-0.6) K/mcL Basophils # 0.1 (0.0-0.2) K/mcL PT 23.5 H (9.4-12.1) Seconds INR 2.1 Sodium (136-145) mEq/L Potassium (3.5-5.1) mEq/L Chloride (98-107) mEq/L Carbon Dioxide (23-29) mEq/L BUN (8-23) mg/dL Creatinine (0.60-1.20) mg/dL Est GFR ( Amer) (> 60) Est GFR (Non-Af Amer) (> 60) BUN/Creatinine Ratio (6-26) Glucose (70-105) mg/dL Calculated Osmolality (280-300) Calcium (8.6-10.3) mg/dL Troponin I (< 0.04) ng/mL B-Natriuretic Peptide 1570 H (Less than 100) pg/mL 06/15/17 Range/Units 12:42 WBC (4.3-11.1) K/mcL RBC (3.82-4.97) M/mcL Hgb (11.5-15.4) g/dL Hct (35.3-44.9) % MCV (83.0-100.0) fL MCH (28.0-33.3) pg MCHC (31.6-35.5) g/dL RDW (11.5-14.5) % Plt Count (140-400) K/mcL MPV (9.4-12.4) fL Immature Gran % (0-4) % Seg Neutrophils % % Lymphocytes % % Monocytes % % Eosinophils % % Basophils % % Neutrophils # (1.6-8.9) K/mcL Lymphocytes # (0.6-4.6) K/mcL Monocytes # (0.0-1.3) K/mcL Eosinophils # (0.0-0.6) K/mcL Basophils # (0.0-0.2) K/mcL PT (9.4-12.1) Seconds INR Sodium 136 (136-145) mEq/L Potassium 3.8 (3.5-5.1) mEq/L Chloride 93 L (98-107) mEq/L Carbon Dioxide 22 L (23-29) mEq/L BUN 66 H (8-23) mg/dL Creatinine 5.01 H (0.60-1.20) mg/dL Est GFR ( Amer) 10 L (> 60) Est GFR (Non-Af Amer) 8 L (> 60) BUN/Creatinine Ratio 13 (6-26) Glucose 258 H (70-105) mg/dL Calculated Osmolality 310 H (280-300) Calcium 9.4 (8.6-10.3) mg/dL Troponin I 0.04 H* (< 0.04) ng/mL B-Natriuretic Peptide (Less than 100) pg/mL - Radiology Data Radiology results reviewed: Yes I reviewed the patient's radiology results. Chest X-Ray 06/15/17 10:40 IMPRESSION: Stable exam with no new acute cardiopulmonary findings. D/ / Irlanda Telles MD / Irlanda Telles MD Interpreting Provider: Irlanda Telles MD - EKG Data EKG #1 EKG attestation: Yes I reviewed and interpreted this EKG. Rate: tachycardia Rhythm: A.Fib [place]/QRS: normal Q waves: aVR T wave inversions noted in: I, aVL Interpretation: no acute changes, nonspecific ST-T wave changes S.B.A.R. - S.B.A.RCiro Situation: Demographics Background: Presenting Complaint Assessment: Vital Signs, Course and respsone to treatment, Patient/Family Expectation Recommendation: Barrier(s) to disposition, Recommendation based on pending studies, treatments, or consults S.B.A.RCiro Report Given to: Dr. Odalis FlynnBCiroASingh Repor Time: 12:33
[2017-06-15] MEDS ORDERED: D5% in Water 1,000 ML IVC PRN ×2 (12:40→13:04)
[2017-06-15] MEDS ORDERED: *HR* Dextrose 50 % in Water (Syg) 50 ML SYRINGE IVP PRN (12:40)
[2017-06-15] MEDS ORDERED: Dextrose Gel 15 GM/37.5 ML TUBE PO PRN ×2 (12:40)
[2017-06-15] MEDS ORDERED: Naloxone 0.4 MG/ML INJ IVP PRN (12:41)
[2017-06-15 12:54] LABS: Basophils % 0.6 %; Eosinophils % 0.7 %; Hematocrit 33.1 % (35.3-44.9); Hemoglobin 10.4 g/dL (11.5-15.4); Immature Granulocytes % 0.4 % (0-4); Lymphocytes % 14.8 %; Mean Corpuscular HGB Conc 31.4 g/dL (31.6-35.5); Mean Corpuscular Hemoglobin 33.4 pg (28.0-33.3); Mean Corpuscular Volume 106.4 fL (83.0-100.0); Mean Platelet Volume 10.5 fL (9.4-12.4); Platelet Count 204 K/mcL (140-400); Red Blood Count 3.11 M/mcL (3.82-4.97); Red Cell Distribution Width 15.7 % (11.5-14.5); Segmented Neutrophils % 75.5 %
[2017-06-15 12:55] LABS: Basophils # 0.1 K/mcL (0.0-0.2); Eosinophils # 0.1 K/mcL (0.0-0.6); Lymphocytes # 1.2 K/mcL (0.6-4.6); Monocytes # 0.6 K/mcL (0.0-1.3); Neutrophils # 6.1 K/mcL (1.6-8.9)
--- NOTE | 2017-06-15 12:55 | Internal Med History&Physical ---
Date of Encounter: 06/15/17 Time of Encounter: 12:53 Internal Medicine - H&P: HPI Chief complaint: LE swelling with erythema History of present illness: Ms. Deshpande is a 76 year old female history of ESRD on MWF dialysis with Dr. Paniagua , no fibrillation on Coumadin and rate control who presents with worsening swelling of bilateral lower extremity with progressive erythema and local pain and warmth. She lives at home with her daughter and has been experiencing progressive worsening of lower extremity swelling with progressive erythema in the setting of chronic venous stasis. The wound started to seep and weep due to swelling. Review denies any fevers. EKG possibly reviewed with rate of 113, atrial fibrillation XR/XR chest 1V portable IMPRESSION: Stable exam with no new acute cardiopulmonary findings. Past Med Surg Social Fam HX - Past Medical History Medical history: coronary artery disease, diabetes, GERD, GI bleed, hyperlipidemia, hypertension, myocardial infarction, renal disease, valvular heart disease, other Psychiatric history: no psych history - Past Surgical History Surgical History: angioplasty/stent, cholecystectomy, hysterectomy - Social History Smoking Status: Never smoker Smokeless Tobacco Status: No Alcohol use: none Drug use: none - Family History Mother Adopted: No Living Status: Hx Family Endocrine Disorder: Yes Father Adopted: No Living Status: Hx Family Cardiac Disorders: Yes Hx Family Neuromuscular Disorders: Yes Internal Medicine - H&P: Meds Aspirin [Adult Low Dose Aspirin EC] 81 mg PO DAILY 06/02/15 [History] Atorvastatin [Lipitor] 40 mg PO HS 06/02/15 [History] Enalapril Maleate [Vasotec] 20 mg PO BID 06/02/15 [History] Esomeprazole Magnesium [Nexium] 40 mg PO DAILY 06/02/15 [History] Insulin Glargine,Hum.rec.anlog [Lantus Solostar] 36 unit SQ DAILY PRN 06/02/15 [ History] Carvedilol [Coreg] 25 mg PO BID 09/09/15 [History] Cholecalciferol (D-3) [Vitamin D] 1,000 unit PO DAILY 09/09/15 [History] Furosemide [Lasix] 40 mg PO BID 09/09/15 [History] Metolazone [Zaroxolyn] 2.5 mg PO DAILY 09/09/15 [History] hydrALAZINE [HydrALAZINE] 25 mg PO Q6HR 09/09/15 [History] Ferrous Sulfate [Iron] 325 mg PO BID 04/07/16 [History] Warfarin [Coumadin] 2 mg PO 1800 06/09/17 [History] Collagenase Oint [Santyl] 1 appl TP DAILY 06/15/17 [History] Folic Acid/Vit Bcomp,C [Dialyvite Tablet] 1 tab PO DAILY 06/15/17 [History] HYDROcodone/Acet 5/325 mg [[place] 5-325 mg] 0.5 tab PO DAILY 06/15/17 [History] Nystatin POWDER [Nystop] 1 appl TP BID 06/15/17 [History] Sevelamer [Renvela] 1,600 mg PO BIDWM 06/15/17 [History] 3 Allergy/AdvReac Type Severity Reaction Status Date / Time No Known Allergies Allergy Verified 06/15/17 11:05 All Systems PM: A 10-system review of systems was performed and is negative for pertinent findings except as documented above in the HPI. Review of systems: ROS 14 point review of systems reviewed as best as possible given presentation. Pertinent positive or negative as per HPI or otherwise reviewed as negative - Constitutional Vitals: Temp Pulse Resp BP Pulse Ox 97.9 F 126 18 118/74 98 06/15/17 10:23 06/15/17 10:23 06/15/17 10:23 06/15/17 10:23 06/15/17 10:23 Exam: General - AAO x 3 Psych - Appropriate affect/speech. No agitation Eyes - TESSA. Eye lids intact. No scleral icterus Neuro - No gross peripheral or central neuro deficits on inspection Heart - Irregular. S1 and S2 present. No added HS/murmurs appreciated. No elevated JVD appreciated. Lung - Adequate air entry b/l, No crackles/wheezes appreciated GI - Soft, non-tender. No hepatosplenomegaly/ascites. BS+ - No CVA/suprapubic tenderness or palpable bladder distension Skin - +2 b/l LE edema. Erythema with warmth Internal Med - H&P Results - Labs CBC & Chem 7: 06/15/17 12:42 - Impressions ITS Impressions Chest X-Ray 06/15/17 10:40 IMPRESSION: Stable exam with no new acute cardiopulmonary findings. D/ / Irlanda Telles MD / Irlanda Telles MD Interpreting Provider: Irlanda Telles MD - Assessment and plan (1) Cellulitis Current Visit: Yes Status: Acute Assessment and plan: IV clindamycin LE swelling and erythma likely early cellulitis mixed with background of venous stasis and volume overload from ESRD Labs are not performed at time of admission. We would place routine labs to get a sense of baseline this admission Qualifiers: Site of cellulitis: extremity Laterality: unspecified laterality Qualified Code(s): L03.119 - Cellulitis of unspecified part of limb (2) Stasis dermatitis of both legs Current Visit: No Status: Acute Assessment and plan: as above (3) Type 2 diabetes mellitus Current Visit: No Status: Chronic Assessment and plan: dtr reports that she uses prn lantus. Has not used insulin for several months now. check A1c ISS for now Qualifiers: Diabetes mellitus usp insulin use: with usp use Qualified Code( s): E11.22 - Type 2 diabetes mellitus with diabetic chronic kidney disease; N18.6 - End stage renal disease; N18.6 - End stage renal disease; N18.6 - End stage renal disease; N18.6 - End stage renal disease; Z79.4 - oil heaterman (current ) use of insulin; Z79.4 - senior care (current) use of insulin; Z79.4 - oil heaterman (current) use of insulin; Z79.4 - senior care (current) use of insulin; Z99.2 - Dependence on renal dialysis; Z99.2 - Dependence on renal dialysis; Z99.2 - Dependence on renal dialysis; Z99.2 - Dependence on renal dialysis (4) Afib Current Visit: No Status: Chronic Assessment and plan: on BB, coumadin Check INR, takes 2mg coumadin daily in a.m Qualifiers: Atrial fibrillation type: permanent Qualified Code(s): I48.2 - Chronic atrial fibrillation (5) Volume overload Current Visit: Yes Status: Acute Assessment and plan: 2/2 to ESRD on HD On diuretics consult renal, consider adjusting end dry weight ?? Qualifiers: Hypervolemia type: other Qualified Code(s): E87.79 - Other fluid overload (6) End stage renal disease Current Visit: Yes Status: Acute - Time Spent With Patient Total time spent is greater than 50% in coordination of care (as documented) at patient's floor/unit and/or counseling patient:
[2017-06-15 13:00] LABS: INR 2.1; Prothrombin Time 23.5 Seconds (9.4-12.1)
[2017-06-15] MEDS ORDERED: *HR* Metoprolol 5 MG/5 ML VIAL IVP PRN (13:11)
[2017-06-15 13:27] LABS: Troponin I 0.04 ng/mL (< 0.04)
[2017-06-15 13:30] LABS: Calcium 9.4 mg/dL (8.6-10.3); Potassium 3.8 mEq/L (3.5-5.1)
--- NOTE | 2017-06-15 13:47 | Emergency Department Note ---
Disposition Clinical Impression: Leg swelling, End stage renal disease, Elevated troponin Cellulitis Qualifiers: Site of cellulitis: extremity Laterality: unspecified laterality Qualified Code (s): L03.119 - Disposition: Admitted As Inpatient Condition: Fair General Adult HPI - General Chief complaint: ED Extremity Problem,Nontraumatic Stated complaint: "legs swollen and water leaking out" Time Seen by Provider: 06/15/17 10:14 Source: patient Mode of arrival: wheelchair Limitations: no limitations - History of Present Illness Pain Scale: 4 - Related Data Home Medications Medication Instructions Recorded Confirmed Aspirin [Adult Low Dose Aspirin EC] 81 mg PO DAILY 06/02/15 06/15/17 Atorvastatin [Lipitor] 40 mg PO HS 06/02/15 06/15/17 Enalapril Maleate [Vasotec] 20 mg PO BID 06/02/15 06/15/17 Esomeprazole Magnesium [Nexium] 40 mg PO DAILY 06/02/15 06/15/17 Insulin Glargine,Hum.rec.anlog 36 unit SQ DAILY PRN 06/02/15 06/15/17 [Lantus Solostar] Carvedilol [Coreg] 25 mg PO BID 09/09/15 06/15/17 Cholecalciferol (D-3) [Vitamin D] 1,000 unit PO DAILY 09/09/15 06/15/17 Furosemide [Lasix] 40 mg PO BID 09/09/15 06/15/17 Metolazone [Zaroxolyn] 2.5 mg PO DAILY 09/09/15 06/15/17 hydrALAZINE [HydrALAZINE] 25 mg PO Q6HR 09/09/15 06/15/17 Ferrous Sulfate [Iron] 325 mg PO BID 04/07/16 06/15/17 Warfarin [Coumadin] 2 mg PO 1800 06/09/17 06/15/17 Collagenase Oint [Santyl] 1 appl TP DAILY 06/15/17 06/15/17 Folic Acid/Vit Bcomp,C [Dialyvite 1 tab PO DAILY 06/15/17 06/15/17 Tablet] HYDROcodone/Acet 5/325 mg [[place] 0.5 tab PO DAILY 06/15/17 06/15/17 5-325 mg] Nystatin POWDER [Nystop] 1 appl TP BID 06/15/17 06/15/17 Sevelamer [Renvela] 1,600 mg PO BIDWM 06/15/17 06/15/17 Allergies Allergy/AdvReac Type Severity Reaction Status Date / Time No Known Allergies Allergy Verified 06/15/17 11:05 Constitutional: Denies: fever Cardiovascular: Denies: chest pain Respiratory: Denies: cough Gastrointestinal: Denies: abdominal pain, vomiting Past Medical History - Past Medical History Medical history: Reports: coronary artery disease, diabetes, GERD, GI bleed, hyperlipidemia, hypertension, myocardial infarction, renal disease, valvular heart disease, other Surgical history: Reports: angioplasty/stent, cholecystectomy, hysterectomy Psychiatric history: Reports: no psych history RISK ASSESSMENT ANALYST history: Reports: no RISK ASSESSMENT ANALYST history - Social History Smoking Status: Never smoker Smokeless Tobacco Status: No Alcohol use: Reports: none Drug use: Reports: none Physical Exam - General Limitations: no limitations General appearance: alert, in no apparent distress, other (Appears chronically ill) Course Vital Signs Temperature 97.9 F 06/15/17 10:07 Pulse Rate 126 06/15/17 10:07 Respiratory Rate 18 06/15/17 10:07 Blood Pressure 118/74 06/15/17 10:07 O2 Sat by Pulse Oximetry 98 06/15/17 10:07 Temperature 97.9 F 06/15/17 10:23 Pulse Rate 106 06/15/17 13:04 Respiratory Rate 18 06/15/17 13:29 Blood Pressure 124/65 06/15/17 13:29 O2 Sat by Pulse Oximetry 100 06/15/17 13:04 Oxygen Delivery Oxygen Delivery Room Air Medical Decision Making - Lab Data Result diagrams: 06/15/17 12:42 06/15/17 12:42 Lab Results 06/15/17 06/15/17 06/15/17 Range/Units 12:42 12:42 12:42 WBC 8.0 (4.3-11.1) K/mcL RBC 3.11 L (3.82-4.97) M/mcL Hgb 10.4 L (11.5-15.4) g/dL Hct 33.1 L (35.3-44.9) % MCV 106.4 H (83.0-100.0) fL MCH 33.4 H (28.0-33.3) pg MCHC 31.4 L (31.6-35.5) g/dL RDW 15.7 H (11.5-14.5) % Plt Count 204 (140-400) K/mcL MPV 10.5 (9.4-12.4) fL Immature Gran % 0.4 (0-4) % Seg Neutrophils % 75.5 % Lymphocytes % 14.8 % Monocytes % 8.0 % Eosinophils % 0.7 % Basophils % 0.6 % Neutrophils # 6.1 (1.6-8.9) K/mcL Lymphocytes # 1.2 (0.6-4.6) K/mcL Monocytes # 0.6 (0.0-1.3) K/mcL Eosinophils # 0.1 (0.0-0.6) K/mcL Basophils # 0.1 (0.0-0.2) K/mcL PT 23.5 H (9.4-12.1) Seconds INR 2.1 Sodium (136-145) mEq/L Potassium (3.5-5.1) mEq/L Chloride (98-107) mEq/L Carbon Dioxide (23-29) mEq/L BUN (8-23) mg/dL Creatinine (0.60-1.20) mg/dL Est GFR ( Amer) (> 60) Est GFR (Non-Af Amer) (> 60) BUN/Creatinine Ratio (6-26) Glucose (70-105) mg/dL Calculated Osmolality (280-300) Calcium (8.6-10.3) mg/dL Troponin I (< 0.04) ng/mL B-Natriuretic Peptide 1570 H (Less than 100) pg/mL 06/15/17 Range/Units 12:42 WBC (4.3-11.1) K/mcL RBC (3.82-4.97) M/mcL Hgb (11.5-15.4) g/dL Hct (35.3-44.9) % MCV (83.0-100.0) fL MCH (28.0-33.3) pg MCHC (31.6-35.5) g/dL RDW (11.5-14.5) % Plt Count (140-400) K/mcL MPV (9.4-12.4) fL Immature Gran % (0-4) % Seg Neutrophils % % Lymphocytes % % Monocytes % % Eosinophils % % Basophils % % Neutrophils # (1.6-8.9) K/mcL Lymphocytes # (0.6-4.6) K/mcL Monocytes # (0.0-1.3) K/mcL Eosinophils # (0.0-0.6) K/mcL Basophils # (0.0-0.2) K/mcL PT (9.4-12.1) Seconds INR Sodium 136 (136-145) mEq/L Potassium 3.8 (3.5-5.1) mEq/L Chloride 93 L (98-107) mEq/L Carbon Dioxide 22 L (23-29) mEq/L BUN 66 H (8-23) mg/dL Creatinine 5.01 H (0.60-1.20) mg/dL Est GFR ( Amer) 10 L (> 60) Est GFR (Non-Af Amer) 8 L (> 60) BUN/Creatinine Ratio 13 (6-26) Glucose 258 H (70-105) mg/dL Calculated Osmolality 310 H (280-300) Calcium 9.4 (8.6-10.3) mg/dL Troponin I 0.04 H* (< 0.04) ng/mL B-Natriuretic Peptide (Less than 100) pg/mL Attestation Statement - Attestation Attestation: I examined this patient and my medical decision-making was reviewed with the Resident Physician, Dr. Lopez. I agree with the documented findings, disposition and treatment plan as described except to the extent set forth below. Patient is 68-year-old morbidly obese white female end-stage renal disease on hemodialysis who presents to the emergency department with a three-week history of gradually worsening bilateral lower extremity edema and overlying skin changes. Patient states she was at dialysis on Tuesday and they did evaluate her they are and she mentioned her leg swelling to her doctors but she states since Tuesday it has become significantly worse and she is actually having weeping from the skin. She has significant overlying redness and warmth to touch to the lower legs worse on the left than the right. Patient denies any fevers or chills, no nausea, no prior hospitalizations from cellulitis or skin infections. Patient states she still been eating and drinking well and miss dialysis this morning because of coming to the ER for evaluation. Patient denies any shortness of breath, no chest pain pressure or heaviness, no palpitations, no diaphoresis. I agree with patient's physical exam findings as documented. Patient was tachycardic on arrival and irregular but history of atrial fibrillation. Blood pressure stable. Patient is afebrile EKG shows A. fib without acute ischemia. Patient is mildly tachycardic in the 1 teens we will continue to watch as this could be related to infection. Had laboratory evaluation including cultures, bilateral lower extremity Dopplers which were negative for DVT. We will initiate IV antibiotics and case was discussed with hospitalist patient be admitted for further evaluation. Nephrology will be consulate as patient requires dialysis today. Patient remains hemodynamically stable at this time and we have continued cardiac monitoring.
[2017-06-15] MEDS ORDERED: 0.9 % Sodium Chloride 250 ML IVC PRN (13:57)
[2017-06-15] MEDS ORDERED: 0.9 % Sodium Chloride 1,000 ML PRIME SCH (14:00)
[2017-06-15] MEDS ORDERED: 0.9 % Sodium Chloride 1,000 ML ONE (14:00)
--- NOTE | 2017-06-15 15:50 | Electrocardiograph Report ---
[address] [place] [address] Test Date: 2017-06-15 Pat Name: Lindsay Deshpande Department: [id number] Room: 2A11 Gender: F Meeting/Event Planner: DEANNA : 1940 Requested By: Tremaine Lopez Order Number: [id number] Reading MD: Carmen Fenton Measurements Intervals [place] Rate: 113 P: AL: 0 QRS: 6 QRSD: 117 T: 150 QT: 341 QTc: 408 Interpretive Statements ATRIAL FIBRILLATION WITH RAPID VENTRICULAR RESPONSE MODERATE INTRAVENTRICULAR CONDUCTION DELAY [110+ ms QRS DURATION] NONSPECIFIC ST & T-WAVE ABNORMALITY Electronically Signed On 06-15-2017 15:48:52 EDT by Carmen Fenton
[2017-06-15] MEDS ORDERED: Insulin LISPRO 300 UNITS/3 ML VIAL SQ SCH ×2 (16:30→21:00)
[2017-06-15] MEDS: hydrALAZINE 25 MG TABLET PO SCH (17:48)
[2017-06-15] MEDS: Furosemide 40 MG TABLET PO SCH (17:49)
[2017-06-15] MEDS: Insulin LISPRO 300 UNITS/3 ML VIAL SQ SCH ×2 (17:49→20:37)
[2017-06-15] MEDS: *HR* HYDROcodone/Acet 5/325 mg TABLET PO PRN (20:34)
[2017-06-15] MEDS: Clindamycin 600 MG/50 ML 600 MG/50 ML IV.SOLN IVPB SCH (20:36)
[2017-06-15] MEDS ORDERED: Lisinopril 20 MG TABLET PO SCH (21:00)
--- NOTE | 2017-06-15 22:01 | Nephrology Consult Note ---
Date of Encounter: 06/15/17 Time of Encounter: 16:00 Assessment and Plan (1) End stage renal disease Current Visit: Yes Status: Acute HD MWF Renal dose medications. Renal diet. Additional dialysis/UF as needed. Unable to perform dialysis today secondary to access malfunction. Plan to perform dialysis on . (2) Volume overload Current Visit: Yes Status: Acute Will perform UF/HD as needed. Qualifiers: Hypervolemia type: other Qualified Code(s): E87.79 - Other fluid overload (3) Cellulitis Current Visit: Yes Status: Acute Per primary team. Qualifiers: Site of cellulitis: extremity Laterality: unspecified laterality Qualified Code(s): L03.119 - Cellulitis of unspecified part of limb (4) Dialysis AV fistula malfunction Current Visit: No Status: Acute Consult IR for fistulogram. She may need temp line until fistulogram can be performed. Qualifiers: Encounter type: initial encounter Qualified Code(s): T82.590A - Other mechanical complication of surgically created arteriovenous fistula, initial encounter (5) Anemia Current Visit: No Status: Acute Monitor hemoglobin. Qualifiers: Anemia type: unspecified type Qualified Code(s): D64.9 - Anemia, unspecified History of Present Illness - Reason for Consult Consult date: 06/15/17 end stage renal disease - Chief Complaint ESRD - History of Present Illness Ms. Deshpande is a 76 yo woman with a history of ESRD who presents with lower extremity swelling and cellulitis. She receives dialysis MWF under the direction of Dr. Lozada via a left forearm fistula. She was seen in the dialysis unit. Her dialysis access is not functioning properly. She reports that she has had problems with her dialysis access in her home unit. She has no new complaint. She denies chest pain or shortness of breath. Past Med Surg Social Fam HX - Past Medical History Medical history: coronary artery disease, diabetes, GERD, GI bleed, hyperlipidemia, hypertension, myocardial infarction, renal disease, valvular heart disease, other Psychiatric history: no psych history - Past Surgical History Surgical History: angioplasty/stent, cholecystectomy, hysterectomy - Social History Smoking Status: Never smoker Smokeless Tobacco Status: No Alcohol use: none Drug use: none - Family History Mother Adopted: No Living Status: Hx Family Endocrine Disorder: Yes Father Adopted: No Living Status: Hx Family Cardiac Disorders: Yes Hx Family Neuromuscular Disorders: Yes Medications and Allergies Aspirin [Adult Low Dose Aspirin EC] 81 mg PO DAILY 06/02/15 [History] Atorvastatin [Lipitor] 40 mg PO HS 06/02/15 [History] Enalapril Maleate [Vasotec] 20 mg PO BID 06/02/15 [History] Esomeprazole Magnesium [Nexium] 40 mg PO DAILY 06/02/15 [History] Insulin Glargine,Hum.rec.anlog [Lantus Solostar] 36 unit SQ DAILY PRN 06/02/15 [ History] Carvedilol [Coreg] 25 mg PO BID 09/09/15 [History] Cholecalciferol (D-3) [Vitamin D] 1,000 unit PO DAILY 09/09/15 [History] Furosemide [Lasix] 40 mg PO BID 09/09/15 [History] Metolazone [Zaroxolyn] 2.5 mg PO DAILY 09/09/15 [History] hydrALAZINE [HydrALAZINE] 25 mg PO Q6HR 09/09/15 [History] Ferrous Sulfate [Iron] 325 mg PO BID 04/07/16 [History] Warfarin [Coumadin] 2 mg PO 1800 06/09/17 [History] Collagenase Oint [Santyl] 1 appl TP DAILY 06/15/17 [History] Folic Acid/Vit Bcomp,C [Dialyvite Tablet] 1 tab PO DAILY 06/15/17 [History] HYDROcodone/Acet 5/325 mg [[place] 5-325 mg] 0.5 tab PO DAILY 06/15/17 [History] Nystatin POWDER [Nystop] 1 appl TP BID 06/15/17 [History] Sevelamer [Renvela] 1,600 mg PO BIDWM 06/15/17 [History] 3 Allergy/AdvReac Type Severity Reaction Status Date / Time No Known Allergies Allergy Verified 06/15/17 11:05 Review of Systems All Systems: reviewed and no additional remarkable complaints except as stated ( as documented in the hpi) Exam - Vital Signs Vital signs: Initial Vital Signs Temp Pulse Resp BP Pulse Ox 97.9 F 126 18 118/74 98 06/15/17 10:07 06/15/17 10:07 06/15/17 10:07 06/15/17 10:06/15/17 10:07 Vital Signs - Last 8 Hours Temp Pulse Resp BP Pulse Ox 06/15/17 20:33 97.5 F L 68 18 93/54 97 06/15/17 16:44 97.5 F L 85 16 111/63 100 06/15/17 15:50 97.2 F L 15 126/41 06/15/17 15:30 97.7 F 15 124/55 Intake and Output 06/15/17 06/15/17 06/15/17 07:59 15:59 23:59 Intake Total 600 / 600 Output Total 0 / 0 Balance 600 / 600 Intake: Oral 0 / 0 Intake, Rinseback and Flushes 600 / 600 Output: Urine 0 / 0 Total Dialysis (HD) Output 0 / 0 Other: Blood Glucose* 111 Hemodialysis Net Fluid Removed 0 (mL) - General Appearance General appearance: well-developed, well-nourished EENT: ATNC Respiratory: clear Cardiology: edema, regular rate, regular rhythm - Dialysis Access Dialysis Vascular Access: Arteriovenous Fistula Gastrointestinal: no tenderness Integumentary: warm and dry Musculoskeletal: no cyanosis Psychiatric: mood/affect appropriate Results - Lab Results 06/15/17 12:42 06/15/17 12:42 Most recent lab results Calcium 9.4 mg/dL (8.6-10.3) 06/15/17 12:42 Consult Discharge Plan - Plan Referrals: Lauren Calvillo MD [Primary Care Provider] -
[2017-06-16 00:26] LABS: Hematocrit 28.7 % (35.3-44.9); Mean Corpuscular HGB Conc 31.4 g/dL (31.6-35.5); Mean Corpuscular Volume 105.1 fL (83.0-100.0); Mean Platelet Volume 10.4 fL (9.4-12.4); Platelet Count 177 K/mcL (140-400); Red Blood Count 2.73 M/mcL (3.82-4.97); Red Cell Distribution Width 15.6 % (11.5-14.5)
[2017-06-16 00:32] LABS: INR 2.6; Prothrombin Time 28.8 Seconds (9.4-12.1)
[2017-06-16] MEDS: hydrALAZINE 25 MG TABLET PO SCH ×6 (00:39→19:43)
[2017-06-16] MEDS: Clindamycin 600 MG/50 ML 600 MG/50 ML IV.SOLN IVPB SCH ×4 (00:41→23:42)
[2017-06-16] MEDS ORDERED: *HR* HYDROcodone/Acet 5/325 mg TABLET PO ONE (00:50)
[2017-06-16 00:53] LABS: Calcium 8.5 mg/dL (8.6-10.3); Phosphorous 4.3 mg/dL (2.7-4.5); Potassium 4.3 mEq/L (3.5-5.1)
[2017-06-16] MEDS ORDERED: 0.9 % Sodium Chloride 250 ML IVC PRN (08:10)
[2017-06-16] MEDS ORDERED: 0.9 % Sodium Chloride 1,000 ML PRIME SCH (08:15)
[2017-06-16] MEDS ORDERED: 0.9 % Sodium Chloride 1,000 ML ONE (08:18)
[2017-06-16] MEDS: Insulin LISPRO 300 UNITS/3 ML VIAL SQ SCH ×4 (08:18→20:35)
[2017-06-16 08:56] LABS: Estimated Average Glucose 189 mg/dl; Hemoglobin A1C 8.2 %
[2017-06-16] MEDS: *HR* HYDROcodone/Acet 5/325 mg TABLET PO PRN (09:53)
[2017-06-16] MEDS: Cholecalciferol (D-3) 1,000 UNIT TABLET PO SCH (09:53)
[2017-06-16] MEDS: Aspirin Enteric Coated 81 MG Tablet PO SCH (09:54)
[2017-06-16] MEDS: Furosemide 40 MG TABLET PO SCH ×2 (09:54→18:16)
[2017-06-16] MEDS: Multivit/Ca/Min/Fe/FA 1 TAB TABLET PO SCH (09:54)
[2017-06-16] MEDS: Lisinopril 20 MG TABLET PO SCH (09:55)
[2017-06-16] MEDS: metOLazone 5 MG TABLET PO SCH (09:55)
--- NOTE | 2017-06-16 10:02 | Nephrology Progress Note ---
Date of Encounter: 06/16/17 Time of Encounter: 09:57 - Assessment and Plan (1) ESRD (end stage renal disease) on dialysis Current Visit: No Status: Chronic Will attempt HD today If unable to access fistula today may need to place temp HD cath while we wait for INR to drop for IR to do fistulogram Will need renal diet when diet advanced. Avoid nephrotoxins if possible (2) Dialysis AV fistula malfunction Current Visit: No Status: Acute see above Last dialysis on Tuesday at outpatient HD center; no problem using access there Qualifiers: Encounter type: initial encounter Qualified Code(s): T82.590A - Other mechanical complication of surgically created arteriovenous fistula, initial encounter (3) Cellulitis Current Visit: Yes Status: Acute per primary team Qualifiers: Site of cellulitis: extremity Site of cellulitis of extremity: lower extremity Laterality: left Qualified Code(s): L03.116 - Cellulitis of left lower limb Subjective Principal diagnosis: cellulitis, ESRD on HD Interval history: Patient seen and examined. Was to have fistulagram today but INR 2.4 and IR will not due procedure. Objective - Vital Signs Vital signs: Vital Signs Temp Pulse Resp BP Pulse Ox 06/16/17 08:09 97.5 F L 91 20 107/69 100 06/16/17 05:12 97.6 F 74 18 97/60 98 06/16/17 01:16 97.5 F L 85 18 96/61 98 06/16/17 00:38 97.5 F L 82 16 99/63 97 06/15/17 20:33 97.5 F L 68 18 93/54 97 06/15/17 16:44 97.5 F L 85 16 111/63 100 06/15/17 15:50 97.2 F L 15 126/41 06/15/17 15:30 97.7 F 15 124/55 06/15/17 13:29 18 124/65 Intake and Output 06/15/17 06/16/17 06/16/17 23:59 07:59 15:59 Intake Total 50 / 50 50 / 50 50 / 50 Balance 50 / 50 50 / 50 50 / 50 Intake: IV Fluids 50 / 50 50 / 50 50 / 50 Cleocin Premix 600 MG/50 ML 600 50 / 50 50 / 50 50 / 50 mg In 50 ml @ 50 mls/hr IVPB Q8HR [facility] Rx#:[id number] Other: Meal npo Percent of Meal Consumed 0% Weight 83.5 kg Blood Glucose* 111 127 Patient Weight 06/16/17 23:59 Weight 83.5 kg - General Appearance General appearance: Present: frail EENT: Present: ATNC, mucous membranes moist, hearing intact, vision intact Neck: Present: supple Respiratory: Present: clear Cardiology: Present: edema, normal S1, normal S2 Dialysis Vascular Access: Arteriovenous Fistula Gastrointestinal: Present: no tenderness, no guarding Integumentary: Present: warm and dry Neurologic: Present: alert and oriented x3 Psychiatric: Present: mood/affect appropriate, cooperative - Lab 06/16/17 00:15 06/16/17 00:15 Most recent lab results Calcium 8.5 mg/dL (8.6-10.3) L 06/16/17 00:15 Phosphorus 4.3 mg/dL (2.7-4.5) 06/16/17 00:15 Consult Discharge Plan - Plan Referrals: Lauren Calvillo MD [Primary Care Provider] - (Web request sent on 06/16/17)
--- NOTE | 2017-06-16 13:26 | Internal Med Progress Note ---
Date of Encounter: 06/16/17 Time of Encounter: 13:23 - Assessment and plan (1) Cellulitis Current Visit: Yes Status: Acute Assessment and plan: Mostly due to venous stasis cont empirical abx Clindamycin for now Improving also will put TRISTIAN wraps pt would get benefit with out pt wound care f/u no open wound/ ulcers noticed Patient does need to stay in the hospital more than 2 midnights due to his complex medical problems. So we will change her to full admission today. I did review my colleague Dr. Jaramillo's H & P including HPI, PMH, PSH, FH, SH, and ROS no changes noticed Qualifiers: Site of cellulitis: extremity Laterality: unspecified laterality Qualified Code(s): L03.119 - Cellulitis of unspecified part of limb (2) Volume overload Current Visit: Yes Status: Acute Assessment and plan: slight volume overload with significant pedal edema Pt was able to have HD done with current left arm fistula Nephro cleared to resume her Coumadin for now and f/u with them as shannon out pt for another AV fistuloogram Qualifiers: Hypervolemia type: other Qualified Code(s): E87.79 - Other fluid overload (3) End stage renal disease Current Visit: Yes Status: Acute (4) Stasis dermatitis of both legs Current Visit: No Status: Acute Assessment and plan: as above (5) Type 2 diabetes mellitus Current Visit: No Status: Chronic Assessment and plan: HbA1C 8.2 Cont iSS Qualifiers: Diabetes mellitus watermelon harvesting supervisor insulin use: with watermelon harvesting supervisor use Qualified Code( s): E11.22 - Type 2 diabetes mellitus with diabetic chronic kidney disease; N18.6 - End stage renal disease; Z99.2 - Dependence on renal dialysis; Z99.2 - Dependence on renal dialysis; Z99.2 - Dependence on renal dialysis; N18.6 - End stage renal disease; N18.6 - End stage renal disease; N18.6 - End stage renal disease; 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; Z79.4 - marine oil terminal superintendent (current ) use of insulin; Z79.4 - assisted (current) use of insulin; 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 Deshpande is a 76 year old female history of ESRD on MWF dialysis with Dr. Paniagua , Chronic A fibrillation on Coumadin, DM2, HTN and HLD pt presented to ER with worsening swelling of bilateral lower extremity with progressive erythema and local pain and warmth. Also there was little concern about her AV fistula not functioning well. Pt denied any CP / SOB. feels little better today. her b/l LE erythema also better - Constitutional Vitals: Temp Pulse Resp BP Pulse Ox 97.6 F 86 16 105/65 98 06/16/17 11:23 06/16/17 11:23 06/16/17 11:23 06/16/17 11:23 06/16/17 11:23 General appearance: Present: A&O X 3 - Head Head exam: Present: atraumatic - Neck Neck exam general surgery: Present: supple - Respiratory Respiratory exam: Present: decreased breath sounds. Absent: rales, respiratory distress, rhonchi, wheezes - Cardiovascular Cardiovascular exam: Present: +S1, +S2. Absent: RRR, tachycardia - GI/Abdominal GI/Abdominal exam: Present: normal bowel sounds, soft. Absent: rebound, rigid, tenderness - Extremities Exam Extremities exam: Present: pedal edema, tenderness. Absent: calf tenderness Additional comments: 2+ Pitting edema in both legs.. Venous stasis changes and erythema in both legs noticed - Back Exam Back exam: Absent: CVA tenderness (L), CVA tenderness (R) - Neurological Exam Neurological exam: Present: alert, oriented X3 - Psychiatric Psychiatric exam: Present: normal affect, normal mood Internal Medicine: Result - Labs CBC & Chem 7: 06/16/17 00:15 06/16/17 00:15 Labs: Short CBC 06/16/17 Range/Units 00:15 WBC 6.5 (4.3-11.1) K/mcL Hgb 9.0 L (11.5-15.4) g/dL Hct 28.7 L (35.3-44.9) % Plt Count 177 (140-400) K/mcL BMP 06/16/17 00:15 Sodium 134 L Potassium 4.3 Chloride 95 L Carbon Dioxide 20 L BUN 67 H Creatinine 4.65 H Glucose 194 H Calcium 8.5 L Cardiac Enzymes 06/15/17 06/16/17 Range/Units 17:51 00:15 Troponin I 0.04 H* 0.04 H* (< 0.04) ng/mL - ABG Interpretation ABG results: PT/INR, D-dimer PT 28.8 Seconds (9.4-12.1) H 06/16/17 00:15 Consult Discharge Plan - Plan Referrals: Lauren Calvillo MD [Primary Care Provider] - (Web request sent on 06/16/17)
[2017-06-16] MEDS ORDERED: *HR* Warfarin 2 MG TABLET PO SCH (18:00)
[2017-06-16] MEDS ORDERED: Warfarin perPT PO SCH (18:00)
[2017-06-17] MEDS: *HR* HYDROcodone/Acet 5/325 mg TABLET PO PRN (04:10)
[2017-06-17 07:01] LABS: INR 2.8; Prothrombin Time 30.9 Seconds (9.4-12.1)
[2017-06-17 07:19] LABS: Hematocrit 29.3 % (35.3-44.9); Hemoglobin 9.1 g/dL (11.5-15.4); Mean Corpuscular HGB Conc 31.1 g/dL (31.6-35.5); Mean Corpuscular Hemoglobin 32.9 pg (28.0-33.3); Mean Corpuscular Volume 105.8 fL (83.0-100.0); Mean Platelet Volume 10.7 fL (9.4-12.4); Platelet Count 134 K/mcL (140-400); Red Blood Count 2.77 M/mcL (3.82-4.97); Red Cell Distribution Width 15.8 % (11.5-14.5)
[2017-06-17] MEDS ORDERED: 0.9 % Sodium Chloride 250 ML IVC PRN (07:27)
[2017-06-17] MEDS ORDERED: 0.9 % Sodium Chloride 1,000 ML PRIME SCH (07:30)
[2017-06-17] MEDS ORDERED: 0.9 % Sodium Chloride 1,000 ML ONE (07:37)
[2017-06-17 07:44] LABS: Calcium 8.3 mg/dL (8.6-10.3); Potassium 4.8 mEq/L (3.5-5.1)
[2017-06-17] MEDS: Insulin LISPRO 300 UNITS/3 ML VIAL SQ SCH ×2 (08:09→11:59)
[2017-06-17] MEDS: Furosemide 40 MG TABLET PO SCH (08:16)
[2017-06-17] MEDS: Multivit/Ca/Min/Fe/FA 1 TAB TABLET PO SCH (08:16)
[2017-06-17] MEDS: Cholecalciferol (D-3) 1,000 UNIT TABLET PO SCH (08:16)
[2017-06-17] MEDS: Aspirin Enteric Coated 81 MG Tablet PO SCH (08:16)
[2017-06-17] MEDS: metOLazone 5 MG TABLET PO SCH (08:17)
[2017-06-17] MEDS: Clindamycin 600 MG/50 ML 600 MG/50 ML IV.SOLN IVPB SCH (08:17)
[2017-06-17] MEDS: hydrALAZINE 25 MG TABLET PO SCH ×2 (08:17→12:00)
[2017-06-17] MEDS: Lisinopril 20 MG TABLET PO SCH (08:17)
--- NOTE | 2017-06-17 08:22 | Discharge Summary ---
- NOTES TO OUTPATIENT PROVIDER Notes to Outpatient Provider: Do not take Coumadin today. You can continue taking Coumadin from tomorrow at 2mg PO Daily. Go for INR/ PT on Tuesday Date of Encounter: 06/17/17 Time of Encounter: 08:17 - Discharge Diagnosis (1) Cellulitis Priority: Primary Status: Acute Qualifiers: Site of cellulitis: extremity Laterality: unspecified laterality Qualified Code(s): L03.119 - Cellulitis of unspecified part of limb (2) Volume overload Priority: Primary Status: Acute Qualifiers: Hypervolemia type: other Qualified Code(s): E87.79 - Other fluid overload (3) End stage renal disease Priority: Secondary Status: Acute (4) Stasis dermatitis of both legs Priority: Secondary Status: Acute (5) Type 2 diabetes mellitus Priority: Secondary Status: Chronic Qualifiers: Diabetes mellitus senior living insulin use: with senior living use Qualified Code( s): E11.22 - Type 2 diabetes mellitus with diabetic chronic kidney disease; N18.6 - End stage renal disease; Z99.2 - Dependence on renal dialysis; Z99.2 - Dependence on renal dialysis; Z99.2 - Dependence on renal dialysis; N18.6 - End stage renal disease; N18.6 - End stage renal disease; N18.6 - End stage renal disease; Z79.4 - retirement (current) use of insulin; 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 Deshpande is a 76 year old female history of ESRD on MWF dialysis with Dr. Paniagua , Chronic A fibrillation on Coumadin, DM2, HTN and HLD pt presented to ER with worsening swelling of bilateral lower extremity with progressive erythema and local pain and warmth. Also there was little concern about her AV fistula not functioning well. Rubber Gasket Inspector Trimmer evaluated the pt and was able to access her AV fistula with out any problem, so recommend to continue HD through same Left arm Av fistula and f/u with them as an out pt. Regarding her b/l le cellulites, which seems most likely due to venous stasis, pt was started on empirical abx Clindamycin and also applied TRISTIAN wraps. Her erythema and swelling in both legs improved today. So will d/c her home with PO abx Doxy for another 7 days, after her HD today. Her INR is elevated at 2.8 even after holding Coumadin y/d. So recommend to continue holding Coumadin another day and go for INR on Tuesday. - Time Spent with Patient Total time spent providing and/or coordinating discharge services: - Discharge Medications Prescriptions: Doxycycline Hyclate 100 mg PO BID #14 tablet Lactobacillus Acidophilus [Acidophilus] 1 each PO BID #20 capsule Home Medications: Aspirin [Adult Low Dose Aspirin EC] 81 mg PO DAILY 06/02/15 [History] Atorvastatin [Lipitor] 40 mg PO HS 06/02/15 [History] Enalapril Maleate [Vasotec] 20 mg PO BID 06/02/15 [History] Esomeprazole Magnesium [Nexium] 40 mg PO DAILY 06/02/15 [History] Insulin Glargine,Hum.rec.anlog [Lantus Solostar] 36 unit SQ DAILY PRN 06/02/15 [ History] Carvedilol [Coreg] 25 mg PO BID 09/09/15 [History] Cholecalciferol (D-3) [Vitamin D] 1,000 unit PO DAILY 09/09/15 [History] Furosemide [Lasix] 40 mg PO BID 09/09/15 [History] Metolazone [Zaroxolyn] 2.5 mg PO DAILY 09/09/15 [History] hydrALAZINE [HydrALAZINE] 25 mg PO Q6HR 09/09/15 [History] Ferrous Sulfate [Iron] 325 mg PO BID 04/07/16 [History] Warfarin [Coumadin] 2 mg PO 1800 06/09/17 [History] Collagenase Oint [Santyl] 1 appl TP DAILY 06/15/17 [History] Folic Acid/Vit Bcomp,C [Dialyvite Tablet] 1 tab PO DAILY 06/15/17 [History] HYDROcodone/Acet 5/325 mg [[place] 5-325 mg] 0.5 tab PO DAILY 06/15/17 [History] Nystatin POWDER [Nystop] 1 appl TP BID 06/15/17 [History] Sevelamer [Renvela] 1,600 mg PO BIDWM 06/15/17 [History] Doxycycline Hyclate 100 mg PO BID #14 tablet 06/17/17 [Rx] Lactobacillus Acidophilus [Acidophilus] 1 each PO BID #20 capsule 06/17/17 [Rx] Allergies/Adverse Reactions: 3 Allergy/AdvReac Type Severity Reaction Status Date / Time No Known Allergies Allergy Verified 06/15/17 11:05 Date of admission: 06/16/17 13:20 Primary care physician: Lauren Calvillo Consults: 06/17/17 07:30 Consult to Dialysis [CONS] ONCE - Constitutional Vitals: Temp Pulse Resp BP Pulse Ox 97.7 F 107 20 111/56 97 06/17/17 07:01 06/17/17 07:01 06/17/17 07:01 06/17/17 07:01 06/17/17 07:01 General appearance: Present: A&O X 3 - Head Head exam: Present: atraumatic, normal inspection - Neck Neck exam general surgery: Present: supple - Respiratory Respiratory exam: Present: decreased breath sounds. Absent: rales, respiratory distress, rhonchi, wheezes - Cardiovascular Cardiovascular exam: Present: RRR, +S1, +S2. Absent: tachycardia - GI/Abdominal GI/Abdominal exam: Present: normal bowel sounds, soft. Absent: rebound, rigid, tenderness - Extremities Exam Extremities exam: Present: pedal edema (improving). Absent: calf tenderness, tenderness Additional comments: improving erythema in both legs - Back Exam Back exam: Absent: CVA tenderness (L), CVA tenderness (R) - Neurological Exam Neurological exam: Present: alert, oriented X3 - Psychiatric Psychiatric exam: Present: normal affect, normal mood - Patient Status Disposition: Home, Self-Care Condition: Good Overall status at discharge: patient is back to baseline - Discharge Instructions Follow Up With: Lauren Calvillo MD [Primary Care Provider] - (Web request sent on 06/16/17) - Diet and Activity Activity: increase activity as tolerated Diet: low salt diet
--- NOTE | 2017-06-17 10:25 | Nephrology Progress Note ---
Date of Encounter: 06/17/17 Time of Encounter: 08:55 - Assessment and Plan (1) End stage renal disease Status: Acute Dialysis note. VSS. Cont HD today. Subjective Principal diagnosis: cellulitis, ESRD on HD Interval history: Pt was s/e while on HD. She did not affirm N/V/D or cramping or any dizziness while on HD. Objective - Vital Signs Vital signs: Vital Signs Temp Pulse Resp BP Pulse Ox 06/17/17 10:15 95/44 06/17/17 10:00 99/48 06/17/17 09:45 90/30 06/17/17 09:30 111/58 06/17/17 09:15 108/48 06/17/17 09:00 94/55 06/17/17 08:45 98 F 18 117/50 06/17/17 07:01 97.7 F 107 20 111/56 97 06/17/17 04:06 97.4 F L 115 18 145/76 98 06/16/17 23:14 98.7 F 82 17 109/63 97 06/16/17 18:56 97.8 F 95 17 102/62 96 06/16/17 16:00 97.8 F 86 16 117/65 99 06/16/17 15:43 97.2 F L 18 112/56 06/16/17 15:30 108/55 06/16/17 15:15 102/51 06/16/17 15:00 97/52 06/16/17 14:45 102/51 06/16/17 14:30 94/48 06/16/17 14:15 100/48 06/16/17 14:00 104/43 06/16/17 13:45 103/51 06/16/17 13:30 108/51 Intake and Output 06/16/17 06/17/17 06/17/17 23:59 07:59 15:59 Intake Total 380 / 380 50 / 50 720 / 720 Output Total 0 / 0 Balance 380 / 380 50 / 50 720 / 720 Intake: IV Fluids 50 / 50 50 / 50 Cleocin Premix 600 MG/50 ML 600 50 / 50 50 / 50 mg In 50 ml @ 50 mls/hr IVPB Q8HR [facility] Rx#:[id number] Oral 330 / 330 120 / 120 Intake, Rinseback and Flushes 600 / 600 Output: Urine 0 / 0 Other: Meal Breakfast Percent of Meal Consumed 75% Weight 80.853 kg Blood Glucose* 251 123 Hemodialysis Net Fluid Removed 1125 (mL) Patient Weight 06/17/17 23:59 Weight 80.853 kg - General Appearance General appearance: Present: well-developed, well-nourished, appears started age EENT: Present: ATNC, PERRL, mucous membranes moist Neck: Present: supple Respiratory: Present: clear Cardiology: Present: irregular rhythm, normal S1, normal S2 Dialysis Vascular Access: Arteriovenous Fistula (LUE AVF) thrill: Yes bruit: Yes Gastrointestinal: Present: normoactive bowel sounds, no tenderness Integumentary: Present: warm and dry Neurologic: Present: no focal deficit, no asterixis Musculoskeletal: Present: no erythema, no cyanosis Psychiatric: Present: mood/affect appropriate, cooperative - Lab 06/17/17 07:10 06/17/17 07:10 Most recent lab results Calcium 8.3 mg/dL (8.6-10.3) L 06/17/17 07:10 Phosphorus 4.3 mg/dL (2.7-4.5) 06/16/17 00:15 Consult Discharge Plan - Plan Instructions: Doxycycline (By mouth), Probiotic (By mouth), Cellulitis (DC) Referrals: Lauren Calvillo MD [Primary Care Provider] - (Web request sent on 06/16/17) Prescriptions: Doxycycline Hyclate 100 mg PO BID #14 tablet Lactobacillus Acidophilus [Acidophilus] 1 each PO BID #20 capsule
[2017-06-17 12:30] VITALS: BP 131/73
== END 2017-06-17 13:55 | disposition home or self-care (01) | DRG 602 ==
LOC: 2ANU 10:02 → EMEROO 10:02 → 2ANU 14:00 → SUATTDRO 06-16 13:20
PROVIDERS: ADMIT Family Medicine; ATTEND Family Medicine

== ENCOUNTER 2017-09-28 06:15 | Observation (INO) ==
[2017-09-28] MEDS ORDERED: Ipratropium/Albuterol Neb 3 ML IH ONE ×2 (06:22→08:18)
--- NOTE | 2017-09-28 06:33 | Emergency Department Note ---
Disposition Clinical Impression: ESRD (end stage renal disease) on dialysis, Cough Dyspnea Qualifiers: Dyspnea type: unspecified Qualified Code(s): R06.00 - Dyspnea, unspecified Disposition: Still a Patient Condition: Undetermined Time of Disposition: 06:41 SOB HPI - General Stated Complaint: sob Time Seen by Provider: 09/28/17 06:18 Source: patient, EMS Mode of arrival: EMS Limitations: no limitations Nursing Notes Reviewed: Yes Vital Signs Reviewed: Yes - History of Present Illness Patient is a 76-year-old female who presents to [facility] ED with a chief complaint of shortness of breath and cough. Patient states she has been coughing more over the last several days. Her daughter is thick with a cold. Patient has a past medical history of CAD with 2 stents, type 2 diabetes, hypertension, hyperlipidemia, ESRD on dialysis MWF with Dr. Paniagua. Patient missed her dialysis appointment on Tuesday due to not feeling well and feeling weak. States the last time she had dialysis was last Tuesday. Pt Subjective Complaint: shortness of breath, cough Onset (ago): day(s) (3) Context: recent illness Severity: moderate Consistency/Duration: gradually worsening Improves with: nothing Worsens with: nothing Known history of: diabetes Associated symptoms: Reports: cough. Denies: chest pain, fever Treatment prior to arrival: none Cough present: Yes Cough Description: Involuntary Sputum production: Yes - Related Data Home oxygen amount: none Home Medications Medication Instructions Recorded Confirmed Aspirin [Adult Low Dose Aspirin EC] 81 mg PO DAILY 06/02/15 09/09/17 Atorvastatin [Lipitor] 40 mg PO HS 06/02/15 09/09/17 Enalapril Maleate [Vasotec] 20 mg PO BID 06/02/15 09/09/17 Esomeprazole Magnesium [Nexium] 40 mg PO DAILY 06/02/15 09/09/17 Insulin Glargine,Hum.rec.anlog 36 unit SQ DAILY PRN 06/02/15 06/15/17 [Lantus Solostar] Carvedilol [Coreg] 25 mg PO BID 09/09/15 09/09/17 Cholecalciferol (D-3) [Vitamin D] 1,000 unit PO DAILY 09/09/15 09/09/17 Furosemide [Lasix] 40 mg PO BID 09/09/15 06/15/17 Metolazone [Zaroxolyn] 2.5 mg PO DAILY 09/09/15 06/15/17 hydrALAZINE [HydrALAZINE] 25 mg PO Q6HR 09/09/15 09/09/17 Ferrous Sulfate [Iron] 325 mg PO BID 04/07/16 09/09/17 Warfarin [Coumadin] 2 mg PO 1800 06/09/17 06/15/17 Collagenase Oint [Santyl] 1 appl TP DAILY 06/15/17 06/15/17 Folic Acid/Vit Bcomp,C [Dialyvite 1 tab PO DAILY 06/15/17 09/09/17 Tablet] HYDROcodone/Acet 5/325 mg [[place] 0.5 tab PO DAILY 06/15/17 06/15/17 5-325 mg] Nystatin POWDER [Nystop] 1 appl TP BID 06/15/17 06/15/17 Sevelamer [Renvela] 1,600 mg PO BIDWM 06/15/17 06/15/17 Insulin Glargine,Hum.rec.anlog 36 unit SQ 09/09/17 [Lantus Solostar] Sevelamer [Renvela] 800 mg PO TIDWM 09/09/17 09/09/17 Previous Rx's Medication Instructions Recorded Lactobacillus Acidophilus 1 each PO BID #20 capsule 06/17/17 [Acidophilus] Docusate [Colace] 100 mg PO DAILY #10 capsule 08/30/17 Tramadol HCl [Ultram] 50 mg PO BID PRN 3 Days #6 tab 08/30/17 Allergies Allergy/AdvReac Type Severity Reaction Status Date / Time No Known Allergies Allergy Verified 06/15/17 11:05 All systems ED: reviewed and negative except as stated. Past Medical History - Past Medical History Attestation: Yes The following information was validated with the patient. Source: patient Medical history: Reports: atrial fibrillation, coronary artery disease, diabetes , dialysis, GERD, GI bleed, hyperlipidemia, hypertension, myocardial infarction , renal disease, valvular heart disease, other Surgical history: Reports: angioplasty/stent, cholecystectomy, hysterectomy Psychiatric history: Reports: no psych history GROCERY BAGGER history: Reports: no GROCERY BAGGER history - Social History Smoking Status: Never smoker Smokeless Tobacco Status: No Alcohol use: Reports: none Drug use: Reports: none Physical Exam - General Limitations: no limitations General appearance: alert, in no apparent distress - Head Head exam: atraumatic, normocephalic, normal inspection - Eye Eye exam: Present: EOMI - ENT ENT exam: normal exam, mucous membranes moist - Neck Neck exam: Present: normal inspection, full ROM, trachea midline - Chest Chest inspection: Present: normal inspection, symmetric chest wall rise - Respiratory Respiratory exam: Present: other (Diffuse rhonchi bilaterally) - Cardiovascular Cardiovascular exam: Present: regular rate, normal rhythm, normal heart sounds - Abdominal Exam Abdominal exam: Present: soft, Non-Tender. Absent: tenderness, distention, guarding, rebound, rigidity - Extremities Exam Extremities exam: Present: normal inspection, full ROM. Absent: tenderness, pedal edema - Neurological Exam Neurological exam: Present: alert, oriented X3 - Psychiatric Psychiatric exam: Present: normal affect, normal mood - Skin Skin exam: Present: warm, dry, intact, normal color Course Course Narrative: Patient seen and examined. Shortness of breath with recent feeling weak and cough. Positive sick contact. Patient is also renal dialysis patient and missed her last dialysis appointment on Tuesday. Cardiopulmonary workup was initiated. Patient does not have a history of COPD but she is wheezing mildly on my exam. We will try a DuoNeb treatment see if this improves her symptoms. Her oxygen saturation is 96% on room air. - Reevaluation(s) Reevaluation #1: Patient will be signed out to [facility] Dr. Castellanos and Dr. Sood. Pending lab work, chest x-ray. Concern for CHF exacerbation versus pneumonia. Time: 06:40 Shortness of Breath/Dyspnea - Medical Records Medical records reviewed: Yes I reviewed the patient's medical records. - Lab Data Result diagrams: 09/28/17 06:57 09/28/17 06:57 - EKG Data EKG attestation: Yes I reviewed and interpreted this EKG. EKG results narrative: EKG done at 6:15 shows atrial fibrillation with a rate of 76 bpm. Poor wandering baseline. Inverted T waves in leads 1 and aVL. Appears generally unchanged from prior EKG done 07/01/2017. Attestation Statement - Attestation Attestation: I, Joao Martinez DO, examined this patient [id number] and my medical decision-making was reviewed with Ya Caity DO , Resident Physician. I agree with the documented findings, disposition and treatment plan as described except to the extent set forth below. Please see my progress notes for details.
[2017-09-28 07:18] LABS: Basophils % 0.5 %; Immature Granulocytes % 0.2 % (0-4); Red Cell Distribution Width 15.5 % (11.5-14.5)
[2017-09-28 07:20] LABS: Eosinophils # 0.1 K/mcL (0.0-0.6); Eosinophils % 1.4 %; Hematocrit 32.9 % (35.3-44.9); Hemoglobin 10.8 g/dL (11.5-15.4); Immature Platelets 10.5 % (1.1-6.1); Lymphocytes # 0.7 K/mcL (0.6-4.6); Lymphocytes % 15.5 %; Mean Corpuscular HGB Conc 32.8 g/dL (31.6-35.5); Mean Corpuscular Hemoglobin 34.6 pg (28.0-33.3); Mean Corpuscular Volume 105.4 fL (83.0-100.0); Mean Platelet Volume 12.4 fL (9.4-12.4); Monocytes # 0.3 K/mcL (0.0-1.3); Neutrophils # 3.2 K/mcL (1.6-8.9); Red Blood Count 3.12 M/mcL (3.82-4.97); Segmented Neutrophils % 74.4 %
[2017-09-28 07:30] LABS: Calcium 8.5 mg/dL (8.6-10.3); Potassium 4.5 mEq/L (3.5-5.1)
[2017-09-28 07:38] LABS: Troponin I 0.04 ng/mL (< 0.04)
[2017-09-28 07:48] LABS: Platelet Count 63 K/mcL (140-400)
[2017-09-28 07:49] LABS: Platelet Estimate Decreased (Normal)
--- NOTE | 2017-09-28 07:56 | Emergency Department Note ---
Disposition Clinical Impression: ESRD (end stage renal disease) on dialysis, Cough Dyspnea Qualifiers: Dyspnea type: unspecified Qualified Code(s): R06.00 - Dyspnea, unspecified Disposition: Still a Patient Condition: Undetermined Referrals: Lauren Calvillo MD [Primary Care Provider] - Time of Disposition: 07:56 General Adult HPI - General Chief complaint: ED Shortness of Breath/Dyspnea Stated complaint: sob Time Seen by Provider: 09/28/17 06:18 Source: patient, EMS Mode of arrival: EMS Limitations: no limitations - History of Present Illness Pain Scale: 0 - Related Data Home Medications Medication Instructions Recorded Confirmed Aspirin [Adult Low Dose Aspirin EC] 81 mg PO DAILY 06/02/15 09/09/17 Atorvastatin [Lipitor] 40 mg PO HS 06/02/15 09/09/17 Enalapril Maleate [Vasotec] 20 mg PO BID 06/02/15 09/09/17 Esomeprazole Magnesium [Nexium] 40 mg PO DAILY 06/02/15 09/09/17 Insulin Glargine,Hum.rec.anlog 36 unit SQ DAILY PRN 06/02/15 06/15/17 [Lantus Solostar] Carvedilol [Coreg] 25 mg PO BID 09/09/15 09/09/17 Cholecalciferol (D-3) [Vitamin D] 1,000 unit PO DAILY 09/09/15 09/09/17 Furosemide [Lasix] 40 mg PO BID 09/09/15 06/15/17 Metolazone [Zaroxolyn] 2.5 mg PO DAILY 09/09/15 06/15/17 hydrALAZINE [HydrALAZINE] 25 mg PO Q6HR 09/09/15 09/09/17 Ferrous Sulfate [Iron] 325 mg PO BID 04/07/16 09/09/17 Warfarin [Coumadin] 2 mg PO 1800 06/09/17 06/15/17 Collagenase Oint [Santyl] 1 appl TP DAILY 06/15/17 06/15/17 Folic Acid/Vit Bcomp,C [Dialyvite 1 tab PO DAILY 06/15/17 09/09/17 Tablet] HYDROcodone/Acet 5/325 mg [[place] 0.5 tab PO DAILY 06/15/17 06/15/17 5-325 mg] Nystatin POWDER [Nystop] 1 appl TP BID 06/15/17 06/15/17 Sevelamer [Renvela] 1,600 mg PO BIDWM 06/15/17 06/15/17 Insulin Glargine,Hum.rec.anlog 36 unit SQ 09/09/17 [Lantus Solostar] Sevelamer [Renvela] 800 mg PO TIDWM 09/09/17 09/09/17 Previous Rx's Medication Instructions Recorded Lactobacillus Acidophilus 1 each PO BID #20 capsule 06/17/17 [Acidophilus] Docusate [Colace] 100 mg PO DAILY #10 capsule 08/30/17 Tramadol HCl [Ultram] 50 mg PO BID PRN 3 Days #6 tab 08/30/17 Allergies Allergy/AdvReac Type Severity Reaction Status Date / Time No Known Allergies Allergy Verified 06/15/17 11:05 Past Medical History - Past Medical History Medical history: Reports: atrial fibrillation, coronary artery disease, diabetes , dialysis, GERD, GI bleed, hyperlipidemia, hypertension, myocardial infarction , renal disease, valvular heart disease, other Surgical history: Reports: angioplasty/stent, cholecystectomy, hysterectomy Psychiatric history: Reports: no psych history FLASH WELDER history: Reports: no FLASH WELDER history - Social History Smoking Status: Never smoker Smokeless Tobacco Status: No Alcohol use: Reports: none Drug use: Reports: none Physical Exam - General Limitations: no limitations General appearance: alert, in no apparent distress Course Vital Signs Temperature 97.5 F L 09/28/17 06:19 Pulse Rate 76 09/28/17 06:19 Respiratory Rate 18 09/28/17 06:19 Blood Pressure 116/66 09/28/17 06:19 O2 Sat by Pulse Oximetry 96 09/28/17 06:19 Temperature 97.5 F L 09/28/17 06:19 Pulse Rate 72 09/28/17 07:49 Respiratory Rate 20 09/28/17 07:46 Blood Pressure 108/78 09/28/17 07:49 O2 Sat by Pulse Oximetry 97 09/28/17 07:46 Oxygen Delivery Oxygen Delivery Room Air Medical Decision Making - Lab Data Result diagrams: 09/28/17 06:57 09/28/17 06:57 Lab Results 09/28/17 09/28/17 09/28/17 Range/Units 06:57 06:57 06:57 WBC 4.3 (4.3-11.1) K/mcL RBC 3.12 L (3.82-4.97) M/mcL Hgb 10.8 L (11.5-15.4) g/dL Hct 32.9 L (35.3-44.9) % MCV 105.4 H (83.0-100.0) fL MCH 34.6 H (28.0-33.3) pg MCHC 32.8 (31.6-35.5) g/dL RDW 15.5 H (11.5-14.5) % Plt Count 63 L (140-400) K/mcL MPV 12.4 (9.4-12.4) fL Immature Gran % 0.2 (0-4) % Seg Neutrophils % 74.4 % Lymphocytes % 15.5 % Monocytes % 8.0 % Eosinophils % 1.4 % Basophils % 0.5 % Neutrophils # 3.2 (1.6-8.9) K/mcL Lymphocytes # 0.7 (0.6-4.6) K/mcL Monocytes # 0.3 (0.0-1.3) K/mcL Eosinophils # 0.1 (0.0-0.6) K/mcL Basophils # 0.0 (0.0-0.2) K/mcL Platelet Estimate Decreased L (Normal) Immature Plt Fraction 10.5 H (1.1-6.1) % Sodium 132 L (136-145) mEq/L Potassium 4.5 (3.5-5.1) mEq/L Chloride 95 L (98-107) mEq/L Carbon Dioxide 19 L (23-29) mEq/L BUN 69 H (8-23) mg/dL Creatinine 5.33 H (0.60-1.20) mg/dL Est GFR ( Amer) 9 L (> 60) Est GFR (Non-Af Amer) 8 L (> 60) BUN/Creatinine Ratio 13 (6-26) Glucose 268 H (70-105) mg/dL Calculated Osmolality 304 H (280-300) Lactic Acid 1.3 (0.5-2.2) mmol/L Calcium 8.5 L (8.6-10.3) mg/dL Troponin I 0.04 H* (< 0.04) ng/mL B-Natriuretic Peptide (Less than 100) pg/mL 08/15/18 Range/Units 06:57 WBC (4.3-11.1) K/mcL RBC (3.82-4.97) M/mcL Hgb (11.5-15.4) g/dL Hct (35.3-44.9) % MCV (83.0-100.0) fL MCH (28.0-33.3) pg MCHC (31.6-35.5) g/dL RDW (11.5-14.5) % Plt Count (140-400) K/mcL MPV (9.4-12.4) fL Immature Gran % (0-4) % Seg Neutrophils % % Lymphocytes % % Monocytes % % Eosinophils % % Basophils % % Neutrophils # (1.6-8.9) K/mcL Lymphocytes # (0.6-4.6) K/mcL Monocytes # (0.0-1.3) K/mcL Eosinophils # (0.0-0.6) K/mcL Basophils # (0.0-0.2) K/mcL Platelet Estimate (Normal) Immature Plt Fraction (1.1-6.1) % Sodium (136-145) mEq/L Potassium (3.5-5.1) mEq/L Chloride (98-107) mEq/L Carbon Dioxide (23-29) mEq/L BUN (8-23) mg/dL Creatinine (0.60-1.20) mg/dL Est GFR ( Amer) (> 60) Est GFR (Non-Af Amer) (> 60) BUN/Creatinine Ratio (6-26) Glucose (70-105) mg/dL Calculated Osmolality (280-300) Lactic Acid (0.5-2.2) mmol/L Calcium (8.6-10.3) mg/dL Troponin I (< 0.04) ng/mL B-Natriuretic Peptide 1950 H (Less than 100) pg/mL Attestation Statement - Attestation Attestation: I, Joao Martinez DO, examined this patient [id number] and my medical decision-making was reviewed with Gerri Carolina DO , Resident Physician. I agree with the documented findings, disposition and treatment plan as described except to the extent set forth below. Please see my progress notes for details. 76-year-old female presents from EMS for evaluation of shortness of breath and fluid overload. Patient is currently in dialysis every Tuesday in the care of Dr. Paniagua. She scheduled appointment on Tuesday secondary to feeling ill. She has not had dialysis since Tuesday. She presented here today for increased work of breathing shortness of breath. She denies any fevers or chills chest pain headache vision changes nausea vomiting or diarrhea. Her main complaint is shortness of breath. Patient is alert she is oriented she falls commands on arrival. She does have bandages to the left arm loss of his associates can remove secondary to cancers presentation. Her lungs are coarse and have crackles with inspiration and expiration bilaterally. She has no signs of cardiac related etiology at this point pinches of pitting edema in the bilateral thighs. Patient is concerning for fluid overload secondary to noncompliance with dialysis regimen. She will have chest x-ray EKG CBC chemistry and evaluation and BNP completed here in the emergency room. Patient most likely will require dialysis here today. Otherwise she does not have any acute issues noted on initial physical exam patient is have a sick contact with an upper respiratory like infection that she feels could have been the source to her presenting symptoms. See detailed recommendation physical exam, medical intervention, medical decision-making and disposition the resident physician's note. Patient will be signed out to the daytime physicians Dr. salas and dr. armstrong for the continuation and completion of care.
--- NOTE | 2017-09-28 07:57 | Emergency Department Note ---
Disposition Clinical Impression: ESRD (end stage renal disease) on dialysis, Cough Dyspnea Qualifiers: Dyspnea type: unspecified Qualified Code(s): R06.00 - Dyspnea, unspecified Disposition: Admitted As Inpatient Condition: Undetermined Referrals: Lauren Calvillo MD [Primary Care Provider] - Time of Disposition: 08:20 SOB HPI - General Chief Complaint: ED Shortness of Breath/Dyspnea Stated Complaint: sob Time Seen by Provider: 09/28/17 06:18 Source: patient, EMS Mode of arrival: EMS Limitations: no limitations Nursing Notes Reviewed: Yes Vital Signs Reviewed: Yes - History of Present Illness 76-year-old female who was a signout from the night team. Briefly, this is a 76 -year-old female end-stage renal disease on dialysis who missed her dialysis 2 days ago. The patient was sent from the dialysis center because the patient was so short of breath. The patient has been experiencing worsening swelling of bilateral lower extremities. She has scattered Rales on bilateral lung dang on auscultation. The patient denies any chest associated chest pain. Workup in the emergency department prior to evaluation by myself demonstrates bilateral lower extremity swelling, scattered Rales, chest x-ray digit demonstrates developing pleural effusion, elevated troponin at baseline for the patient, hemoglobin that is been stable for the patient. Patient's lab work is otherwise been stable for the patient. On initial evaluation the patient has mild work of breathing compared to baseline according to family and patient in the room. After conversation with the patient, and conversation with family members, we will admit the patient to the hospital for observation for her dyspnea and dialysis. We will consult Dr. Paniagua, her appointment specialist. Patient was made aware and agrees to plan. No further questions or concerns are noted at this time. Severity: moderate Improves with: nothing Worsens with: nothing Associated symptoms: Reports: cough. Denies: chest pain, fever Treatment prior to arrival: none - Related Data Home oxygen amount: none Home Medications Medication Instructions Recorded Confirmed Aspirin [Adult Low Dose Aspirin EC] 81 mg PO DAILY 06/02/15 09/09/17 Atorvastatin [Lipitor] 40 mg PO HS 06/02/15 09/09/17 Enalapril Maleate [Vasotec] 20 mg PO BID 06/02/15 09/09/17 Esomeprazole Magnesium [Nexium] 40 mg PO DAILY 06/02/15 09/09/17 Insulin Glargine,Hum.rec.anlog 36 unit SQ DAILY PRN 06/02/15 06/15/17 [Lantus Solostar] Carvedilol [Coreg] 25 mg PO BID 09/09/15 09/09/17 Cholecalciferol (D-3) [Vitamin D] 1,000 unit PO DAILY 09/09/15 09/09/17 Furosemide [Lasix] 40 mg PO BID 09/09/15 06/15/17 Metolazone [Zaroxolyn] 2.5 mg PO DAILY 09/09/15 06/15/17 hydrALAZINE [HydrALAZINE] 25 mg PO Q6HR 09/09/15 09/09/17 Ferrous Sulfate [Iron] 325 mg PO BID 04/07/16 09/09/17 Warfarin [Coumadin] 2 mg PO 1800 06/09/17 06/15/17 Collagenase Oint [Santyl] 1 appl TP DAILY 06/15/17 06/15/17 Folic Acid/Vit Bcomp,C [Dialyvite 1 tab PO DAILY 06/15/17 09/09/17 Tablet] HYDROcodone/Acet 5/325 mg [[place] 0.5 tab PO DAILY 06/15/17 06/15/17 5-325 mg] Nystatin POWDER [Nystop] 1 appl TP BID 06/15/17 06/15/17 Sevelamer [Renvela] 1,600 mg PO BIDWM 06/15/17 06/15/17 Insulin Glargine,Hum.rec.anlog 36 unit SQ 09/09/17 [Lantus Solostar] Sevelamer [Renvela] 800 mg PO TIDWM 09/09/17 09/09/17 Previous Rx's Medication Instructions Recorded Lactobacillus Acidophilus 1 each PO BID #20 capsule 06/17/17 [Acidophilus] Docusate [Colace] 100 mg PO DAILY #10 capsule 08/30/17 Tramadol HCl [Ultram] 50 mg PO BID PRN 3 Days #6 tab 08/30/17 Allergies Allergy/AdvReac Type Severity Reaction Status Date / Time No Known Allergies Allergy Verified 06/15/17 11:05 All systems ED: reviewed and negative except as stated. Constitutional: Reports: weakness. Denies: fever, chills ENT ED: Denies: dysphagia Cardiovascular: Reports: edema. Denies: chest pain Respiratory: Reports: dyspnea Gastrointestinal: Denies: abdominal pain, nausea, vomiting Genitourinary: Denies: urgency, dysuria Musculoskeletal: Denies: back pain, neck pain Integumentary: Denies: rash, abrasion Neurological: Reports: weakness. Denies: headache Past Medical History - Past Medical History Attestation: Yes The following information was validated with the patient. Source: patient, old records reviewed Medical history: Reports: atrial fibrillation, coronary artery disease, diabetes , dialysis, GERD, GI bleed, hyperlipidemia, hypertension, myocardial infarction , renal disease, valvular heart disease, other Surgical history: Reports: angioplasty/stent, cholecystectomy, hysterectomy Psychiatric history: Reports: no psych history BUNDLER history: Reports: no BUNDLER history - Social History Smoking Status: Never smoker Smokeless Tobacco Status: No Alcohol use: Reports: none Drug use: Reports: none Physical Exam - General Limitations: no limitations General appearance: alert, in distress (mild respiratory) - Head Head exam: atraumatic, normocephalic, normal inspection - Eye Eye exam: Present: normal appearance, PERRL, EOMI - ENT ENT exam: normal exam, normal oropharynx, mucous membranes moist - Neck Neck exam: Present: normal inspection, full ROM, trachea midline - Chest Chest inspection: Present: normal inspection, symmetric chest wall rise - Respiratory Respiratory exam: Present: respiratory distress (mild), other (rales scattered) - Cardiovascular Cardiovascular exam: Present: regular rate, irregular rhythm, normal heart sounds - Abdominal Exam Abdominal exam: Present: soft, Non-Tender. Absent: tenderness, distention, guarding, rebound, rigidity - Extremities Exam Extremities exam: Present: full ROM, pedal edema (2+ pitting). Absent: tenderness - Neurological Exam Neurological exam: Present: alert, oriented X3 - Skin Skin exam: Present: warm, dry, intact, normal color Course Vital Signs Temperature 97.5 F L 09/28/17 06:19 Pulse Rate 76 09/28/17 06:19 Respiratory Rate 18 09/28/17 06:19 Blood Pressure 116/66 09/28/17 06:19 O2 Sat by Pulse Oximetry 96 09/28/17 06:19 Temperature 97.5 F L 09/28/17 06:19 Pulse Rate 72 09/28/17 07:49 Respiratory Rate 20 09/28/17 07:46 Blood Pressure 108/78 09/28/17 07:49 O2 Sat by Pulse Oximetry 97 09/28/17 07:46 Oxygen Delivery Oxygen Delivery Room Air Shortness of Breath/Dyspnea - MDM Narrative Medical decision making narrative: Patient's workup in the emergency department demonstrates findings consistent with fluid overload. The patient's lungs deftly demonstrate Rales on bilateral scattered dang. The patient was given DuoNeb's. She will be admitted to the hospital at this time. Consultation nephrology is currently pending. The patient was accepted to the hospitalist at this time as we do not feel comfortable discharging the patient home as she is expressing and increased work of breathing. The patient was accepted to the hospitalist, Dr. Mascorro. - Lab Data Lab results reviewed: Yes I reviewed the patient's lab results. Result diagrams: 09/28/17 06:57 09/28/17 06:57 Lab Results 09/28/17 09/28/17 09/28/17 Range/Units 06:57 06:57 06:57 WBC 4.3 (4.3-11.1) K/mcL RBC 3.12 L (3.82-4.97) M/mcL Hgb 10.8 L (11.5-15.4) g/dL Hct 32.9 L (35.3-44.9) % MCV 105.4 H (83.0-100.0) fL MCH 34.6 H (28.0-33.3) pg MCHC 32.8 (31.6-35.5) g/dL RDW 15.5 H (11.5-14.5) % Plt Count 63 L (140-400) K/mcL MPV 12.4 (9.4-12.4) fL Immature Gran % 0.2 (0-4) % Seg Neutrophils % 74.4 % Lymphocytes % 15.5 % Monocytes % 8.0 % Eosinophils % 1.4 % Basophils % 0.5 % Neutrophils # 3.2 (1.6-8.9) K/mcL Lymphocytes # 0.7 (0.6-4.6) K/mcL Monocytes # 0.3 (0.0-1.3) K/mcL Eosinophils # 0.1 (0.0-0.6) K/mcL Basophils # 0.0 (0.0-0.2) K/mcL Platelet Estimate Decreased L (Normal) Immature Plt Fraction 10.5 H (1.1-6.1) % Sodium 132 L (136-145) mEq/L Potassium 4.5 (3.5-5.1) mEq/L Chloride 95 L (98-107) mEq/L Carbon Dioxide 19 L (23-29) mEq/L BUN 69 H (8-23) mg/dL Creatinine 5.33 H (0.60-1.20) mg/dL Est GFR ( Amer) 9 L (> 60) Est GFR (Non-Af Amer) 8 L (> 60) BUN/Creatinine Ratio 13 (6-26) Glucose 268 H (70-105) mg/dL Calculated Osmolality 304 H (280-300) Lactic Acid 1.3 (0.5-2.2) mmol/L Calcium 8.5 L (8.6-10.3) mg/dL Troponin I 0.04 H* (< 0.04) ng/mL B-Natriuretic Peptide (Less than 100) pg/mL 09/28/17 Range/Units 06:57 WBC (4.3-11.1) K/mcL RBC (3.82-4.97) M/mcL Hgb (11.5-15.4) g/dL Hct (35.3-44.9) % MCV (83.0-100.0) fL MCH (28.0-33.3) pg MCHC (31.6-35.5) g/dL RDW (11.5-14.5) % Plt Count (140-400) K/mcL MPV (9.4-12.4) fL Immature Gran % (0-4) % Seg Neutrophils % % Lymphocytes % % Monocytes % % Eosinophils % % Basophils % % Neutrophils # (1.6-8.9) K/mcL Lymphocytes # (0.6-4.6) K/mcL Monocytes # (0.0-1.3) K/mcL Eosinophils # (0.0-0.6) K/mcL Basophils # (0.0-0.2) K/mcL Platelet Estimate (Normal) Immature Plt Fraction (1.1-6.1) % Sodium (136-145) mEq/L Potassium (3.5-5.1) mEq/L Chloride (98-107) mEq/L Carbon Dioxide (23-29) mEq/L BUN (8-23) mg/dL Creatinine (0.60-1.20) mg/dL Est GFR ( Amer) (> 60) Est GFR (Non-Af Amer) (> 60) BUN/Creatinine Ratio (6-26) Glucose (70-105) mg/dL Calculated Osmolality (280-300) Lactic Acid (0.5-2.2) mmol/L Calcium (8.6-10.3) mg/dL Troponin I (< 0.04) ng/mL B-Natriuretic Peptide 1950 H (Less than 100) pg/mL - Radiology Data Radiology results reviewed: Yes I reviewed the patient's radiology results. Chest X-Ray 09/28/17 06:22 IMPRESSION: Cardiomegaly with developing vascular congestion and bilateral pleural effusions. D/ / 09/28/2017 07:53:10 David Garcia MD / maci Interpreting Provider: David Garcia MD - EKG Data EKG attestation: Yes I reviewed and interpreted this EKG. EKG results narrative: Heart rate 76 beats for minute. Atrial fibrillation. No ST elevation mild ST depression noted in V5 and V6 that appears on previous EKG. No acute changes noted.
--- NOTE | 2017-09-28 08:20 | Emergency Department Note ---
Disposition Clinical Impression: ESRD (end stage renal disease) on dialysis, Cough Dyspnea Qualifiers: Dyspnea type: unspecified Qualified Code(s): R06.00 - Dyspnea, unspecified Disposition: Still a Patient Condition: Undetermined Referrals: Lauren Calvillo MD [Primary Care Provider] - General Adult HPI - General Chief complaint: ED Shortness of Breath/Dyspnea Stated complaint: sob Time Seen by Provider: 09/28/17 06:18 Source: patient, EMS Mode of arrival: EMS Limitations: no limitations - History of Present Illness Pain Scale: 0 - Related Data Home Medications Medication Instructions Recorded Confirmed Aspirin [Adult Low Dose Aspirin EC] 81 mg PO DAILY 06/02/15 09/09/17 Atorvastatin [Lipitor] 40 mg PO HS 06/02/15 09/09/17 Enalapril Maleate [Vasotec] 20 mg PO BID 06/02/15 09/09/17 Esomeprazole Magnesium [Nexium] 40 mg PO DAILY 06/02/15 09/09/17 Insulin Glargine,Hum.rec.anlog 36 unit SQ DAILY PRN 06/02/15 06/15/17 [Lantus Solostar] Carvedilol [Coreg] 25 mg PO BID 09/09/15 09/09/17 Cholecalciferol (D-3) [Vitamin D] 1,000 unit PO DAILY 09/09/15 09/09/17 Furosemide [Lasix] 40 mg PO BID 09/09/15 06/15/17 Metolazone [Zaroxolyn] 2.5 mg PO DAILY 09/09/15 06/15/17 hydrALAZINE [HydrALAZINE] 25 mg PO Q6HR 09/09/15 09/09/17 Ferrous Sulfate [Iron] 325 mg PO BID 04/07/16 09/09/17 Warfarin [Coumadin] 2 mg PO 1800 06/09/17 06/15/17 Collagenase Oint [Santyl] 1 appl TP DAILY 06/15/17 06/15/17 Folic Acid/Vit Bcomp,C [Dialyvite 1 tab PO DAILY 06/15/17 09/09/17 Tablet] HYDROcodone/Acet 5/325 mg [[place] 0.5 tab PO DAILY 06/15/17 06/15/17 5-325 mg] Nystatin POWDER [Nystop] 1 appl TP BID 06/15/17 06/15/17 Sevelamer [Renvela] 1,600 mg PO BIDWM 06/15/17 06/15/17 Insulin Glargine,Hum.rec.anlog 36 unit SQ 09/09/17 [Lantus Solostar] Sevelamer [Renvela] 800 mg PO TIDWM 09/09/17 09/09/17 Previous Rx's Medication Instructions Recorded Lactobacillus Acidophilus 1 each PO BID #20 capsule 06/17/17 [Acidophilus] Docusate [Colace] 100 mg PO DAILY #10 capsule 08/30/17 Tramadol HCl [Ultram] 50 mg PO BID PRN 3 Days #6 tab 08/30/17 Allergies Allergy/AdvReac Type Severity Reaction Status Date / Time No Known Allergies Allergy Verified 06/15/17 11:05 Constitutional: Reports: weakness. Denies: fever, chills ENT ED: Denies: dysphagia Cardiovascular: Reports: edema. Denies: chest pain Respiratory: Reports: dyspnea Gastrointestinal: Denies: abdominal pain, nausea, vomiting Genitourinary: Denies: urgency, dysuria Musculoskeletal: Denies: back pain, neck pain Integumentary: Denies: rash, abrasion Neurological: Reports: weakness. 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 - Social History Smoking Status: Never smoker Smokeless Tobacco Status: No Alcohol use: Reports: none Drug use: Reports: none Physical Exam - General Limitations: no limitations General appearance: alert, in distress (mild respiratory) Course Vital Signs Temperature 97.5 F L 09/28/17 06:19 Pulse Rate 76 09/28/17 06:19 Respiratory Rate 18 09/28/17 06:19 Blood Pressure 116/66 09/28/17 06:19 O2 Sat by Pulse Oximetry 96 09/28/17 06:19 Temperature 97.5 F L 09/28/17 06:19 Pulse Rate 72 09/28/17 07:49 Respiratory Rate 20 09/28/17 07:46 Blood Pressure 108/78 09/28/17 07:49 O2 Sat by Pulse Oximetry 97 09/28/17 07:46 Oxygen Delivery Oxygen Delivery Room Air Medical Decision Making - Lab Data Result diagrams: 09/28/17 06:57 09/28/17 06:57 Lab Results 09/28/17 09/28/17 09/28/17 Range/Units 06:57 06:57 06:57 WBC 4.3 (4.3-11.1) K/mcL RBC 3.12 L (3.82-4.97) M/mcL Hgb 10.8 L (11.5-15.4) g/dL Hct 32.9 L (35.3-44.9) % MCV 105.4 H (83.0-100.0) fL MCH 34.6 H (28.0-33.3) pg MCHC 32.8 (31.6-35.5) g/dL RDW 15.5 H (11.5-14.5) % Plt Count 63 L (140-400) K/mcL MPV 12.4 (9.4-12.4) fL Immature Gran % 0.2 (0-4) % Seg Neutrophils % 74.4 % Lymphocytes % 15.5 % Monocytes % 8.0 % Eosinophils % 1.4 % Basophils % 0.5 % Neutrophils # 3.2 (1.6-8.9) K/mcL Lymphocytes # 0.7 (0.6-4.6) K/mcL Monocytes # 0.3 (0.0-1.3) K/mcL Eosinophils # 0.1 (0.0-0.6) K/mcL Basophils # 0.0 (0.0-0.2) K/mcL Platelet Estimate Decreased L (Normal) Immature Plt Fraction 10.5 H (1.1-6.1) % Sodium 132 L (136-145) mEq/L Potassium 4.5 (3.5-5.1) mEq/L Chloride 95 L (98-107) mEq/L Carbon Dioxide 19 L (23-29) mEq/L BUN 69 H (8-23) mg/dL Creatinine 5.33 H (0.60-1.20) mg/dL Est GFR ( Amer) 9 L (> 60) Est GFR (Non-Af Amer) 8 L (> 60) BUN/Creatinine Ratio 13 (6-26) Glucose 268 H (70-105) mg/dL Calculated Osmolality 304 H (280-300) Lactic Acid 1.3 (0.5-2.2) mmol/L Calcium 8.5 L (8.6-10.3) mg/dL Troponin I 0.04 H* (< 0.04) ng/mL B-Natriuretic Peptide (Less than 100) pg/mL 09/28/17 Range/Units 06:57 WBC (4.3-11.1) K/mcL RBC (3.82-4.97) M/mcL Hgb (11.5-15.4) g/dL Hct (35.3-44.9) % MCV (83.0-100.0) fL MCH (28.0-33.3) pg MCHC (31.6-35.5) g/dL RDW (11.5-14.5) % Plt Count (140-400) K/mcL MPV (9.4-12.4) fL Immature Gran % (0-4) % Seg Neutrophils % % Lymphocytes % % Monocytes % % Eosinophils % % Basophils % % Neutrophils # (1.6-8.9) K/mcL Lymphocytes # (0.6-4.6) K/mcL Monocytes # (0.0-1.3) K/mcL Eosinophils # (0.0-0.6) K/mcL Basophils # (0.0-0.2) K/mcL Platelet Estimate (Normal) Immature Plt Fraction (1.1-6.1) % Sodium (136-145) mEq/L Potassium (3.5-5.1) mEq/L Chloride (98-107) mEq/L Carbon Dioxide (23-29) mEq/L BUN (8-23) mg/dL Creatinine (0.60-1.20) mg/dL Est GFR ( Amer) (> 60) Est GFR (Non-Af Amer) (> 60) BUN/Creatinine Ratio (6-26) Glucose (70-105) mg/dL Calculated Osmolality (280-300) Lactic Acid (0.5-2.2) mmol/L Calcium (8.6-10.3) mg/dL Troponin I (< 0.04) ng/mL B-Natriuretic Peptide 1950 H (Less than 100) pg/mL Attestation Statement - Attestation Attestation: I examined this patient and my medical decision-making was reviewed with the Resident Physician. I agree with the documented findings, disposition and treatment plan as described except to the extent set forth below. This dialysis, sent here from dialysis today due to shortness of breath. She has a moist cough and wheezing, minimal response to DuoNeb's. Certainly has volume overload, likely with superimposed acute bronchitis with bronchospasm. She has no history of COPD or asthma. We will continue to treat with bronchodilators, admit for dialysis.
[2017-09-28] MEDS ORDERED: Naloxone 0.4 MG/ML INJ IVP PRN (09:05)
[2017-09-28] MEDS ORDERED: Ipratropium/Albuterol Neb 3 ML IH PRN (09:12)
[2017-09-28] MEDS ORDERED: D5% in Water 1,000 ML IVC PRN (09:13)
[2017-09-28] MEDS ORDERED: Dextrose Gel 15 GM/37.5 ML TUBE PO PRN ×2 (09:13)
[2017-09-28] MEDS ORDERED: *HR* Dextrose 50 % in Water (Syg) 50 ML SYRINGE IVP PRN (09:13)
--- NOTE | 2017-09-28 09:44 | Internal Med History&Physical ---
Date of Encounter: 09/28/17 Time of Encounter: 08:30 Internal Medicine - H&P: HPI Chief complaint: Cough and shortness of breath Admitted From: Home Plans for Post Hospital Care: Home History of present illness: Ms. Deshpande is a 76 year old female present to ER for cough and shortness of breath. Past medical history is significant for diabetes, hypertension, end- stage renal disease on hemodialysis, CAD S/P stent, A. fib on Coumadin. Patient has a cough for few days with brownish sputum. Patient has increased shortness of breath. Denies fever, chest pain, nausea, or vomiting. Patient missed dialysis on this Tuesday. When patient went to dialysis today, she was found shortness of breath and wheezing. Patient was sent to ER by dialysis Center for shortness of breath. Patient did not have dialysis today. In the emergency room, chest x-ray shows pulmonary vascular congestion and bilateral pleural effusion. Patient was admitted for acute bronchitis and fluid overload. Nephrology consult was called by ER to arrange inpatient dialysis today. Past Med Surg Social Fam HX - Past Medical History Medical history: atrial fibrillation, coronary artery disease, diabetes, dialysis, GERD, GI bleed, hyperlipidemia, hypertension, myocardial infarction, renal disease, valvular heart disease, other Additional medical history: Hemodialysis Psychiatric history: no psych history - Past Surgical History Surgical History: angioplasty/stent, cholecystectomy, hysterectomy Additional surgical history: skin biopsies on face,MOHS procedure on left nasal sidewall,creation of left wrist arterial venous fistula,LHC x 2 stents,skin cancer from right hand - Social History Smoking Status: Never smoker Smokeless Tobacco Status: No Alcohol use: none Drug use: none - Family History Mother Adopted: No Living Status: Hx Family Endocrine Disorder: Yes Father Adopted: No Living Status: Hx Family Cardiac Disorders: Yes Hx Family Neuromuscular Disorders: Yes Internal Medicine - H&P: Meds Aspirin [Adult Low Dose Aspirin EC] 81 mg PO DAILY 06/02/15 [History] Atorvastatin [Lipitor] 40 mg PO HS 06/02/15 [History] Enalapril Maleate [Vasotec] 20 mg PO BID 06/02/15 [History] Esomeprazole Magnesium [Nexium] 40 mg PO DAILY 06/02/15 [History] Insulin Glargine,Hum.rec.anlog [Lantus Solostar] 36 unit SQ DAILY PRN 06/02/15 [ History] Carvedilol [Coreg] 25 mg PO BID 09/09/15 [History] Cholecalciferol (D-3) [Vitamin D] 5,000 unit PO DAILY 09/09/15 [History] Furosemide [Lasix] 40 mg PO BID 09/09/15 [History] Metolazone [Zaroxolyn] 2.5 mg PO DAILY 09/09/15 [History] hydrALAZINE [HydrALAZINE] 25 mg PO Q6HR 09/09/15 [History] Warfarin [Coumadin] 2 mg PO 1800 06/09/17 [History] Collagenase Oint [Santyl] 1 appl TP DAILY 06/15/17 [History] Folic Acid/Vit Bcomp,C [Dialyvite Tablet] 1 tab PO DAILY 06/15/17 [History] Docusate [Colace] 100 mg PO DAILY #10 capsule 08/30/17 [Rx] Sevelamer [Renvela] 800 mg PO TIDWM 09/09/17 [History] 3 Allergy/AdvReac Type Severity Reaction Status Date / Time No Known Allergies Allergy Verified 06/15/17 11:05 All Systems PM: A 10-system review of systems was performed and is negative for pertinent findings except as documented above in the HPI. - Constitutional Vitals: Temp Pulse Resp BP Pulse Ox 97.5 F L 72 22 108/78 96 09/28/17 06:19 09/28/17 07:49 09/28/17 08:34 09/28/17 07:49 09/28/17 08:34 General appearance: Present: mild distress, A&O X 3, answers questions appropriately - Head Head exam: Present: atraumatic, normocephalic - Eye Eye exam: Present: PERRL, conjuntiva pink, sclera anicteric Pupils: Present: PERRL - Neck Neck exam general surgery: Present: supple, trachea midline. Absent: lymphadenopathy - Respiratory Respiratory exam: Present: CTAB, wheezes (Diffused wheezes bilaterally). Absent : accessory muscle use, rales, rhonchi - Cardiovascular Cardiovascular exam: Present: RRR, +S1, +S2. Absent: diastolic murmur, gallop, rubs, systolic murmur - GI/Abdominal GI/Abdominal exam: Present: normal bowel sounds, soft, no peritoneal signs. Absent: distended, tenderness - Extremities Exam Extremities exam: Present: warm, radial pulses palpable and symmetrical. Absent : calf tenderness, cyanotic, pedal edema - Neurological Exam Neurological exam: Present: CN II-XII intact, oriented X3, no focal deficits. Absent: pronater drift, facial droop, speech deficit - Skin Skin exam: Present: dry, intact Internal Med - H&P Results - Labs CBC & Chem 7: 09/28/17 06:57 09/28/17 06:57 - Assessment and plan (1) DVT prophylaxis Current Visit: Yes Status: Acute Assessment and plan: Patient is on Coumadin. Continue Coumadin, pharmacy to dose (2) Cough Current Visit: Yes Status: Acute Assessment and plan: Patient has cough with brownish sputum. Chest x-ray shows no signs of pneumonia. Patient has no white count no fever. Patient has wheezing. Denies history of smoking or history of COPD. Consider acute bronchitis. - Start doxycycline and DuoNeb - Start cough syrup for symptoms control - Check respiratory viral panel - Check mycoplasma pneumonia antibody. (3) Dyspnea Current Visit: Yes Status: Acute Assessment and plan: Possibly due to bronchitis and fluid overload caused by missing hemodialysis. - Management of bronchitis as above - Consul nephrology for hemodialysis for fluid overload Qualifiers: Dyspnea type: unspecified Qualified Code(s): R06.00 - Dyspnea, unspecified (4) ESRD (end stage renal disease) on dialysis Current Visit: Yes Status: Chronic Assessment and plan: Continue hemodialysis (5) HTN (hypertension) Current Visit: No Status: Acute Assessment and plan: Continue home medications Qualifiers: Hypertension type: unspecified Qualified Code(s): I10 - Essential (primary ) hypertension (6) Afib Current Visit: No Status: Chronic Assessment and plan: Heart rate is well controlled. Continue Coumadin for anticoagulation Qualifiers: Atrial fibrillation type: permanent Qualified Code(s): I48.2 - Chronic atrial fibrillation (7) Elevated troponin Current Visit: No Status: Chronic Assessment and plan: Troponin 0.04. Go over her old chart, Patient has a chronic elevated troponin. Patient denies chest pain, no significant EKG change, no further tests needed. (8) Type 2 diabetes mellitus Current Visit: No Status: Chronic Assessment and plan: Cover Patient with sliding scale insulin. Qualifiers: Diabetes mellitus assisted insulin use: with local intermodal truck driver use Diabetes mellitus complication status: with kidney complications Diabetes mellitus complication detail: with chronic kidney disease Chronic kidney disease stage : on chronic dialysis Qualified Code(s): E11.22 - Type 2 diabetes mellitus with diabetic chronic kidney disease; N18.6 - End stage renal disease; Z79.4 - penitentiary (current) use of insulin; Z99.2 - Dependence on renal dialysis (9) CAD (coronary artery disease) Current Visit: Yes Status: Acute Assessment and plan: S/P stent. Continue home medications aspirin, beta janice, and statin. Qualifiers: Coronary Disease-Associated Artery/Lesion type: [place] artery [place] vs. transplanted heart: [place] heart Associated angina: without angina Qualified Code(s): I25.10 - Atherosclerotic heart disease of [place] coronary artery without angina pectoris - Time Spent With Patient Total time spent is greater than 50% in coordination of care (as documented) at patient's floor/unit and/or counseling patient: 40 minutes Greater than 35 minutes
[2017-09-28] MEDS: Doxycycline 100 MG in 0.9 % Sodium Chloride Mini Bag 100 ML IVPB SCH ×2 (10:28→18:00)
[2017-09-28] MEDS: hydrALAZINE 25 MG TABLET PO SCH ×2 (10:28→18:00)
[2017-09-28 10:31] LABS: INR 1.7; Prothrombin Time 18.6 Seconds (9.4-12.1)
[2017-09-28] MEDS: Ipratropium/Albuterol Neb 3 ML IH SCH ×4 (11:09→22:55)
[2017-09-28] MEDS: Insulin LISPRO 300 UNITS/3 ML VIAL SQ SCH ×2 (11:48→17:59)
[2017-09-28] MEDS ORDERED: 0.9 % Sodium Chloride 250 ML IVC PRN (12:14)
[2017-09-28] MEDS ORDERED: 0.9 % Sodium Chloride 1,000 ML PRIME SCH (12:15)
--- NOTE | 2017-09-28 12:39 | Electrocardiograph Report ---
[facility] Test Date: 2017-09-28 Pat Name: Lindsay Deshpande Department: Room: 2A23 Gender: F Urgent Care: : 1940 Requested By: Gerri Carolina Order Number: [id number] Reading MD: Thanh Jimenez Measurements Intervals [place] Rate: 78 P: CO: QRS: 8 QRSD: 123 T: 177 QT: 389 QTc: 444 Interpretive Statements Atrial fibrillation Left bundle branch block Electronically Signed On 09-28-2017 12:37:40 EDT by Thanh Jimenez
--- NOTE | 2017-09-28 13:06 | Nephrology Consult Note ---
<YulietNgozi levi Doug - Last Filed: 09/28/17 12:59> Date of Encounter: 09/28/17 Time of Encounter: 13:00 Assessment and Plan (1) Dyspnea Status: Acute Per primary. Qualifiers: Dyspnea type: unspecified Qualified Code(s): R06.00 - Dyspnea, unspecified (2) HTN (hypertension) Status: Acute BP 104/63 at bedside. Qualifiers: Hypertension type: unspecified Qualified Code(s): I10 - Essential (primary ) hypertension (3) ESRD (end stage renal disease) on dialysis Status: Acute Last treatment was last Tuesday without complication. HD in progress. Will order additional UF or HD as needed. History of Present Illness - Reason for Consult Consult date: 09/28/17 end stage renal disease - Chief Complaint shortness of breath - History of Present Illness Ms. Deshpande is a 76 yo woman with a history of ESRD who presents with shortness of breath x 2 days. Current HD regimen is MWF at [facility]. PMH: coronary artery disease, diabetes, GERD, GI bleed, hyperlipidemia, hypertension , myocardial infarction, renal disease, valvular heart disease. Last HD treatment was last Tuesday, missed Tuesday and Tuesday because she just wasnt "feeling well". Denies CP, SOB, nausea/vomiting or diarrhea. Did recently have some lesions removed by Dr. Hernandez for skin cancer. Past Med Surg Social Fam HX - Past Medical History Medical history: atrial fibrillation, coronary artery disease, diabetes, dialysis, GERD, GI bleed, hyperlipidemia, hypertension, myocardial infarction, renal disease, valvular heart disease, other Additional medical history: Hemodialysis Psychiatric history: no psych history - Past Surgical History Surgical History: angioplasty/stent, cholecystectomy, hysterectomy Additional surgical history: skin biopsies on face,MOHS procedure on left nasal sidewall,creation of left wrist arterial venous fistula,LHC x 2 stents,skin cancer from right hand - Social History Smoking Status: Never smoker Smokeless Tobacco Status: No Alcohol use: none Drug use: none - Family History Mother Adopted: No Living Status: Hx Family Endocrine Disorder: Yes Father History Unknown: Yes Adopted: No Living Status: Hx Family Cardiac Disorders: Yes Hx Family Neuromuscular Disorders: Yes Medications and Allergies Aspirin [Adult Low Dose Aspirin EC] 81 mg PO DAILY 06/02/15 [History] Atorvastatin [Lipitor] 40 mg PO HS 06/02/15 [History] Enalapril Maleate [Vasotec] 20 mg PO BID 06/02/15 [History] Esomeprazole Magnesium [Nexium] 40 mg PO DAILY 06/02/15 [History] Insulin Glargine,Hum.rec.anlog [Lantus Solostar] 36 unit SQ DAILY PRN 06/02/15 [ History] Carvedilol [Coreg] 25 mg PO BID 09/09/15 [History] Cholecalciferol (D-3) [Vitamin D] 5,000 unit PO DAILY 09/09/15 [History] Furosemide [Lasix] 40 mg PO BID 09/09/15 [History] Metolazone [Zaroxolyn] 2.5 mg PO DAILY 09/09/15 [History] hydrALAZINE [HydrALAZINE] 25 mg PO Q6HR 09/09/15 [History] Warfarin [Coumadin] 2 mg PO 1800 06/09/17 [History] Collagenase Oint [Santyl] 1 appl TP DAILY 06/15/17 [History] Folic Acid/Vit Bcomp,C [Dialyvite Tablet] 1 tab PO DAILY 06/15/17 [History] Docusate [Colace] 100 mg PO DAILY #10 capsule 08/30/17 [Rx] Sevelamer [Renvela] 800 mg PO TIDWM 09/09/17 [History] 3 Allergy/AdvReac Type Severity Reaction Status Date / Time No Known Allergies Allergy Verified 06/15/17 11:05 Review of Systems Constitutional: no chills, no fatigue, no fever(s) Cardiovascular: no chest pain, no dyspnea, no pedal edema Respiratory: no cough Exam - Vital Signs Vital signs: Initial Vital Signs Temp Pulse Resp BP Pulse Ox 97.5 F L 76 18 116/66 96 09/28/17 06:19 09/28/17 06:19 09/28/17 06:19 09/28/17 06:19 09/28/17 06:19 Vital Signs - Last 8 Hours Temp Pulse Resp BP Pulse Ox 09/28/17 11:09 16 97 09/28/17 10:59 97.7 F 89 18 104/63 97 09/28/17 09:32 22 103/68 Intake and Output 0809/28/17 09/28/17 23:59 07:59 15:59 Intake Total 100 / 100 Balance 100 / 100 Intake: IV Fluids 100 / 100 Doxycycline 100 MG In 0.9 % 100 / 100 Sodium Chloride (Mini-Bag +) 100 ML @ 100 mls/hr IVPB Q12HR [facility] Rx#:[id number] Other: Blood Glucose* 224 - General Appearance General appearance: well-developed, well-nourished EENT: ATNC, hearing intact, vision intact Neck: supple Respiratory: clear Cardiology: edema (non pitting edema noted to bilat lower extremities.), normal S1, normal S2 - Dialysis Access Dialysis Vascular Access: Arteriovenous Fistula thrill: Yes bruit: Yes Gastrointestinal: normoactive bowel sounds, no tenderness, no guarding Integumentary: no rash, warm and dry Neurologic: alert and oriented x3 Psychiatric: mood/affect appropriate, cooperative Results - Lab Results 09/28/17 06:57 09/28/17 06:57 Most recent lab results Calcium 8.5 mg/dL (8.6-10.3) L 09/28/17 06:57 Consult Discharge Plan - Plan Referrals: Lauren Calvillo MD [Primary Care Provider] - 10/05/17 10:45 am (Please follow up as schedule...) <Bhupinder Lozada - Last Filed: 10/04/17 17:32> Date of Encounter: 09/28/17 Assessment and Plan (1) HTN (hypertension) Status: Acute Qualifiers: Hypertension type: unspecified Qualified Code(s): I10 - Essential (primary ) hypertension (2) Dyspnea Status: Acute Qualifiers: Dyspnea type: unspecified Qualified Code(s): R06.00 - Dyspnea, unspecified (3) ESRD (end stage renal disease) on dialysis Status: Acute Exam - Vital Signs Vital signs: Initial Vital Signs Temp Pulse Resp BP Pulse Ox 97.5 F L 76 18 116/66 96 09/28/17 06:19 09/28/17 06:19 09/28/17 06:19 09/28/17 06:19 09/28/17 06:19 Results - Lab Results 09/29/17 05:13 09/29/17 05:13 Most recent lab results Calcium 8.5 mg/dL (8.6-10.3) L 09/29/17 05:13 Magnesium 1.7 mg/dL (1.6-2.6) 09/29/17 05:13 - Attending Attestation I examined this patient and my medical decision-making was reviewed with the Resident Physician/CHEMICAL PROCESS ANALYST. I agree with the documented findings, disposition and treatment plan as described except to the extent set forth below. Pt seen and examined on HD and brief; 76 y o female with PMH of ESRD on HD admitted with progressive SOB of 2 days after presenting from HD unit today ( tuesday) after missing HD on tuesday and refusing to stay for outpatient HD and electing to be hospitalized instead. On exam; elderly, frail female NAD with LE edema. Will continue HD with UF as tolerated.
[2017-09-28] MEDS ORDERED: Doxycycline 100 MG in 0.9 % Sodium Chloride Mini Bag 100 ML IVPB SCH (18:00)
[2017-09-28] MEDS: Furosemide 40 MG TABLET PO SCH (18:00)
[2017-09-28] MEDS ORDERED: *HR* Warfarin 2 MG TABLET PO ONE (18:00)
[2017-09-28] MEDS ORDERED: Warfarin perPT PO PRN (18:00)
[2017-09-28] MEDS ORDERED: Furosemide 40 MG TABLET PO SCH (21:00)
[2017-09-28] MEDS ORDERED: Lisinopril 20 MG TABLET PO SCH (21:00)
[2017-09-28] MEDS ORDERED: Insulin LISPRO 300 UNITS/3 ML VIAL SQ SCH (21:00)
[2017-09-29] MEDS: hydrALAZINE 25 MG TABLET PO SCH ×2 (01:16→06:20)
[2017-09-29] MEDS: Ipratropium/Albuterol Neb 3 ML IH SCH ×2 (03:42→07:17)
[2017-09-29 05:53] LABS: Basophils % 0.9 %; Eosinophils # 0.1 K/mcL (0.0-0.6); Eosinophils % 1.9 %; Hemoglobin 10.4 g/dL (11.5-15.4); Immature Granulocytes % 0.3 % (0-4); Lymphocytes # 0.8 K/mcL (0.6-4.6); Lymphocytes % 24.5 %; Mean Corpuscular HGB Conc 32.5 g/dL (31.6-35.5); Mean Corpuscular Hemoglobin 33.4 pg (28.0-33.3); Mean Corpuscular Volume 102.9 fL (83.0-100.0); Mean Platelet Volume 11.9 fL (9.4-12.4); Monocytes # 0.3 K/mcL (0.0-1.3); Monocytes % 9.7 %; Red Blood Count 3.11 M/mcL (3.82-4.97); Red Cell Distribution Width 15.6 % (11.5-14.5); Segmented Neutrophils % 62.7 %
[2017-09-29 05:55] LABS: Platelet Count 63 K/mcL (140-400)
[2017-09-29 05:59] LABS: INR 1.9; Prothrombin Time 21.1 Seconds (9.4-12.1)
[2017-09-29 06:07] LABS: Calcium 8.5 mg/dL (8.6-10.3); Magnesium 1.7 mg/dL (1.6-2.6); Potassium 4.1 mEq/L (3.5-5.1)
[2017-09-29] MEDS: Doxycycline 100 MG in 0.9 % Sodium Chloride Mini Bag 100 ML IVPB SCH (06:21)
[2017-09-29 08:13] VITALS: BP 126/72
[2017-09-29] MEDS: Insulin LISPRO 300 UNITS/3 ML VIAL SQ SCH (08:24)
--- NOTE | 2017-09-29 08:40 | Discharge Summary ---
Orders not resulted at time of discharge: Pending orders 09/29/17 04:00 Respiratory Infection Panel [MOLMIC] AM 0400 09/29/17 05:13 Mycoplasma pneumoniae IgG IgM AM 0400 Date of Encounter: 09/29/17 Time of Encounter: 08:30 - Discharge Diagnosis (1) ESRD (end stage renal disease) on dialysis Priority: Primary Status: Chronic Assessment and Plan: 76 year old female present to ER for cough and shortness of breath. Past medical history is significant for diabetes, hypertension, end-stage renal disease on hemodialysis, CAD S/P stent, A. fib on Coumadin. Patient had a cough for few days with brownish sputum and increased shortness of breath. Denies fever, chest pain, nausea, or vomiting. Patient missed dialysis on this Tuesday. When patient went to dialysis today, she was found shortness of breath and wheezing. Patient was sent to ER by dialysis Center for shortness of breath. Her last hemodialysis was last week tuesday because she wasn't feeling well. She had missed 2 dialysis sessions She was assessed with fluid overload secondary to missed dialysis and got hemodialysis inpatient. By the next day she was feeling better and discharged home in a stable condition. She will continue her dialysis per schedule (2) Type 2 diabetes mellitus Priority: Secondary Status: Chronic Qualifiers: Diabetes mellitus usp insulin use: with watermelon inspector use Diabetes mellitus complication status: with kidney complications Diabetes mellitus complication detail: with chronic kidney disease Chronic kidney disease stage : on chronic dialysis Qualified Code(s): E11.22 - Type 2 diabetes mellitus with diabetic chronic kidney disease; N18.6 - End stage renal disease; Z79.4 - senior living (current) use of insulin; Z99.2 - Dependence on renal dialysis (3) Afib Priority: Secondary Status: Chronic Qualifiers: Atrial fibrillation type: permanent Qualified Code(s): I48.2 - Chronic atrial fibrillation (4) Elevated troponin Priority: Secondary Status: Chronic (5) HTN (hypertension) Priority: Secondary Status: Acute Qualifiers: Hypertension type: unspecified Qualified Code(s): I10 - Essential (primary ) hypertension (6) Dyspnea Priority: Secondary Status: Acute Qualifiers: Dyspnea type: unspecified Qualified Code(s): R06.00 - Dyspnea, unspecified (7) Cough Priority: Secondary Status: Acute (8) DVT prophylaxis Priority: Secondary Status: Acute (9) CAD (coronary artery disease) Priority: Secondary Status: Acute Qualifiers: Coronary Disease-Associated Artery/Lesion type: [place] artery [place] vs. transplanted heart: [place] heart Associated angina: without angina Qualified Code(s): I25.10 - Atherosclerotic heart disease of [place] coronary artery without angina pectoris Hospital course: Ms. Deshpande is a 76 year old female - Time Spent with Patient Total time spent providing and/or coordinating discharge services: - Discharge Medications Home Medications: Aspirin [Adult Low Dose Aspirin EC] 81 mg PO DAILY 06/02/15 [History] Atorvastatin [Lipitor] 40 mg PO HS 06/02/15 [History] Enalapril Maleate [Vasotec] 20 mg PO BID 06/02/15 [History] Esomeprazole Magnesium [Nexium] 40 mg PO DAILY 06/02/15 [History] Insulin Glargine,Hum.rec.anlog [Lantus Solostar] 36 unit SQ DAILY PRN 06/02/15 [ History] Carvedilol [Coreg] 25 mg PO BID 09/09/15 [History] Cholecalciferol (D-3) [Vitamin D] 5,000 unit PO DAILY 09/09/15 [History] Furosemide [Lasix] 40 mg PO BID 09/09/15 [History] Metolazone [Zaroxolyn] 2.5 mg PO DAILY 09/09/15 [History] hydrALAZINE [HydrALAZINE] 25 mg PO Q6HR 09/09/15 [History] Warfarin [Coumadin] 2 mg PO 1800 06/09/17 [History] Collagenase Oint [Santyl] 1 appl TP DAILY 06/15/17 [History] Folic Acid/Vit Bcomp,C [Dialyvite Tablet] 1 tab PO DAILY 06/15/17 [History] Docusate [Colace] 100 mg PO DAILY #10 capsule 08/30/17 [Rx] Sevelamer [Renvela] 800 mg PO TIDWM 09/09/17 [History] Allergies/Adverse Reactions: 3 Allergy/AdvReac Type Severity Reaction Status Date / Time No Known Allergies Allergy Verified 06/15/17 11:05 Date of admission: 09/28/17 09:20 Primary care physician: Lauren Calvillo Consults: 09/28/17 12:15 Consult to Dialysis [CONS] ONCE - Constitutional Vitals: Temp Pulse Resp BP Pulse Ox 97.1 F L 98 17 126/72 94 09/29/17 08:12 09/29/17 08:12 09/29/17 08:12 09/29/17 08:12 09/29/17 08:12 General appearance: Present: mild distress, A&O X 3, answers questions appropriately - Head Head exam: Present: atraumatic, normocephalic - Eye Eye exam: Present: PERRL, conjuntiva pink, sclera anicteric Pupils: Present: PERRL - Neck Neck exam general surgery: Present: supple, trachea midline. Absent: lymphadenopathy - Respiratory Respiratory exam: Present: CTAB. Absent: accessory muscle use, rales, rhonchi, wheezes - Cardiovascular Cardiovascular exam: Present: RRR, +S1, +S2. Absent: diastolic murmur, gallop, rubs, systolic murmur - GI/Abdominal GI/Abdominal exam: Present: normal bowel sounds, soft, no peritoneal signs. Absent: distended, tenderness - Extremities Exam Extremities exam: Present: warm, radial pulses palpable and symmetrical. Absent : calf tenderness, cyanotic, pedal edema - Neurological Exam Neurological exam: Present: CN II-XII intact, oriented X3, no focal deficits. Absent: pronater drift, facial droop, speech deficit - Skin Skin exam: Present: dry, intact - Patient Status Disposition: Home, Self-Care Condition: Fair - Discharge Instructions Follow Up With: Lauren Calvillo MD [Primary Care Provider] - 10/05/17 10:45 am (Please follow up as schedule...) Forms: ED Satisfaction Letter - VTE Documentation of Mechanical Device: Intermittent pneumatic compression device
[2017-09-29] MEDS ORDERED: Lisinopril 20 MG TABLET PO SCH (09:00)
[2017-09-29] MEDS ORDERED: Aspirin Enteric Coated 81 MG Tablet PO SCH (09:00)
[2017-09-29] MEDS ORDERED: metOLazone 5 MG TABLET PO SCH (09:00)
[2017-09-29] MEDS ORDERED: Multivit/Ca/Min/Fe/FA 1 TAB TABLET PO SCH (09:00)
[2017-09-29] MEDS: Furosemide 40 MG TABLET PO SCH (09:43)
[2017-09-29] MEDS ORDERED: Renal Vitamin 1 CAP CAPSULE PO SCH (12:00)
[2017-09-29] MEDS ORDERED: hydrALAZINE 25 MG TABLET PO SCH (13:00)
[2017-09-29] MEDS ORDERED: *HR* Warfarin 2 MG TABLET PO ONE (18:00)
[2017-09-29] MEDS ORDERED: Doxycycline 100 MG CAPSULE PO SCH (21:00)
[2017-10-03 08:54] LABS: Mycoplasma pneumoniae IgG 1.49 U/L (<=0.09)
== END 2017-09-29 10:03 | disposition home or self-care (01) ==
LOC: EMEROOARM 06:15 → 2ANU 06:15
PROVIDERS: ADMIT Internal Medicine; ATTEND Internal Medicine

== ENCOUNTER 2017-10-24 12:21 | Observation (INO) ==
[2017-10-24 13:29] LABS: Monocytes % 8.6 %
[2017-10-24 13:31] LABS: Basophils % 1.2 %; Eosinophils # 0.1 K/mcL (0.0-0.6); Hematocrit 34.7 % (35.3-44.9); Hemoglobin 11.1 g/dL (11.5-15.4); Immature Granulocytes % 0.6 % (0-4); Immature Platelets 16.4 % (1.1-6.1); Lymphocytes # 0.6 K/mcL (0.6-4.6); Lymphocytes % 17.3 %; Mean Corpuscular Hemoglobin 34.7 pg (28.0-33.3); Mean Corpuscular Volume 108.4 fL (83.0-100.0); Mean Platelet Volume 13.5 fL (9.4-12.4); Monocytes # 0.3 K/mcL (0.0-1.3); Red Cell Distribution Width 16.1 % (11.5-14.5); Segmented Neutrophils % 69.3 %
[2017-10-24 13:35] LABS: Neutrophils # 2.4 K/mcL (1.6-8.9)
[2017-10-24 13:36] LABS: Platelet Count 55 K/mcL (140-400)
[2017-10-24 13:51] LABS: Calcium 8.7 mg/dL (8.6-10.3); Potassium 3.4 mEq/L (3.5-5.1)
[2017-10-24 13:55] LABS: Troponin I 0.04 ng/mL (< 0.04)
--- NOTE | 2017-10-24 14:08 | Emergency Department Note ---
Disposition Clinical Impression: CHF (congestive heart failure), Pleural effusion Disposition: Admitted As Inpatient Referrals: Lauren Calvillo MD [Primary Care Provider] - General Adult HPI - General Chief complaint: ED Shortness of Breath/Dyspnea Stated complaint: "SOB,cough,fluid build up" Time Seen by Provider: 10/24/17 13:07 Source: patient, family Limitations: no limitations - History of Present Illness Pain Scale: 0 - Related Data Home Medications Medication Instructions Recorded Confirmed Aspirin [Adult Low Dose Aspirin EC] 81 mg PO DAILY 06/02/15 09/28/17 Atorvastatin [Lipitor] 40 mg PO HS 06/02/15 09/28/17 Enalapril Maleate [Vasotec] 20 mg PO BID 06/02/15 09/28/17 Esomeprazole Magnesium [Nexium] 40 mg PO DAILY 06/02/15 09/28/17 Insulin Glargine,Hum.rec.anlog 36 unit SQ DAILY PRN 06/02/15 09/28/17 [Lantus Solostar] Carvedilol [Coreg] 25 mg PO BID 09/09/15 09/28/17 Cholecalciferol (D-3) [Vitamin D] 5,000 unit PO DAILY 09/09/15 09/28/17 Furosemide [Lasix] 40 mg PO BID 09/09/15 09/28/17 Metolazone [Zaroxolyn] 2.5 mg PO DAILY 09/09/15 09/28/17 hydrALAZINE [HydrALAZINE] 25 mg PO Q6HR 09/09/15 09/28/17 Warfarin [Coumadin] 2 mg PO 1800 06/09/17 09/28/17 Collagenase Oint [Santyl] 1 appl TP DAILY 06/15/17 09/28/17 Folic Acid/Vit B Complex and C 1 tab PO DAILY 06/15/17 09/28/17 [Dialyvite Tablet] Sevelamer [Renvela] 800 mg PO TIDWM 09/09/17 09/28/17 Previous Rx's Medication Instructions Recorded Docusate [Colace] 100 mg PO DAILY #10 capsule 08/30/17 Allergies Allergy/AdvReac Type Severity Reaction Status Date / Time No Known Allergies Allergy Verified 10/24/17 12:33 Past Medical History - Past Medical History Medical history: Reports: atrial fibrillation, coronary artery disease, diabetes , dialysis, GERD, GI bleed, hyperlipidemia, hypertension, myocardial infarction , renal disease, valvular heart disease, other Surgical history: Reports: angioplasty/stent, cholecystectomy, hysterectomy Psychiatric history: Reports: no psych history COGENERATION TECHNICIAN history: Reports: no COGENERATION TECHNICIAN history - Social History Smoking Status: Never smoker Smokeless Tobacco Status: No Alcohol use: Reports: none Drug use: Reports: none Physical Exam - General Limitations: no limitations Course Vital Signs Temperature 97.5 F L 10/24/17 12:27 Pulse Rate 74 10/24/17 12:27 Respiratory Rate 20 10/24/17 12:27 Blood Pressure 133/73 10/24/17 12:27 O2 Sat by Pulse Oximetry 99 10/24/17 12:27 Temperature 97.5 F L 10/24/17 13:16 Pulse Rate 73 10/24/17 13:16 Respiratory Rate 22 10/24/17 13:16 Blood Pressure 107/66 10/24/17 13:16 O2 Sat by Pulse Oximetry 100 10/24/17 13:16 Oxygen Delivery Oxygen Delivery Room Air Medical Decision Making - Lab Data Result diagrams: 10/24/17 13:12 10/24/17 13:12 Lab Results 10/24/17 10/24/17 10/24/17 Range/Units 13:12 13:12 13:12 WBC 3.4 L (4.3-11.1) K/mcL RBC 3.20 L (3.82-4.97) M/mcL Hgb 11.1 L (11.5-15.4) g/dL Hct 34.7 L (35.3-44.9) % MCV 108.4 H (83.0-100.0) fL MCH 34.7 H (28.0-33.3) pg MCHC 32.0 (31.6-35.5) g/dL RDW 16.1 H (11.5-14.5) % Plt Count 55 L (140-400) K/mcL MPV 13.5 H (9.4-12.4) fL Immature Gran % 0.6 (0-4) % Seg Neutrophils % 69.3 % Lymphocytes % 17.3 % Monocytes % 8.6 % Eosinophils % 3.0 % Basophils % 1.2 % Neutrophils # 2.4 (1.6-8.9) K/mcL Lymphocytes # 0.6 (0.6-4.6) K/mcL Monocytes # 0.3 (0.0-1.3) K/mcL Eosinophils # 0.1 (0.0-0.6) K/mcL Basophils # 0.0 (0.0-0.2) K/mcL Immature Plt Fraction 16.4 H (1.1-6.1) % Sodium 135 L (136-145) mEq/L Potassium 3.4 L (3.5-5.1) mEq/L Chloride 100 (98-107) mEq/L Carbon Dioxide 25 (23-29) mEq/L Creatinine 3.17 H (0.60-1.20) mg/dL Est GFR ( Amer) 17 L (> 60) Est GFR (Non-Af Amer) 14 L (> 60) Glucose 182 H (70-105) mg/dL Lactic Acid 1.6 (0.5-2.2) mmol/L Calcium 8.7 (8.6-10.3) mg/dL Troponin I 0.04 H* (< 0.04) ng/mL Critical Care Time Critical Care Time: No Attestation Statement - Attestation Attestation: I examined this patient and my medical decision-making was reviewed with the Resident Physician. I agree with the documented findings, disposition and treatment plan as described except to the extent set forth below. 76-year-old female presented to the emergency of for shortness of breath. Patient has a history of CHF and is on hemodialysis as well. She gets dialysis on Tuesday. She follows with Dr. Paniagua. She receives dialysis today. Patient had chest x-ray today that showed bilateral pleural effusions. She followed up with her PCP after dialysis and was told to come to the ER for increasing shortness of breath. Patient does not feel much better after the dialysis. She still feels short of breath. She recently saw cardiology. She had a recent increase in her Lasix to 3 times daily. She is already on metolazone. She is on Lasix as well. Patient will need to be admitted for echo consult with cardiology as well.
--- NOTE | 2017-10-24 15:08 | Emergency Department Note ---
Disposition Clinical Impression: CHF (congestive heart failure), Pleural effusion, Acute exacerbation of CHF ( congestive heart failure) Disposition: Still a Patient Condition: Good Referrals: Lauren Calvillo MD [Primary Care Provider] - Forms: ED Satisfaction Letter SOB HPI - General Chief Complaint: ED Shortness of Breath/Dyspnea Stated Complaint: "SOB,cough,fluid build up" Time Seen by Provider: 10/24/17 13:07 Source: patient, family Limitations: no limitations - History of Present Illness 76 YO F here for SOB with history of CHF and CKD on dialysis. She has been having trouble breathing for the past couple days. She is on several diuretcis and was recently increased on laxis from 2x to 3x per day. Her last dialysis treatment was today. She was sent here by her PCP for managment of her SOB. - Related Data Home Medications Medication Instructions Recorded Confirmed Aspirin [Adult Low Dose Aspirin EC] 81 mg PO DAILY 06/02/15 09/28/17 Atorvastatin [Lipitor] 40 mg PO HS 06/02/15 09/28/17 Enalapril Maleate [Vasotec] 20 mg PO BID 06/02/15 09/28/17 Esomeprazole Magnesium [Nexium] 40 mg PO DAILY 06/02/15 09/28/17 Insulin Glargine,Hum.rec.anlog 36 unit SQ DAILY PRN 06/02/15 09/28/17 [Lantus Solostar] Carvedilol [Coreg] 25 mg PO BID 09/09/15 09/28/17 Cholecalciferol (D-3) [Vitamin D] 5,000 unit PO DAILY 09/09/15 09/28/17 Furosemide [Lasix] 40 mg PO BID 09/09/15 09/28/17 Metolazone [Zaroxolyn] 2.5 mg PO DAILY 09/09/15 09/28/17 hydrALAZINE [HydrALAZINE] 25 mg PO Q6HR 09/09/15 09/28/17 Warfarin [Coumadin] 2 mg PO 1800 06/09/17 09/28/17 Collagenase Oint [Santyl] 1 appl TP DAILY 06/15/17 09/28/17 Folic Acid/Vit B Complex and C 1 tab PO DAILY 06/15/17 09/28/17 [Dialyvite Tablet] Sevelamer [Renvela] 800 mg PO TIDWM 09/09/17 09/28/17 Previous Rx's Medication Instructions Recorded Docusate [Colace] 100 mg PO DAILY #10 capsule 08/30/17 Allergies Allergy/AdvReac Type Severity Reaction Status Date / Time No Known Allergies Allergy Verified 10/24/17 12:33 Constitutional: Denies: fever, chills, weakness Cardiovascular: Denies: chest pain, palpitations Respiratory: Reports: dyspnea. Denies: cough, wheezes, sputum production, other Gastrointestinal: Denies: abdominal pain, nausea, vomiting Genitourinary: Denies: urgency, dysuria Musculoskeletal: Denies: back pain, neck pain, joint swelling Integumentary: Denies: rash, abrasion, lesions Neurological: Denies: headache, weakness, numbness Psychiatric: Denies: anxiety, depression, suicidal thoughts Endocrine: Denies: fatigue, heat or cold intolerance, polydipsia Hematological/Lymphatic: Denies: easy bleeding, easy bruising, lymphadenopathy Past Medical History - Past Medical History Medical history: Reports: atrial fibrillation, coronary artery disease, diabetes , dialysis, GERD, GI bleed, hyperlipidemia, hypertension, myocardial infarction , renal disease, valvular heart disease, other Surgical history: Reports: angioplasty/stent, cholecystectomy, hysterectomy Psychiatric history: Reports: no psych history WARD SUPERVISOR history: Reports: no WARD SUPERVISOR history - Social History Smoking Status: Never smoker Smokeless Tobacco Status: No Alcohol use: Reports: none Drug use: Reports: none Physical Exam - General Limitations: no limitations - Chest Chest inspection: Present: normal inspection, symmetric chest wall rise - Respiratory Respiratory exam: Present: normal lung sounds bilaterally, respiratory distress. Absent: prolonged expiratory phase - Cardiovascular Cardiovascular exam: Present: regular rate, normal rhythm - Expanded Lower Extremity Exam Lower leg exam: Present: swelling Foot/toe exam: Present: swelling - Neurological Exam Neurological exam: Present: alert, oriented X3 - Psychiatric Psychiatric exam: Present: normal affect, normal mood Course Course Narrative: 76 YO F presenting with SOB with history of CHF. DDX pulmonary congestion secondary to CHF - ordered CXR. - Reevaluation(s) Reevaluation #1: CXR shows pulmonary congestion and heart dilation - SOB due to pulmonary congestion secondary to CHF. Consulted hospitalists for admission and management of SOB, and patient will be admitted. Per hosptalists recs 60 lasixs IV admistered. Vital Signs Temperature 97.5 F L 10/24/17 12:27 Pulse Rate 74 10/24/17 12:27 Respiratory Rate 20 10/24/17 12:27 Blood Pressure 133/73 10/24/17 12:27 O2 Sat by Pulse Oximetry 99 10/24/17 12:27 Temperature 97.5 F L 10/24/17 13:16 Pulse Rate 73 10/24/17 13:16 Respiratory Rate 22 10/24/17 13:16 Blood Pressure 107/66 10/24/17 13:16 O2 Sat by Pulse Oximetry 100 10/24/17 13:16 Oxygen Delivery Oxygen Delivery Room Air Shortness of Breath/Dyspnea - Lab Data Result diagrams: 10/24/17 13:12 10/24/17 13:12 Lab Results 10/24/17 10/24/17 10/24/17 Range/Units 13:12 13:12 13:12 WBC 3.4 L (4.3-11.1) K/mcL RBC 3.20 L (3.82-4.97) M/mcL Hgb 11.1 L (11.5-15.4) g/dL Hct 34.7 L (35.3-44.9) % MCV 108.4 H (83.0-100.0) fL MCH 34.7 H (28.0-33.3) pg MCHC 32.0 (31.6-35.5) g/dL RDW 16.1 H (11.5-14.5) % Plt Count 55 L (140-400) K/mcL MPV 13.5 H (9.4-12.4) fL Immature Gran % 0.6 (0-4) % Seg Neutrophils % 69.3 % Lymphocytes % 17.3 % Monocytes % 8.6 % Eosinophils % 3.0 % Basophils % 1.2 % Neutrophils # 2.4 (1.6-8.9) K/mcL Lymphocytes # 0.6 (0.6-4.6) K/mcL Monocytes # 0.3 (0.0-1.3) K/mcL Eosinophils # 0.1 (0.0-0.6) K/mcL Basophils # 0.0 (0.0-0.2) K/mcL Immature Plt Fraction 16.4 H (1.1-6.1) % Sodium 135 L (136-145) mEq/L Potassium 3.4 L (3.5-5.1) mEq/L Chloride 100 (98-107) mEq/L Carbon Dioxide 25 (23-29) mEq/L BUN 32 H (8-23) mg/dL Creatinine 3.17 H (0.60-1.20) mg/dL Est GFR ( Amer) 17 L (> 60) Est GFR (Non-Af Amer) 14 L (> 60) BUN/Creatinine Ratio 10 (6-26) Glucose 182 H (70-105) mg/dL Calculated Osmolality 292 (280-300) Lactic Acid 1.6 (0.5-2.2) mmol/L Calcium 8.7 (8.6-10.3) mg/dL Troponin I 0.04 H* (< 0.04) ng/mL B-Natriuretic Peptide (Less than 100) pg/mL 10/24/17 Range/Units 13:12 WBC (4.3-11.1) K/mcL RBC (3.82-4.97) M/mcL Hgb (11.5-15.4) g/dL Hct (35.3-44.9) % MCV (83.0-100.0) fL MCH (28.0-33.3) pg MCHC (31.6-35.5) g/dL RDW (11.5-14.5) % Plt Count (140-400) K/mcL MPV (9.4-12.4) fL Immature Gran % (0-4) % Seg Neutrophils % % Lymphocytes % % Monocytes % % Eosinophils % % Basophils % % Neutrophils # (1.6-8.9) K/mcL Lymphocytes # (0.6-4.6) K/mcL Monocytes # (0.0-1.3) K/mcL Eosinophils # (0.0-0.6) K/mcL Basophils # (0.0-0.2) K/mcL Immature Plt Fraction (1.1-6.1) % Sodium (136-145) mEq/L Potassium (3.5-5.1) mEq/L Chloride (98-107) mEq/L Carbon Dioxide (23-29) mEq/L BUN (8-23) mg/dL Creatinine (0.60-1.20) mg/dL Est GFR ( Amer) (> 60) Est GFR (Non-Af Amer) (> 60) BUN/Creatinine Ratio (6-26) Glucose (70-105) mg/dL Calculated Osmolality (280-300) Lactic Acid (0.5-2.2) mmol/L Calcium (8.6-10.3) mg/dL Troponin I (< 0.04) ng/mL B-Natriuretic Peptide 2060 H (Less than 100) pg/mL
[2017-10-24] MEDS ORDERED: traMADol 50 MG TABLET PO PRN (16:14)
[2017-10-24] MEDS ORDERED: Naloxone 0.4 MG/ML INJ IVP PRN (16:14)
[2017-10-24] MEDS ORDERED: Acetaminophen 325 MG TABLET PO PRN (16:14)
[2017-10-24] MEDS ORDERED: Insulin DETEMIR 100 UNIT/ML X5UNITS SQ PRN (16:16)
[2017-10-24] MEDS ORDERED: D5% in Water 1,000 ML IVC PRN (16:18)
[2017-10-24] MEDS ORDERED: Dextrose Gel 15 GM/37.5 ML TUBE PO PRN ×2 (16:18)
[2017-10-24] MEDS ORDERED: *HR* Dextrose 50 % in Water (Syg) 50 ML SYRINGE IVP PRN (16:18)
--- NOTE | 2017-10-24 16:24 | Internal Med History&Physical ---
Date of Encounter: 10/24/17 Time of Encounter: 16:22 Internal Medicine - H&P: HPI Chief complaint: SOB Admitted From: Home Plans for Post Hospital Care: Home History of present illness: Ms. Deshpande is a 76 year old female female presented to the emergency of for shortness of breath. Patient has a history of CHF and ESRD, she is on hemodialysis as well. She gets dialysis on Tuesday. She follows with Dr. Paniagua. She receives dialysis today. Patient had chest x-ray today that showed bilateral pleural effusions. She followed up with her PCP after dialysis and was told to come to the ER for increasing shortness of breath. Patient does not feel much better after the dialysis. She still feels short of breath. She recently saw cardiology. She had a recent increase in her Lasix to 3 times daily. She is already on metolazone. Patient denies fever, night sweats, but endorsed chills at times. She also has dry cough for the past week. At the ED, her vital signs were stable, labs revealed slightly elevated troponin and BNP. Chest x-ray showed moderately worsening pleural effusion and the pulmonary congestions. Patient will be admitted for observation. Past Med Surg Social Fam HX - Past Medical History Medical history: atrial fibrillation, coronary artery disease, diabetes, dialysis, GERD, GI bleed, hyperlipidemia, hypertension, myocardial infarction, renal disease, valvular heart disease, other Additional medical history: Hemodialysis Psychiatric history: no psych history - Past Surgical History Surgical History: angioplasty/stent, cholecystectomy, hysterectomy Additional surgical history: skin biopsies on face,MOHS procedure on left nasal sidewall,creation of left wrist arterial venous fistula,2 cardiac stents,skin cancer from right hand - Social History Smoking Status: Never smoker Smokeless Tobacco Status: No Alcohol use: none Drug use: none - Family History Mother Adopted: No Living Status: Hx Family Endocrine Disorder: Yes Father Adopted: No Living Status: Hx Family Cardiac Disorders: Yes Hx Family Neuromuscular Disorders: Yes Internal Medicine - H&P: Meds Atorvastatin [Lipitor] 40 mg PO HS 06/02/15 [History] Enalapril Maleate [Vasotec] 20 mg PO BID 06/02/15 [History] Esomeprazole Magnesium [Nexium] 40 mg PO DAILY 06/02/15 [History] Insulin Glargine,Hum.rec.anlog [Lantus Solostar] 36 unit SQ DAILY PRN 06/02/15 [ History] Carvedilol [Coreg] 25 mg PO BID 09/09/15 [History] Cholecalciferol (D-3) [Vitamin D] 5,000 unit PO DAILY 09/09/15 [History] Furosemide [Lasix] 40 mg PO BID 09/09/15 [History] hydrALAZINE [HydrALAZINE] 25 mg PO Q6HR 09/09/15 [History] Warfarin [Coumadin] 2.5 mg PO DAILY 06/09/17 [History] Collagenase Oint [Santyl] 1 appl TP DAILY 06/15/17 [History] Folic Acid/Vit B Complex and C [Dialyvite Tablet] 1 tab PO DAILY 06/15/17 [ History] Docusate [Colace] 100 mg PO DAILY #10 capsule 08/30/17 [Rx] Sevelamer [Renvela] 800 mg PO TIDWM 09/09/17 [History] Aspirin Enteric Coated [Aspirin EC] 81 mg PO DAILY 10/24/17 [History] metOLazone [Zaroxolyn] 5 mg PO DAILY 10/24/17 [History] 3 Allergy/AdvReac Type Severity Reaction Status Date / Time No Known Allergies Allergy Verified 10/24/17 15:31 All Systems PM: A 10-system review of systems was performed and is negative for pertinent findings except as documented above in the HPI. Review of systems: REVIEW OF SYSTEMS: CONSTITUTIONAL: see HPI. HEENT: Eyes: No visual loss, blurred vision, double vision or yellow sclerae. Ears, Nose, Throat: No hearing loss, sneezing, congestion, runny nose or sore throat. SKIN: No rash or itching. CARDIOVASCULAR: No chest pain, chest pressure or chest discomfort. No palpitations or edema. RESPIRATORY: see HPI. GASTROINTESTINAL: No anorexia, nausea, vomiting or diarrhea. No abdominal pain or blood. GENITOURINARY: No dysuria, urgency, or frequency. NEUROLOGICAL: No headache, dizziness, syncope, paralysis, ataxia, numbness or tingling in the extremities. No change in bowel or bladder control. MUSCULOSKELETAL: No muscle, back pain, joint pain or stiffness. HEMATOLOGIC: No anemia, bleeding or bruising. LYMPHATICS: No enlarged nodes. No history of splenectomy. PSYCHIATRIC: No history of depression or anxiety. ENDOCRINOLOGIC: No reports of sweating, cold or heat intolerance. No polyuria or polydipsia. - Constitutional Vitals: Temp Pulse Resp BP Pulse Ox 97.5 F L 73 20 127/54 100 10/24/17 13:16 10/24/17 13:16 10/24/17 15:20 10/24/17 15:20 10/24/17 13:16 General appearance: Present: cooperative, A&O X 3, answers questions appropriately Exam: PHYSICAL EXAMINATION: GENERAL APPEARANCE: The patient is alert, oriented and in no acute distress. HEENT: Head is normocephalic. The sinuses are nontender. Pupils are equal and reactive. The nares are patent. Oropharynx clear without lesions. NECK: Supple without lymphadenopathy. HEART: bilateral crackles. LUNGS: No crackles or wheezes are heard. ABDOMEN: Soft, nontender, nondistended with good bowel sounds heard. Inguinal area is normal. EXTREMITIES: Without cyanosis, clubbing or edema. NEUROLOGICAL: Gross nonfocal. SKIN: Warm and dry without any rash. Internal Med - H&P Results - Labs CBC & Chem 7: 10/24/17 13:12 10/24/17 13:12 - Assessment and plan (1) Dyspnea Current Visit: Yes Status: Acute Assessment and plan: 76 year female with history of ESRD on dialysis, CHF, atrial fibrillation, hypertension, and diabetes presented with acute onset of shortness of breath for a week. She received dialysis 3 times a week on Tuesday/Tuesday/Tuesday, she just received 1 HD today. She reported HD does not help her dyspnea. Her vital signs were stable, afebrile, labs revealed mildly elevated BNP, and chest x-ray showed increased pulmonary congestion and bilateral pleural effusion. - Dyspnea etiology likely volume overloaded. Patient has ESRD with HD, currently making urine, she is on Lasix and metolazone. Lasix dose was increased recently. - Nephrology was consulted, patient may need extra HD. - The patient last TTE on 08/2016 revealed EF 55%, moderate diastolic dysfunction. At this moment, repeat ECHO has no clinical significance given ESRD and fluid overload. - Pt does have slightly evevated troponin, but she also chronic troponin elevation due to ESRD. No EKG changed, will trend troponin. Qualifiers: Dyspnea type: unspecified Qualified Code(s): R06.00 - Dyspnea, unspecified (2) Diastolic heart failure Current Visit: No Status: Chronic Assessment and plan: Continue diuretics and hemodialysis. Qualifiers: Heart failure chronicity: chronic Qualified Code(s): I50.32 - Chronic diastolic (congestive) heart failure (3) Diabetes mellitus, type II, insulin dependent Current Visit: No Status: Chronic Assessment and plan: continue home insulin, started patient on insulin sliding scale. (4) ESRD (end stage renal disease) on dialysis Current Visit: No Status: Chronic Assessment and plan: Renal consult, continue home medications. (5) 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 Current Visit: No Status: Chronic Assessment and plan: Regular follow-up with PCP. Qualifiers: Laterality: right Qualified Code(s): C44.622 - Squamous cell carcinoma of skin of right upper limb, including shoulder (6) Afib Current Visit: No Status: Chronic Assessment and plan: Rate controlled, continue Coumadin, daily PT/INR. Qualifiers: Atrial fibrillation type: permanent Qualified Code(s): I48.2 - Chronic atrial fibrillation (7) Elevated troponin Current Visit: No Status: Chronic Assessment and plan: We will trend troponin. (8) HTN (hypertension) Current Visit: No Status: Chronic Assessment and plan: BP controlled, continue home medications. Qualifiers: Hypertension type: unspecified Qualified Code(s): I10 - Essential (primary ) hypertension (9) CAD (coronary artery disease) Current Visit: No Status: Chronic Assessment and plan: Continue telemetry monitoring, cycle troponin, EKG as needed, continue home medications. Qualifiers: Coronary Disease-Associated Artery/Lesion type: [place] artery [place] vs. transplanted heart: [place] heart Associated angina: without angina Qualified Code(s): I25.10 - Atherosclerotic heart disease of [place] coronary artery without angina pectoris (10) DVT prophylaxis Current Visit: No Status: Acute Assessment and plan: Therapeutic PT/INR, continue Coumadin. - Time Spent With Patient Total time spent is greater than 50% in coordination of care (as documented) at patient's floor/unit and/or counseling patient: Greater than 35 minutes
[2017-10-24] MEDS: Insulin LISPRO 300 UNITS/3 ML VIAL SQ SCH (19:03)
[2017-10-24] MEDS: hydrALAZINE 25 MG TABLET PO SCH (19:08)
[2017-10-24] MEDS: Furosemide 40 MG TABLET PO SCH (20:58)
[2017-10-24] MEDS ORDERED: Insulin LISPRO 300 UNITS/3 ML VIAL SQ SCH (21:00)
[2017-10-24] MEDS: Lisinopril 20 MG TABLET PO SCH (21:03)
[2017-10-24] MEDS ORDERED: Albuterol 2.5 MG/3 ML NEBULIZER IH ONE (22:28)
[2017-10-25] MEDS: hydrALAZINE 25 MG TABLET PO SCH ×3 (02:12→13:57)
[2017-10-25 02:13] LABS: Immature Granulocytes % 0.3 % (0-4)
[2017-10-25 02:15] LABS: Basophils # 0.1 K/mcL (0.0-0.2); Basophils % 1.6 %; Eosinophils # 0.1 K/mcL (0.0-0.6); Eosinophils % 1.9 %; Hematocrit 33.5 % (35.3-44.9); Hemoglobin 10.6 g/dL (11.5-15.4); Immature Platelets 16.7 % (1.1-6.1); Lymphocytes # 0.9 K/mcL (0.6-4.6); Lymphocytes % 28.7 %; Mean Corpuscular HGB Conc 31.6 g/dL (31.6-35.5); Mean Corpuscular Hemoglobin 33.8 pg (28.0-33.3); Mean Corpuscular Volume 106.7 fL (83.0-100.0); Mean Platelet Volume 12.4 fL (9.4-12.4); Monocytes # 0.3 K/mcL (0.0-1.3); Monocytes % 10.6 %; Neutrophils # 1.8 K/mcL (1.6-8.9); Red Blood Count 3.14 M/mcL (3.82-4.97); Red Cell Distribution Width 16.4 % (11.5-14.5); Segmented Neutrophils % 56.9 %
[2017-10-25 02:16] LABS: Platelet Count 70 K/mcL (140-400)
[2017-10-25 02:18] LABS: Prothrombin Time 22.7 Seconds (9.4-12.1)
[2017-10-25 02:32] LABS: Potassium 3.6 mEq/L (3.5-5.1)
--- NOTE | 2017-10-25 08:57 | Electrocardiograph Report ---
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
[2017-10-25] MEDS ORDERED: metOLazone 5 MG TABLET PO SCH (09:00)
[2017-10-25] MEDS ORDERED: Aspirin Enteric Coated 81 MG Tablet PO SCH (09:00)
[2017-10-25] MEDS ORDERED: Renal Vitamin 1 CAP CAPSULE PO SCH (09:00)
[2017-10-25] MEDS ORDERED: Insulin DETEMIR 100 UNIT/ML X5UNITS SQ SCH (09:00)
[2017-10-25] MEDS ORDERED: Cholecalciferol (D-3) 1,000 UNIT TABLET PO SCH (09:00)
[2017-10-25] MEDS: Insulin LISPRO 300 UNITS/3 ML VIAL SQ SCH ×2 (09:49→14:00)
--- NOTE | 2017-10-25 10:03 | Nephrology Consult Note ---
Date of Encounter: 10/25/17 Time of Encounter: 10:03 Assessment and Plan (1) ESRD (end stage renal disease) on dialysis Current Visit: No Status: Acute Current regimen is MWF at [facility]. Last tx was Tuesday without complication. Advised [facility] to challenge dry weight tomorrow if pt is discharged. Avoid nephrotoxins and renal dose all medications. May go home from a renal standpoint. (2) Dyspnea Current Visit: Yes Status: Acute Appears to be resolved. Qualifiers: Dyspnea type: unspecified Qualified Code(s): R06.00 - Dyspnea, unspecified (3) Pleural effusion Current Visit: Yes Status: Acute Per primary. (4) Cough Current Visit: No Status: Acute Tessalon Pearls ordered. Would recommend ordered PRN Albuterol for shortness of breath. History of Present Illness - Reason for Consult Consult date: 10/25/17 end stage renal disease - Chief Complaint cough, SOB - History of Present Illness Ms. Deshpande is a 76 year old female with ESRD. Current regimen is MWF at [facility]. Last treatment was Tuesday without complication. PMH: atrial fibrillation, coronary artery disease, diabetes, GERD, hyperlipidemia, hypertension, myocardial infarction and calciphylaxis. Is currently on Sodium Thiosulfate with HD treatments. She presented to ED yesterday with shortness of breath and a cough. She states this has been going on for more than 3 days because she was just in ED for same complaint and they instructed her to increase home PO Lasix. She did increase her Lasix but still did not feel well. Denies fever, chills, nausea, vomiting. Admits to diarrhea that started today. Denies CP. Patient is feeling well now and would like to go home. Past Med Surg Social Fam HX - Past Medical History Medical history: atrial fibrillation, coronary artery disease, diabetes, dialysis, GERD, GI bleed, hyperlipidemia, hypertension, myocardial infarction, renal disease, valvular heart disease, other Additional medical history: Hemodialysis Psychiatric history: no psych history - Past Surgical History Surgical History: angioplasty/stent, cholecystectomy, hysterectomy Additional surgical history: skin biopsies on face,MOHS procedure on left nasal sidewall,creation of left wrist arterial venous fistula,2 cardiac stents,skin cancer from right hand - Social History Smoking Status: Never smoker Smokeless Tobacco Status: No Alcohol use: none Drug use: none - Family History Mother Adopted: No Living Status: Hx Family Endocrine Disorder: Yes Father Adopted: No Living Status: Hx Family Cardiac Disorders: Yes Hx Family Neuromuscular Disorders: Yes Medications and Allergies Atorvastatin [Lipitor] 40 mg PO HS 06/02/15 [History] Enalapril Maleate [Vasotec] 20 mg PO BID 06/02/15 [History] Esomeprazole Magnesium [Nexium] 40 mg PO DAILY 06/02/15 [History] Insulin Glargine,Hum.rec.anlog [Lantus Solostar] 36 unit SQ DAILY 06/02/15 [ History] Carvedilol [Coreg] 25 mg PO BID 09/09/15 [History] Cholecalciferol (D-3) [Vitamin D] 5,000 unit PO DAILY 09/09/15 [History] Furosemide [Lasix] 40 mg PO BID 09/09/15 [History] hydrALAZINE [HydrALAZINE] 25 mg PO Q6HR 09/09/15 [History] Warfarin [Coumadin] 2.5 mg PO DAILY 06/09/17 [History] Collagenase Oint [Santyl] 1 appl TP DAILY 06/15/17 [History] Folic Acid/Vit B Complex and C [Dialyvite Tablet] 1 tab PO DAILY 06/15/17 [ History] Docusate [Colace] 100 mg PO DAILY #10 capsule 08/30/17 [Rx] Sevelamer [Renvela] 800 mg PO TIDWM 09/09/17 [History] Aspirin Enteric Coated [Aspirin EC] 81 mg PO DAILY 10/24/17 [History] metOLazone [Zaroxolyn] 5 mg PO DAILY 10/24/17 [History] 3 Allergy/AdvReac Type Severity Reaction Status Date / Time No Known Allergies Allergy Verified 10/24/17 15:31 Review of Systems Constitutional: no chills, no fatigue, no fever(s) Cardiovascular: dyspnea, edema, no chest pain Respiratory: cough Exam - Vital Signs Vital signs: Initial Vital Signs Temp Pulse Resp BP Pulse Ox 97.5 F L 74 20 133/73 99 10/24/17 12:27 10/24/17 12:27 10/24/17 12:27 10/24/17 12:27 10/24/17 12:27 Vital Signs - Last 8 Hours Temp Pulse Resp BP Pulse Ox 10/25/17 06:56 97.4 F L 62 19 131/75 97 10/25/17 04:28 97.6 F 76 16 116/74 98 Intake and Output 10/24/17 10/25/17 10/25/17 23:59 07:59 15:59 Intake Total 240 / 240 Balance 240 / 240 Intake: Oral 240 / 240 Other: Meal Dinner Percent of Meal Consumed 75% Weight 88.167 kg Blood Glucose* 204 130 - General Appearance General appearance: well-developed, well-nourished EENT: ATNC, hearing intact, vision intact Neck: supple Respiratory: clear Cardiology: edema (+1 pitting edema noted to bilat lower extremties.), normal S1 , normal S2 - Dialysis Access Dialysis Vascular Access: Arteriovenous Fistula thrill: Yes bruit: Yes Gastrointestinal: normoactive bowel sounds, no tenderness, no guarding Integumentary: no rash, warm and dry Additional Comments: Bilateral abdominal wound drsgs C/D/I. Neurologic: alert and oriented x3 Psychiatric: mood/affect appropriate, cooperative Results - Lab Results 10/25/17 02:02 10/25/17 02:02 Most recent lab results Calcium 9.0 mg/dL (8.6-10.3) 10/25/17 02:02 Consult Discharge Plan - Plan Referrals: Lauren Calvillo MD [Primary Care Provider] - 10/31/17 1:45 pm (Please follow up as wschedule...)
[2017-10-25] MEDS ORDERED: Benzonatate 100 MG CAPSULE PO PRN (10:17)
[2017-10-25] MEDS: Lisinopril 20 MG TABLET PO SCH (10:33)
[2017-10-25] MEDS: Furosemide 40 MG TABLET PO SCH (10:33)
[2017-10-25 11:00] VITALS: BP 137/80
--- NOTE | 2017-10-25 13:15 | Discharge Summary ---
- NOTES TO OUTPATIENT PROVIDER Notes to Outpatient Provider: Patient appears to have a chronic thrombocytopenia back to June 2017 however was normal prior to this; presented with platelets of 55,000 and increased to 70,000. No active bleeding would recommend rechecking CBC in 1 week. Orders not resulted at time of discharge: Pending orders 10/24/17 19:56 Culture,Blood [BC] Stat 10/26/17 04:00 Basic Metabolic Panel AM 0400 CBC no Diff [Complete Blood Count w/o Diff] [HEME] AM 0400 PT/INR [Prothrombin Time INR] [COAG] AM 0400 10/27/17 04:00 Basic Metabolic Panel AM 0400 CBC no Diff [Complete Blood Count w/o Diff] [HEME] AM 0400 PT/INR [Prothrombin Time INR] [COAG] AM 0400 10/28/17 04:00 Basic Metabolic Panel AM 0400 CBC no Diff [Complete Blood Count w/o Diff] [HEME] AM 0400 PT/INR [Prothrombin Time INR] [COAG] AM 0400 10/29/17 04:00 Basic Metabolic Panel AM 0400 CBC no Diff [Complete Blood Count w/o Diff] [HEME] AM 0400 PT/INR [Prothrombin Time INR] [COAG] AM 0400 10/30/17 04:00 Basic Metabolic Panel AM 0400 CBC no Diff [Complete Blood Count w/o Diff] [HEME] AM 0400 10/31/17 04:00 Basic Metabolic Panel AM 0400 CBC no Diff [Complete Blood Count w/o Diff] [HEME] AM 0400 Date of Encounter: 10/25/17 Time of Encounter: 13:12 - Discharge Diagnosis (1) Dyspnea Priority: Primary Status: Acute Qualifiers: Dyspnea type: unspecified Qualified Code(s): R06.00 - Dyspnea, unspecified (2) Diastolic heart failure Priority: Secondary Status: Chronic Qualifiers: Heart failure chronicity: chronic Qualified Code(s): I50.32 - Chronic diastolic (congestive) heart failure (3) Diabetes mellitus, type II, insulin dependent Priority: Secondary Status: Chronic (4) ESRD (end stage renal disease) on dialysis Priority: Secondary Status: Chronic (5) 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 Priority: Secondary Status: Chronic Qualifiers: Laterality: right Qualified Code(s): C44.622 - Squamous cell carcinoma of skin of right upper limb, including shoulder (6) Afib Priority: Secondary Status: Chronic Qualifiers: Atrial fibrillation type: permanent Qualified Code(s): I48.2 - Chronic atrial fibrillation (7) Elevated troponin Priority: Secondary Status: Chronic (8) HTN (hypertension) Priority: Secondary Status: Chronic Qualifiers: Hypertension type: unspecified Qualified Code(s): I10 - Essential (primary ) hypertension (9) DVT prophylaxis Priority: Secondary Status: Acute (10) CAD (coronary artery disease) Priority: Secondary Status: Chronic Qualifiers: Coronary Disease-Associated Artery/Lesion type: alutiiq artery [place] vs. transplanted heart: al[place]iiq heart Associated angina: without angina Qualified Code(s): I25.10 - Atherosclerotic heart disease of al[place]iiq coronary artery without angina pectoris Hospital course: Ms. Deshpande is a 76 year old female who presented to the emergency room with complaint of dyspnea and appear volume overloaded. Patient was admitted to the hospital to be evaluated by nephrology for need for extra hemodialysis session. Nephrology evaluated patient and the patient's dyspnea was much improved by that evaluation, they decided that she did not need an extra hemodialysis session and that they will try to challenge her dry weight tomorrow at her scheduled dialysis session. Patient was hemodynamically stable and very eager to go home. Patient will be discharged home and will have her scheduled dialysis tomorrow. Patient was noted to have thrombocytopenia this admission which appears to be back to June 2017. I explained to the patient and family that she should have her CBC checked in 1 week to ensure her platelets continue to remain stable. Platelets increased from 55,000-70,000 this admission. Patient stable and agreeable for discharge and all QUESTIONS answered. Discharge discussed with: patient, family, nurse - Time Spent with Patient Total time spent providing and/or coordinating discharge services: Greater than 30 minutes - Discharge Medications Home Medications: Atorvastatin [Lipitor] 40 mg PO HS 06/02/15 [History] Enalapril Maleate [Vasotec] 20 mg PO BID 06/02/15 [History] Esomeprazole Magnesium [Nexium] 40 mg PO DAILY 06/02/15 [History] Insulin Glargine,Hum.rec.anlog [Lantus Solostar] 36 unit SQ DAILY 06/02/15 [ History] Carvedilol [Coreg] 25 mg PO BID 09/09/15 [History] Cholecalciferol (D-3) [Vitamin D] 5,000 unit PO DAILY 09/09/15 [History] Furosemide [Lasix] 40 mg PO BID 09/09/15 [History] hydrALAZINE [HydrALAZINE] 25 mg PO Q6HR 09/09/15 [History] Warfarin [Coumadin] 2.5 mg PO DAILY 06/09/17 [History] Collagenase Oint [Santyl] 1 appl TP DAILY 06/15/17 [History] Folic Acid/Vit B Complex and C [Dialyvite Tablet] 1 tab PO DAILY 06/15/17 [ History] Docusate [Colace] 100 mg PO DAILY #10 capsule 08/30/17 [Rx] Sevelamer [Renvela] 800 mg PO TIDWM 09/09/17 [History] Aspirin Enteric Coated [Aspirin EC] 81 mg PO DAILY 10/24/17 [History] metOLazone [Zaroxolyn] 5 mg PO DAILY 10/24/17 [History] Allergies/Adverse Reactions: 3 Allergy/AdvReac Type Severity Reaction Status Date / Time No Known Allergies Allergy Verified 10/24/17 15:31 Date of admission: 10/24/17 15:49 Primary care physician: Lauren Calvillo Consults: 10/24/17 16:21 Consult to Nephrology [CONS] Routine Consulting Provider: Kidney Shawna/CHELI/LETTY/ANIBAL Reason for Consult: sob and fluid o verload Call Completed: Yes - Constitutional Vitals: Temp Pulse Resp BP Pulse Ox 97.6 F 83 19 137/80 97 10/25/17 10:59 10/25/17 10:59 10/25/17 10:59 10/25/17 10:59 10/25/17 10:59 General appearance: Present: cooperative, A&O X 3, answers questions appropriately Exam: Constitutional: No acute distress, Alert Psych: AAO x 3 HEENT: NCAT, EOMI Neck: supple, no JVD Cardio: regular rate and rhythm, +s1s2, no murmurs/rubs/gallops, no JVD Resp: decreased breathsounds in bases Abd: soft, non tender/non distended, positive bowel sounds, no gaurding/reboud/ ridgitity Extremities: no clubbing/cyanosis/edema appreciated Neuro: no focal deficits appreciated - Patient Status Disposition: Home, Self-Care Condition: Good Functional capacity at discharge: uses cane/walker Overall status at discharge: patient is back to baseline - Discharge Instructions Follow Up With: Lauren Calvillo MD [Primary Care Provider] - 10/31/17 1:45 pm (Please follow up as wschedule...) - Diet and Activity Activity: increase activity as tolerated Diet: advance to your usual diet, other (renal diet)
[2017-10-25] MEDS ORDERED: Furosemide 40 MG TABLET PO ONE (15:07)
[2017-10-25] MEDS ORDERED: Warfarin perPT PO PRN (18:00)
[2017-10-25] MEDS ORDERED: *HR* Warfarin 2.5 MG TABLET PO ONE (18:00)
== END 2017-10-25 15:04 | disposition home or self-care (01) ==
LOC: 2ANU 12:21 → EMEROOARM 12:21 → 2ANU 16:50
PROVIDERS: ADMIT Internal Medicine; ATTEND Internal Medicine

== ENCOUNTER 2017-12-05 03:55 | Inpatient (IN) ==
[2017-12-05 05:40] LABS: Mean Corpuscular Volume 106.4 fL (83.0-100.0)
[2017-12-05 05:42] LABS: Eosinophils # 0.1 K/mcL (0.0-0.6); Eosinophils % 3.1 %; Hematocrit 34.8 % (35.3-44.9); Hemoglobin 11.2 g/dL (11.5-15.4); Immature Granulocytes % 0.5 % (0-4); Immature Platelets 14.6 % (1.1-6.1); Lymphocytes # 0.4 K/mcL (0.6-4.6); Lymphocytes % 10.6 %; Mean Corpuscular HGB Conc 32.2 g/dL (31.6-35.5); Mean Corpuscular Hemoglobin 34.3 pg (28.0-33.3); Mean Platelet Volume 12.6 fL (9.4-12.4); Monocytes # 0.3 K/mcL (0.0-1.3); Monocytes % 8.3 %; Red Blood Count 3.27 M/mcL (3.82-4.97); Red Cell Distribution Width 14.9 % (11.5-14.5); Segmented Neutrophils % 76.5 %
[2017-12-05 05:53] LABS: Prothrombin Time 22.8 Seconds (9.4-12.1)
[2017-12-05 05:56] LABS: Activated Partial Thrombo Time 41.2 Seconds (26.0-36.0)
[2017-12-05 05:58] LABS: Platelet Count 56 K/mcL (140-400)
[2017-12-05 06:08] LABS: Calcium 9.3 mg/dL (8.6-10.3); Potassium 3.9 mEq/L (3.5-5.1)
[2017-12-05 06:11] LABS: Bilirubin,Urine Small (Negative); Blood,Urine Negative (Negative); Clarity,Urine Cloudy (Clear); Color,Urine Dark Yellow (Yellow); Glucose,Urine (UA) Normal (Normal); Ketones,Urine Trace mg/dL (Negative); Leukocyte Esterase,Urine Moderate (Negative); Nitrite,Urine Negative (Negative); Protein,Urine 30 mg/dL (Neg-Trace); Specific Gravity,Urine 1.029 (1.010-1.025); Urobilinogen,Urine Normal (Normal)
[2017-12-05 06:12] LABS: Troponin I 0.04 ng/mL (< 0.04)
[2017-12-05 06:13] LABS: Hyaline Casts,Urine Few per lpf (None-Few); Squamous Epithelial Cell,Urine Many per lpf (None-Few); WBC,Urine 30-50 per hpf (0-3)
[2017-12-05] MEDS ORDERED: Aspirin 81 MG TAB.CHEW PO ONE (06:16)
[2017-12-05 06:26] LABS: Bacteria,Urine Moderate per hpf (None-Few)
[2017-12-05] MEDS ORDERED: cefTRIAXone 1,000 MG in Water for inj. (sterile) 20 ML 10 ML IVPB ONE (06:33)
--- NOTE | 2017-12-05 06:33 | Emergency Department Note ---
Disposition Clinical Impression: Acute exacerbation of CHF (congestive heart failure) Qualifiers: Heart failure type: unspecified Qualified Code(s): I50.9 - Heart failure, unspecified UTI (urinary tract infection) Qualifiers: Urinary tract infection type: acute cystitis Hematuria presence: without hematuria Qualified Code(s): N30.00 - Acute cystitis without hematuria Disposition: Admitted As Inpatient Condition: Fair General Adult HPI - General Chief complaint: ED Shortness of Breath/Dyspnea Stated complaint: judi Time Seen by Provider: 12/05/17 03:57 Source: EMS Limitations: age - History of Present Illness Pain Scale: 0 - Related Data Home Medications Medication Instructions Recorded Confirmed RX: Atorvastatin [Lipitor] 40 mg PO HS 06/02/15 12/05/17 RX: Enalapril Maleate [Vasotec] 20 mg PO BID 06/02/15 12/05/17 RX: Esomeprazole Magnesium [Nexium] 40 mg PO DAILY 06/02/15 12/05/17 RX: Insulin Glargine,Hum.rec.anlog 36 unit SQ DAILY 06/02/15 12/05/17 [Lantus Solostar] RX: Carvedilol [Coreg] 25 mg PO BID 09/09/15 12/05/17 RX: Furosemide [Lasix] 40 mg PO BID 09/09/15 12/05/17 RX: hydrALAZINE [HydrALAZINE] 25 mg PO Q6HR 09/09/15 12/05/17 RX: Warfarin [Coumadin] 2 mg PO DAILY 06/09/17 12/05/17 RX: Folic Acid/Vit B Complex and C 1 tab PO DAILY 06/15/17 12/05/17 [Dialyvite Tablet] RX: Sevelamer [Renvela] 800 mg PO TIDWM 09/09/17 12/05/17 RX: Aspirin Enteric Coated 81 mg PO DAILY 10/24/17 12/05/17 [Aspirin EC] RX: metOLazone [Zaroxolyn] 2.5 mg PO DAILY 10/24/17 12/05/17 Cholecalciferol (D-3) [Vitamin D] 5,000 unit PO DAILY 11/22/17 12/05/17 Allergies Allergy/AdvReac Type Severity Reaction Status Date / Time No Known Allergies Allergy Verified 11/22/17 10:00 Past Medical History - Past Medical History Medical history: Reports: atrial fibrillation, coronary artery disease, diabetes, dialysis, GERD, GI bleed, hyperlipidemia, hypertension, myocardial infarction, renal disease, valvular heart disease, other Surgical history: Reports: angioplasty/stent, cholecystectomy, hysterectomy Psychiatric history: Reports: no psych history PAPER INSERTER history: Reports: no PAPER INSERTER history - Social History Smoking Status: Never smoker Smokeless Tobacco Status: No Alcohol use: Reports: none Drug use: Reports: none Physical Exam - General Limitations: age General appearance: alert Course Vital Signs Temperature 97.5 F L 12/05/17 04:04 Pulse Rate 77 12/05/17 04:04 Respiratory Rate 20 12/05/17 04:04 Blood Pressure 127/64 12/05/17 04:04 O2 Sat by Pulse Oximetry 100 12/05/17 04:04 Temperature 97.8 F 12/06/17 04:16 Pulse Rate 93 12/06/17 04:16 Respiratory Rate 20 12/06/17 04:16 Blood Pressure 138/83 12/06/17 04:16 O2 Sat by Pulse Oximetry 91 12/06/17 04:16 Oxygen Delivery Oxygen Delivery Nasal Cannula Medical Decision Making - Lab Data Result diagrams: 12/06/17 00:15 12/06/17 00:15 Lab Results 12/05/17 12/05/17 12/05/17 Range/Units 05:19 05:19 05:19 WBC 3.9 L (4.3-11.1) K/mcL RBC 3.27 L (3.82-4.97) M/mcL Hgb 11.2 L (11.5-15.4) g/dL Hct 34.8 L (35.3-44.9) % MCV 106.4 H (83.0-100.0) fL MCH 34.3 H (28.0-33.3) pg MCHC 32.2 (31.6-35.5) g/dL RDW 14.9 H (11.5-14.5) % Plt Count 56 L (140-400) K/mcL MPV 12.6 H (9.4-12.4) fL Immature Gran % 0.5 (0-4) % Seg Neutrophils % 76.5 % Lymphocytes % 10.6 % Monocytes % 8.3 % Eosinophils % 3.1 % Basophils % 1.0 % Neutrophils # 3.0 (1.6-8.9) K/mcL Lymphocytes # 0.4 L (0.6-4.6) K/mcL Monocytes # 0.3 (0.0-1.3) K/mcL Eosinophils # 0.1 (0.0-0.6) K/mcL Basophils # 0.0 (0.0-0.2) K/mcL Immature Plt Fraction 14.6 H (1.1-6.1) % PT 22.8 H (9.4-12.1) Seconds INR 2.0 APTT 41.2 H (26.0-36.0) Seconds Sodium 134 L (136-145) mEq/L Potassium 3.9 (3.5-5.1) mEq/L Chloride 97 L (98-107) mEq/L Carbon Dioxide 22 L (23-29) mEq/L BUN 51 H (8-23) mg/dL Creatinine 5.10 H (0.60-1.20) mg/dL Est GFR ( Amer) 10 L (> 60) Est GFR (Non-Af Amer) 8 L (> 60) BUN/Creatinine Ratio 10 (6-26) Glucose 231 H (70-105) mg/dL Calculated Osmolality 299 (280-300) Lactic Acid (0.5-2.2) mmol/L Calcium 9.3 (8.6-10.3) mg/dL Creatine Kinase 48 (30-223) Units/L Troponin I 0.04 H* (< 0.04) ng/mL B-Natriuretic Peptide (Less than 100) pg/mL Triglycerides (< 150) mg/dL Cholesterol (< 200) mg/dL LDL Cholesterol, Calc (0-99) mg/dL VLDL Cholesterol, Calc (< 31) mg/dL HDL Cholesterol (40-59) mg/dL Cholesterol/HDL Ratio (0-4.9) Urine Color (Yellow) Urine Clarity (Clear) Urine pH (5.0-8.0) pH Units Ur Specific [place] (1.010-1.025) Urine Protein (Neg-Trace) mg/dL Urine Glucose (UA) (Normal) mg/dL Urine Ketones (Negative) mg/dL Urine Blood (Negative) Urine Nitrite (Negative) Urine Bilirubin (Negative) Urine Urobilinogen (Normal) mg/dL Ur Leukocyte Esterase (Negative) Urine Microscopic WBC (0-3) per hpf Ur Squamous Epith Cells (None-Few) per lpf Urine Bacteria (None-Few) per hpf Hyaline Casts (None-Few) per lpf Ur Culture Indicated? (NO) 12/05/17 12/05/17 12/05/17 Range/Units 05:19 05:19 05:55 WBC (4.3-11.1) K/mcL RBC (3.82-4.97) M/mcL Hgb (11.5-15.4) g/dL Hct (35.3-44.9) % MCV (83.0-100.0) fL MCH (28.0-33.3) pg MCHC (31.6-35.5) g/dL RDW (11.5-14.5) % Plt Count (140-400) K/mcL MPV (9.4-12.4) fL Immature Gran % (0-4) % Seg Neutrophils % % Lymphocytes % % Monocytes % % Eosinophils % % Basophils % % Neutrophils # (1.6-8.9) K/mcL Lymphocytes # (0.6-4.6) K/mcL Monocytes # (0.0-1.3) K/mcL Eosinophils # (0.0-0.6) K/mcL Basophils # (0.0-0.2) K/mcL Immature Plt Fraction (1.1-6.1) % PT (9.4-12.1) Seconds INR APTT (26.0-36.0) Seconds Sodium (136-145) mEq/L Potassium (3.5-5.1) mEq/L Chloride (98-107) mEq/L Carbon Dioxide (23-29) mEq/L BUN (8-23) mg/dL Creatinine (0.60-1.20) mg/dL Est GFR ( Amer) (> 60) Est GFR (Non-Af Amer) (> 60) BUN/Creatinine Ratio (6-26) Glucose (70-105) mg/dL Calculated Osmolality (280-300) Lactic Acid 1.4 (0.5-2.2) mmol/L Calcium (8.6-10.3) mg/dL Creatine Kinase (30-223) Units/L Troponin I (< 0.04) ng/mL B-Natriuretic Peptide 2696 H (Less than 100) pg/mL Triglycerides (< 150) mg/dL Cholesterol (< 200) mg/dL LDL Cholesterol, Calc (0-99) mg/dL VLDL Cholesterol, Calc (< 31) mg/dL HDL Cholesterol (40-59) mg/dL Cholesterol/HDL Ratio (0-4.9) Urine Color Dark Yellow (Yellow) Urine Clarity Cloudy A (Clear) Urine pH 5.0 (5.0-8.0) pH Units Ur Specific [place] 1.029 H (1.010-1.025) Urine Protein 30 H (Neg-Trace) mg/dL Urine Glucose (UA) Normal (Normal) mg/dL Urine Ketones Trace H (Negative) mg/dL Urine Blood Negative (Negative) Urine Nitrite Negative (Negative) Urine Bilirubin Small H (Negative) Urine Urobilinogen Normal (Normal) mg/dL Ur Leukocyte Esterase Moderate H (Negative) Urine Microscopic WBC 30-50 H (0-3) per hpf Ur Squamous Epith Cells Many H (None-Few) per lpf Urine Bacteria Moderate H (None-Few) per hpf Hyaline Casts Few (None-Few) per lpf Ur Culture Indicated? NO. A (NO) 12/05/17 12/05/17 Range/Units 12:43 12:43 WBC (4.3-11.1) K/mcL RBC (3.82-4.97) M/mcL Hgb (11.5-15.4) g/dL Hct (35.3-44.9) % MCV (83.0-100.0) fL MCH (28.0-33.3) pg MCHC (31.6-35.5) g/dL RDW (11.5-14.5) % Plt Count (140-400) K/mcL MPV (9.4-12.4) fL Immature Gran % (0-4) % Seg Neutrophils % % Lymphocytes % % Monocytes % % Eosinophils % % Basophils % % Neutrophils # (1.6-8.9) K/mcL Lymphocytes # (0.6-4.6) K/mcL Monocytes # (0.0-1.3) K/mcL Eosinophils # (0.0-0.6) K/mcL Basophils # (0.0-0.2) K/mcL Immature Plt Fraction (1.1-6.1) % PT (9.4-12.1) Seconds INR APTT (26.0-36.0) Seconds Sodium (136-145) mEq/L Potassium (3.5-5.1) mEq/L Chloride (98-107) mEq/L Carbon Dioxide (23-29) mEq/L BUN (8-23) mg/dL Creatinine (0.60-1.20) mg/dL Est GFR ( Amer) (> 60) Est GFR (Non-Af Amer) (> 60) BUN/Creatinine Ratio (6-26) Glucose (70-105) mg/dL Calculated Osmolality (280-300) Lactic Acid (0.5-2.2) mmol/L Calcium (8.6-10.3) mg/dL Creatine Kinase (30-223) Units/L Troponin I 0.03 (< 0.04) ng/mL B-Natriuretic Peptide (Less than 100) pg/mL Triglycerides 71 (< 150) mg/dL Cholesterol 84 (< 200) mg/dL LDL Cholesterol, Calc 38 (0-99) mg/dL VLDL Cholesterol, Calc 14 (< 31) mg/dL HDL Cholesterol 32 L (40-59) mg/dL Cholesterol/HDL Ratio 2.6 (0-4.9) Urine Color (Yellow) Urine Clarity (Clear) Urine pH (5.0-8.0) pH Units Ur Specific [place] (1.010-1.025) Urine Protein (Neg-Trace) mg/dL Urine Glucose (UA) (Normal) mg/dL Urine Ketones (Negative) mg/dL Urine Blood (Negative) Urine Nitrite (Negative) Urine Bilirubin (Negative) Urine Urobilinogen (Normal) mg/dL Ur Leukocyte Esterase (Negative) Urine Microscopic WBC (0-3) per hpf Ur Squamous Epith Cells (None-Few) per lpf Urine Bacteria (None-Few) per hpf Hyaline Casts (None-Few) per lpf Ur Culture Indicated? (NO) Attestation Statement - Attestation Attestation: I examined this patient and my medical decision-making was reviewed with the Resident Physician. I agree with the documented findings, disposition and treatment plan as described except to the extent set forth below. Findings consistent with heart failure, urinary tract infection, start antibiotics, BiPAP, will need diuresis however due to end-stage renal disease likely would need dialyzed. Patient be admitted for further management.
--- NOTE | 2017-12-05 06:54 | Emergency Department Note ---
Disposition Clinical Impression: Acute exacerbation of CHF (congestive heart failure) Qualifiers: Heart failure type: systolic Qualified Code(s): I50.23 - Acute on chronic systolic (congestive) heart failure UTI (urinary tract infection) Qualifiers: Urinary tract infection type: acute cystitis Hematuria presence: without hematuria Qualified Code(s): N30.00 - Acute cystitis without hematuria Disposition: Admitted As Inpatient Condition: Fair Referrals: Lauren Calvillo MD [Primary Care Provider] - Forms: ED Satisfaction Letter Time of Disposition: 06:56 SOB HPI - General Chief Complaint: ED Shortness of Breath/Dyspnea Stated Complaint: judi Time Seen by Provider: 12/05/17 03:57 Source: EMS Mode of arrival: EMS Limitations: age Nursing Notes Reviewed: Yes Vital Signs Reviewed: Yes - History of Present Illness Patient presents in the ED with the chief complaint of shortness of breath. states she is been having some trouble breathing over the last couple of days but it got acutely worse this morning and actually woke her up from sleep to the point where she was unable to lay back down to go to sleep. No fever or chills. Is having some chest tightness but denies any chest pain. States she has a history of A. fib and is on Coumadin and always has this chest tightness a ssociated with her congestive heart failure. She is on dialysis Tuesday, Tuesday, Tuesday. States that she did get dialysis on Tuesday area. Denies any abdominal pain. Does have chronic stable pain and swelling in her legs. - Related Data Home Medications Medication Instructions Recorded Confirmed Atorvastatin [Lipitor] 40 mg PO HS 06/02/15 11/22/17 Enalapril Maleate [Vasotec] 20 mg PO BID 06/02/15 12/05/17 Esomeprazole Magnesium [Nexium] 40 mg PO DAILY 06/02/15 12/05/17 Insulin Glargine,Hum.rec.anlog 36 unit SQ DAILY 06/02/15 12/05/17 [Lantus Solostar] Carvedilol [Coreg] 25 mg PO BID 09/09/15 12/05/17 Cholecalciferol (D-3) [Vitamin D] 5,000 unit PO DAILY 09/09/15 11/22/17 Furosemide [Lasix] 40 mg PO BID 09/09/15 12/05/17 hydrALAZINE [HydrALAZINE] 25 mg PO Q6HR 09/09/15 12/05/17 Warfarin [Coumadin] 2 mg PO DAILY 06/09/17 12/05/17 Collagenase Oint [Santyl] 1 appl TP DAILY 06/15/17 11/22/17 Folic Acid/Vit B Complex and C 1 tab PO DAILY 06/15/17 11/22/17 [Dialyvite Tablet] Sevelamer [Renvela] 800 mg PO TIDWM 09/09/17 11/22/17 Aspirin Enteric Coated [Aspirin EC] 81 mg PO DAILY 10/24/17 11/22/17 metOLazone [Zaroxolyn] 2.5 mg PO DAILY 10/24/17 12/05/17 Cholecalciferol (D-3) [Vitamin D] 5,000 unit PO DAILY 11/22/17 12/05/17 Previous Rx's Medication Instructions Recorded Docusate [Colace] 100 mg PO DAILY #10 capsule 08/30/17 Allergies Allergy/AdvReac Type Severity Reaction Status Date / Time No Known Allergies Allergy Verified 11/22/17 10:00 Review of Systems: As reviewed in the HPI. All other systems reviewed are negative or normal. Past Medical History - Past Medical History Attestation: Yes The following information was validated with the patient. Source: old records reviewed Medical history: Reports: atrial fibrillation, coronary artery disease, diabetes, dialysis, GERD, GI bleed, hyperlipidemia, hypertension, myocardial infarction, renal disease, valvular heart disease, other Surgical history: Reports: angioplasty/stent, cholecystectomy, hysterectomy Psychiatric history: Reports: no psych history SENIOR SOFTWARE TEST ENGINEER history: Reports: no SENIOR SOFTWARE TEST ENGINEER history - Social History Smoking Status: Never smoker Smokeless Tobacco Status: No Alcohol use: Reports: none Drug use: Reports: none Physical Exam CONSTITUTIONAL: [Ill appearing, alert and in mild respiratory distress] EYES: [EOMI, clear conjunctiva, PERRLA] HENT: [Normocephalic, atraumatic, moist mucus membranes, normal oropharynx] NECK: [normal inspection, full ROM, trachea midline, no obvious swelling] PULMONARY: [Mild respiratory distress, accessory muscle use, Rales bilateral bases CARDIOVASCULAR: [Rate controlled A. fib, normal heart sounds, systolic murmurs, distal extremities are warm and well perfused, 2+ edema bilaterally] GASTROINSTESTINAL: [soft, non-tender, non-rigid, non-distended, no guarding, no rebound, normal bowel sounds] GENITOURINARY/RECTAL: [deferred] NEUROLOGIC: [Alert, oriented x3, normal speech, moves all extremities] EXTREMITIES: [Normal inspection, full ROM, no tenderness, no pedal edema, slightly delayed cap refill] MUSCULOSKELETAL: [no gross deformities, atraumatic] SKIN: [No cyanosis, no diaphoresis, normal color, warm, no rash] PSYCHIATRIC: [normal mood and affect] - General Limitations: age General appearance: alert Course Course Narrative: Patient presents to the ED, clinically in a CHF exacerbation. We will place on BiPAP and given Lasix. We will get a chest x-ray and labs and admit. We did not end up giving Lasix. Due to the patient's renal dysfunction and being on dialysis. Patient had BiPAP ordered, but respiratory was unable to put the patient on BiPAP due to an emergency in ICU. She was eventually placed on BiPAP to help with volume redistribution. Her BNP is elevated. She also apparently has a urinary tract infection and we give her dose of Rocephin, although she was not complaining of urinary symptoms. She will be admitted to the hospitalist service for further workup. Would likely benefit most from diuresis during dialysis. Patient accepted the hospitalist service. Vital Signs Temperature 97.5 F L 12/05/17 04:04 Pulse Rate 77 12/05/17 04:04 Respiratory Rate 20 12/05/17 04:04 Blood Pressure 127/64 12/05/17 04:04 O2 Sat by Pulse Oximetry 100 12/05/17 04:04 Temperature 97.5 F L 12/05/17 04:04 Pulse Rate 78 12/05/17 06:30 Respiratory Rate 14 12/05/17 06:30 Blood Pressure 124/62 12/05/17 06:30 O2 Sat by Pulse Oximetry 99 12/05/17 06:30 Oxygen Delivery Oxygen Delivery Bipap Shortness of Breath/Dyspnea - Medical Records Medical records reviewed: Yes I reviewed the patient's medical records. - Lab Data Lab results reviewed: Yes I reviewed the patient's lab results. Result diagrams: 12/05/17 05:19 12/05/17 05:19 Lab Results 12/05/17 12/05/1712/05/18 Range/Units 05:19 05:19 05:19 WBC 3.9 L (4.3-11.1) K/mcL RBC 3.27 L (3.82-4.97) M/mcL Hgb 11.2 L (11.5-15.4) g/dL Hct 34.8 L (35.3-44.9) % MCV 106.4 H (83.0-100.0) fL MCH 34.3 H (28.0-33.3) pg MCHC 32.2 (31.6-35.5) g/dL RDW 14.9 H (11.5-14.5) % Plt Count 56 L (140-400) K/mcL MPV 12.6 H (9.4-12.4) fL Immature Gran % 0.5 (0-4) % Seg Neutrophils % 76.5 % Lymphocytes % 10.6 % Monocytes % 8.3 % Eosinophils % 3.1 % Basophils % 1.0 % Neutrophils # 3.0 (1.6-8.9) K/mcL Lymphocytes # 0.4 L (0.6-4.6) K/mcL Monocytes # 0.3 (0.0-1.3) K/mcL Eosinophils # 0.1 (0.0-0.6) K/mcL Basophils # 0.0 (0.0-0.2) K/mcL Immature Plt Fraction 14.6 H (1.1-6.1) % PT 22.8 H (9.4-12.1) Seconds INR 2.0 APTT 41.2 H (26.0-36.0) Seconds Sodium 134 L (136-145) mEq/L Potassium 3.9 (3.5-5.1) mEq/L Chloride 97 L (98-107) mEq/L Carbon Dioxide 22 L (23-29) mEq/L BUN 51 H (8-23) mg/dL Creatinine 5.10 H (0.60-1.20) mg/dL Est GFR ( Amer) 10 L (> 60) Est GFR (Non-Af Amer) 8 L (> 60) BUN/Creatinine Ratio 10 (6-26) Glucose 231 H (70-105) mg/dL Calculated Osmolality 299 (280-300) Lactic Acid (0.5-2.2) mmol/L Calcium 9.3 (8.6-10.3) mg/dL Creatine Kinase 48 (30-223) Units/L Troponin I 0.04 H* (< 0.04) ng/mL B-Natriuretic Peptide (Less than 100) pg/mL Urine Color (Yellow) Urine Clarity (Clear) Urine pH (5.0-8.0) pH Units Ur Specific [place] (1.010-1.025) Urine Protein (Neg-Trace) mg/dL Urine Glucose (UA) (Normal) mg/dL Urine Ketones (Negative) mg/dL Urine Blood (Negative) Urine Nitrite (Negative) Urine Bilirubin (Negative) Urine Urobilinogen (Normal) mg/dL Ur Leukocyte Esterase (Negative) Urine Microscopic WBC (0-3) per hpf Ur Squamous Epith Cells (None-Few) per lpf Urine Bacteria (None-Few) per hpf Hyaline Casts (None-Few) per lpf Ur Culture Indicated? (NO) 12/05/17 12/05/17 12/05/17 Range/Units 05:19 05:19 05:55 WBC (4.3-11.1) K/mcL RBC (3.82-4.97) M/mcL Hgb (11.5-15.4) g/dL Hct (35.3-44.9) % MCV (83.0-100.0) fL MCH (28.0-33.3) pg MCHC (31.6-35.5) g/dL RDW (11.5-14.5) % Plt Count (140-400) K/mcL MPV (9.4-12.4) fL Immature Gran % (0-4) % Seg Neutrophils % % Lymphocytes % % Monocytes % % Eosinophils % % Basophils % % Neutrophils # (1.6-8.9) K/mcL Lymphocytes # (0.6-4.6) K/mcL Monocytes # (0.0-1.3) K/mcL Eosinophils # (0.0-0.6) K/mcL Basophils # (0.0-0.2) K/mcL Immature Plt Fraction (1.1-6.1) % PT (9.4-12.1) Seconds INR APTT (26.0-36.0) Seconds Sodium (136-145) mEq/L Potassium (3.5-5.1) mEq/L Chloride (98-107) mEq/L Carbon Dioxide (23-29) mEq/L BUN (8-23) mg/dL Creatinine (0.60-1.20) mg/dL Est GFR ( Amer) (> 60) Est GFR (Non-Af Amer) (> 60) BUN/Creatinine Ratio (6-26) Glucose (70-105) mg/dL Calculated Osmolality (280-300) Lactic Acid 1.4 (0.5-2.2) mmol/L Calcium (8.6-10.3) mg/dL Creatine Kinase (30-223) Units/L Troponin I (< 0.04) ng/mL B-Natriuretic Peptide 2696 H (Less than 100) pg/mL Urine Color Dark Yellow (Yellow) Urine Clarity Cloudy A (Clear) Urine pH 5.0 (5.0-8.0) pH Units Ur Specific [place] 1.029 H (1.010-1.025) Urine Protein 30 H (Neg-Trace) mg/dL Urine Glucose (UA) Normal (Normal) mg/dL Urine Ketones Trace H (Negative) mg/dL Urine Blood Negative (Negative) Urine Nitrite Negative (Negative) Urine Bilirubin Small H (Negative) Urine Urobilinogen Normal (Normal) mg/dL Ur Leukocyte Esterase Moderate H (Negative) Urine Microscopic WBC 30-50 H (0-3) per hpf Ur Squamous Epith Cells Many H (None-Few) per lpf Urine Bacteria Moderate H (None-Few) per hpf Hyaline Casts Few (None-Few) per lpf Ur Culture Indicated? NO. A (NO) - Radiology Data Radiology results reviewed: Yes I reviewed the patient's radiology results. - EKG Data EKG attestation: Yes I reviewed and interpreted this EKG. EKG results narrative: A. fib, rate 82, indeterminate axis, no acute ischemic change Critical Care Time Critical Care Time: Yes Total Critical Care Time: 35 Attestation: I personally spent ____35__ minutes devoted to the care of this critically ill patient in acute congestive heart failure requiring BiPAP.. This time excludes the time for billable procedures.
--- NOTE | 2017-12-05 10:21 | Internal Med History&Physical ---
Date of Encounter: 12/05/17 Time of Encounter: 10:21 Internal Medicine - H&P: HPI Chief complaint: SOB Admitted From: Home History of present illness: Ms. Deshpande is a 76 year old female Patient presents in the ED with the chief complaint of sever shortness of breath to the extend that she could not lay flat. The patient is C/O chest tightness but denies diaphoresis,palpitation. she has history of A. fib and is on Coumadin. He also c/o worsening of leg swelling. She on HD MWF and she was dialyzed last dialyzed on Tuesday. Past Med Surg Social Fam HX - Past Medical History Medical history: atrial fibrillation, coronary artery disease, diabetes, dialysis, GERD, GI bleed, hyperlipidemia, hypertension, myocardial infarction, renal disease, valvular heart disease, other Additional medical history: Hemodialysis Psychiatric history: no psych history - Past Surgical History Surgical History: angioplasty/stent, cholecystectomy, hysterectomy Additional surgical history: skin biopsies on face,MOHS procedure on left nasal sidewall,creation of left wrist arterial venous fistula,2 cardiac stents,skin cancer from right hand - Social History Smoking Status: Never smoker Smokeless Tobacco Status: No Alcohol use: none Drug use: none - Family History Father Adopted: No Living Status: Hx Family Cardiac Disorders: Yes Hx Family Neuromuscular Disorders: Yes Mother Adopted: No Living Status: Hx Family Endocrine Disorder: Yes Internal Medicine - H&P: Meds RX: Atorvastatin [Lipitor] 40 mg PO HS 06/02/15 [History] RX: Enalapril Maleate [Vasotec] 20 mg PO BID 06/02/15 [History] RX: Esomeprazole Magnesium [Nexium] 40 mg PO DAILY 06/02/15 [History] RX: Insulin Glargine,Hum.rec.anlog [Lantus Solostar] 36 unit SQ DAILY 06/02/15 [History] RX: Carvedilol [Coreg] 25 mg PO BID 09/09/15 [History] RX: Furosemide [Lasix] 40 mg PO BID 09/09/15 [History] RX: hydrALAZINE [HydrALAZINE] 25 mg PO Q6HR 09/09/15 [History] RX: Folic Acid/Vit B Complex and C [Dialyvite Tablet] 1 tab PO DAILY 06/15/17 [History] RX: Sevelamer [Renvela] 800 mg PO TIDWM 09/09/17 [History] RX: Aspirin Enteric Coated [Aspirin EC] 81 mg PO DAILY 10/24/17 [History] RX: metOLazone [Zaroxolyn] 2.5 mg PO DAILY 10/24/17 [History] RX: Cholecalciferol (D-3) [Vitamin D] 5,000 unit PO DAILY 11/22/17 [History] RX: Apixaban [Eliquis] 5 mg PO BID 30 Days #60 tablet 12/07/17 [Rx] Allergy/AdvReac Type Severity Reaction Status Date / Time No Known Allergies Allergy Verified 11/22/17 10:00 All Systems PM: A 10-system review of systems was performed and is negative for pertinent findings except as documented above in the HPI. - Constitutional Constitutional: no chills, no fever(s), no night sweats - Cardiovascular Cardiovascular ROS IM: dyspnea, dyspnea on exertion, no chest pain, no diaphoresis, no lightheadedness, no palpitations, no syncope - Respiratory Respiratory: dyspnea, no cough, no wheezing, no excessive phlegm production - Gastrointestinal Gastrointestinal: no abdominal pain, no diarrhea, no hematemesis, no hematochezia, no melena, no nausea, no vomiting - Genitourinary Genitourinary: no change in urinary stream, no dysuria, no flank pain, no hematuria - Neurological Neurological ROS: no confusion, no convulsions, no focal weakness, no numbness, no tingling, no tremor(s) - Constitutional Vitals: Temp Pulse Resp BP Pulse Ox 97.5 F L 81 20 108/67 20 12/05/17 04:04 12/05/17 10:00 12/05/17 10:00 12/05/17 10:00 12/05/17 10:00 General appearance: Present: A&O X 3 Exam: As below - Head Head exam: Present: atraumatic, normocephalic - Neck Neck exam general surgery: Present: supple, trachea midline. Absent: lymphadenopathy - Respiratory Respiratory exam: Present: decreased breath sounds, wheezes. Absent: accessory muscle use, rales, rhonchi - Cardiovascular Cardiovascular exam: Present: irregular rhythm. Absent: diastolic murmur, gallop, rubs, systolic murmur - GI/Abdominal GI/Abdominal exam: Present: normal bowel sounds, soft, no peritoneal signs. Absent: distended, tenderness - Extremities Exam Extremities exam: Present: pedal edema, warm, radial pulses palpable and symmetrical. Absent: calf tenderness, cyanotic Internal Med - H&P Results - Labs CBC & Chem 7: 12/07/17 05:07 12/07/17 05:07 Labs: Short CBC 12/05/17 Range/Units 05:19 WBC 3.9 L (4.3-11.1) K/mcL Hgb 11.2 L (11.5-15.4) g/dL Hct 34.8 L (35.3-44.9) % Plt Count 56 L (140-400) K/mcL Neutrophils # 3.0 (1.6-8.9) K/mcL BMP 12/05/17 05:19 Sodium 134 L Potassium 3.9 Chloride 97 L Carbon Dioxide 22 L BUN 51 H Creatinine 5.10 H Glucose 231 H Calcium 9.3 Cardiac Enzymes 12/05/17 Range/Units 05:19 Troponin I 0.04 H* (< 0.04) ng/mL Urine 12/05/17 Range/Units 05:55 Urine Color Dark Yellow (Yellow) Urine Clarity Cloudy A (Clear) Urine pH 5.0 (5.0-8.0) pH Units Ur Specific [place] 1.029 H (1.010-1.025) Urine Protein 30 H (Neg-Trace) mg/dL Urine Glucose (UA) Normal (Normal) mg/dL - Impressions ITS Impressions Chest X-Ray 12/05/17 04:00 IMPRESSION: Moderate right and small left pleural effusions. Cardiomegaly. Mild central pulmonary vascular congestion. Findings suggest congestive heart failure in the appropriate clinical setting. D/ / Jacob Mendoza / Jacob Mnedoza Interpreting Provider: Jacob Mendoza - Assessment and plan (1) Acute exacerbation of CHF (congestive heart failure) Status: Acute Assessment and plan: The patient has a history of diastolic heart failure, Nephrology was consulted to optimize volume control with CHILDREN'S MINISTRIES DIRECTOR. Qualifiers: Heart failure type: unspecified Qualified Code(s): I50.9 - Heart failure, unspecified (2) ESRD (end stage renal disease) on dialysis Status: Chronic Assessment and plan: On HD MWF, for HD today. (3) Cardiac enzymes elevated Status: Acute Assessment and plan: In the sitteing of ESRD, no significant ECG changes. (4) Calciphylaxis Status: Acute Assessment and plan: Sodium Thiosulfate with HD sessions as per nephrology team (5) Type 2 diabetes mellitus Status: Chronic Assessment and plan: We will continue home regimen, start ISC with moderate coverage Qualifiers: Diabetes mellitus longterm insulin use: with long term care pharmacist use Diabetes mellitus complication status: with kidney complications Diabetes mellitus complication detail: with chronic kidney disease Chronic kidney disease stage: on chronic dialysis Qualified Code(s): E11.22 - Type 2 diabetes mellitus with diabetic chronic kidney disease; N18.6 - End stage renal disease; Z79.4 - exterminator (current) use of insulin; Z99.2 - Dependence on renal dialysis (6) Hyperkalemia Status: Acute Assessment and plan: The patient is scheduled for HD today (7) Anemia in chronic kidney disease Status: Chronic Assessment and plan: Management as per nephrology Qualifiers: Chronic kidney disease stage: on chronic dialysis Qualified Code(s): N18.6 - End stage renal disease; D63.1 - Anemia in chronic kidney disease; Z99.2 - Dependence on renal dialysis (8) Hyponatremia Status: Acute Assessment and plan: Hypervolumic hypernatermia in the sitting of CHF, nephrology was consulted to provide CHILDR[employer] DIRECTOR to optimize volume control (9) DVT prophylaxis Status: Acute Assessment and plan: The patient on chronic anticoagulation with Coumadin (10) Afib Status: Chronic Assessment and plan: The patient heart rate is controlled, on chronic anticoagulation with Coumadin Qualifiers: Atrial fibrillation type: permanent Qualified Code(s): I48.2 - Chronic atrial fibrillation (11) HTN (hypertension) Status: Chronic Assessment and plan: We will continue home meds Qualifiers: Hypertension type: unspecified Qualified Code(s): I10 - Essential (primary) hypertension - Time Spent With Patient Total time spent is greater than 50% in coordination of care (as documented) at patient's floor/unit and/or counseling patient:
[2017-12-05] MEDS ORDERED: 0.9 % Sodium Chloride 250 ML IVC PRN (10:57)
[2017-12-05] MEDS ORDERED: 0.9 % Sodium Chloride 1,000 ML PRIME SCH (11:00)
--- NOTE | 2017-12-05 11:40 | Nephrology Consult Note ---
Addendum entered and electronically signed by Gareth Forrest DO 12/05/17 16:33: I have personally performed a face to face evaluation on this patient. I have reviewed and agree with the care plan. History and Exam by me shows: ESRD on HD MWF. I reviewed her labs, vitals, meds, prior progress notes/imaging, and also reviewed outside medical records from the [facility], and based upon this complex E/M and MDM, I recommend HD today. Pt's with Calciphylaxis should be on Sensipar and not on Coumadin, of note. We'd added Sensipar and I also coordinated care with out oupt dialysis team in terms of sensipar. Consider Eliquis (renally dosed) instead of coumadin, which has the highest risk factor for Calciphylaxis. Dialysis note: she was seen/examined while on HD. Her BFR and DFR and Access pressures were adequate and VSS during my interview/examination. Thank you. Original Note: Date of Encounter: 12/05/17 Time of Encounter: 11:34 Assessment and Plan (1) ESRD (end stage renal disease) on dialysis Current Visit: No Status: Acute Current regimen is MWF at [facility]. HD ordered for today. Last HD tx was Tuesday without complication. Continue renal supplements. Renal diet, if able to eat. Avoid nephrotoxins and renal dose. (2) Calciphylaxis Current Visit: Yes Status: Acute Sodium Thiosulfate after HD sessions. Sensipar 30 mg Po Daily. (3) Acute exacerbation of CHF (congestive heart failure) Current Visit: Yes Status: Acute Per primary. Qualifiers: Heart failure type: unspecified Qualified Code(s): I50.9 - Heart failure, unspecified (4) Elevated troponin Current Visit: Yes Status: Acute Current trop is 0.04, denies CP. Per primary. History of Present Illness - Reason for Consult Consult date: 12/05/17 end stage renal disease - Chief Complaint shortness of breath - History of Present Illness Ms. Deshpande is a 76 year old female with ESRD. PMH: atrial fibrillation, coronary artery disease, diabetes, dialysis, GERD, GI bleed, hyperlipidemia, hypertension, myocardial infarction, valvular heart disease. Current regimen is MWF at [facility]. Last treatment was Tuesday without complication. Did not go to HD today woke up with shortness of breath and came directly to the ED. She tells me that her shortness of breath has been getting worse over the last day, but it has been going on for about 2 weeks. Denies cough, fever, or chills. Denies nausea/vomiting/diarrhea. She lives at home with her daughter. Denies etoh, smoking, or illicit drug use. She currently has 3 wounds from Calciphylaxis, and is currently receiving Sodium Thiosulfate after HD sessions. Past Med Surg Social Fam HX - Past Medical History Medical history: atrial fibrillation, coronary artery disease, diabetes, dialysis, GERD, GI bleed, hyperlipidemia, hypertension, myocardial infarction, renal disease, valvular heart disease, other Additional medical history: Hemodialysis Psychiatric history: no psych history - Past Surgical History Surgical History: angioplasty/stent, cholecystectomy, hysterectomy Additional surgical history: skin biopsies on face,MOHS procedure on left nasal sidewall,creation of left wrist arterial venous fistula,2 cardiac stents,skin cancer from right hand - Social History Smoking Status: Never smoker Smokeless Tobacco Status: No Alcohol use: none Drug use: none - Family History Mother Adopted: No Living Status: Hx Family Endocrine Disorder: Yes Father Adopted: No Living Status: Hx Family Cardiac Disorders: Yes Hx Family Neuromuscular Disorders: Yes Medications and Allergies Atorvastatin [Lipitor] 40 mg PO HS 06/02/15 [History] Enalapril Maleate [Vasotec] 20 mg PO BID 06/02/15 [History] Esomeprazole Magnesium [Nexium] 40 mg PO DAILY 06/02/15 [History] Insulin Glargine,Hum.rec.anlog [Lantus Solostar] 36 unit SQ DAILY 06/02/15 [History] Carvedilol [Coreg] 25 mg PO BID 09/09/15 [History] Cholecalciferol (D-3) [Vitamin D] 5,000 unit PO DAILY 09/09/15 [History] Furosemide [Lasix] 40 mg PO BID 09/09/15 [History] hydrALAZINE [HydrALAZINE] 25 mg PO Q6HR 09/09/15 [History] Warfarin [Coumadin] 2 mg PO DAILY 06/09/17 [History] Collagenase Oint [Santyl] 1 appl TP DAILY 06/15/17 [History] Folic Acid/Vit B Complex and C [Dialyvite Tablet] 1 tab PO DAILY 06/15/17 [Histo ry] Docusate [Colace] 100 mg PO DAILY #10 capsule 08/30/17 [Rx] Sevelamer [Renvela] 800 mg PO TIDWM 09/09/17 [History] Aspirin Enteric Coated [Aspirin EC] 81 mg PO DAILY 10/24/17 [History] metOLazone [Zaroxolyn] 2.5 mg PO DAILY 10/24/17 [History] Cholecalciferol (D-3) [Vitamin D] 5,000 unit PO DAILY 11/22/17 [History] Allergy/AdvReac Type Severity Reaction Status Date / Time No Known Allergies Allergy Verified 11/22/17 10:00 Review of Systems All Systems review (narrative): The remainder of the systems are negative. Constitutional: no chills, no fatigue, no fever(s) Cardiovascular: dyspnea, no chest pain, no edema, no palpitations Gastrointestinal: no change in bowel habits, no diarrhea, no nausea, no vomiting Exam - Vital Signs Vital signs: Initial Vital Signs Temp Pulse Resp BP Pulse Ox 97.5 F L 77 20 127/64 100 12/05/17 04:04 12/05/17 04:04 12/05/17 04:04 12/05/17 04:04 12/05/17 04:04 Vital Signs - Last 8 Hours Temp Pulse Resp BP Pulse Ox 12/05/17 11:10 20 110/51 12/05/17 10:00 81 20 108/67 20 12/05/17 09:00 112/82 12/05/17 08:00 88 22 103/74 99 12/05/17 07:32 99 12/05/17 07:00 69 20 117/67 99 12/05/17 06:30 78 14 124/62 99 12/05/17 05:55 20 113/92 99 12/05/17 04:57 73 22 115/64 93 12/05/17 04:04 97.5 F L 77 20 127/64 100 Intake and Output 12/04/17 12/05/17 12/05/17 23:59 07:59 15:59 Intake Total Balance Intake: IV Fluids Rocephin 1,000 MG In Water for inj. (sterile) 10 ML @ 300 mls/ hr IVPB ONCE ONE Rx#:[id number] Other: Weight 99.138 kg Patient Weight 12/05/17 23:59 Weight 99.138 kg - General Appearance General appearance: well-developed, well-nourished EENT: ATNC, hearing intact, vision intact Neck: supple Respiratory: clear Cardiology: edema (Chronic +1 pitting edema noted to bilat lower extremities.), normal S1, normal S2 - Dialysis Access Dialysis Vascular Access: Arteriovenous Fistula thrill: Yes bruit: Yes Gastrointestinal: normoactive bowel sounds, no tenderness, no guarding Integumentary: no rash, warm and dry Neurologic: alert and oriented x3 Musculoskeletal: no deformities Psychiatric: mood/affect appropriate, cooperative Results - Lab Results 12/05/17 05:19 12/05/17 05:19 Most recent lab results Calcium 9.3 mg/dL (8.6-10.3) 12/05/17 05:19 Consult Discharge Plan - Plan Referrals: Lauren Calvillo MD [Primary Care Provider] -
[2017-12-05] MEDS ORDERED: Naloxone 0.4 MG/ML INJ IVP PRN (11:57)
[2017-12-05] MEDS ORDERED: Sodium Thiosulfate 25 GM in EMPTY BAG 1 EACH IVPB ONE (12:15)
[2017-12-05 13:30] LABS: Chol/HDL Ratio 2.6 (0-4.9)
--- NOTE | 2017-12-05 13:31 | Electrocardiograph Report ---
[facility] Test Date: 2017-12-05 Pat Name: Lindsay Deshpande Department: [id number] Room: Gender: F [employer] Specialist: : [id number] Requested By: John Martin Order Number: [id number] Reading MD: Thanh Jimenez Measurements Intervals [place] Rate: 82 P: CA: QRS: 101 QRSD: 121 T: 228 QT: 405 QTc: 473 Interpretive Statements Atrial fibrillation Nonspecific intraventricular conduction delay Probable anterolateral infarct, old Borderline repolarization abnormality Electronically Signed On 12-05-2017 13:30:10 EDT by Thanh Jimenez
[2017-12-05] MEDS ORDERED: Albumin 25% 12.5gm/50mL 25.0 GM/100 ML IV.SOLN ONE (14:01)
[2017-12-05] MEDS ORDERED: Albumin 25% 25gram/100mL 25 GM/100 ML IV.SOLN IVPB ONE (14:06)
[2017-12-05] MEDS: Acetaminophen 325 MG TABLET PO PRN (20:35)
[2017-12-06 00:26] LABS: Eosinophils % 2.7 %; Immature Granulocytes % 0.3 % (0-4); Mean Corpuscular HGB Conc 32.6 g/dL (31.6-35.5); Red Cell Distribution Width 15.1 % (11.5-14.5)
[2017-12-06 00:27] LABS: Basophils % 1.1 %; Eosinophils # 0.1 K/mcL (0.0-0.6); Hematocrit 31.6 % (35.3-44.9); Hemoglobin 10.3 g/dL (11.5-15.4); Immature Platelets 15.5 % (1.1-6.1); Lymphocytes # 0.5 K/mcL (0.6-4.6); Lymphocytes % 12.5 %; Mean Corpuscular Hemoglobin 34.4 pg (28.0-33.3); Mean Corpuscular Volume 105.7 fL (83.0-100.0); Mean Platelet Volume 12.8 fL (9.4-12.4); Monocytes # 0.4 K/mcL (0.0-1.3); Monocytes % 9.9 %; Neutrophils # 2.8 K/mcL (1.6-8.9); Red Blood Count 2.99 M/mcL (3.82-4.97); Segmented Neutrophils % 73.5 %
[2017-12-06 00:28] LABS: Platelet Count 43 K/mcL (140-400)
[2017-12-06 00:44] LABS: Albumin 3.6 g/dL (3.5-5.7); Albumin/Globulin Ratio 1.3 (1.1-2.2); Calcium 8.5 mg/dL (8.6-10.3); Globulin 2.7 g/dL (2.4-3.5); Potassium 3.9 mEq/L (3.5-5.1); Total Protein 6.3 g/dL (6.4-8.9)
[2017-12-06] MEDS ORDERED: Ondansetron ODT 4 MG TAB.RAPDIS SL PRN (04:25)
[2017-12-06] MEDS: Acetaminophen 325 MG TABLET PO PRN ×3 (04:36→21:16)
[2017-12-06] MEDS ORDERED: *HR* Dextrose 50 % in Water (Syg) 50 ML SYRINGE IVP PRN (05:34)
[2017-12-06] MEDS ORDERED: D5% in Water 1,000 ML IVC PRN (05:34)
[2017-12-06] MEDS ORDERED: Dextrose Gel 15 GM/37.5 ML TUBE PO PRN ×2 (05:34)
[2017-12-06] MEDS ORDERED: hydrALAZINE 25 MG TABLET PO SCH (06:00)
[2017-12-06 06:48] LABS: Estimated Average Glucose 157 mg/dl; Hemoglobin A1C 7.1 %
--- NOTE | 2017-12-06 07:38 | Nephrology Progress Note ---
Addendum entered and electronically signed by Gareth Forrest DO 12/12/17 12:26: I have personally performed a face to face evaluation on this patient. I have reviewed and agree with the care plan. History and Exam by me shows: Plan for HD tomorrow. Original Note: Date of Encounter: 12/06/17 Time of Encounter: 07:35 - Assessment and Plan (1) ESRD (end stage renal disease) on dialysis Current Visit: No Status: Acute Plan for HD tomorrow Renal diet-ordered Avoid nephrotoxins if possible (2) Acute exacerbation of CHF (congestive heart failure) Current Visit: Yes Status: Acute Per primary team Qualifiers: Heart failure type: unspecified Qualified Code(s): I50.9 - Heart failure, unspecified (3) Calciphylaxis Current Visit: Yes Status: Acute Continue Sodium Thiosulfate and Sensipar Subjective Principal diagnosis: Acute exacerbation of CHF, ESRD on dialysis Interval history: Patient seen and examined. States she is breathing better now. Objective - Vital Signs Vital signs: Vital Signs Temp Pulse Resp BP Pulse Ox 12/06/17 04:16 97.8 F 93 20 138/83 91 12/06/17 00:01 97.5 F L 70 18 115/66 90 12/05/17 21:14 97.8 F 72 16 101/50 92 12/05/17 17:26 95 12/05/17 16:35 97.3 F L 15 122/56 12/05/17 16:15 106/43 12/05/17 16:00 112/47 12/05/17 15:45 102/40 12/05/17 15:30 103/42 12/05/17 15:15 111/32 12/05/17 15:00 96/40 12/05/17 14:45 100/29 12/05/17 14:30 109/44 12/05/17 14:15 107/38 12/05/17 14:00 102/38 12/05/17 13:45 106/72 12/05/17 13:30 95/46 12/05/17 13:15 112/45 12/05/17 13:00 111/43 12/05/17 12:45 110/58 12/05/17 12:30 112/66 12/05/17 12:15 97.5 F L 19 109/75 12/05/17 11:10 20 110/51 12/05/17 10:00 81 20 108/67 20 12/05/17 09:00 112/82 12/05/17 08:00 88 22 103/74 99 Intake and Output 12/05/17 12/05/17 12/06/17 15:59 23:59 07:59 Intake Total 600 / 600 200 / 200 Output Total 3600 / 3600 Balance 600 / 600 -3400 / -3400 Intake: IV Fluids 200 / 200 Flexbumin 25.0 gm In 100 ml @ 0 100 / 100 mls/hr .ROUTE .STK-MED ONE Rx# :[id number] Sodium Thiosulfate 25 GM In 100 / 100 Empty Bag 1 Each @ 100 mls/hr IVPB ONCE ONE Rx#:[id number] Oral 0 / 0 Intake, Rinseback and Flushes 600 / 600 Output: Urine 0 / 0 Total Dialysis (HD) Output 3600 / 3600 Other: # Voids 1 1 Weight 99.138 kg Blood Glucose* 141 Hemodialysis Net Fluid Removed 3219 3000 (mL) - General Appearance General appearance: Present: obese, chronically ill, frail EENT: Present: ATNC, mucous membranes moist, hearing intact, vision intact Neck: Present: supple Respiratory: Present: clear Cardiology: Present: edema (improved from her normal BLL edema), normal S1, normal S2 Dialysis Vascular Access: Arteriovenous Fistula Gastrointestinal: Present: no tenderness, no guarding, obese Integumentary: Present: warm and dry Neurologic: Present: alert and oriented x3 - Lab 12/06/17 00:15 12/06/17 00:15 Most recent lab results Calcium 8.5 mg/dL (8.6-10.3) L 12/06/17 00:15 Phosphorus 4.0 mg/dL (2.7-4.5) 12/06/17 00:15 Magnesium 2.0 mg/dL (1.6-2.6) 12/06/17 00:15 Consult Discharge Plan - Plan Referrals: Lauren Calvillo MD [Primary Care Provider] -
[2017-12-06] MEDS: Insulin LISPRO 300 UNITS/3 ML VIAL SQ SCH ×3 (08:03→17:41)
[2017-12-06] MEDS: Cholecalciferol (D-3) 1,000 UNIT TABLET PO SCH (08:14)
[2017-12-06] MEDS: Aspirin Enteric Coated 81 MG Tablet PO SCH (08:14)
[2017-12-06] MEDS: metOLazone 5 MG TABLET PO SCH (08:14)
[2017-12-06] MEDS: hydrALAZINE 25 MG TABLET PO SCH ×4 (08:14→21:16)
[2017-12-06] MEDS: Furosemide 40 MG TABLET PO SCH ×2 (08:15→17:40)
[2017-12-06] MEDS: Renal Vitamin 1 CAP CAPSULE PO SCH (08:15)
[2017-12-06] MEDS: Lisinopril 20 MG TABLET PO SCH (08:15)
[2017-12-06] MEDS: Insulin DETEMIR 100 UNIT/ML X5UNITS SQ SCH (08:19)
[2017-12-06] MEDS ORDERED: Lisinopril 20 MG TABLET PO SCH (09:00)
--- NOTE | 2017-12-06 16:35 | Internal Med Progress Note ---
Hospitalist Progress Note - Encounter Date of Encounter: 12/06/17 Time of Encounter: 09:00 - Subjective Interval History: Pt feels less SOB. in NAD. - Exam Vitals: Temp Pulse Resp BP Pulse Ox 97.9 F 73 18 108/66 95 12/06/17 15:31 12/06/17 15:31 12/06/17 15:31 12/06/17 15:31 12/06/17 15:31 Exam: AAO x 3, in NAD HEENT: NC/AT, PERRL Neck: Supple, no JVD Lungs: CTA b/l Heart: S1S2, irregularly irregular Abd: Soft, NT Ext: Mild edema b/l Neuro: No focal deficit. - Assessment and Plan (1) Acute exacerbation of CHF (congestive heart failure) Current Visit: Yes Status: Acute Assessment and Plan: The patient has a history of diastolic heart failure, Nephrology was consulted to optimize volume control with UPHOLSTERY CLEANER. - Improved after HD, will have another HD tomorrow. (2) ESRD (end stage renal disease) on dialysis Current Visit: No Status: Chronic Assessment and Plan: On HD MWF, Cont HD. (3) Anemia in chronic kidney disease Current Visit: No Status: Chronic Assessment and Plan: Management as per nephrology (4) Type 2 diabetes mellitus Current Visit: No Status: Chronic Assessment and Plan: We will continue home regimen, with basal and SSI with moderate coverage (5) Cardiac enzymes elevated Current Visit: No Status: Acute Assessment and Plan: In the sitteing of ESRD, no significant ECG changes. Consider demand ischemia. 4 sets of troponin 0.04-0.03-0.03-0.03 (6) Afib Current Visit: No Status: Chronic Assessment and Plan: The patient heart rate is controlled, nephrology suggest Eliquis to replace coumadin as pt has calciphylaxis. Have changed to Eliquis after pharmacy jordan change. (7) Hyperkalemia Current Visit: No Status: Acute Assessment and Plan: Improved after HD. (8) HTN (hypertension) Current Visit: No Status: Chronic Assessment and Plan: We will continue home meds (9) DVT prophylaxis Current Visit: No Status: Acute Assessment and Plan: On eliquis (10) Calciphylaxis Current Visit: Yes Status: Acute Assessment and Plan: Sodium Thiosulfate with HD sessions as per nephrology (11) Hyponatremia Current Visit: Yes Status: Acute Assessment and Plan: Hypervolumic hypernatermia in the sitting of CHF, nephrology was consulted to provide UPHOLSTERY CLEANER to optimize volume control. Na 135 today. DVT Prophylaxis: On Eliquis. - Time Spent with Patient Total time spent is greater than 50% in coordination of care (as documented) at patient's floor/unit and/or counseling patient: 30 min 25 - 35 minutes Plan of Care Discussed with: patient Internal Medicine: Result - Labs CBC & Chem 7: 12/06/17 00:15 12/06/17 00:15 Labs: Short CBC 12/06/17 Range/Units 00:15 WBC 3.8 L (4.3-11.1) K/mcL Hgb 10.3 L (11.5-15.4) g/dL Hct 31.6 L (35.3-44.9) % Plt Count 43 L (140-400) K/mcL Neutrophils # 2.8 (1.6-8.9) K/mcL BMP 12/06/17 00:15 Sodium 135 L Potassium 3.9 Chloride 97 L Carbon Dioxide 25 BUN 34 H Creatinine 3.79 H Glucose 156 H Calcium 8.5 L Cardiac Enzymes 12/05/17 12/06/17 Range/Units 18:24 00:15 Troponin I 0.03 0.03 (< 0.04) ng/mL Liver Function 12/06/17 Range/Units 00:15 Total Bilirubin 1.0 (0.3-1.0) mg/dL AST 20 (13-39) Units/L ALT 14 (7-52) Units/L Alkaline Phosphatase 175 H (34-104) Units/L Albumin 3.6 (3.5-5.7) g/dL - ABG Interpretation ABG results: PT/INR, D-dimer PT 22.8 Seconds (9.4-12.1) H 12/05/17 05:19 - Impressions Impressions Echocardiogram 12/05/17 11:54 Impressions: LVEF 50%. LV chamber size upper limits of normal. Indeterminate diastolic function. RV is mild to moderately dilated with mild reduction in function. LV septum is flattened, primarily during diastole, suggesting RV volume overload. Severe bi-atrial enlargement. Mild aortic regurgitation. Moderate mitral regurgitation. Moderate-severe tricuspid regurgitation. Mild pulmonic regurgitation. Estimated RVSP is 76 mmHg. Severe pulmonary hypertension. The IVC is dilated. Consult Discharge Plan - Plan Referrals: Lauren Calvillo MD [Primary Care Provider] - (1) Acute exacerbation of CHF (congestive heart failure) Qualifiers: Heart failure type: unspecified Qualified Code(s): I50.9 - Heart failure, unspecified (3) Anemia in chronic kidney disease Qualifiers: Chronic kidney disease stage: on chronic dialysis Qualified Code(s): N18.6 - End stage renal disease; D63.1 - Anemia in chronic kidney disease; Z99.2 - Dependence on renal dialysis (4) Type 2 diabetes mellitus Qualifiers: Diabetes mellitus care home insulin use: with intermediate project manager use Diabetes mellitus complication status: with kidney complications Diabetes mellitus complication detail: with chronic kidney disease Chronic kidney disease stage: on chronic dialysis Qualified Code(s): E11.22 - Type 2 diabetes mellitus with diabetic chronic kidney disease; N18.6 - End stage renal disease; Z79.4 - USP (current) use of insulin; Z99.2 - Dependence on renal dialysis (6) Afib Qualifiers: Atrial fibrillation type: permanent Qualified Code(s): I48.2 - Chronic atrial fibrillation (8) HTN (hypertension) Qualifiers: Hypertension type: unspecified Qualified Code(s): I10 - Essential (primary) hypertension
[2017-12-06] MEDS ORDERED: Warfarin perPT PO PRN (18:00)
[2017-12-06] MEDS ORDERED: Insulin LISPRO 300 UNITS/3 ML VIAL SQ SCH (21:00)
[2017-12-07] MEDS ORDERED: Loperamide 1 MG/5 ML UDC PO PRN (00:13)
[2017-12-07 06:04] LABS: Mean Corpuscular Hemoglobin 34.3 pg (28.0-33.3)
[2017-12-07 06:06] LABS: Basophils % 1.3 %; Eosinophils # 0.1 K/mcL (0.0-0.6); Hematocrit 33.2 % (35.3-44.9); Hemoglobin 10.5 g/dL (11.5-15.4); Immature Granulocytes % 0.3 % (0-4); Immature Platelets 18.6 % (1.1-6.1); Lymphocytes # 0.7 K/mcL (0.6-4.6); Lymphocytes % 23.2 %; Mean Corpuscular HGB Conc 31.6 g/dL (31.6-35.5); Mean Corpuscular Volume 108.5 fL (83.0-100.0); Mean Platelet Volume 12.5 fL (9.4-12.4); Monocytes # 0.4 K/mcL (0.0-1.3); Monocytes % 13.8 %; Red Blood Count 3.06 M/mcL (3.82-4.97); Red Cell Distribution Width 15.3 % (11.5-14.5); Segmented Neutrophils % 58.4 %
[2017-12-07 06:12] LABS: Neutrophils # 1.8 K/mcL (1.6-8.9); Platelet Count 40 K/mcL (140-400)
[2017-12-07 06:27] LABS: Calcium 8.3 mg/dL (8.6-10.3); Potassium 4.1 mEq/L (3.5-5.1)
[2017-12-07] MEDS: Insulin LISPRO 300 UNITS/3 ML VIAL SQ SCH ×2 (08:21→14:47)
[2017-12-07] MEDS: Cholecalciferol (D-3) 1,000 UNIT TABLET PO SCH (08:24)
[2017-12-07] MEDS: hydrALAZINE 25 MG TABLET PO SCH ×2 (08:24→14:47)
[2017-12-07] MEDS: Aspirin Enteric Coated 81 MG Tablet PO SCH (08:25)
[2017-12-07] MEDS: Acetaminophen 325 MG TABLET PO PRN (08:25)
[2017-12-07] MEDS: Renal Vitamin 1 CAP CAPSULE PO SCH (08:25)
[2017-12-07] MEDS: Furosemide 40 MG TABLET PO SCH (08:26)
[2017-12-07] MEDS: Lisinopril 20 MG TABLET PO SCH (08:27)
[2017-12-07] MEDS: Insulin DETEMIR 100 UNIT/ML X5UNITS SQ SCH (08:27)
[2017-12-07] MEDS: metOLazone 5 MG TABLET PO SCH (08:27)
[2017-12-07] MEDS ORDERED: 0.9 % Sodium Chloride 250 ML IVC PRN (08:33)
[2017-12-07] MEDS ORDERED: Apixaban 5 MG TABLET PO SCH (09:00)
--- NOTE | 2017-12-07 09:45 | Nephrology Progress Note ---
Addendum entered and electronically signed by Gareth Forrest DO 12/12/17 12:27: I have personally performed a face to face evaluation on this patient. I have reviewed and agree with the care plan. History and Exam by me shows: Pt was s/e while on HD and tolerated the flows and access pressures. Original Note: Date of Encounter: 12/07/17 Time of Encounter: 09:43 - Assessment and Plan (1) Acute exacerbation of CHF (congestive heart failure) Current Visit: Yes Status: Acute Per primary team Qualifiers: Heart failure type: unspecified Qualified Code(s): I50.9 - Heart failure, unspecified (2) ESRD (end stage renal disease) on dialysis Current Visit: No Status: Acute HD in progress today. Spoke with primary team, she is going home today, he did switch her to Eliquis since Coumadin could contribute to Calciphylaxis. Renal diet-ordered Avoid nephrotoxins if possible (3) Calciphylaxis Current Visit: Yes Status: Acute Continue Sodium Thiosulfate and Sensipar Subjective Principal diagnosis: Acute exacerbation of CHF, ESRD on dialysis Interval history: Pt seen and examined, during HD. Tolerating well. Denies CP/SOB. Objective - Vital Signs Vital signs: Vital Signs Temp Pulse Resp BP Pulse Ox 12/07/17 07:29 97.7 F 78 17 102/69 94 12/07/17 04:19 97.9 F 82 16 103/62 94 12/06/17 23:12 97.8 F 96 16 99/64 91 12/06/17 18:37 97.5 F L 80 18 105/59 94 12/06/17 15:31 97.9 F 73 18 108/66 95 12/06/17 10:53 97.8 F 83 17 100/64 92 Intake and Output 12/06/17 12/07/17 12/07/17 23:59 07:59 15:59 Intake Total 240 / 240 240 / 240 Balance 240 / 240 240 / 240 Intake: Oral 240 / 240 240 / 240 Other: Meal Dinner Breakfast Percent of Meal Consumed 85% 100% # Voids 1 Weight 94.1 kg Blood Glucose* 101 101 Patient Weight 12/07/17 23:59 Weight 94.1 kg - General Appearance General appearance: Present: well-developed, well-nourished EENT: Present: ATNC, hearing intact, vision intact Neck: Present: supple Respiratory: Present: clear Cardiology: Present: edema (chronic +1 pitting edema noted bilat.), normal S1, normal S2 Dialysis Vascular Access: Arteriovenous Fistula thrill: Yes bruit: Yes Gastrointestinal: Present: normoactive bowel sounds, no tenderness, no guarding Integumentary: Present: no rash, warm and dry Neurologic: Present: alert and oriented x3 Psychiatric: Present: mood/affect appropriate, cooperative - Lab 12/07/17 05:07 12/07/17 05:07 Most recent lab results Calcium 8.3 mg/dL (8.6-10.3) L 12/07/17 05:07 Phosphorus 4.0 mg/dL (2.7-4.5) 12/06/17 00:15 Magnesium 2.0 mg/dL (1.6-2.6) 12/06/17 00:15 Consult Discharge Plan - Plan Referrals: Lauren Calvillo MD [Primary Care Provider] -
--- NOTE | 2017-12-07 11:02 | Discharge Summary ---
- NOTES TO OUTPATIENT PROVIDER Notes to Outpatient Provider: 1. Pt's coumadin is discontinued per nephrology as it contributes to pt's calciphylaxis. Eliquis 5 mg po bid started instead. Please f/u with the new medication, may need to decrease to 2.5mg po bid after pt is 78 years old. Orders not resulted at time of discharge: Pending orders 12/05/17 05:19 Culture,Blood [BC] Stat 12/05/17 05:55 Urinalysis Reflex Cult & Micro [URIN] Stat Date of Encounter: 12/07/17 Time of Encounter: 09:00 - Discharge Diagnosis (1) Acute exacerbation of CHF (congestive heart failure) Priority: Primary Status: Acute Qualifiers: Heart failure type: unspecified Qualified Code(s): I50.9 - Heart failure, unspecified (2) ESRD (end stage renal disease) on dialysis Priority: Secondary Status: Chronic (3) Anemia in chronic kidney disease Priority: Secondary Status: Chronic Qualifiers: Chronic kidney disease stage: on chronic dialysis Qualified Code(s): N18.6 - End stage renal disease; D63.1 - Anemia in chronic kidney disease; Z99.2 - Dependence on renal dialysis (4) Type 2 diabetes mellitus Priority: Secondary Status: Chronic Qualifiers: Diabetes mellitus termite treater helper insulin use: with termite treater helper use Diabetes m ellitus complication status: with kidney complications Diabetes mellitus complication detail: with chronic kidney disease Chronic kidney disease stage: on chronic dialysis Qualified Code(s): E11.22 - Type 2 diabetes mellitus with diabetic chronic kidney disease; N18.6 - End stage renal disease; Z79.4 - senior living (current) use of insulin; Z99.2 - Dependence on renal dialysis (5) Cardiac enzymes elevated Priority: Secondary Status: Acute (6) Afib Priority: Secondary Status: Chronic Qualifiers: Atrial fibrillation type: permanent Qualified Code(s): I48.2 - Chronic atrial fibrillation (7) Hyperkalemia Priority: Secondary Status: Acute (8) HTN (hypertension) Priority: Secondary Status: Chronic Qualifiers: Hypertension type: unspecified Qualified Code(s): I10 - Essential (primary) hypertension (9) DVT prophylaxis Priority: Secondary Status: Acute (10) Calciphylaxis Priority: Secondary Status: Acute (11) Hyponatremia Priority: Secondary Status: Acute (12) Thrombocytopenia Priority: Secondary Status: Acute Assessment and Plan: Chronic, pt has seen by oncology, cont OP follow up. Hospital course: Ms. Deshpande is a 76 year old female admitted for SOB/fluid overload. Hx of ESRD on HD. Nephro consult called and Emergent HD started and pt feels better after HD. Pt will have another HD today and if remains stable will D/C home with home health. I saw and examined pt today in HD room. Pt feels fine, denies SOB or CP. Vitals stable. Pt lives with daughter. Will D/c her home with home health. Pt was educated her coumadin has been switched to Eliquis. She also needs to cont f/u with oncology as outpatient for her thrombocytopenia. Pt will d/c home after HD. Discharge discussed with: patient - Time Spent with Patient Total time spent providing and/or coordinating discharge services: 30 min Less than 30 minutes - Discharge Medications Prescriptions: Apixaban [Eliquis] 5 mg PO BID 30 Days #60 tablet Home Medications: Atorvastatin [Lipitor] 40 mg PO HS 06/02/15 [History] Enalapril Maleate [Vasotec] 20 mg PO BID 06/02/15 [History] Esomeprazole Magnesium [Nexium] 40 mg PO DAILY 06/02/15 [History] Insulin Glargine,Hum.rec.anlog [Lantus Solostar] 36 unit SQ DAILY 06/02/15 [History] Carvedilol [Coreg] 25 mg PO BID 09/09/15 [History] Furosemide [Lasix] 40 mg PO BID 09/09/15 [History] hydrALAZINE [HydrALAZINE] 25 mg PO Q6HR 09/09/15 [History] Folic Acid/Vit B Complex and C [Dialyvite Tablet] 1 tab PO DAILY 06/15/17 [History] Sevelamer [Renvela] 800 mg PO TIDWM 09/09/17 [History] Aspirin Enteric Coated [Aspirin EC] 81 mg PO DAILY 10/24/17 [History] metOLazone [Zaroxolyn] 2.5 mg PO DAILY 10/24/17 [History] Cholecalciferol (D-3) [Vitamin D] 5,000 unit PO DAILY 11/22/17 [History] Apixaban [Eliquis] 5 mg PO BID 30 Days #60 tablet 12/07/17 [Rx] Allergies/Adverse Reactions: Allergy/AdvReac Type Severity Reaction Status Date / Time No Known Allergies Allergy Verified 11/22/17 10:00 Date of admission: 12/05/17 15:59 Primary care physician: Lauren Calvillo Consults: 12/05/17 11:00 Consult to Dialysis [CONS] ONCE 12/07/17 08:45 Consult to Dialysis [CONS] ONCE Discharging clinician: Edyta Mascorro Anticipated date of discharge: 12/07/17 - Constitutional Vitals: Temp Pulse Resp BP Pulse Ox 97.6 F 78 18 108/54 94 12/07/17 09:25 12/07/17 07:29 12/07/17 09:25 12/07/17 09:55 12/07/17 07:29 General appearance: Present: A&O X 3 Exam: in NAD - Head Head exam: Present: atraumatic, normocephalic - Eye Eye exam: Present: PERRL, conjuntiva pink, sclera anicteric Pupils: Present: PERRL - Neck Neck exam general surgery: Present: supple, trachea midline. Absent: lymphadenopathy - Respiratory Respiratory exam: Present: CTAB. Absent: accessory muscle use, rales, rhonchi, wheezes - Cardiovascular Cardiovascular exam: Present: RRR, +S1, +S2. Absent: diastolic murmur, gallop, rubs, systolic murmur - GI/Abdominal GI/Abdominal exam: Present: normal bowel sounds, soft, no peritoneal signs. Absent: distended, tenderness - Extremities Exam Extremities exam: Present: warm, radial pulses palpable and symmetrical. Absent: calf tenderness, cyanotic, pedal edema - Neurological Exam Neurological exam: Present: CN II-XII intact, oriented X3, no focal deficits. Absent: pronater drift, facial droop, speech deficit - Skin Skin exam: Present: dry, intact - Patient Status Disposition: Home Health Service Condition: Good Functional capacity at discharge: uses cane/walker Overall status at discharge: patient is back to baseline - Discharge Instructions Follow Up With: Lauren Calvillo MD [Primary Care Provider] - - Diet and Activity Activity: as per physical therapy Diet: diabetic diet, other (Renal diet)
--- NOTE | 2017-12-07 11:16 | Physician Discharge Referral ---
Home Health/Hosp Referral Info Transfer to: Home Health Provider in Charge Post Discharge: PCP - Diagnosis (1) Acute exacerbation of CHF (congestive heart failure) Status: Acute (2) ESRD (end stage renal disease) on dialysis Status: Chronic (3) Anemia in chronic kidney disease Status: Chronic (4) Type 2 diabetes mellitus Status: Chronic (5) Cardiac enzymes elevated Status: Acute (6) Afib Status: Chronic (7) Hyperkalemia Status: Acute (8) HTN (hypertension) Status: Chronic (9) DVT prophylaxis Status: Acute (10) Calciphylaxis Status: Acute (11) Hyponatremia Status: Acute (12) Thrombocytopenia Status: Acute - Respiratory Orders Smoking Cessation: Smoking cessation has been advised. For more information, call the [employer] [facility] Quit Line at 3-801-NDQC-NOW. - Diet/Nutrition Diet/Nutrition Orders: Renal, No Concentrated Sweets - Services Needed Following services are medically necessary services: Nursing, Home Health Aide, Physical Therapy, Occupational Therapy - Transfer Medications Prescriptions: Apixaban [Eliquis] 5 mg PO BID 30 Days #60 tablet Home Medications: Atorvastatin [Lipitor] 40 mg PO HS 06/02/15 [History] Enalapril Maleate [Vasotec] 20 mg PO BID 06/02/15 [History] Esomeprazole Magnesium [Nexium] 40 mg PO DAILY 06/02/15 [History] Insulin Glargine,Hum.rec.anlog [Lantus Solostar] 36 unit SQ DAILY 06/02/15 [History] Carvedilol [Coreg] 25 mg PO BID 09/09/15 [History] Furosemide [Lasix] 40 mg PO BID 09/09/15 [History] hydrALAZINE [HydrALAZINE] 25 mg PO Q6HR 09/09/15 [History] Folic Acid/Vit B Complex and C [Dialyvite Tablet] 1 tab PO DAILY 06/15/17 [History] Sevelamer [Renvela] 800 mg PO TIDWM 09/09/17 [History] Aspirin Enteric Coated [Aspirin EC] 81 mg PO DAILY 10/24/17 [History] metOLazone [Zaroxolyn] 2.5 mg PO DAILY 10/24/17 [History] Cholecalciferol (D-3) [Vitamin D] 5,000 unit PO DAILY 10/09/18 [History] Apixaban [Eliquis] 5 mg PO BID 30 Days #60 tablet 12/07/17 [Rx] Allergies/Adverse Reactions: Allergy/AdvReac Type Severity Reaction Status Date / Time No Known Allergies Allergy Verified 11/22/17 10:00 Certification: Further, I certify that my clinical findings support that this patient is homebound (i.e. absences from home require considerable and taxing effort and are for medical reasons or druze services or infrequently or short duration when for other reasons) because: Homebound Reason: Patient requires assistance of a person or device to safely leave home Attestation: My signature below is to certify that this patient is under my care and that I, or nurse practitioner, or a physician's assistant professor of german working with me, has a [id number] encounter with this patient.
[2017-12-07 15:07] VITALS: BP 114/55
[2017-12-07] MEDS ORDERED: Sodium Thiosulfate 25 GM in EMPTY BAG 1 EACH IVPB SCH (16:00)
== END 2017-12-07 16:10 | disposition home health service (06) | DRG 291 ==
LOC: 2ANU 03:55 → EMEROOARM 03:55 → 2ANU 14:43
PROVIDERS: ADMIT Internal Medicine Nephrology; ATTEND Internal Medicine Nephrology